=== PATIENT | female | born 1940 | race Caucasian/White ===

== ENCOUNTER → 2018-02-15 09:02 | Outpatient (CLI) | payer MEDICARE, OTHER, SELFPAY ==
[2018-02-15 10:55] LABS: Anion Gap 10 (5-15); BUN 23 mg/dL (7-18); BUN/Creat Ratio 17.3 RATIO (10-20); Chloride 111 mmol/L (98-107); Cholesterol 164 mg/dL (200); Creatinine, Serum 1.33 mg/dL (0.55-1.02); EST Glomerular Filtration Rate 41 mL/min (>60); Est Glom Filt Rate - Afr Amer 50 mL/min (>60); Glucose 123 mg/dL (74-106); High Density Lipoprotein 47 mg/dL; Potassium 4.3 mmol/L (3.5-5.1); Sodium Level 145 mmol/L (136-145); Triglycerides 226 mg/dL; Very Low Density Lipoprotein 45 mg/dL (5-40)
[2018-02-15 11:01] LABS: Hemoglobin A1c 6.3 % (4.2-6.3)
== END ==
PROVIDERS: Family Provider Family Medicine; PCP Family Medicine; Visit Provider Family Medicine
DX: I10 Essential (primary) hypertension (principal); R73.03 Prediabetes; E78.00 Pure hypercholesterolemia, unspecified
CPT/HCPCS: 36415; 80048; 80061; 83036

== ENCOUNTER → 2018-04-05 12:25 | Outpatient (CLI) | payer MEDICARE, OTHER, SELFPAY ==
[2018-04-05 13:51] LABS: Absolute Neutrophil Count 6.1 X10^3/uL (2.0-7.7); Basophil# 0.03 X10^3/uL; Basophil% 0.4 % (0-1); Eosinophil# 0.23 X10^3/uL; Eosinophils% 2.7 % (0-5); Hematocrit 38.6 % (37-47); Hemoglobin 12.3 g/dl (12.0-15.0); Mean Corp Hgb Conc 31.9 g/gl (32-36); Mean Corpuscular Hgb 30.1 pg (27.0-32.0); Mean Corpuscular Volume 94.6 fL (81-99); Mean Platelet Vol. 10.4 fl (6.2-12.0); Monocyte# 0.41 X10^3/uL; Monocyte% 4.8 % (0-10); Platelet Count 278 K/mm3 (150-450); RBC Distribution Width CV 13.4 % (11.6-14.6); Red Blood Count 4.08 M/mm3 (4.2-5.4); White Blood Count 8.5 K/mm3 (4.4-11.0)
[2018-04-05 13:52] LABS: POSITIVE COUNT NO; POSITIVE DIFFERENTIAL NO; POSITIVE MORPHOLOGY NO
[2018-04-05 14:17] LABS: ALB/GLOB Ratio 0.9 RATIO (0.9-2.4); AST(SGOT) 12 U/L (15-37); Alanine Aminotransfer ALT/SGPT 15 U/L (13-56); Albumin, Serum 3.6 g/dL (3.2-5.0); Alkaline Phosphatase 116 U/L (45-117); Anion Gap 9 (5-15); BUN 21 mg/dL (7-18); BUN/Creat Ratio 17.6 RATIO (10-20); Calcium,Total 9.9 mg/dL (8.5-10.1); Chloride 106 mmol/L (98-107); Creatinine, Serum 1.19 mg/dL (0.55-1.02); EST Glomerular Filtration Rate 47 mL/min (>60); Est Glom Filt Rate - Afr Amer 56 mL/min (>60); Glucose 87 mg/dL (74-106); Potassium 4.4 mmol/L (3.5-5.1); Protein, Total 7.6 g/dL (6.4-8.2); Sodium Level 143 mmol/L (136-145); Thyroid Stim Hormone (TSH) 2.24 uIU/mL (0.358-3.74)
[2018-04-06 08:32] LABS: Vitamin D,25 Hydroxy 21.6 ng/mL (29.95-100.01)
== END ==
PROVIDERS: Family Provider Family Medicine; PCP Family Medicine; Visit Provider Family Medicine
DX: I48.91 Unspecified atrial fibrillation (principal); R53.83 Other fatigue
CPT/HCPCS: 36415; 80053; 82306; 84443; 84484; 85025

== ENCOUNTER → 2018-08-18 09:21 | Outpatient (CLI) | payer MEDICARE, OTHER, SELFPAY ==
[2018-08-18 10:41] LABS: Anion Gap 9 (5-15); BUN 23 mg/dL (7-18); BUN/Creat Ratio 16.8 RATIO (10-20); Calcium,Total 9.8 mg/dL (8.5-10.1); Chloride 108 mmol/L (98-107); Cholesterol 171 mg/dL (200); Creatinine, Serum 1.37 mg/dL (0.55-1.02); EST Glomerular Filtration Rate 40 mL/min (>60); Est Glom Filt Rate - Afr Amer 48 mL/min (>60); Glucose 116 mg/dL (74-106); High Density Lipoprotein 46 mg/dL; Potassium 4.1 mmol/L (3.5-5.1); Sodium Level 143 mmol/L (136-145); Triglycerides 283 mg/dL; Very Low Density Lipoprotein 57 mg/dL (5-40)
[2018-08-18 10:57] LABS: Hemoglobin A1c 6.1 % (4.2-6.3)
== END ==
PROVIDERS: Family Provider Family Medicine; PCP Family Medicine; Referring Provider Family Medicine; Visit Provider Family Medicine
DX: N18.2 Chronic kidney disease, stage 2 (mild) (principal); R73.03 Prediabetes; E78.00 Pure hypercholesterolemia, unspecified
CPT/HCPCS: 36415; 80048; 80061; 83036

== ENCOUNTER → 2018-11-04 12:20 | Outpatient (CLI) | payer MEDICARE, OTHER, SELFPAY ==
[2018-07-13 14:27] VITALS: BMI 36.2
--- NOTE | 2018-11-04 12:28 | RAD_ITS ---
STUDY: X-RAY - BILATERAL HIPS WITH PELVIS REASON FOR EXAM: Female, 77 years old. Pain in the lower back radiating to the left hip down the left leg, right hip replacement TECHNIQUE: 2 views of the right hip, and 2 views of the left hip were obtained. AP pelvis. COMPARISON: None. FINDINGS: Pelvic ring is intact without evidence of fracture. Operative changes of the visualized lumbar spine noted. Sacroiliac joints and pubic symphysis are grossly unremarkable. Right Hip: Right hip replacement is in radiographic alignment. Left Hip: There are osteoarthritic changes of the left femoral head with marginal osteophyte formation. There is osteoarthritic spur formation of the left acetabular rim. There is severe articular joint space narrowing of the left hip. RAD/Hips B/L min 2 views w/ Pelvis IMPRESSION: 1. Radiographic alignment of right hip replacement. 2. Severe osteoarthrosis of the left hip Electronically Signed: Nilson Duarte MD at 18:48 EST , Service support ,
--- NOTE | 2018-11-04 12:28 | RAD_ITS ---
STUDY: X-RAY - LUMBAR SPINE REASON FOR EXAM: Female, 77 years old. No known recent injury. Pain in lower back radiating into left hip and down left leg. Patient states her back fusion was about 4 yrs ago. TECHNIQUE: 3 view(s) of the lumbar spine were obtained. COMPARISON: October 07, 2015 FINDINGS: Normal lumbar lordosis. There is posterior fusion with transpedicular screws at L3, L4 and L5. Again noted is the grade 1 anterolisthesis at L3/L4 and L4/L5, stable since prior examination There is multilevel endplate spondylosis of the lumbar vertebrae. There is multi-level degenerative disc disease with multi-level disc space narrowing. The soft tissue structures are unremarkable. RAD/Lumbar Spine 2 or 3 Views IMPRESSION: Stable examination. Degenerative changes of the spine. Electronically Signed: John Cano MD at 8:56 EST Tel , Service support ,
== END ==
PROVIDERS: Family Provider Family Medicine; PCP Family Medicine; Referring Provider Family Medicine; Visit Provider Family Medicine
DX: M16.12 Unilateral primary osteoarthritis, left hip (principal); Z96.643 Presence of artificial hip joint, bilateral; M54.5 Low back pain
CPT/HCPCS: 72100; 73521

== ENCOUNTER 2018-11-13 15:11 | Emergency (ER) | payer MEDICARE, OTHER, SELFPAY ==
[2018-11-13 15:12] VITALS: BP 169/100; PULSE 65; RESP 15; TEMP 36.6; O2SAT 96; BMI 33.6
--- NOTE | 2018-11-13 15:24 | RAD_ITS ---
STUDY: X-RAY - PELVIS REASON FOR EXAM: Female, 77 years old. Pain, no known injury TECHNIQUE: One view of the pelvis was obtained. COMPARISON: 11/04/2018 FINDINGS: Stable postsurgical changes of the right hip. No evidence of acute fracture or dislocation. Severe degenerative change of the left hip. Postsurgical changes of the lower lumbar spine with moderate degenerative change of the SI joints. No acute findings RAD/Pelvis 1 or 2 Views IMPRESSION: No acute findings Electronically Signed: Cordell Hunter DO at 16:13 EST Tel , Service support ,
--- NOTE | 2018-11-13 15:27 | ED.VISSUMM ---
- ER Visit Summary Date of Service: 11/13/18 Chief Complaint: Atraumatic right hip pain History of Present Illness: The patient is a 77 F status post hip replacement about [address] Beto Wright. Patient states the last 2 days she has had right hip pain primarily with movement or ambulation. She denies any fever or chills. No redness, warmth or swelling. She has had a hip replaced she really denies having any pain to this area. She does have intermittent left hip pain is having that evaluated later this week. She denies any type of falls or trauma. She denies any worsening right knee or ankle pain. Physical Examination: Well-appearing older female coming by her spouse. Vital signs are stable and afebrile. H EENT exam unremarkable. Neck nontender no lymphadenopathy. Lungs clear to auscultation bilaterally. Heart regular rhythm no murmur. Rate about 70. Abdomen soft and nontender. Normal bowel sounds no peritoneal signs. Back nontender. Both the upper extremities are nontender with normal range of motion. Equal symmetrical 5 out of 5 aircraft air conditioning mechanic strength. Both lower extremities she has normal range of motion of both hips, knees, ankles and feet. Calves are nontender. There is no edema. She has mild tenderness to the right lateral hip and right thigh but there is no redness, warmth or swelling. There are no signs of trauma. Again she has normal range of motion both lower extremities. Dorsi plantar flexion intact. Normal touch sensation in both feet. Normal DP pulse in the right. Back exam is nontender. Neurologically she is awake alert with no focal motor deficits. Test Results: Right hip and pelvis x-rays show no acute process. No fractures. Pelvis left hip shows degenerative joint disease but no fracture. The prosthesis on the right hip and femur x-rays all looks unremarkable. There is no periprosthetic fractures. It looks like it still in the bone normally. There does not appear to be any loosening. Emergency Department Course and Treatment: Patient was offered but deferred anything for pain at this time. I went over all x-rays with the patient and her . They are not going to follow-up with her physician Dr. Beto Wright. Treatment Plan: He will he has an appointment with her orthopedic office this week. He did request something stronger for pain states Tylenol is not working. She will be written for a prescription for Percocet No. 20 no refill. Disposition: Discharge Impression: Acute, atraumatic right hip pain of uncertain cause. Status post right hip prosthesis Left hip arthritis This note was generated with Jemstep dictation software. It may contain incorrect words, spelling, and punctuation that were not noted in review of the chart prior to signing ED Disposition - Plan for ED Patient: Disposition: Home or Assisted Living Chief Complaint: Lower Extremity Injury Prescriptions: Oxycodone HCl/Acetaminophen [Percocet 7.5-325 mg Tablet] 1 tab PO Q6H PRN PRN 7 Days #20 tab PRN Reason: Pain Referrals: Beto Wright DO [STAFF PHYSICIAN] - As soon as possible Additional Instructions: Ice to right hip. Tylenol for pain. Keep your scheduled appointment or try to get in sooner if she Dr. Wright.
--- NOTE | 2018-11-13 15:35 | RAD_ITS ---
STUDY: X-RAY - RIGHT FEMUR REASON FOR STUDY: Female, 77 years old. Pain. TECHNIQUE: 4 view(s) of the femur. COMPARISON: 11/04/2018. FINDINGS: There is no fracture or dislocation. The patient is status post right hip replacement. There is no prosthetic or periprosthetic fracture. No radiographic evidence of loosening. Joint spaces are well-maintained. Soft tissues and bony structures are unremarkable. RAD/Femur Min 2 Views IMPRESSION: Right hip replacement, otherwise negative x-ray examination of the femur. Electronically Signed: Mabel Dorado MD at 17:23 EST Tel , Service support ,
--- NOTE | 2018-11-13 16:01 | ED.DEP ---
ED Disposition - Plan for ED Patient: Disposition: Home or Assisted Living Chief Complaint: Lower Extremity Injury Prescriptions: Oxycodone HCl/Acetaminophen [Percocet 7.5-325 mg Tablet] 1 tab PO Q6H PRN PRN 7 Days #20 tab PRN Reason: Pain Referrals: Beto Wright DO [STAFF PHYSICIAN] - As soon as possible Additional Instructions: Ice to right hip. Tylenol for pain. Keep your scheduled appointment or try to get in sooner if she Dr. Wright.
[2018-11-13 16:29] VITALS: BP 138/74; PULSE 65; RESP 16; O2SAT 96
== END 2018-11-13 16:31 | disposition home or self-care (01) ==
PROVIDERS: Emergency Provider Emergency Medicine; Family Provider Family Medicine; PCP Family Medicine
DX: M25.551 Pain in right hip (principal); Z96.641 Presence of right artificial hip joint; M13.852 Other specified arthritis, left hip; I10 Essential (primary) hypertension; E78.00 Pure hypercholesterolemia, unspecified
CPT/HCPCS: 72170; 73552; 99282

== ENCOUNTER 2019-01-30 05:29 | Inpatient (IN) | payer MEDICARE, OTHER, SELFPAY ==
[2019-01-17 10:35] VITALS: BP 160/75; PULSE 69; RESP 18; TEMP 36.8; O2SAT 93; BMI 36.0
--- NOTE | 2019-01-17 10:40 | EKG12_ITS ---
Test Reason : Blood Pressure : / mmHG Vent. Rate : 063 BPM Atrial Rate : 063 BPM P-R Int : 150 ms QRS Dur : 084 ms QT Int : 394 ms P-R-T Axes : 047 073 027 degrees QTc Int : 403 ms Normal sinus rhythm Normal ECG Confirmed by ROSMERY WALL, DEEPTHI ([id number]), commissioning editor CELINE PEREZ ([id number]) on 01/19/2019 11:12:46 AM Referred By: Beto Wright Confirmed By:DEEPTHI BOTELLO MD
[2019-01-17 11:28] LABS: Absolute Lymphocyte Count 1.24 X10^3/ul (0.83-4.51); Absolute Neutrophil Count 7.7 X10^3/uL (2.0-7.7); Basophil# 0.06 X10^3/uL; Basophil% 0.6 % (0-1); Eosinophil# 0.33 X10^3/uL; Eosinophils% 3.3 % (0-5); Hematocrit 35.6 % (37-47); Hemoglobin 11.2 g/dl (12.0-15.0); Lymphocyte # 1.24 X10^3/ul (4.0); Lymphocyte % 12.5 % (19-41); Mean Corp Hgb Conc 31.5 g/gl (32-36); Mean Corpuscular Hgb 30.7 pg (27.0-32.0); Mean Corpuscular Volume 97.5 fL (81-99); Mean Platelet Vol. 10.3 fl (6.2-12.0); Monocyte# 0.56 X10^3/uL; Monocyte% 5.6 % (0-10); Neutrophil # 7.73 X10^3/uL (2.7-7.7); Neutrophil % 77.9 % (47-70); Platelet Count 293 K/mm3 (150-450); RBC Distribution Width CV 13.1 % (11.6-14.6); RBC Distribution Width SD 47.1 fl (35.1-43.9); Red Blood Count 3.65 M/mm3 (4.2-5.4); White Blood Count 9.9 K/mm3 (4.4-11.0)
[2019-01-17 11:30] LABS: Differential Indicated SCAN CRITERIA MET; POSITIVE COUNT NO; POSITIVE DIFFERENTIAL NO; POSITIVE MORPHOLOGY YES
[2019-01-17 12:08] LABS: Anion Gap 11 (5-15); BUN 20 mg/dL (7-18); BUN/Creat Ratio 16.4 RATIO (10-20); Calcium,Total 9.6 mg/dL (8.5-10.1); Chloride 109 mmol/L (98-107); Creatinine, Serum 1.22 mg/dL (0.55-1.02); EST Glomerular Filtration Rate 45 mL/min (>60); Est Glom Filt Rate - Afr Amer 55 mL/min (>60); Estimated Creatinine Clearance 29.57 ml/min; Glucose 134 mg/dL (74-106); Potassium 4.2 mmol/L (3.5-5.1); Sodium Level 146 mmol/L (136-145); Thyroid Stim Hormone (TSH) 2.48 uIU/mL (0.358-3.74)
[2019-01-30] VITALS (14 sets, daily range): BP systolic 97–179; BP diastolic 43–77; PULSE 66–76; RESP 16–18; TEMP 36.2–37.1; O2SAT 91–98; BMI 36.0; BMI 36.2
[2019-01-30] MEDS: oxyCODONE HCl Cr 10 MG Tablet PO (06:23)
[2019-01-30] MEDS: Acetaminophen 500 MG Tablet 1000 MG PO ×3 (06:23→20:29)
--- NOTE | 2019-01-30 07:15 | HIP_PTH ---
PATIENT: LIN MCQUEEN LOC: [facility]3 U#:[id number] AGE/SX: 78/F ROOM: MS307 RE01/30/[address]: Dr. Beto Wright DO : 1940 BED: 1 DIS: 02/01/2019 SPEC #: [id number] RECD: 01/30/19 09:41 STATUS: JAIRO REQ #: [id number] PETAR: 01/30/19 07:[address]: Beto Wright DEPT: SURGICAL PATHOLOGY RECD BY: Andrey Harris ENTERED: 01/30/19 13:03 SP TYPE: TOTAL HIP OTHR DR: Dr. Serge Marrero MD Tissues: Hip, NOS Procedures: Decalcification bone/plaque Surgery Specimen Level IV HEADER OPERATION: Total hip replacement PRE-OP DIAGNOSIS: Severe osteoarthritis TISSUE SUBMITTED: Bone and soft tissue MICROSCOPIC DIAGNOSIS Bone and soft tissue of left hip, total hip resection: Severe degenerative joint disease. Mild synovial hyperplasia. AM:yu 02/02/19 MICROSCOPIC DESCRIPTION Slides are reviewed. GROSS DESCRIPTION Received is one container designated bone and soft tissue, left femoral head. The specimen consists of a jones femoral head with portion of femoral neck. The femoral head measures 4 x 4.5 x 4.5 cm and the femoral neck measures up to 1.5 cm in length. The articular surface displays prominent osteophyte formation, eburnation and bone erosion. Also present in the specimen container are multiple irregular fragments of bone reamings and pink-yellow soft tissue measuring in aggregate 7 x 8 x 2.5 cm. Electrical Machine Builder sections are submitted in two cassettes as follows: 1 - soft tissue, 2 - bone after decalcification. / SJ:yu 01/30/19 TC:5 [facility]: [id number], [id number]
--- NOTE | 2019-01-30 07:23 | RAD_ITS ---
STUDY: X-RAY - LEFT HIP REASON FOR EXAM: Female, 78 years old. Status post left total hip replacement. TECHNIQUE: 2 views of the hip. COMPARISON: None. FINDINGS: The patient is status post left total hip replacement. There is good alignment. Postoperative soft tissue changes. Prior right total hip replacement. Normal visualized superior and inferior pubic rami and ischial tuberosities. RAD/Hip 1 view with Pelvis IMPRESSION: Status post left total hip replacement. There is good alignment. Postoperative soft tissue changes. Electronically Signed: Jhonny Andrade, at 10:14 EDT , Service support ,
[2019-01-30] MEDS: Cefazolin 2 GM in 0.9% Normal Saline 100 ML IV (07:26)
--- NOTE | 2019-01-30 08:42 | PCM.OPRPT ---
Report of Operation Date of Procedure: 01/30/19 Pre-Operative Diagnosis: OA left hip Post-Operative Diagnosis: same Surgery/Procedure Performed:: Left THR master carpenter: Viraj Davalos Type of Anesthesia:: Spinal Anesthesiologist: Sunny Quinones Description of Procedure: Primary Surgeon/Physician: Beto Wright master carpenter: Viraj Davalos PA-C master carpenter: Pre-Operative Diagnosis: OA left hip Post-Operative Diagnosis: same Surgery/Procedure Performed: Left THR Estimated Blood Loss: 100cc Specimen's Removed: bone Type of Anesthesia: spinal ASA Class: ASA3 Severe Disease Implants: [Lalito Trident tritanium cluster hole size 46 cup, MDM liner, Size 5 Accolade 2 132 degree stem with +3 neck langth ] Surgical Indications: Patient has severe end-stage osteoarthritic changes in the [left ] hip. They have failed conservative measures including activity modification, anti-inflammatories, use of assistive devices. This to the point where the pain affects their ability to enjoy life and complete activities of daily living without discomfort. Patient has elected to undergo the above procedure Procedure Description: The patient was greeted in the preoperative area the [left ] hip was marked with surgical marker preoperative antibiotics administered. The patient was then taken to or suite in stable condition. Preoperative tranexamic acid was also utilized. Once the patient was placed in the supine position on the operating room table and once adequate anesthesia was obtained they were then placed in the lateral decubitus position with the surgical hip facing the field. All bony prominences were well-padded. A commercial hip position was utilized. The appropriate extremity was then prepped and draped in usual sterile fashion. Ioban was placed on the skin. Surgical timeout was performed and surgery was commenced. A standard posterior approach to the hip was then performed. Incision was planned and carried out with a #10 blade scalpel. Dissection was then carried length of the incision to the IT band which was split proximally and distally. A Charnley retractor was then placed for soft tissue retraction exposing the piriformis. A standard posterior capsulotomy was performed. Severe eburnation of bone was noted and periarticular osteophytes were identified consistent with severe end-stage osteoarthritis. A femoral neck osteotomy guide was used to laly the proximal femur. A femoral osteotomy was then created approximately 1 fingerbreadth above the lesser trochanter. This was measured and placed on the back table. Once this was complete acetabular retractors were placed anteriorly and posteriorly. Labrum was then removed from the acetabulum exposing the entire cup of the acetabulum. Sequential reaming was then commenced and the acetabulum was medialized and sequentially widened in order to accommodate appropriate size cup. The acetabular cup was then impacted into position to the appropriate depth referencing approximately 30? anteversion and 45? of inclination. Excellent purchase was obtained. An appropriate size MDM liner was then placed. Attention was then turned to the femoral preparation. The hip was placed in the 90/90 position and a lateralizing box osteotome was utilized. Femoral starting awl was used followed by sequential broaching to the appropriate size. Excellent purchase was obtained with the stem no stem subsidence and excellent rotational stability was confirmed. A calcar reamer was then used in the trial head neck was placed on the broach. The hip was then located and taken through full range of motion flexion internal and external rotation as well as extension. Excellent stability was noted no impingement was identified of the components and leg lengths appear to be appropriate. The hip was at this point dislocated and the trial femoral components were removed. The final femoral stem was then implanted and impacted to the appropriate depth. Again excellent purchase was obtained no stem subsidence or rotational instability was noted. The hip was once again trialed and confirmation of leg length and stability was performed. Soft tissue tension also appeared to be appropriate. At this point the hip was redislocated and the trunnion was cleaned and dried meticulously in the appropriate size MDM femoral head was placed on the clean dry trunnion using a 12/14 Solorzano taper. The hip was once again relocated and again taken through full range of motion. I did inject a cocktail of postoperative pain medication in the deep and superficial tissues. Copious irrigation was performed. Anatomic closure of the piriformis tendon was performed through drill holes in the greater trochanter. A #1 Vicryl 0 Vicryl was utilized in subcutaneous tissue and surgical austin were placed in the skin. A well-padded nonadherent dressing was applied. Patient was taken to PACU in stable condition. No complications were identified. Will follow standard postop protocol for total hip arthroplasty. My machine operator assistant played a vital role in the procedure beginning with positioning, holding retraction of soft tissues, positioning the leg to optimize visualization during the procedure and assisting with wound closure.
--- NOTE | 2019-01-30 08:47 | OP.PCM_ITS ---
Report of Operation Date of Procedure: 01/30/19 Pre-Operative Diagnosis: OA left hip Post-Operative Diagnosis: same Surgery/Procedure Performed:: Left THR associate dean of students: Viraj Davalos Type of Anesthesia:: Spinal Anesthesiologist: Sunny Quinones Description of Procedure: Primary Surgeon/Physician: Beto Wright associate dean of students: Viraj Davalos PA-C associate dean of students: Pre-Operative Diagnosis: OA left hip Post-Operative Diagnosis: same Surgery/Procedure Performed: Left THR Estimated Blood Loss: 100cc Specimen's Removed: bone Type of Anesthesia: spinal ASA Class: ASA3 Severe Disease Implants: [Lalito Trident tritanium cluster hole size 46 cup, MDM liner, Size 5 Accolade 2 132 degree stem with +3 neck langth ] Surgical Indications: Patient has severe end-stage osteoarthritic changes in the [left ] hip. They have failed conservative measures including activity modification, anti-inflammatories, use of assistive devices. This to the point where the pain affects their ability to enjoy life and complete activities of daily living without discomfort. Patient has elected to undergo the above procedure Procedure Description: The patient was greeted in the preoperative area the [left ] hip was marked with surgical marker preoperative antibiotics administered. The patient was then taken to or suite in stable condition. Preoperative tranexamic acid was also utilized. Once the patient was placed in the supine position on the operating room table and once adequate anesthesia was obtained they were then placed in the lateral decubitus position with the surgical hip facing the field. All bony prominences were well-padded. A commercial hip position was utilized. The appropriate extremity was then prepped and draped in usual sterile fashion. Ioban was placed on the skin. Surgical timeout was performed and surgery was commenced. A standard posterior approach to the hip was then performed. Incision was planned and carried out with a #10 blade scalpel. Dissection was then carried length of the incision to the IT band which was split proximally and distally. A Charnley retractor was then placed for soft tissue retraction exposing the piriformis. A standard posterior capsulotomy was performed. Severe eburnation of bone was noted and periarticular osteophytes were identified consistent with severe end-stage osteoarthritis. A femoral neck osteotomy guide was used to laly the proximal femur. A femoral osteotomy was then created approximately 1 fingerbreadth above the lesser trochanter. This was measured and placed on the back table. Once this was complete acetabular retractors were placed anteriorly and posteriorly. Labrum was then removed from the acetabulum exposing the entire cup of the acetabulum. Sequential reaming was then commenced and the acetabulum was medialized and sequentially widened in order to accommodate appropriate size cup. The acetabular cup was then impacted into position to the appropriate depth referencing approximately 30? anteversion and 45? of inclination. Excellent purchase was obtained. An appropriate size MDM liner was then placed. Attention was then turned to the femoral preparation. The hip was placed in the 90/90 position and a lateralizing box osteotome was utilized. Femoral starting awl was used followed by sequential broaching to the appropriate size. Excellent purchase was obtained with the stem no stem subsidence and excellent rotational stability was confirmed. A calcar reamer was then used in the trial head neck was placed on the broach. The hip was then located and taken through full range of motion flexion internal and external rotation as well as extension. Excellent stability was noted no impingement was identified of the components and leg lengths appear to be appropriate. The hip was at this point dislocated and the trial femoral components were removed. The final femoral stem was then implanted and impacted to the appropriate depth. Again excellent purchase was obtained no stem subsidence or rotational instability was noted. The hip was once again trialed and confirmation of leg length and stability was performed. Soft tissue tension also appeared to be appropriate. At this point the hip was redislocated and the trunnion was cleaned and dried meticulously in the appropriate size MDM femoral head was placed on the clean dry trunnion using a 12/14 Solorzano taper. The hip was once again relocated and again taken through full range of motion. I did inject a cocktail of postoperative pain medication in the deep and superficial tissues. Copious irrigation was performed. Anatomic closure of the piriformis tendon was performed through drill holes in the greater trochanter. A #1 Vicryl 0 Vicryl was utilized in subcutaneous tissue and surgical austin were placed in the skin. A well-padded nonadherent dressing was applied. Patient was taken to PACU in stable condition. No complications were identified. Will follow standard postop protocol for total hip arthroplasty. My biology research assistant played a vital role in the procedure beginning with positioning, holding retraction of soft tissues, positioning the leg to optimize visualization during the procedure and assisting with wound closure.
[2019-01-30] MEDS: Ondansetron 4 MG/2 ML Vial IV ×2 (09:41→20:13)
[2019-01-30] MEDS: Lactated Ringers 1,000 ML 125 ML IV ×2 (10:00→18:23)
--- NOTE | 2019-01-30 11:51 | NURSING ---
pt requested to use restroom. This RN and GUIDE DOMESTIC TOUR assist pt to BSC. prior to transfer pt reported having feeling bilaterally and was able to move both legs. During transfer pt was unable to move legs and had to be lifted to BSC and back to bed. Educated pt on importance of waiting to get up again until she could fully control legs. Pt stated understanding. will continue to monitor.
[2019-01-30] MEDS: Ketorolac 15 MG/ML Vial IV ×2 (13:31→20:13)
[2019-01-30] MEDS: oxyCODONE 5 MG Tablet PO (14:55)
[2019-01-30] MEDS: Cefazolin 1 GM/50 ML BAG IV ×2 (14:56→23:33)
[2019-01-30] MEDS: proMETHazine 25 MG/ML Syringe 12.5 MG IM (14:56)
[2019-01-30 16:43] LABS: Anion Gap 4 (5-15); BUN 17 mg/dL (7-18); BUN/Creat Ratio 14.5 RATIO (10-20); Calcium,Total 9.1 mg/dL (8.5-10.1); Chloride 109 mmol/L (98-107); Creatinine, Serum 1.17 mg/dL (0.55-1.02); EST Glomerular Filtration Rate 47 mL/min (>60); Est Glom Filt Rate - Afr Amer 57 mL/min (>60); Estimated Creatinine Clearance 29.42 ml/min; Glucose 129 mg/dL (74-106); Potassium 3.9 mmol/L (3.5-5.1); Sodium Level 139 mmol/L (136-145)
[2019-01-30 16:46] LABS: Hemoglobin 10.2 g/dl (12.0-15.0); Mean Corp Hgb Conc 30.9 g/gl (32-36); Mean Corpuscular Hgb 31.4 pg (27.0-32.0); Mean Corpuscular Volume 101.5 fL (81-99); Mean Platelet Vol. 10.6 fl (6.2-12.0); Platelet Count 211 K/mm3 (150-450); RBC Distribution Width CV 12.8 % (11.6-14.6); RBC Distribution Width SD 46.3 fl (35.1-43.9); Red Blood Count 3.25 M/mm3 (4.2-5.4); White Blood Count 12.3 K/mm3 (4.4-11.0)
[2019-01-30 16:48] LABS: Scan Indicated on CBC? Y/N NO
[2019-01-30] MEDS: Gabapentin 100 MG Capsule PO (18:26)
[2019-01-30] MEDS: Senna/Docusate Sodium 1 Tablet 2 TABLET PO (20:29)
[2019-01-30] MEDS: Metoprolol Tartrate 50 MG Tablet PO (20:29)
[2019-01-30] MEDS: Aspirin 325 MG Tablet PO (20:30)
[2019-01-30] MEDS: Atorvastatin Calcium 10 MG Tablet PO (20:31)
[2019-01-31 02:45] VITALS: BP 123/66; PULSE 80; RESP 16; TEMP 37.1; O2SAT 92
[2019-01-31] MEDS: oxyCODONE 5 MG Tablet PO ×3 (02:55→20:33)
[2019-01-31 03:00] VITALS: PULSE 80
[2019-01-31] MEDS: 0.9% NaCl Peripheral Flush Adult/Peds IV ×2 (04:59→05:55)
[2019-01-31] MEDS: Levothyroxine 50 MCG Tablet PO (05:01)
[2019-01-31] MEDS: Acetaminophen 500 MG Tablet 1000 MG PO ×3 (05:01→21:00)
[2019-01-31] MEDS: Ketorolac 15 MG/ML Vial IV (05:55)
[2019-01-31 06:18] LABS: Hematocrit 31.4 % (37-47); Hemoglobin 9.7 g/dl (12.0-15.0); Mean Corp Hgb Conc 30.9 g/gl (32-36); Mean Corpuscular Hgb 31.2 pg (27.0-32.0); Mean Platelet Vol. 10.5 fl (6.2-12.0); Platelet Count 198 K/mm3 (150-450); RBC Distribution Width CV 12.9 % (11.6-14.6); RBC Distribution Width SD 45.3 fl (35.1-43.9); Red Blood Count 3.11 M/mm3 (4.2-5.4); White Blood Count 9.6 K/mm3 (4.4-11.0)
[2019-01-31 06:21] LABS: Scan Indicated on CBC? Y/N NO
[2019-01-31 06:24] LABS: Anion Gap 5 (5-15); BUN 15 mg/dL (7-18); BUN/Creat Ratio 12.7 RATIO (10-20); Calcium,Total 9.1 mg/dL (8.5-10.1); Chloride 107 mmol/L (98-107); Creatinine, Serum 1.18 mg/dL (0.55-1.02); EST Glomerular Filtration Rate 47 mL/min (>60); Est Glom Filt Rate - Afr Amer 57 mL/min (>60); Estimated Creatinine Clearance 29.17 ml/min; Glucose 126 mg/dL (74-106); Potassium 4.1 mmol/L (3.5-5.1); Sodium Level 140 mmol/L (136-145)
--- NOTE | 2019-01-31 07:44 | PN.ORTHO_ITS ---
Subjective: Patient sitting at bedside eating breakfast. Patient states pain is well managed. Patient would like to go to [facility] fourth floor rehab. Patient has no other complaints. Denies chest pain, shortness breath, calf pain, nausea vomiting. Objective: Dressings clean dry intact. Negative signs and symptoms of DVT. Vital signs labs within normal limits. Patient is afebrile. No respiratory distress, speaking in full sentences. - Physical Exam General: Alert, Oriented x3, Cooperative HEENT: PERRLA Oral: Moist Mucosa Neurological: Cranial nerves II-XII grossly intact Psych/Mental Status: Normal Affect, Alert and oriented to time, place, person, mood and affect Vital Signs Temp Pulse Resp BP Pulse Ox 98.7 F 80 16 123/66 H 92 01/31/19 02:45 01/31/19 03:00 01/31/19 02:45 01/31/19 02:45 01/31/19 02:45 Oxygen Delivery Method Room Air Weight: 89.35 kg Body Mass Index (BMI) 36.2 Intake and Output for Last 24 Hours 01/29/19 01/30/19 01/31/19 23:59 23:59 23:59 Intake Total 2030 1587 / 1587 Output Total 350 / 350 Balance 2030 1237 / 1237 Laboratory Tests Past 24 Hrs 01/30/19 01/30/19 01/31/19 16:10 16:10 05:45 WBC 12.3 H 9.6 RBC 3.25 L 3.11 L Hgb 10.2 L 9.7 L Hct 33.0 L 31.4 L MCV 101.5 H 101.0 H MCH 31.4 31.2 MCHC 30.9 L 30.9 L RDW 12.8 12.9 RDW Differential 46.3 H 45.3 H Plt Count 211 198 MPV 10.6 10.5 Sodium 139 Potassium 3.9 Chloride 109 H Carbon Dioxide 26.0 Anion Gap 4 L BUN 17 Creatinine 1.17 H Estim Creat Clear Calc 29.42 Est GFR (MDRD) Af Amer 57 L Est GFR (MDRD) Non-Af 47 L BUN/Creatinine Ratio 14.5 Glucose 129 H Calcium 9.1 01/31/19 05:45 WBC RBC Hgb Hct MCV MCH MCHC RDW RDW Differential Plt Count MPV Sodium 140 Potassium 4.1 Chloride 107 Carbon Dioxide 28.0 Anion Gap 5 BUN 15 Creatinine 1.18 H Estim Creat Clear Calc 29.17 Est GFR (MDRD) Af Amer 57 L Est GFR (MDRD) Non-Af 47 L BUN/Creatinine Ratio 12.7 Glucose 126 H Calcium 9.1 Medical Necessity - Tobacco Use Smoking Status: Never smoker Assessment/Plan All Active Problems (Last Reviewed 07/13/18 @ 14:30 by Kelsie Cui) Paroxysmal atrial fibrillation (Acute) Status post left total hip arthroplasty Plan 1. Continue all pain medications as prescribed 2. Begin physical therapy today, weight-bear as tolerated, with walker. 3. Aspirin 325 mg 1 p.o. every 12 hours times 30 days for postop DVT prophylaxis 4. Encourage incentive spirometry 5. Possible discharge to [facility] for for rehab tomorrow
--- NOTE | 2019-01-31 09:00 | CASEMGMT ---
Social Work Note CONCETTA reviewed notes. It appears pt would like to go to [facility] at discharge. CONCETTA placed a call to Danielle with [facility]. Danielle states she will for sure have a bed and maybe a bed tomorrow and will review referral and give this worker a call back. Plan: [facility] pending acceptance Joann Guillen MSW, MANAGER OF SALES
[2019-01-31 10:12] VITALS: BP 107/56; PULSE 87; RESP 18; TEMP 37.2; O2SAT 93
[2019-01-31] MEDS: Gabapentin 100 MG Capsule PO ×3 (10:14→17:03)
[2019-01-31 10:15] VITALS: PULSE 87
[2019-01-31] MEDS: Pantoprazole Sodium 40 MG Tablet PO (10:15)
[2019-01-31] MEDS: Metoprolol Tartrate 50 MG Tablet PO ×2 (10:15→21:00)
[2019-01-31] MEDS: Aspirin 325 MG Tablet PO ×2 (10:15→21:00)
[2019-01-31] MEDS: Losartan Potassium 100 MG Tablet PO (10:15)
[2019-01-31] MEDS: Senna/Docusate Sodium 1 Tablet 2 TABLET PO ×2 (10:15→21:00)
--- NOTE | 2019-01-31 10:40 | CASEMGMT ---
ÁLVARO ANDRADE Face to Face with patient for initial transition planning/care coordination assessment. ÁLVARO ANDRADE introduced self and role at [facility]. Patient lying in bed, alert and oriented. Patient willing to participate in assessment and is able to answer all questions appropriately. Care providers, pharmacy, and demographics verified. Patient wishes to discharge to the inpatient rehab unit. Patient states she has no further needs or concerns at this time. CONCETTA RalphBasilia Guillen updated regarding request for inpatient rehab. PCP: Serge Marrero Specialists: Frank laborer cook house [facility] Prescription Benefit: yes Living Will/HPOA: None LNOK: Living Arrangements: patient lives with in a bi-level home with 7 steps to get to main level of the house. Patient was independent at home. Transportation: DME/HHC: Patient has walker, cane, shower chair, raised toilet seat. Patient has been to [facility] in the past. Disposition Plan: Patient would like to discharge to inpatient rehab unit. Joann MEDINA, RN, CM
[2019-01-31] MEDS: Calcium Carb/Vitamin D 1 TABLET Tablet PO (11:28)
[2019-01-31] MEDS: Multivitamins,Therapeutic Tablet 1 TABLET PO (11:28)
[2019-01-31 13:32] VITALS: BP 116/90; PULSE 116; RESP 18; TEMP 36.8; O2SAT 98
--- NOTE | 2019-01-31 13:51 | CASEMGMT ---
Social Work Note SW spoke with Danielle in [facility] stating she is able to accept pt tomorrow. Pt updated. Plan: [facility] tomorrow Joann Guillen LOAN COLLECTOR, EXTERMINATOR TERMITE
[2019-01-31 21:00] VITALS: BP 113/81; PULSE 79; RESP 17; TEMP 37.1; O2SAT 94
[2019-01-31] MEDS: Atorvastatin Calcium 10 MG Tablet PO (21:00)
[2019-02-01] MEDS: oxyCODONE 5 MG Tablet PO ×2 (03:48→12:50)
[2019-02-01 03:52] VITALS: BP 127/52; PULSE 73; RESP 17; TEMP 36.8; O2SAT 95
[2019-02-01] MEDS: Levothyroxine 50 MCG Tablet PO (05:40)
[2019-02-01] MEDS: Acetaminophen 500 MG Tablet 1000 MG PO (05:40)
[2019-02-01 08:08] VITALS: BP 122/61; PULSE 82; RESP 16; TEMP 36.7; O2SAT 93
[2019-02-01] MEDS: Gabapentin 100 MG Capsule PO ×2 (08:10→11:00)
--- NOTE | 2019-02-01 09:50 | CASEMGMT ---
Addendum entered by Joann Guillen 02/01/19 11:53: Physician is discharging pt to [facility] today. Scripts provided to hospital secretary. Original Note: Social Work Note SW spoke with Danielle with [facility] stating she is able to accept pt today. Plan: [facility] today Joann Guillen COMPUTER ANIMATOR, MAT PUNCHER
[2019-02-01] MEDS: Aspirin 325 MG Tablet PO (10:49)
[2019-02-01 10:50] VITALS: PULSE 82
[2019-02-01] MEDS: Metoprolol Tartrate 50 MG Tablet PO (10:50)
[2019-02-01] MEDS: Losartan Potassium 100 MG Tablet PO (10:50)
[2019-02-01] MEDS: Senna/Docusate Sodium 1 Tablet 2 TABLET PO (10:50)
[2019-02-01] MEDS: Pantoprazole Sodium 40 MG Tablet PO (10:50)
[2019-02-01] MEDS: Calcium Carb/Vitamin D 1 TABLET Tablet PO (11:00)
[2019-02-01] MEDS: Multivitamins,Therapeutic Tablet 1 TABLET PO (11:00)
--- NOTE | 2019-02-01 11:19 | PCM.PN.ORT ---
Subjective: Patient was sitting up in bed sleeping. Patient was easy to awake. Patient has no complaints. Denies chest pain, shortness breath, calf pain, nausea vomiting. States she is ready for discharge to [facility] for for rehab Objective: Dressing is clean dry intact. Negative signs and symptoms of DVT. Vital signs labs within normal limits. Patient is afebrile neurovascular is otherwise intact. Patient has no respiratory distress, speaking full sentences. - Physical Exam General: Alert, Oriented x3, Cooperative HEENT: PERRLA Oral: Moist Mucosa Neurological: Cranial nerves II-XII grossly intact Psych/Mental Status: Normal Affect, Alert and oriented to time, place, person, mood and affect Vital Signs Temp Pulse Resp BP Pulse Ox 98.1 F 82 16 122/61 H 93 02/01/19 08:08 02/01/19 10:50 02/01/19 08:08 02/01/19 08:08 02/01/19 08:08 Oxygen Delivery Method Room Air Weight: 89.35 kg Body Mass Index (BMI) 36.2 Intake and Output for Last 24 Hours 01/30/19 01/31/19 02/01/19 23:59 23:59 23:59 Intake Total 2030 2337 / 2337 300 / 300 Output Total 670 / 670 350 / 350 Balance 2030 1667 / 1667 -50 / -50 Medical Necessity - Tobacco Use Smoking Status: Never smoker Assessment/Plan All Active Problems (Last Reviewed 07/13/18 @ 14:30 by Kelsie Cui) Paroxysmal atrial fibrillation (Acute) Status post left total hip arthroplasty Plan 1. Continue all pain medications as prescribed 2. Continue physical therapy at [facility] for for rehab. weight-bear as tolerated, with walker. 3. Aspirin 325 mg 1 p.o. every 12 hours times 30 days for postop DVT prophylaxis 4. Encourage incentive spirometry 5. Discharge to [facility] for for rehab today 6. Follow-up as scheduled at [facility], see pink sheet
--- NOTE | 2019-02-01 11:24 | PN.ORTHO_ITS ---
Subjective: Patient was sitting up in bed sleeping. Patient was easy to awake. Patient has no complaints. Denies chest pain, shortness breath, calf pain, nausea vomiting. States she is ready for discharge to [facility] for for rehab Objective: Dressing is clean dry intact. Negative signs and symptoms of DVT. Vital signs labs within normal limits. Patient is afebrile neurovascular is otherwise intact. Patient has no respiratory distress, speaking full sentences. - Physical Exam General: Alert, Oriented x3, Cooperative HEENT: PERRLA Oral: Moist Mucosa Neurological: Cranial nerves II-XII grossly intact Psych/Mental Status: Normal Affect, Alert and oriented to time, place, person, mood and affect Vital Signs Temp Pulse Resp BP Pulse Ox 98.1 F 82 16 122/61 H 93 02/01/19 08:08 02/01/19 10:50 02/01/19 08:08 02/01/19 08:08 02/01/19 08:08 Oxygen Delivery Method Room Air Weight: 89.35 kg Body Mass Index (BMI) 36.2 Intake and Output for Last 24 Hours 01/30/19 01/31/19 02/01/19 23:59 23:59 23:59 Intake Total 2030 2337 / 2337 300 / 300 Output Total 670 / 670 350 / 350 Balance 2030 1667 / 1667 -50 / -50 Medical Necessity - Tobacco Use Smoking Status: Never smoker Assessment/Plan All Active Problems (Last Reviewed 07/13/18 @ 14:30 by Kelsie Cui) Paroxysmal atrial fibrillation (Acute) Status post left total hip arthroplasty Plan 1. Continue all pain medications as prescribed 2. Continue physical therapy at [facility] for for rehab. weight-bear as tolerated, with walker. 3. Aspirin 325 mg 1 p.o. every 12 hours times 30 days for postop DVT prophylaxis 4. Encourage incentive spirometry 5. Discharge to [facility] for for rehab today 6. Follow-up as scheduled at [facility], see pink sheet
--- NOTE | 2019-02-01 11:30 | DCINST_ITS ---
Discharge Diet: No Restrictions Discharge Activity: May Not Drive, May Shower, Use Walker May shower in (days): 2 - only if incision is dry and without drainage. Do NOT soak/submerge in tub/pool/weber/stream/hot tub. May resume sexual activity in: No Restrictions Ice area for (Minutes): 20 - every hour while awake Weight Bearing Status: Weight bearing as tolerated Lifting Restrictions: 20 pounds Elevate: Operative Extremity Call your doctor if your incision/area has: Continuous Slow Oozing, Sudden Increased Bleeding, Increased Pain/ Swelling, Increased Redness, Foul Smelling Discharge Call your doctor if you observe: Fever of 101 or Higher, Inability to urinate, Inability to have a bowel movement, Shortness of breath, Fainting spells, Chest pain, Increased palpitations (irregular heartbeat), Calf discomfort, Uncontrolled pain Change Dressing in (Days):: 0 - Change daily and as needed. Remove Dressing in (days):: 7 Cleanse incision/area with: Soap & Water Allergies/Adverse Reactions: Allergies amlodipine Allergy (Verified 01/30/19 06:20) Unknown grepafloxacin [From Raxar] Allergy (Verified 01/30/19 06:20) Unknown pravastatin Allergy (Verified 01/30/19 06:20) Unknown ciprofloxacin [From Cipro] Adverse Reaction (Verified 01/30/19 06:20) Other INSOMNIA Medications to take at Discharge Levothyroxine [Synthroid] 50 mcg PO DAILY 09/21/13 Simvastatin [Zocor] 20 mg PO QHS 09/21/13 Multivitamin [Daily Multiple Vitamin] 1 ea PO DAILY 09/03/15 cetirizine 10 mg tablet 10 mg PO QDAY PRN tab 10/11/17 pantoprazole 40 mg tablet,delayed release 40 mg PO QDAY 10/13/17 cholecalciferol (vitamin D3) 4,000 unit tablet 4,000 unit PO DAILY 07/13/18 meloxicam 7.5 mg tablet 2 tab PO DAILY tab 07/13/18 Calcium Citrate/Vitamin D3 [Citracal + D Maximum Caplet] 400 mg PO DAILY 01/17/19 Gabapentin [Neurontin] 100 mg PO TID 01/17/19 Losartan Potassium [Cozaar] 100 mg PO DAILY 01/17/19 Metoprolol Tartrate [Lopressor (beta colette)] 50 mg PO BID 01/17/19 Acetaminophen [Tylenol] 1,000 mg PO Q8 #90 tab 02/01/19 Aspirin 325 mg PO BID #60 tab 02/01/19 Oxycodone [Oxyir] 5 - 10 mg PO Q6H PRN PRN 7 Days #60 tab 02/01/19 Senna/Docusate Sodium [Senokot-S] 2 tab PO BID #10 tab 02/01/19 The following prescriptions were given: Oxycodone [Oxyir] 5 - 10 mg PO Q6H PRN PRN 7 Days #60 tab PRN Reason: Mod-Severe Pain (-08/17) Acetaminophen [Tylenol] 1,000 mg PO Q8 #90 tab Aspirin 325 mg PO BID #60 tab Senna/Docusate Sodium [Senokot-S] 2 tab PO BID #10 tab Primary Care Physician: Serge Marrero MD [Primary Care Provider] - Test Results: Test results from this visit will be discussed in further detail at your follow- up appointment, if applicable. Please Follow Up With: Viraj Davalos PA-C When: see pink sheet
[2019-02-01 12:45] VITALS: BP 128/60; PULSE 83; RESP 16; TEMP 37; O2SAT 93
== END 2019-02-01 13:52 | DRG 470 ==
PROVIDERS: Admitting Provider Orthopaedic Surgery; Family Provider Family Medicine; PCP Family Medicine; Referring Provider Orthopaedic Surgery; Visit Provider Orthopaedic Surgery
PROC: 0SRB0JZ Replacement of Left Hip Joint with Synthetic Substitute, Open Approach (ICD-10-PCS; CPT 27130; principal; 2019-01-30 06:50)
DX: M16.12 Unilateral primary osteoarthritis, left hip (principal); I10 Essential (primary) hypertension; E78.00 Pure hypercholesterolemia, unspecified
CPT/HCPCS: 36415; 73501; 80048; 84443; 85025; 85027; 87081; 88305; 88311; 93005; 97110; 97162; 97166; 97530; 97535; C1776; J7120; A4216; J2405

== ENCOUNTER 2019-02-01 14:21 | Inpatient (IN) | payer MEDICARE, OTHER, SELFPAY ==
[2019-01-30 11:11] VITALS: BMI 36.2
[2019-02-01 14:50] VITALS: BP 121/92; PULSE 87; RESP 16; TEMP 36.7; O2SAT 94; BMI 36.6
--- NOTE | 2019-02-01 15:16 | PCM.PN.HOSP ---
Subjective: Follow up for medical mgmt Patient with a lot of pain in left hip while working with therapy. Denies any other complaints. Vitals/I&O's: Vital Signs Temp Pulse Resp BP Pulse Ox 36.7 C 87 16 121/92 H 94 02/01/19 14:50 02/01/19 14:50 02/01/19 14:50 02/01/19 14:50 02/01/19 14:50 Oxygen Delivery Method Room Air Weight: 90.9 kg Body Mass Index (BMI) 36.6 General: Alert, No apparent distress, - - uncomfortable working with therapy in bringing her left leg over the right side of the bed. Tearful. HEENT: Atraumatic, Normocephalic Neck: No Nodes, Thyroid Normal Size and Texture Lungs: Clear to auscultation, Normal air movement, No rhonchi, No wheeze Cardiovascular: Regular rate, Regular Rhythm, Normal S1, Normal S2, No murmurs Abdomen: Bowel Sounds Present, Soft, Non Tender, Non-Distended, No Hepato-splenomegaly Extremities: No edema, No Calf Tenderness Skin: No rashes, No breakdown Psych/Mental Status: Appropriate, Anxious Current Medications Acetaminophen (Tylenol) 1,000 mg PO Q8 [facility] Aspirin (Aspirin) 325 mg PO BID [facility] Calcium/Vitamin D (Os-Robert 500mg + D) 1 tablet PO DAILYCM [facility] Cholecalciferol (Vitamin D) 4,000 unit PO DAILY [facility] Gabapentin (Neurontin) 100 mg PO TID [facility] Levothyroxine Sodium (Synthroid) 50 mcg PO DAILY@0600 [facility] Loratadine (Claritin) 10 mg PO DAILY PRN PRN Reason: ALLERGIES Losartan Potassium (Cozaar) 100 mg PO DAILY [facility] Metoprolol Tartrate (Lopressor (Beta Mercy)) 50 mg PO BID [facility] Multivitamins (Multivitamin) 1 tablet PO DAILY@0800 [facility] Non-Formulary Medication (Simvastatin) 20 mg PO QHS [facility] Oxycodone HCl (Oxyir) 5 - 10 mg PO Q6H PRN PRN PRN Reason: MOD-SEVERE PAIN (4-10/10) Pantoprazole Sodium (Protonix) 40 mg PO DAILY [facility] Senna/Docusate Sodium (Senokot-S, Margie-Colace) 2 tablet PO BID [facility] Medical Necessity - Tobacco Use Smoking Status: Never smoker Assessment/Plan 1. Status post Left hip replacement: performed on 01/[address] Wright PT OT pain control with PRN oxycodone, scheduled acetaminophen and gabapentin. follow up with Dr. Perdue as outpt 2. HTN: stable continue Losartan 3. pAfib continue metoprolol no anticoagulation per cardiology since there has been no recurrence follow up with Dr. Marie as outpt (last saw in July was to follow up in 6 months) 4. DVT proph: ASA 325 BID Thank you for the consult. The hospitalist service with follow. Please call with acute issues. Code Visit Inpatient E&M: 12947 Subs Hosp L2
--- NOTE | 2019-02-01 15:24 | PN_ITS ---
Subjective: Follow up for medical mgmt Patient with a lot of pain in left hip while working with therapy. Denies any other complaints. Vitals/I&O's: Vital Signs Temp Pulse Resp BP Pulse Ox 36.7 C 87 16 121/92 H 94 02/01/19 14:50 02/01/19 14:50 02/01/19 14:50 02/01/19 14:50 02/01/19 14:50 Oxygen Delivery Method Room Air Weight: 90.9 kg Body Mass Index (BMI) 36.6 General: Alert, No apparent distress, - - uncomfortable working with therapy in bringing her left leg over the right side of the bed. Tearful. HEENT: Atraumatic, Normocephalic Neck: No Nodes, Thyroid Normal Size and Texture Lungs: Clear to auscultation, Normal air movement, No rhonchi, No wheeze Cardiovascular: Regular rate, Regular Rhythm, Normal S1, Normal S2, No murmurs Abdomen: Bowel Sounds Present, Soft, Non Tender, Non-Distended, No Hepato- splenomegaly Extremities: No edema, No Calf Tenderness Skin: No rashes, No breakdown Psych/Mental Status: Appropriate, Anxious Current Medications Acetaminophen (Tylenol) 1,000 mg PO Q8 [facility] Aspirin (Aspirin) 325 mg PO BID [facility] Calcium/Vitamin D (Os-Robert 500mg + D) 1 tablet PO DAILYCM [facility] Cholecalciferol (Vitamin D) 4,000 unit PO DAILY [facility] Gabapentin (Neurontin) 100 mg PO TID [facility] Levothyroxine Sodium (Synthroid) 50 mcg PO DAILY@0600 [facility] Loratadine (Claritin) 10 mg PO DAILY PRN PRN Reason: ALLERGIES Losartan Potassium (Cozaar) 100 mg PO DAILY [facility] Metoprolol Tartrate (Lopressor (Beta Mercy)) 50 mg PO BID [facility] Multivitamins (Multivitamin) 1 tablet PO DAILY@0800 [facility] Non-Formulary Medication (Simvastatin) 20 mg PO QHS [facility] Oxycodone HCl (Oxyir) 5 - 10 mg PO Q6H PRN PRN PRN Reason: MOD-SEVERE PAIN (4-10/10) Pantoprazole Sodium (Protonix) 40 mg PO DAILY [facility] Senna/Docusate Sodium (Senokot-S, Margie-Colace) 2 tablet PO BID [facility] Medical Necessity - Tobacco Use Smoking Status: Never smoker Assessment/Plan 1. Status post Left hip replacement: * performed on 01/[address] Wright * PT OT * pain control with PRN oxycodone, scheduled acetaminophen and gabapentin. * follow up with Dr. Perdue as outpt 2. HTN: * stable * continue Losartan 3. pAfib * continue metoprolol * no anticoagulation per cardiology since there has been no recurrence * follow up with Dr. Marie as outpt (last saw in July was to follow up in 6 months) 4. DVT proph: ASA 325 BID Thank you for the consult. The hospitalist service with follow. Please call with acute issues. Code Visit Inpatient E&M: 32623 Subs Hosp L2
[2019-02-01 16:44] VITALS: BMI 36.7
[2019-02-01] MEDS: oxyCODONE 5 MG Tablet PO ×2 (17:19→23:29)
[2019-02-01 18:49] VITALS: BP 117/52; PULSE 100; RESP 14; TEMP 36.8; O2SAT 100
[2019-02-01 19:30] VITALS: PULSE 75
[2019-02-01] MEDS: Acetaminophen 500 MG Tablet 1000 MG PO (21:04)
[2019-02-01 21:05] VITALS: BP 117/52; PULSE 75
[2019-02-01] MEDS: Gabapentin 100 MG Capsule PO (21:05)
[2019-02-01] MEDS: Senna/Docusate Sodium 1 Tablet 2 TABLET PO (21:05)
[2019-02-01] MEDS: Metoprolol Tartrate 50 MG Tablet PO (21:05)
[2019-02-01] MEDS: Aspirin 325 MG Tablet PO (21:06)
[2019-02-01] MEDS: Atorvastatin Calcium 10 MG Tablet PO (21:06)
[2019-02-01] MEDS: Magnesium Hydroxide 30 ML UDC PO (23:34)
[2019-02-02] VITALS (8 sets, daily range): BP systolic 108–136; BP diastolic 46–67; PULSE 73–78; RESP 16–20; TEMP 36.7–36.9; O2SAT 88–98
[2019-02-02] MEDS: oxyCODONE 5 MG Tablet PO ×3 (05:45→21:28)
[2019-02-02] MEDS: Gabapentin 100 MG Capsule PO ×3 (05:49→21:29)
[2019-02-02] MEDS: Acetaminophen 500 MG Tablet 1000 MG PO ×3 (05:49→21:29)
[2019-02-02] MEDS: Levothyroxine 50 MCG Tablet PO (05:49)
[2019-02-02 06:32] LABS: ALB/GLOB Ratio 0.6 RATIO (0.9-2.4); AST(SGOT) 16 U/L (15-37); Alanine Aminotransfer ALT/SGPT 10 U/L (13-56); Albumin, Serum 2.3 g/dL (3.2-5.0); Alkaline Phosphatase 113 U/L (45-117); Anion Gap 5 (5-15); BUN 20 mg/dL (7-18); BUN/Creat Ratio 16.1 RATIO (10-20); Calcium,Total 9.3 mg/dL (8.5-10.1); Chloride 106 mmol/L (98-107); Creatinine, Serum 1.24 mg/dL (0.55-1.02); EST Glomerular Filtration Rate 44 mL/min (>60); Est Glom Filt Rate - Afr Amer 54 mL/min (>60); Globulin 3.6 g/dL (2.2-4.2); Glucose 110 mg/dL (74-106); Potassium 4.1 mmol/L (3.5-5.1); Protein, Total 5.9 g/dL (6.4-8.2); Sodium Level 140 mmol/L (136-145)
[2019-02-02] MEDS: Losartan Potassium 100 MG Tablet PO (11:07)
[2019-02-02] MEDS: Aspirin 325 MG Tablet PO ×2 (11:07→21:29)
[2019-02-02] MEDS: Calcium Carb/Vitamin D 1 TABLET Tablet PO (11:07)
[2019-02-02] MEDS: Pantoprazole Sodium 40 MG Tablet PO (11:07)
[2019-02-02] MEDS: Multivitamins,Therapeutic Tablet 1 TABLET PO (11:07)
[2019-02-02] MEDS: Metoprolol Tartrate 50 MG Tablet PO ×2 (11:07→21:29)
[2019-02-02] MEDS: Senna/Docusate Sodium 1 Tablet 2 TABLET PO (11:07)
--- NOTE | 2019-02-02 15:18 | RAD_ITS ---
STUDY: X-RAY - LEFT HIP and pelvis REASON FOR EXAM: Female, 78 years old. Left hip pain, total hip replacement 3 days ago TECHNIQUE: 2 views of the hip. AP view of the pelvis COMPARISON: Previous study of 01/30/2019 FINDINGS: Status post total left hip replacement changes are seen with implants appearing in good position. There is minimal soft tissue gas at the surgical site consistent with history of recent surgery. Status post total right hip replacement changes are also noted with implants appearing in good position. The bony pelvis is intact with no evidence of fracture or lytic or blastic osseous process. There are posterior spinal fusion changes of the visualized lower lumbar spine. RAD/Hip Min 2 Views (Portable) IMPRESSION: Status post total hip replacements bilaterally with implants appearing in good position. There is no evidence of implant loosening or new associated fracture or dislocation. Posterior spinal fusion changes of the visualized lower lumbar spine. Electronically Signed: Feliciano Dorsey MD at 21:14 EDT , Service support ,
--- NOTE | 2019-02-02 15:22 | NURSING ---
Pt tearful on several occasions today during therapy d/t pain in L. hip and groin area. Pt states to this RN, I feel like something is wrong Per. Jewell Torres NP instructed this RN to call Dr. Wright's office. This RN spoke to Valentin Davalos he ordered xray of L. hip.
--- NOTE | 2019-02-02 15:25 | PCM.PROGNOTE ---
Subjective: Patient seen and examined. Resting comfortably in bed. She reports significant pain from the left hip to left knee area. She reports difficulty lifting her left leg and increased pain with any movement. Denies other associated complaints. - Physical Exam General: Alert, Oriented x3, Cooperative HEENT: Atraumatic, PERRLA, EOMI, Normocephalic Neck: Supple, No JVD, Negative Carotid Bruits Lungs: Clear to auscultation, Normal air movement Cardiovascular: Regular rate, Regular Rhythm, Normal S1, Normal S2, No murmurs Abdomen: Bowel Sounds Present, Soft, Non Tender, Non-Distended Extremities: No clubbing, No cyanosis, Edema - Left hip/thigh area Skin: No rashes, No breakdown, - - Left hip postop dressing clean dry and intact, mild surrounding erythema without drainage or evidence of cellulitis. Musculoskeletal: No Tenderness to Palpation of Joints or Extremities Neurological: Cranial nerves II-XII grossly intact, Neuro grossly intact Psych/Mental Status: Normal Affect, Appropriate Vital Signs Temp Pulse Resp BP Pulse Ox 98.1 F 75 16 108/52 L 98 02/02/19 10:00 02/02/19 11:07 02/02/19 10:00 02/02/19 11:07 02/02/19 10:00 Oxygen Flow Rate (L/min) 2 Oxygen Delivery Method Nasal Cannula Weight: 200 lb 6.403 oz Body Mass Index (BMI) 36.6 Intake and Output for Last 24 Hours 01/31/19 02/01/19 02/02/19 23:59 23:59 23:59 Intake Total 120 / 120 Output Total 300 / 300 Balance -180 / -180 Laboratory Tests Past 24 Hrs 02/02/19 05:50 Sodium 140 Potassium 4.1 Chloride 106 Carbon Dioxide 29.0 Anion Gap 5 BUN 20 H Creatinine 1.24 H Estim Creat Clear Calc 29.10 Est GFR (MDRD) Af Amer 54 L Est GFR (MDRD) Non-Af 44 L BUN/Creatinine Ratio 16.1 Glucose 110 H Calcium 9.3 Total Bilirubin 0.60 AST 16 ALT 10 L Alkaline Phosphatase 113 Total Protein 5.9 L Albumin 2.3 L Globulin 3.6 Albumin/Globulin Ratio 0.6 L Medical Necessity - Tobacco Use Smoking Status: Never smoker Assessment/Plan 1. Debility status post left hip replacement-patient underwent left total hip replacement 01/30/[address] Wright. PT/OT. PRN pain regimen. Ortho contacted regarding severity of pain. X-ray left hip ordered. Obtain doppler LLE as well given reported groin pain. 2. Paroxysmal atrial fibrillation-continue metoprolol. Not on anticoagulation given no recurrence of atrial fibrillation. 3. Hypertension-stable, continue home losartan, metoprolol regimen. 4. Hyperlipidemia-continue statin. 5. GERD-continue PPI. 6. Hypothyroidism-continue Synthroid regimen. DVT prophylaxis-aspirin twice daily per ortho. This patient was seen by ERIC Block under the supervision of Dr. Roberts.
--- NOTE | 2019-02-02 15:30 | VDLE_ITS ---
Reason For Study: pain Procedure LEFT Exam performed portable in patient room. GSV is normal. The exam was diagnostic. CFV is compressible, spontaneous, phasic, A preliminary report was called and/or faxed competent, and demonstrates normal to the PT's RN. augmentation. FV is compressible, spontaneous, phasic, competent and demonstrates normal augmentation. POP V is compressible, spontaneous, phasic, competent and demonstrates normal augmentation. T/P Trunk is compressible. PTV is compressible. LT PerV is compressible. Interpretation Summary There is no evidence of left lower extremity deep vein thrombosis. Left greater saphenous vein appears patent and compressible segmentally. Ordering Physician: ERIC Block Performed By: Abraham Laughlin RVT
--- NOTE | 2019-02-02 15:31 | PCM.HP.STD ---
Problem List (1) Paroxysmal atrial fibrillation Status: Chronic (2) Hyperlipidemia Status: Chronic (3) Atherosclerotic heart disease of [place] coronary artery without angina pectoris Status: Chronic Qualifiers: (4) Hypertension Status: Chronic Qualifiers: (5) Hyperlipidemia Status: Chronic Qualifiers: (6) Hypothyroidism Status: Chronic (7) Debility Status: Acute History of Present Illness Date of Admission: 02/01/19 Chief Complaint: Debility status post left total hip replacement for left hip osteoarthritis The patient is a 78 year old F with PMH HTN, HLD, paroxysmal atrial fibrillation not on any anticoagulation, hypothyroidism, history of lumbar stenosis status post surgery, GERD, admitted to [facility] with debility status post left total hip replacement on 01/30/[address] Wright, for greater than 3 hours therapy daily with the aim of returning back to her home at or near her prior level of functional independence. Per patient she lives in an independent house, has about 7 steps to get into the house, denies any history of frequent falls, does use cane/walker at baseline to ambulate. Dizziness focal motor weakness sensory loss visual disturbance or speech disturbances. Per hospitalist recommendation she is not on anticoagulation for paroxysmal atrial fibrillation per cardiology recommendation. Patient does complain of the left hip pain following therapy. [] Past Medical History Past Medical History (Chronic Problems): Chronic Problems (Last Updated 02/01/19 @ 15:18 by Marcus Rizzo DO) Paroxysmal atrial fibrillation (Chronic) Hyperlipidemia (Chronic) Atherosclerotic heart disease of [place] coronary artery without angina pectoris (Chronic) Paroxysmal atrial fibrillation (Chronic) Atherosclerotic cardiovascular disease (Chronic) Paroxysmal ventricular tachycardia (Chronic) Hypertension (Chronic) Hyperlipidemia (Chronic) Hypothyroidism (Chronic) Medical History: Medical History (Last Updated 02/01/19 @ 15:18 by Marcus Rizzo DO) Paroxysmal atrial fibrillation (Chronic) I48.0 Hyperlipidemia (Chronic) E78.5 Atherosclerotic heart disease of [place] coronary artery without angina pectoris (Chronic) I25.10 Paroxysmal ventricular tachycardia (Chronic) I47.2 Hypertension (Chronic) I10 Hyperlipidemia (Chronic) E78.5 Hypothyroidism (Chronic) E03.9 GERD (gastroesophageal reflux disease) K21.9 Arthritis M19.90 Esophageal stricture K22.2 Hiatal hernia K44.9 Hypothyroidism E03.9 NSTEMI (non-ST elevated myocardial infarction) 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 Renal insufficiency N28.9 Back pain (Inactive) M54.9 Back pain of lumbar region with sciatica (Inactive) M54.40 Allergies amlodipine Allergy (Verified 01/30/19 06:20) Unknown grepafloxacin [From Raxar] Allergy (Verified 01/30/19 06:20) Unknown pravastatin Allergy (Verified 01/30/19 06:20) Unknown ciprofloxacin [From Cipro] Adverse Reaction (Verified 01/30/19 06:20) Other INSOMNIA Home Medications: Ambulatory Orders Medication Instructions Recorded Levothyroxine [Synthroid] 50 mcg PO DAILY 09/21/13 Simvastatin [Zocor] 20 mg PO QHS 09/21/13 Multivitamin [Daily Multiple 1 ea PO DAILY 09/03/15 Vitamin] cetirizine 10 mg tablet 10 mg PO QDAY PRN tab 10/11/17 pantoprazole 40 mg tablet,delayed 40 mg PO QDAY 10/13/17 release cholecalciferol (vitamin D3) 4,000 4,000 unit PO DAILY 07/13/18 unit tablet meloxicam 7.5 mg tablet 2 tab PO DAILY tab 07/13/18 Calcium Citrate/Vitamin D3 400 mg PO DAILY 01/17/19 [Citracal + D Maximum Caplet] Gabapentin [Neurontin] 100 mg PO TID 01/17/19 Losartan Potassium [Cozaar] 100 mg PO DAILY 01/17/19 Metoprolol Tartrate [Lopressor 50 mg PO BID 01/17/19 (beta colette)] Acetaminophen [Tylenol] 1,000 mg PO Q8 02/01/19 Aspirin 325 mg PO BID 02/01/19 Oxycodone [Oxyir] 5 - 10 mg PO Q6H PRN PRN 7 Days 02/01/19 #60 tab Senna/Docusate Sodium [Senokot-S] 2 tablet PO BID 02/01/19 Surgical History: Surgical History (Last Reviewed 07/13/18 @ 14:30 by Kelise Cui) History of partial mastectomy of left breast Z90.12 History of tubal ligation Z98.51 History of vein stripping Z98.890 S/P dilatation of esophageal stricture Z98.890, Z87.19 Surgical History: mastectomy - Parital., - - Espophageal dilatation, Tubal ligation, Back surgery. 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 VTE Information - Inpt Only VTE Present on Admission: No VTE Mechan Device Prophylaxis: SCD's, Knee High PILAR Hose VTE Pharm Prophylaxis ordered?: Yes Patient Problems: Active and Suspected Problems (Last Updated 02/01/19 @ 15:18 by Marcus Rizzo DO) Debility (Acute) - Physical Exam General: Alert HEENT: Normocephalic Neck: Supple Lungs: Normal air movement Cardiovascular: Normal S1, Normal S2 Abdomen: Bowel Sounds Present Extremities: No cyanosis Neurological: Cranial nerves II-XII grossly intact, Deep Tendon Reflexes 2+/4 and Symmetrical, Neuro grossly intact, Motor Exam 5/5 strength throughout, Muscle tone normal, Sensory exam intact to light touch and pain, Coordination normal Psych/Mental Status: Normal Affect Vital Signs Temp Pulse Resp BP Pulse Ox 98.1 F 75 16 108/52 L 98 02/02/19 10:00 02/02/19 11:07 02/02/19 10:00 02/02/19 11:07 02/02/19 10:00 Oxygen Flow Rate (L/min) 2 Oxygen Delivery Method Nasal Cannula Weight: 90.9 kg Body Mass Index (BMI) 36.6 Intake and Output for Last 24 Hours 01/31/19 02/01/19 02/02/19 23:59 23:59 23:59 Intake Total 120 / 120 Output Total 300 / 300 Balance -180 / -180 Laboratory Tests Past 24 Hrs 02/02/19 05:50 Sodium 140 Potassium 4.1 Chloride 106 Carbon Dioxide 29.0 Anion Gap 5 BUN 20 H Creatinine 1.24 H Estim Creat Clear Calc 29.10 Est GFR (MDRD) Af Amer 54 L Est GFR (MDRD) Non-Af 44 L BUN/Creatinine Ratio 16.1 Glucose 110 H Calcium 9.3 Total Bilirubin 0.60 AST 16 ALT 10 L Alkaline Phosphatase 113 Total Protein 5.9 L Albumin 2.3 L Globulin 3.6 Albumin/Globulin Ratio 0.6 L Assessment/Plan All Active Problems (Last Updated 02/01/19 @ 15:18 by Marcus Rizzo, ) Debility (Acute) The patient is a 78 year old F with PMH HTN, HLD, paroxysmal atrial fibrillation not on any anticoagulation, hypothyroidism, history of lumbar stenosis status post surgery, GERD, admitted to [facility] with debility status post left total hip replacement on 01/30/[address] Wright, for greater than 3 hours therapy daily with the aim of returning back to her home at or near her prior level of functional independence. Per patient she lives in an independent house, has about 7 steps to get into the house, denies any history of frequent falls, does use cane/walker at baseline to ambulate. Dizziness focal motor weakness sensory loss visual disturbance or speech disturbances. Per hospitalist recommendation she is not on anticoagulation for paroxysmal atrial fibrillation per cardiology recommendation. Patient does complain of the left hip pain following therapy. Plan ?PT for gait stability ?OT for ADLs ?Bowel protocol ?Analgesics as needed ?Left total hip replacement?further management recommendations per orthopedics Dr. Patel, weightbearing as tolerated. ?HTN?on losartan and metoprolol ?HLD?on Lipitor ?Paroxysmal A. fib?on metoprolol, no anticoagulation needed per cardiology recommendation. Will defer further management decision making to cardiology and hospitalist team. ?H/O lumbar stenosis?on gabapentin ?Hypothyroidism on levothyroxine ?Fall precautions ?GI/DVT prophylaxis?on pantoprazole/aspirin 325 mg p.o. twice daily. SCDs and PILAR mcleode. Patient on aspirin 325 twice daily for DVT prophylaxis per orthopedics Dr. Wright recommendation. ?Hospitalist consult ?Further medical management per hospitalist recommendation ?Follow-up with PCP, orthopedics Dr. Wright, and cardiology on discharge. Code Visit Inpatient E&M: 28041 Init Hosp L3
--- NOTE | 2019-02-02 15:38 | HP.PCM_ITS ---
Problem List (1) Paroxysmal atrial fibrillation Status: Chronic (2) Hyperlipidemia Status: Chronic (3) Atherosclerotic heart disease of [place] coronary artery without angina pectoris Status: Chronic Qualifiers: (4) Hypertension Status: Chronic Qualifiers: (5) Hyperlipidemia Status: Chronic Qualifiers: (6) Hypothyroidism Status: Chronic (7) Debility Status: Acute History of Present Illness Date of Admission: 02/01/19 Chief Complaint: Debility status post left total hip replacement for left hip osteoarthritis The patient is a 78 year old F with PMH HTN, HLD, paroxysmal atrial fibrillation not on any anticoagulation, hypothyroidism, history of lumbar stenosis status post surgery, GERD, admitted to [facility] with debility status post left total hip replacement on 01/30/[address] Wright, for greater than 3 hours therapy daily with the aim of returning back to her home at or near her prior level of functional independence. Per patient she lives in an independent house, has about 7 steps to get into the house, denies any history of frequent falls, does use cane/walker at baseline to ambulate. Dizziness focal motor weakness sensory loss visual disturbance or speech disturbances. Per hospitalist recommendation she is not on anticoagulation for paroxysmal atrial fibrillation per cardiology recommendation. Patient does complain of the left hip pain following therapy. [] Past Medical History Past Medical History (Chronic Problems): Chronic Problems (Last Updated 02/01/19 @ 15:18 by Marcus Rizzo DO) Paroxysmal atrial fibrillation (Chronic) Hyperlipidemia (Chronic) Atherosclerotic heart disease of [place] coronary artery without angina pectoris (Chronic) Paroxysmal atrial fibrillation (Chronic) Atherosclerotic cardiovascular disease (Chronic) Paroxysmal ventricular tachycardia (Chronic) Hypertension (Chronic) Hyperlipidemia (Chronic) Hypothyroidism (Chronic) Medical History: Medical History (Last Updated 02/01/19 @ 15:18 by Marcus Rizzo DO) Paroxysmal atrial fibrillation (Chronic) I48.0 Hyperlipidemia (Chronic) E78.5 Atherosclerotic heart disease of [place] coronary artery without angina pectoris (Chronic) I25.10 Paroxysmal ventricular tachycardia (Chronic) I47.2 Hypertension (Chronic) I10 Hyperlipidemia (Chronic) E78.5 Hypothyroidism (Chronic) E03.9 GERD (gastroesophageal reflux disease) K21.9 Arthritis M19.90 Esophageal stricture K22.2 Hiatal hernia K44.9 Hypothyroidism E03.9 NSTEMI (non-ST elevated myocardial infarction) 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 Renal insufficiency N28.9 Back pain (Inactive) M54.9 Back pain of lumbar region with sciatica (Inactive) M54.40 Allergies amlodipine Allergy (Verified 01/30/19 06:20) Unknown grepafloxacin [From Raxar] Allergy (Verified 01/30/19 06:20) Unknown pravastatin Allergy (Verified 01/30/19 06:20) Unknown ciprofloxacin [From Cipro] Adverse Reaction (Verified 01/30/19 06:20) Other INSOMNIA Home Medications: Ambulatory Orders Medication Instructions Recorded Levothyroxine [Synthroid] 50 mcg PO DAILY 09/21/13 Simvastatin [Zocor] 20 mg PO QHS 09/21/13 Multivitamin [Daily Multiple 1 ea PO DAILY 09/03/15 Vitamin] cetirizine 10 mg tablet 10 mg PO QDAY PRN tab 10/11/17 pantoprazole 40 mg tablet,delayed 40 mg PO QDAY 10/13/17 release cholecalciferol (vitamin D3) 4,000 4,000 unit PO DAILY 07/13/18 unit tablet meloxicam 7.5 mg tablet 2 tab PO DAILY tab 07/13/18 Calcium Citrate/Vitamin D3 400 mg PO DAILY 01/17/19 [Citracal + D Maximum Caplet] Gabapentin [Neurontin] 100 mg PO TID 01/17/19 Losartan Potassium [Cozaar] 100 mg PO DAILY 01/17/19 Metoprolol Tartrate [Lopressor 50 mg PO BID 01/17/19 (beta colette)] Acetaminophen [Tylenol] 1,000 mg PO Q8 02/01/19 Aspirin 325 mg PO BID 02/01/19 Oxycodone [Oxyir] 5 - 10 mg PO Q6H PRN PRN 7 Days 02/01/19 #60 tab Senna/Docusate Sodium [Senokot-S] 2 tablet PO BID 02/01/19 Surgical History: Surgical History (Last Reviewed 07/13/18 @ 14:30 by Kelsie Cui) History of partial mastectomy of left breast Z90.12 History of tubal ligation Z98.51 History of vein stripping Z98.890 S/P dilatation of esophageal stricture Z98.890, Z87.19 Surgical History: mastectomy - Parital., - - Espophageal dilatation, Tubal ligation, Back surgery. 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 VTE Information - Inpt Only VTE Present on Admission: No VTE Mechan Device Prophylaxis: SCD's, Knee High PILAR Hose VTE Pharm Prophylaxis ordered?: Yes Patient Problems: Active and Suspected Problems (Last Updated 02/01/19 @ 15:18 by Marcus Rizzo DO) Debility (Acute) - Physical Exam General: Alert HEENT: Normocephalic Neck: Supple Lungs: Normal air movement Cardiovascular: Normal S1, Normal S2 Abdomen: Bowel Sounds Present Extremities: No cyanosis Neurological: Cranial nerves II-XII grossly intact, Deep Tendon Reflexes 2+/4 and Symmetrical, Neuro grossly intact, Motor Exam 5/5 strength throughout, Muscle tone normal, Sensory exam intact to light touch and pain, Coordination normal Psych/Mental Status: Normal Affect Vital Signs Temp Pulse Resp BP Pulse Ox 98.1 F 75 16 108/52 L 98 02/02/19 10:00 02/02/19 11:07 02/02/19 10:00 02/02/19 11:07 02/02/19 10:00 Oxygen Flow Rate (L/min) 2 Oxygen Delivery Method Nasal Cannula Weight: 90.9 kg Body Mass Index (BMI) 36.6 Intake and Output for Last 24 Hours 01/31/19 02/01/19 02/02/19 23:59 23:59 23:59 Intake Total 120 / 120 Output Total 300 / 300 Balance -180 / -180 Laboratory Tests Past 24 Hrs 02/02/19 05:50 Sodium 140 Potassium 4.1 Chloride 106 Carbon Dioxide 29.0 Anion Gap 5 BUN 20 H Creatinine 1.24 H Estim Creat Clear Calc 29.10 Est GFR (MDRD) Af Amer 54 L Est GFR (MDRD) Non-Af 44 L BUN/Creatinine Ratio 16.1 Glucose 110 H Calcium 9.3 Total Bilirubin 0.60 AST 16 ALT 10 L Alkaline Phosphatase 113 Total Protein 5.9 L Albumin 2.3 L Globulin 3.6 Albumin/Globulin Ratio 0.6 L Assessment/Plan All Active Problems (Last Updated 02/01/19 @ 15:18 by Marcus Rizzo, ) Debility (Acute) The patient is a 78 year old F with PMH HTN, HLD, paroxysmal atrial fibrillation not on any anticoagulation, hypothyroidism, history of lumbar stenosis status post surgery, GERD, admitted to [facility] with debility status post left total hip replacement on 01/30/[address] Wright, for greater than 3 hours therapy daily with the aim of returning back to her home at or near her prior level of functional independence. Per patient she lives in an independent house, has about 7 steps to get into the house, denies any history of frequent falls, does use cane/walker at baseline to ambulate. Dizziness focal motor weakness sensory loss visual disturbance or speech disturbances. Per hospitalist recommendation she is not on anticoagulation for paroxysmal atrial fibrillation per cardiology recommendation. Patient does complain of the left hip pain following therapy. Plan ?PT for gait stability ?OT for ADLs ?Bowel protocol ?Analgesics as needed ?Left total hip replacement?further management recommendations per orthopedics Dr. Patel, weightbearing as tolerated. ?HTN?on losartan and metoprolol ?HLD?on Lipitor ?Paroxysmal A. fib?on metoprolol, no anticoagulation needed per cardiology recommendation. Will defer further management decision making to cardiology and hospitalist team. ?H/O lumbar stenosis?on gabapentin ?Hypothyroidism on levothyroxine ?Fall precautions ?GI/DVT prophylaxis?on pantoprazole/aspirin 325 mg p.o. twice daily. SCDs and PILAR mcleode. Patient on aspirin 325 twice daily for DVT prophylaxis per orthopedics Dr. Wright recommendation. ?Hospitalist consult ?Further medical management per hospitalist recommendation ?Follow-up with PCP, orthopedics Dr. Wright, and cardiology on discharge. Code Visit Inpatient E&M: 13640 Init Hosp L3
--- NOTE | 2019-02-02 15:45 | PCM.RU.PYE ---
Admission Information Status Changes from Prescreening?: No changes Identified Actual Problem List:: Pain, ALteration in Cmfrt, Mobility Impaired, Self Care Deficit Potential Problem List:: DVT, Bleeding, Infection, UTI, Aspiration, Falls, Skin Integrity, Depression Risk of Complications DVT: LMWH, PILAR Hose, Sequential Compression Device Bleeding: Monitor Lab Values, Nursing to Teach Precautions for anti-coagulation therapy., Wound, if applicable, to be assessed every shift., Stroke patients assessed for lethargy or change in status. Infection: Clinical Staff to Monitor for S/S of infection:, S/S of infection include fever, redness, warmth, etc. Urinary Tract Infection: Monitor for frequency, burning, discomfort, or incontinence., Nursing will obtain urine sample for urinalysis and C&S when ordered. Aspiration: Clinical staff will monitor for coughing, drooling, congestion., Speech will evaluate swallowing and dsyphasia., Nursing will monitor patient swallowing during meals. Falls: Patient will be evaluated for Fall Precautions, Patient will be placed on Fall Precautions as indicated per protocol. Skin Breakdown: Nursing will assess skin daily using assessment tool., Nursing will place on Skin Breakdown Precautions as indicated. Pain: Clinical staff will assess patient's pain level per protocol., Medications will be given, if needed, and the pain level reassessed., Other methods: Massage, distraction, decrease stimulus, etc. used PRN. Plan of Care Patient requires physician specializing in physical medicine and rehab oversight to provide close medical supervision of rehab issues including: Pain Management, Sleep Problems, Bowel and Bladder, Medical and co-morbidity Management, DVT prophylaxis, Rehabilitation Leadership, Coordination of treatment team Patient needs Physical Therapy: For a minimum of 1 hour, At least 5 out of 7 days Patient needs Physical Therapy to improve:: Mobility, Mobility, Mobility, Strengthening, Transfers, Stretching, ROM, Endurance, Stairs, Gait, Balance Patient needs Occupational Therapy: For a minimum of 1 hour, At least 5 out of 7 days Patient needs Occupational Therapy to improve ADL's incl.: Eating, Grooming, Bathing, Dressing, Toileting, Toilet transfers, Community Reintegration, Higher functioning activities, Household tasks, Adaptive Equipment, Splinting, Other activities as determined Patient requires 24/7 Rehabilitation Nursing for: Pain Issues, Identifying and preventing risk factors, Monitoring and reporting current medical conditions, Assisting with ambulation, transfer, and all ADL's, Teaching patients about disease process and medications, Family teaching, Providing safe environment, Bowel and Bladder Issues, Skin integrity, Medication Management Patient needs Channel Marketing Specialist/ Case Management for: Discharge Planning, Arranging Home Equipment or Services, Family Interventions Patient needs Dietary and Nutrition Services for: Adequate Nutrition, Nutritional Supplements, Nutritional Education Goals Patient will remain: free from falls, or injury at time of discharge. Patient will perform bed mobility at: MOD I level of assist. Patient will complete transfers from bed to chair at: MOD I level of assist. Patient will ambulate: 100 feet, with MOD I assist, with LRD Patient will complete upper body dressing at: MOD I level of assist. Patient will complete lower body dressing at: MOD I level of assist. Patient will complete toileting at: MOD I level of assist. Patient will perform bathing at: MOD I level of assist. Patient will complete grooming at: MOD I level of assist. Patient will complete home management skills at: MOD I level of assist. Patient will achieve: 12 stairs, at MOD I assist Patient will have pain level of: of 3 or less Patient's skin will: remain intact, free from infection. Patient will receive: adequate nutrition. Discharge Planning Pt Prognosis for Sig. Practical Improv. w/in Reasonable Time: Good Estimated Length of stay (days): 16 Anticipated D/C Destination: Home with Outpt Therapy Was Preadmission Assessment Accurate?: Yes
--- NOTE | 2019-02-02 16:26 | CASEMGMT ---
Social Work Rehab Unit Reviewed and approve PHYSICIAN ALLERGIST IMMUNOLOGIST student Yodit King documentation: Rehab Unit Social work admission assessment dated 02.02.2019 at 1154. -TRIPP Johnson, ORE FIELDER
[2019-02-02] MEDS: Atorvastatin Calcium 10 MG Tablet PO (21:29)
[2019-02-03] MEDS: Acetaminophen 500 MG Tablet 1000 MG PO ×3 (05:20→20:39)
[2019-02-03] MEDS: Gabapentin 100 MG Capsule PO ×3 (05:20→20:42)
[2019-02-03] MEDS: Levothyroxine 50 MCG Tablet PO (05:20)
[2019-02-03] MEDS: oxyCODONE 5 MG Tablet PO ×3 (05:23→20:41)
[2019-02-03 06:30] VITALS: O2SAT 92
[2019-02-03 07:00] VITALS: BP 117/55; PULSE 67; RESP 18; TEMP 36.8; O2SAT 94
[2019-02-03] MEDS: Aspirin 325 MG Tablet PO ×2 (08:10→20:42)
[2019-02-03 08:11] VITALS: PULSE 67
[2019-02-03] MEDS: Metoprolol Tartrate 50 MG Tablet PO ×3 (08:11→20:42)
[2019-02-03] MEDS: Multivitamins,Therapeutic Tablet 1 TABLET PO (08:11)
[2019-02-03] MEDS: Losartan Potassium 100 MG Tablet PO (08:11)
[2019-02-03] MEDS: Pantoprazole Sodium 40 MG Tablet PO (08:11)
[2019-02-03] MEDS: Calcium Carb/Vitamin D 1 TABLET Tablet PO (08:11)
--- NOTE | 2019-02-03 13:20 | PN.NEURO_ITS ---
Patient Problems: Active and Suspected Problems (Last Updated 02/01/19 @ 15:18 by Marcus Rizzo DO) Debility (Acute) Subjective: No issues overnight. Care discussed with the nursing staff. - Physical Exam General: Alert HEENT: Normocephalic Neck: Supple Lungs: Normal air movement Cardiovascular: Normal S1, Normal S2 Abdomen: Bowel Sounds Present Extremities: No cyanosis Neurological: Cranial nerves II-XII grossly intact, Deep Tendon Reflexes 2+/4 and Symmetrical, Neuro grossly intact, Motor Exam 5/5 strength throughout, Muscle tone normal, Sensory exam intact to light touch and pain, Coordination normal Psych/Mental Status: Normal Affect Vital Signs Temp Pulse Resp BP Pulse Ox 98.3 F 67 18 117/55 L 94 02/03/19 07:00 02/03/19 08:11 02/03/19 07:00 02/03/19 07:00 02/03/19 07:00 Oxygen Flow Rate (L/min) 2 Oxygen Delivery Method Room Air Weight: 90.9 kg Body Mass Index (BMI) 36.6 Intake and Output for Last 24 Hours 02/01/19 02/02/19 02/03/19 23:59 23:59 23:59 Intake Total 120 / 120 360 / 360 Output Total 300 / 300 Balance -180 / -180 360 / 360 Medical Necessity - Tobacco Use Smoking Status: Never smoker Assessment/Plan All Active Problems (Last Updated 02/01/19 @ 15:18 by Marcus Rizzo DO) Debility (Acute) The patient is a 78 year old F with PMH HTN, HLD, paroxysmal atrial fibrillation not on any anticoagulation, hypothyroidism, history of lumbar stenosis status post surgery, GERD, admitted to [facility] with debility status post left total hip replacement on 01/30/[address] Wright, for greater than 3 hours therapy daily with the aim of returning back to her home at or near her prior level of functional independence. Per patient she lives in an independent house, has about 7 steps to get into the house, denies any history of frequent falls, does use cane/walker at baseline to ambulate. Dizziness focal motor weakness sensory loss visual disturbance or speech disturbances. Per hospitalist recommendation she is not on anticoagulation for paroxysmal atrial fibrillation per cardiology recommendation. Patient does complain of the left hip pain following therapy. Plan ?PT for gait stability ?OT for ADLs ?Bowel protocol ?Analgesics as needed ?Left total hip replacement?further management recommendations per orthopedics Dr. Patel, weightbearing as tolerated. Left lower extremity venous duplex and x-ray hip done following admission to the rehab as patient complained of left hip/groin pain. Venous Doppler reported to show no DVT and x-ray hip reported to be stable. ?HTN?on losartan and metoprolol ?HLD?on Lipitor ?Paroxysmal A. fib?on metoprolol, no anticoagulation needed per cardiology recommendation. Will defer further management decision making to cardiology and hospitalist team. ?H/O lumbar stenosis?on gabapentin ?Hypothyroidism on levothyroxine ?Fall precautions ?GI/DVT prophylaxis?on pantoprazole/aspirin 325 mg p.o. twice daily. SCDs and PILAR theodore. Patient on aspirin 325 twice daily for DVT prophylaxis per orthopedics Dr. Wright recommendation. ?Hospitalist consult ?Further medical management per hospitalist recommendation ?Follow-up with PCP, orthopedics Dr. Wright, and cardiology on discharge.
[2019-02-03 20:40] VITALS: BP 144/66; PULSE 92
[2019-02-03] MEDS: Atorvastatin Calcium 10 MG Tablet PO (20:41)
[2019-02-03 20:42] VITALS: BP 144/66; PULSE 89
[2019-02-03 20:47] VITALS: BP 144/66; PULSE 89; RESP 18; TEMP 36.8; O2SAT 95
[2019-02-04] MEDS: Levothyroxine 50 MCG Tablet PO (06:21)
[2019-02-04] MEDS: Acetaminophen 500 MG Tablet 1000 MG PO ×3 (06:21→20:37)
[2019-02-04] MEDS: Gabapentin 100 MG Capsule PO ×3 (06:22→20:38)
[2019-02-04] MEDS: oxyCODONE 5 MG Tablet PO (06:22)
[2019-02-04 07:20] LABS: Absolute Neutrophil Count 5.1 X10^3/uL (2.0-7.7); Basophil# 0.03 X10^3/uL; Basophil% 0.4 % (0-1); Eosinophil# 0.78 X10^3/uL; Eosinophils% 9.6 % (0-5); Hematocrit 28.1 % (37-47); Hemoglobin 8.9 g/dl (12.0-15.0); Lymphocyte % 18.4 % (19-41); Mean Corp Hgb Conc 31.7 g/gl (32-36); Mean Corpuscular Hgb 31.1 pg (27.0-32.0); Mean Corpuscular Volume 98.3 fL (81-99); Mean Platelet Vol. 9.8 fl (6.2-12.0); Monocyte# 0.74 X10^3/uL; Monocyte% 9.1 % (0-10); Neutrophil % 62.4 % (47-70); Platelet Count 294 K/mm3 (150-450); RBC Distribution Width CV 13.1 % (11.6-14.6); Red Blood Count 2.86 M/mm3 (4.2-5.4); White Blood Count 8.2 K/mm3 (4.4-11.0)
[2019-02-04 07:21] LABS: POSITIVE COUNT NO; POSITIVE DIFFERENTIAL NO; POSITIVE MORPHOLOGY NO
[2019-02-04] MEDS: Losartan Potassium 100 MG Tablet PO (08:13)
[2019-02-04] MEDS: Pantoprazole Sodium 40 MG Tablet PO (08:13)
[2019-02-04] MEDS: Aspirin 325 MG Tablet PO ×2 (08:13→20:39)
[2019-02-04] MEDS: Calcium Carb/Vitamin D 1 TABLET Tablet PO (08:13)
[2019-02-04 08:14] VITALS: BP 149/73; PULSE 73
[2019-02-04] MEDS: Metoprolol Tartrate 50 MG Tablet PO ×2 (08:14→20:38)
[2019-02-04] MEDS: Senna/Docusate Sodium 1 Tablet 2 TABLET PO (08:14)
[2019-02-04] MEDS: Multivitamins,Therapeutic Tablet 1 TABLET PO (08:14)
--- NOTE | 2019-02-04 08:22 | NURSING ---
Trena. with nightclub manager RN that 3 - 1000 lopressor was not given twice last night. It was charted that 3 -1000 dose was given by nightclub manager RN, Spoke to Conor from Pharm he stated he could not unchart the dose and to chart it as an unscheduled dose this AM. operations supervisor 2nd shift RN aware of this conversation with pharm.
[2019-02-04 09:21] VITALS: BP 149/73; PULSE 73; RESP 18; TEMP 36.8; O2SAT 96
[2019-02-04 17:27] VITALS: O2SAT 96
[2019-02-04 19:46] VITALS: BP 160/79; PULSE 88; RESP 18; TEMP 36.8; O2SAT 99
[2019-02-04 20:38] VITALS: BP 156/76; PULSE 84
[2019-02-04] MEDS: Atorvastatin Calcium 10 MG Tablet PO (20:38)
[2019-02-05] MEDS: oxyCODONE 5 MG Tablet PO ×2 (03:22→17:52)
[2019-02-05] MEDS: Gabapentin 100 MG Capsule PO ×3 (06:20→21:30)
[2019-02-05] MEDS: Acetaminophen 500 MG Tablet 1000 MG PO ×3 (06:20→21:30)
[2019-02-05] MEDS: Levothyroxine 50 MCG Tablet PO (06:20)
[2019-02-05 07:28] VITALS: BP 160/56; PULSE 84; RESP 17; TEMP 36.6; O2SAT 98
[2019-02-05 08:10] VITALS: PULSE 84
[2019-02-05] MEDS: Multivitamins,Therapeutic Tablet 1 TABLET PO (08:10)
[2019-02-05] MEDS: Losartan Potassium 100 MG Tablet PO (08:10)
[2019-02-05] MEDS: Aspirin 325 MG Tablet PO ×2 (08:10→21:29)
[2019-02-05] MEDS: Calcium Carb/Vitamin D 1 TABLET Tablet PO (08:10)
[2019-02-05] MEDS: Metoprolol Tartrate 50 MG Tablet PO ×2 (08:10→21:29)
[2019-02-05] MEDS: Pantoprazole Sodium 40 MG Tablet PO (08:11)
[2019-02-05 11:08] VITALS: BP 148/76; PULSE 74
[2019-02-05 19:24] VITALS: BP 150/83; PULSE 84; RESP 16; TEMP 36.6; O2SAT 98
[2019-02-05 21:29] VITALS: BP 142/80; PULSE 84
[2019-02-05] MEDS: Atorvastatin Calcium 10 MG Tablet PO (21:29)
[2019-02-05] MEDS: Senna/Docusate Sodium 1 Tablet 2 TABLET PO (21:30)
[2019-02-05 22:00] VITALS: PULSE 79; RESP 16
[2019-02-06] MEDS: oxyCODONE 5 MG Tablet PO ×3 (02:52→16:23)
[2019-02-06] MEDS: Levothyroxine 50 MCG Tablet PO (05:10)
[2019-02-06] MEDS: Gabapentin 100 MG Capsule PO ×3 (05:10→21:16)
[2019-02-06] MEDS: Acetaminophen 500 MG Tablet 1000 MG PO ×3 (05:10→21:15)
[2019-02-06 08:45] VITALS: BP 151/82; PULSE 82; RESP 16; TEMP 36.7; O2SAT 95
[2019-02-06 08:46] VITALS: PULSE 82
[2019-02-06] MEDS: Multivitamins,Therapeutic Tablet 1 TABLET PO (08:46)
[2019-02-06] MEDS: Pantoprazole Sodium 40 MG Tablet PO (08:46)
[2019-02-06] MEDS: Calcium Carb/Vitamin D 1 TABLET Tablet PO (08:46)
[2019-02-06] MEDS: Aspirin 325 MG Tablet PO ×2 (08:46→21:14)
[2019-02-06] MEDS: Metoprolol Tartrate 50 MG Tablet PO ×2 (08:46→21:14)
[2019-02-06] MEDS: Senna/Docusate Sodium 1 Tablet 2 TABLET PO ×2 (08:46→21:15)
[2019-02-06] MEDS: Losartan Potassium 100 MG Tablet PO (08:46)
[2019-02-06 10:57] VITALS: O2SAT 96
--- NOTE | 2019-02-06 13:00 | PN.NEURO_ITS ---
Patient Problems: Active and Suspected Problems (Last Updated 02/01/19 @ 15:18 by Marcus Rizzo DO) Debility (Acute) Subjective: No new complaints. Tolerating therapies. No GI or complaints. is present. Staffed in team meeting. Improvement physical therapy and occupational therapy standpoint. No issues from nursing standpoint. Planned discharge 02/15/18. Lives with her and will need to be able to negotiate 7 steps. is present for team meeting. - Physical Exam General: Alert, Oriented x3, Cooperative, No apparent distress HEENT: Atraumatic, PERRLA, EOMI Neurological: Cranial nerves II-XII grossly intact Psych/Mental Status: Normal Affect, Alert and oriented to time, place, person, mood and affect Vital Signs Temp Pulse Resp BP Pulse Ox 36.7 C 82 16 151/82 H 96 02/06/19 08:45 02/06/19 08:46 02/06/19 08:45 02/06/19 08:45 02/06/19 10:57 Oxygen Flow Rate (L/min) 2 Oxygen Delivery Method Room Air Weight: 90.9 kg Body Mass Index (BMI) 36.6 Intake and Output for Last 24 Hours 02/04/19 02/05/19 02/06/19 23:59 23:59 23:59 Intake Total 680 / 680 Output Total 150 / 150 Balance -150 / -150 680 / 680 Medical Necessity - Tobacco Use Smoking Status: Never smoker Assessment/Plan All Active Problems (Last Updated 02/01/19 @ 15:18 by Marcus Rizzo DO) Debility (Acute) The patient is a 78 year old F with PMH HTN, HLD, paroxysmal atrial fibrillation not on any anticoagulation, hypothyroidism, history of lumbar stenosis status post surgery, GERD, admitted to [facility] with debility status post left total hip replacement on 01/30/[address] Wright, for greater than 3 hours therapy daily with the aim of returning back to her home at or near her prior level of functional independence. Per patient she lives in an independent house, has about 7 steps to get into the house, denies any history of frequent falls, does use cane/walker at baseline to ambulate. Dizziness focal motor weakness sensory loss visual disturbance or speech disturbances. P er hospitalist recommendation she is not on anticoagulation for paroxysmal atrial fibrillation per cardiology recommendation. Patient does complain of the left hip pain following therapy. Plan Physical therapy for gait and balance Occupational Therapy for ADLs Bowel protocol PRN analgesics Left total hip replacement?further management recommendations per orthopedics Dr. Patel, weightbearing as tolerated. HTN?on losartan and metoprolol HLD?on Lipitor Paroxysmal A. fib?on metoprolol, no anticoagulation needed per cardiology recommendation. Will defer further management decision making to cardiology and hospitalist team. H/O lumbar stenosis?on gabapentin. Stable Hypothyroidism on levothyroxine. Stable/asymptomatic GI/DVT prophylaxis?on pantoprazole/aspirin 325 mg p.o. twice daily. SCDs and PILAR theodore. Patient on aspirin 325 twice daily for DVT prophylaxis per orthopedics Dr. Wright recommendation.
--- NOTE | 2019-02-06 14:14 | CASEMGMT ---
Team meeting held today with pt and present. Pt is receiving PT/OT and progressing with therapy. Pt has 14 days allowed with d/c date of 02/15/19. Pt and spouse made aware of this. Pt plans to return home with her spouse who is available to assist as needed. Pt does have 7 steps to enter home. Will continue with treatment plan at this time and reteam next week. KAYLA Kelly
--- NOTE | 2019-02-06 20:36 | NURSING ---
While toileting at this time, pt stated, Ill be getting a sleeping pill tonight, won't I? Pt had denied in team requesting to both nurses from previous hs for a sleep aid.
[2019-02-06 21:14] VITALS: BP 158/78; PULSE 84
[2019-02-06] MEDS: Atorvastatin Calcium 10 MG Tablet PO (21:14)
[2019-02-06] MEDS: LORazepam 0.5 MG Tablet PO (21:16)
[2019-02-06 22:00] VITALS: BP 158/78; PULSE 84; RESP 16; TEMP 36.8; O2SAT 97
[2019-02-07] MEDS: Acetaminophen 500 MG Tablet 1000 MG PO ×3 (05:22→20:57)
[2019-02-07] MEDS: Levothyroxine 50 MCG Tablet PO (05:22)
[2019-02-07] MEDS: Gabapentin 100 MG Capsule PO ×3 (05:22→20:58)
[2019-02-07] MEDS: Magnesium Hydroxide 30 ML UDC PO (05:28)
[2019-02-07 08:52] VITALS: BP 156/79; PULSE 79; RESP 18; TEMP 36.6; O2SAT 95
[2019-02-07 08:57] VITALS: PULSE 70
[2019-02-07] MEDS: Pantoprazole Sodium 40 MG Tablet PO (08:57)
[2019-02-07] MEDS: Calcium Carb/Vitamin D 1 TABLET Tablet PO (08:57)
[2019-02-07] MEDS: Multivitamins,Therapeutic Tablet 1 TABLET PO (08:57)
[2019-02-07] MEDS: Metoprolol Tartrate 50 MG Tablet PO ×2 (08:57→20:58)
[2019-02-07] MEDS: Aspirin 325 MG Tablet PO ×2 (08:57→20:57)
[2019-02-07] MEDS: Losartan Potassium 100 MG Tablet PO (08:57)
[2019-02-07] MEDS: oxyCODONE 5 MG Tablet PO ×2 (09:18→17:15)
--- NOTE | 2019-02-07 15:57 | PN_ITS ---
Patient Problems: Active and Suspected Problems (Last Updated 02/01/19 @ 15:18 by Marcus Rizzo DO) Debility (Acute) Subjective: Patient seen and examined. She had no complaints and felt well. Review of systems otherwise negative. Labs and vitals reviewed. Vitals/I&O's: Vital Signs Temp Pulse Resp BP Pulse Ox 97.8 F 70 18 156/79 H 95 02/07/19 08:52 02/07/19 08:57 02/07/19 08:52 02/07/19 08:52 02/07/19 08:52 Oxygen Flow Rate (L/min) 2 Oxygen Delivery Method Room Air Weight: 200 lb 6.403 oz Body Mass Index (BMI) 36.6 Intake and Output for Last 24 Hours 02/05/19 02/06/19 02/07/19 23:59 23:59 23:59 Intake Total 680 / 680 240 / 240 Balance 680 / 680 240 / 240 General: Alert, Oriented x3, Cooperative, No apparent distress HEENT: Atraumatic, PERRLA, EOMI, Normocephalic Oral: Moist Mucosa Neck: Supple, No JVD, Negative Carotid Bruits Lungs: Clear to auscultation, Normal air movement, No rhonchi, No wheeze, No rales Cardiovascular: Regular rate, Regular Rhythm, Normal S1, Normal S2, No murmurs Abdomen: Bowel Sounds Present, Soft, Non Tender, Non-Distended, No Hepato- splenomegaly Extremities: No clubbing, No cyanosis, No edema, Capillary Refill Less than 3 Seconds Skin: No rashes, No breakdown Musculoskeletal: No Tenderness to Palpation of Joints or Extremities Lymphatic: No Cervical, Supraclavicular, or Inguinal Adenopathy Neurological: Cranial nerves II-XII grossly intact, Neuro grossly intact, Motor Exam 5/5 strength throughout Psych/Mental Status: Normal Affect, Appropriate, Alert and oriented to time, place, person, mood and affect Current Medications Acetaminophen (Tylenol) 1,000 mg PO Q8 [facility] Last Admin: 02/07/19 14:14 Dose: 1,000 mg Aspirin (Aspirin) 325 mg PO BID [facility] Last Admin: 02/07/19 08:57 Dose: 325 mg Atorvastatin Calcium (Lipitor) 10 mg PO QHS [facility] Last Admin: 02/06/19 21:14 Dose: 10 mg Bisacodyl (Dulcolax) 10 mg RECTAL .PRN X 1 PRN PRN Reason: Constipation Calcium/Vitamin D (Os-Robert 500mg + D) [facility] Last Admin: 02/07/19 08:57 Dose: 1 tablet Cholecalciferol (Vitamin D) 4,000 unit PO DAILY [facility] Last Admin: 02/07/19 08:56 Dose: 4,000 unit Gabapentin (Neurontin) 100 mg PO TID [facility] Last Admin: 02/07/19 14:14 Dose: 100 mg Levothyroxine Sodium (Synthroid) 50 mcg PO DAILY@0600 [facility] Last Admin: 02/07/19 05:22 Dose: 50 mcg Loratadine (Claritin) 10 mg PO DAILY PRN PRN Reason: ALLERGIES Lorazepam (Ativan) 0.5 mg PO QHS PRN PRN PRN Reason: SLEEP Last Admin: 02/06/19 21:16 Dose: 0.5 mg Losartan Potassium (Cozaar) 100 mg PO DAILY [facility] Last Admin: 02/07/19 08:57 Dose: 100 mg Magnesium Hydroxide (Milk Of Magnesia) 30 ml PO .PRN X 1 PRN PRN Reason: Constipation Last Admin: 02/07/19 05:28 Dose: 30 ml Metoprolol Tartrate (Lopressor (Beta Mercy)) 50 mg PO BID [facility] Last Admin: 02/07/19 08:57 Dose: 50 mg Multivitamins (Multivitamin) 1 tablet PO DAILY@0800 [facility] Last Admin: 02/07/19 08:57 Dose: 1 tablet Oxycodone HCl (Oxyir) 5 - 10 mg PO Q6H PRN PRN PRN Reason: MOD-SEVERE PAIN (4-10/10) Last Admin: 02/07/19 09:18 Dose: 10 mg Pantoprazole Sodium (Protonix) 40 mg PO DAILY [facility] Last Admin: 02/07/19 08:57 Dose: 40 mg Senna/Docusate Sodium (Senokot-S, Margie-Colace) 2 tablet PO BID [facility] Last Admin: 02/07/19 09:02 Dose: Not Given Medical Necessity - Tobacco Use Smoking Status: Never smoker Assessment/Plan All Active Problems (Last Updated 02/01/19 @ 15:18 by Marcus Rizzo DO) Debility (Acute) 1. S/p right hip replacement * had surgery on 01/30/19 * tolerating PT well * on tylenol and oxycodone for pain * PT/OT on board * 2. Paroxysmal afib: on metoprolol. Not on oral anticoagulation; documentation is because she has not had recurrence of atrial fib. Follow-up with cardiology. 3. Hypertension: Controlled. On losartan and metoprolol. 4. Hyperlipidemia: On statin 5. GERD: PPI 6. Hypothyroidism: On Synthroid 7. DVT prophylaxis: On aspirin 81 mg twice daily as per orthopedics. Code Visit Inpatient E&M: 86512 Subs Hosp L2
[2019-02-07 20:58] VITALS: BP 157/90; PULSE 88
[2019-02-07] MEDS: Atorvastatin Calcium 10 MG Tablet PO (20:59)
[2019-02-07] MEDS: LORazepam 0.5 MG Tablet PO (21:05)
[2019-02-07 21:08] VITALS: BP 158/94; PULSE 84; RESP 18; TEMP 36.6; O2SAT 98
[2019-02-07 22:00] VITALS: PULSE 88
--- NOTE | 2019-02-07 23:16 | NURSING ---
Pt stated during this hs assessment that she did not feel that the Ativan helped her sleep much. This RN observed pt during that first Ativan admin and pt was resting with fewer toileting interruptions and restlessness. Will continue to monitor this hs with 2nd hs of Ativan and offer 2nd dose if pt awakens for toileting needs during scheduled dosing time.
[2019-02-08] MEDS: oxyCODONE 5 MG Tablet PO ×3 (04:28→20:44)
[2019-02-08] MEDS: Gabapentin 100 MG Capsule PO ×3 (06:15→21:48)
[2019-02-08] MEDS: Acetaminophen 500 MG Tablet 1000 MG PO ×3 (06:15→21:47)
[2019-02-08] MEDS: Levothyroxine 50 MCG Tablet PO (06:16)
[2019-02-08 07:05] VITALS: BP 161/85; PULSE 81; RESP 18; TEMP 36.6; O2SAT 95
[2019-02-08] MEDS: Multivitamins,Therapeutic Tablet 1 TABLET PO (07:34)
[2019-02-08 07:35] VITALS: PULSE 81
[2019-02-08] MEDS: Pantoprazole Sodium 40 MG Tablet PO (07:35)
[2019-02-08] MEDS: Aspirin 325 MG Tablet PO ×2 (07:35→21:48)
[2019-02-08] MEDS: Calcium Carb/Vitamin D 1 TABLET Tablet PO (07:35)
[2019-02-08] MEDS: Metoprolol Tartrate 50 MG Tablet PO ×2 (07:35→21:48)
[2019-02-08] MEDS: Losartan Potassium 100 MG Tablet PO (07:35)
[2019-02-08 10:27] VITALS: BP 129/59; PULSE 69
--- NOTE | 2019-02-08 13:12 | PN.NEURO_ITS ---
Patient Problems: Active and Suspected Problems (Last Updated 02/01/19 @ 15:18 by Marcus Rizzo DO) Debility (Acute) Subjective: Continues to experience mild hip pain but no other complaints, tolerating therapies, sleeping well. Her pain is now worse. She did have some constipation but this is now resolved as of yesterday. No other complaints. - Physical Exam General: Alert, Oriented x3, Cooperative, No apparent distress Neurological: Cranial nerves II-XII grossly intact Psych/Mental Status: Normal Affect, Alert and oriented to time, place, person, mood and affect Vital Signs Temp Pulse Resp BP Pulse Ox 36.6 C 69 18 129/59 H 95 02/08/19 07:05 02/08/19 10:27 02/08/19 07:05 02/08/19 10:27 02/08/19 07:05 Oxygen Flow Rate (L/min) 2 Oxygen Delivery Method Room Air Weight: 97.8 kg Body Mass Index (BMI) 36.6 Intake and Output for Last 24 Hours 02/06/19 02/07/19 02/08/19 23:59 23:59 23:59 Intake Total 680 / 680 Balance 680 / 680 Current Medications Generic Name Dose Route Start Last Admin Trade Name Freq PRN Reason Stop Dose Admin Acetaminophen 1,000 mg 02/01/19 22:00 02/08/19 13:07 Tylenol PO 1,000 mg Q8 TANMAY Administration Aspirin 325 mg 02/01/19 22:00 02/08/19 07:35 Aspirin PO 325 mg BID TANMAY Administration Atorvastatin Calcium 10 mg 02/01/19 22:00 02/07/19 20:59 Lipitor PO 10 mg QHS [facility]ANMA[facility] Administration Bisacodyl 10 mg 02/01/19 15:10 Dulcolax RECTAL .PRN X 1 PRN Constipation Calcium/Vitamin D 1 tablet 02/02/19 08:00 02/08/19 07:35 Os-Robert 500mg + D PO 1 tablet DAILYCM [facility]ANMA[facility] Administration Cholecalciferol 4,000 unit 02/02/19 10:00 02/08/19 07:35 Vitamin D PO 4,000 unit DAILY [facility]AN[facility] Administration Gabapentin 100 mg 02/01/19 22:00 02/08/19 13:07 Neurontin PO 100 mg TID TANMA[facility] Administration Levothyroxine Sodium 50 mcg 02/02/19 06:00 02/08/19 06:16 Synthroid PO 50 mcg DAILY@0600 [facility] Administration Loratadine 10 mg 02/02/19 10:00 Claritin PO DAILY PRN ALLERGIES Lorazepam 0.5 mg 02/06/19 09:29 02/07/19 21:05 Ativan PO 0.5 mg QHS PRN PRN Administration SLEEP Losartan Potassium 100 mg 02/02/19 10:00 02/08/19 07:35 Cozaar PO 100 mg DAILY [facility] Administration Magnesium Hydroxide 30 ml 02/01/19 15:10 02/07/19 05:28 Milk Of Magnesia PO 30 ml .PRN X 1 PRN Administration Constipation Metoprolol Tartrate 50 mg 02/01/19 22:00 02/08/19 07:35 Lopressor (Beta Mercy) PO 50 mg BID [facility] Administration Multivitamins 1 tablet 02/02/19 08:00 02/08/19 07:34 Multivitamin PO 1 tablet DAILY@0800 [facility] Administration Oxycodone HCl 5 - 10 mg 02/01/19 14:58 02/08/19 11:58 Oxyir PO 10 mg Q6H PRN PRN Administration MOD-SEVERE PAIN (4-10/10) Pantoprazole Sodium 40 mg 02/02/19 10:00 02/08/19 07:35 Protonix PO 40 mg DAILY [facility] Administration Senna/Docusate Sodium 2 tablet 02/01/19 22:00 02/08/19 07:35 Senokot-S, Margie-Colace PO Not Given BID [facility] Medical Necessity - Tobacco Use Smoking Status: Never smoker Assessment/Plan All Active Problems (Last Updated 02/01/19 @ 15:18 by Marcus Rizzo DO) Debility (Acute) The patient is a 78 year old F with PMH HTN, HLD, paroxysmal atrial fibrillation not on any anticoagulation, hypothyroidism, history of lumbar stenosis status post surgery, GERD, admitted to [facility] with debility status post left total hip replacement on 01/30/[address] Wright, for greater than 3 hours therapy daily with the aim of returning back to her home at or near her prior level of functional independence. Per patient she lives in an independent house, has about 7 steps to get into the house, denies any history of frequent falls, does use cane/walker at baseline to ambulate. Dizziness focal motor weakness sensory loss visual disturbance or speech disturbances. Per hospitalist recommendation she is not on anticoagulation for paroxysmal atrial fibrillation per cardiology recommendation. Patient does complain of the left hip pain following therapy. Plan Physical therapy for gait and balance Occupational Therapy for ADLs Bowel protocol PRN analgesics: 02/08, pain controlled Left total hip replacement?further management recommendations per orthopedics Dr. Patel, weightbearing as tolerated. HTN?on losartan and metoprolol. 02/08: Controlled HLD?on Lipitor Paroxysmal A. fib?on metoprolol, no anticoagulation needed per cardiology recommendation. Will defer further management decision making to cardiology and hospitalist team. H/O lumbar stenosis?on gabapentin. Stable Hypothyroidism on levothyroxine. Stable/asymptomatic GI/DVT prophylaxis?on pantoprazole/aspirin 325 mg p.o. twice daily. SCDs and PILAR theodore. Patient on aspirin 325 twice daily for DVT prophylaxis per orthopedics Dr. Wright recommendation.
[2019-02-08 20:35] VITALS: BP 166/73; PULSE 82; RESP 16; TEMP 36.8; O2SAT 96
[2019-02-08] MEDS: LORazepam 0.5 MG Tablet PO (21:47)
[2019-02-08 21:48] VITALS: BP 166/73; PULSE 82
[2019-02-08] MEDS: Atorvastatin Calcium 10 MG Tablet PO (21:48)
[2019-02-09] MEDS: Acetaminophen 500 MG Tablet 1000 MG PO ×3 (05:56→20:22)
[2019-02-09] MEDS: oxyCODONE 5 MG Tablet PO ×2 (05:56→16:28)
[2019-02-09] MEDS: Gabapentin 100 MG Capsule PO ×3 (05:57→20:23)
[2019-02-09] MEDS: Levothyroxine 50 MCG Tablet PO (05:57)
[2019-02-09 08:09] VITALS: PULSE 80
[2019-02-09] MEDS: Multivitamins,Therapeutic Tablet 1 TABLET PO (08:09)
[2019-02-09] MEDS: Pantoprazole Sodium 40 MG Tablet PO (08:09)
[2019-02-09] MEDS: Aspirin 325 MG Tablet PO ×2 (08:09→20:24)
[2019-02-09] MEDS: Metoprolol Tartrate 50 MG Tablet PO ×2 (08:09→20:23)
[2019-02-09] MEDS: Losartan Potassium 100 MG Tablet PO (08:09)
[2019-02-09] MEDS: Calcium Carb/Vitamin D 1 TABLET Tablet PO (08:11)
[2019-02-09 08:37] VITALS: BP 162/74; PULSE 87; RESP 18; TEMP 36.6; O2SAT 94
--- NOTE | 2019-02-09 14:09 | PCM.RU.DC ---
Rehab Discharge Summary DATE OF ADMISSION: 02/01/19 DATE OF DISCHARGE: 02/10/19 - Rehab Diagnosis debility s/p left total hip replacement Patient Problems: Active and Suspected Problems (Last Updated 02/01/19 @ 15:18 by Marcus Rizzo DO) Debility (Acute) - Physical Exam General: Alert, Oriented x3, Cooperative HEENT: PERRLA, EOMI Neurological: Cranial nerves II-XII grossly intact Psych/Mental Status: Alert and oriented to time, place, person, mood and affect Vital Signs Temp Pulse Resp BP Pulse Ox 36.6 C 87 18 162/74 H 94 02/09/19 08:37 02/09/19 08:37 02/09/19 08:37 02/09/19 08:37 02/09/19 08:37 Oxygen Flow Rate (L/min) 2 Oxygen Delivery Method Room Air Weight: 97.8 kg Body Mass Index (BMI) 36.6 Intake and Output for Last 24 Hours 02/07/19 02/08/19 02/09/19 23:59 23:59 23:59 Intake Total 680 / 680 240 / 240 Balance 680 / 680 240 / 240 Discharge Diet: No Restrictions Discharge Activity: Return to Normal Activity, May Not Drive Weight Bearing Status: Weight bearing as tolerated Lifting Restrict to (lbs):: 10 Home Medications: Medications to take at Discharge RX: Levothyroxine [Synthroid] 50 mcg PO DAILY 09/21/13 RX: Simvastatin [Zocor] 20 mg PO QHS 09/21/13 RX: Multivitamin [Daily Multiple Vitamin] 1 ea PO DAILY 09/03/15 cetirizine 10 mg tablet 10 mg PO QDAY PRN tab 10/11/17 pantoprazole 40 mg tablet,delayed release 40 mg PO QDAY 10/13/17 cholecalciferol (vitamin D3) 4,000 unit tablet 4,000 unit PO DAILY 07/13/18 meloxicam 7.5 mg tablet 2 tab PO DAILY tab 07/13/18 RX: Calcium Citrate/Vitamin D3 [Citracal + D Maximum Caplet] 400 mg PO DAILY 01/17/19 RX: Gabapentin [Neurontin] 100 mg PO TID 01/17/19 RX: Losartan Potassium [Cozaar] 100 mg PO DAILY 01/17/19 RX: Metoprolol Tartrate [Lopressor (beta colette)] 50 mg PO BID 01/17/19 RX: Acetaminophen [Tylenol] 1,000 mg PO Q8 02/01/19 RX: Aspirin 325 mg PO BID 02/01/19 RX: Senna/Docusate Sodium [Senokot-S] 2 tablet PO BID 02/01/19 Primary Care Physician: Serge Marrero MD [Primary Care Provider] - Disposition: Home Minutes spent on discharge:: 40 Patient Condition:: Good Rehab Course The patient is a 78 year old F with PMH HTN, HLD, paroxysmal atrial fibrillation not on any anticoagulation, hypothyroidism, history of lumbar stenosis status post surgery, GERD, admitted to [facility] with debility status post left total hip replacement on 01/30/[address] Wright, for greater than 3 hours therapy daily with the aim of returning back to her home at or near her prior level of functional independence. Per patient she lives in an independent house, has about 7 steps to get into the house, denies any history of frequent falls, does use cane/walker at baseline to ambulate. Dizziness focal motor weakness sensory loss visual disturbance or speech disturbances. Per hospitalist recommendation she is not on anticoagulation for paroxysmal atrial fibrillation per cardiology recommendation. Patient does complain of the left hip pain following therapy. her rehab course was uneventful. functional status improved and she was discharged home with followup instructions. Meaningful Use Info Meaningful Use Diagnoses (Choose all that apply): None applicable
--- NOTE | 2019-02-09 14:14 | DCINST_ITS ---
- Discharge Diagnoses Current Active Problems: Current Active and Chronic Problems (Last Updated 02/01/19 @ 15:18 by Marcus Rizzo DO) Debility (Acute) Reason(s) for Visit for Discharge Instructions: debility due to left THR You will use the following diet at home:: No restrictions Your food should be the consistency of: Regular Your liquids should be the consistency of: Regular/Thin Discharge Activity: Return to Normal Activity, May Not Drive Weight Bearing Status: Weight bearing as tolerated Lifting Restrictions: 10 pounds Allergies/Adverse Reactions: Allergies amlodipine Allergy (Verified 01/30/19 06:20) Unknown grepafloxacin [From Raxar] Allergy (Verified 01/30/19 06:20) Unknown pravastatin Allergy (Verified 01/30/19 06:20) Unknown ciprofloxacin [From Cipro] Adverse Reaction (Verified 01/30/19 06:20) Other INSOMNIA Medications to take at Discharge Levothyroxine [Synthroid] 50 mcg PO DAILY 09/21/13 Simvastatin [Zocor] 20 mg PO QHS 09/21/13 Multivitamin [Daily Multiple Vitamin] 1 ea PO DAILY 09/03/15 cetirizine 10 mg tablet 10 mg PO QDAY PRN tab 10/11/17 pantoprazole 40 mg tablet,delayed release 40 mg PO QDAY 10/13/17 cholecalciferol (vitamin D3) 4,000 unit tablet 4,000 unit PO DAILY 07/13/18 meloxicam 7.5 mg tablet 2 tab PO DAILY tab 07/13/18 Calcium Citrate/Vitamin D3 [Citracal + D Maximum Caplet] 400 mg PO DAILY 01/17/19 Gabapentin [Neurontin] 100 mg PO TID 01/17/19 Losartan Potassium [Cozaar] 100 mg PO DAILY 01/17/19 Metoprolol Tartrate [Lopressor (beta colette)] 50 mg PO BID 01/17/19 Acetaminophen [Tylenol] 1,000 mg PO Q8 02/01/19 Aspirin 325 mg PO BID 02/01/19 Senna/Docusate Sodium [Senokot-S] 2 tablet PO BID 02/01/19 Primary Care Physician: Serge Marrero MD [Primary Care Provider] - Test Results: Test results from this visit will be discussed in further detail at your follow- up appointment, if applicable.
[2019-02-09 19:27] VITALS: BP 162/71; PULSE 79; RESP 16; TEMP 36.8; O2SAT 95
[2019-02-09 20:23] VITALS: BP 165/71; PULSE 79
[2019-02-09] MEDS: Atorvastatin Calcium 10 MG Tablet PO (20:24)
[2019-02-10] MEDS: Acetaminophen 500 MG Tablet 1000 MG PO (04:57)
[2019-02-10] MEDS: Levothyroxine 50 MCG Tablet PO (04:58)
[2019-02-10] MEDS: Gabapentin 100 MG Capsule PO (04:58)
[2019-02-10 07:00] VITALS: BP 166/77; PULSE 76; RESP 16; TEMP 36.8; O2SAT 96
[2019-02-10 08:04] VITALS: BP 166/77; PULSE 76
[2019-02-10] MEDS: Pantoprazole Sodium 40 MG Tablet PO (08:04)
[2019-02-10] MEDS: Metoprolol Tartrate 50 MG Tablet PO (08:04)
[2019-02-10] MEDS: Aspirin 325 MG Tablet PO (08:05)
[2019-02-10] MEDS: Multivitamins,Therapeutic Tablet 1 TABLET PO (08:05)
[2019-02-10] MEDS: Calcium Carb/Vitamin D 1 TABLET Tablet PO (08:05)
[2019-02-10] MEDS: Losartan Potassium 100 MG Tablet PO (08:05)
[2019-02-10] MEDS: oxyCODONE 5 MG Tablet PO (08:10)
--- NOTE | 2019-02-10 10:02 | CASEMGMT ---
Social Work Pt requesting to return home today. Pt lives with her who is able to assist as needed and provide transportation. Therapy is recommending outpt PT and pt would like to receive this at [facility]. Pt has wheeled walker, shower chair, hand held shower and grab bars in shower. No other DME needed at this time. Phone call to [facility] and appt set for 02/13 at 1:30. Pt made aware and agreeable. No further SW needs. Plan: Home with spouse and outpt PT 02/10/19 KAYLA Kelly
--- NOTE | 2019-02-10 10:30 | NURSING ---
This RN went over discharge instructions, appts. and medications. Pt verbalized understanding this RN answered all questions. Pt discharged home with all personal belongings, pt. in stable condition.
[2019-02-10 10:40] VITALS: BP 166/77; PULSE 76; RESP 16; TEMP 36.8; O2SAT 96
== END 2019-02-10 10:42 | disposition home or self-care (01) | DRG 561 ==
PROVIDERS: Physician Assistant; Admitting Provider Psychiatry & Neurology Neurology; Family Provider Family Medicine; PCP Family Medicine; Visit Provider Student in an Organized Health Care Education/Training Program
DX: Z47.1 Aftercare following joint replacement surgery (principal); Z96.642 Presence of left artificial hip joint; I10 Essential (primary) hypertension; I48.0 Paroxysmal atrial fibrillation; E78.5 Hyperlipidemia, unspecified; K21.9 Gastro-esophageal reflux disease without esophagitis; E03.9 Hypothyroidism, unspecified; I25.10 Atherosclerotic heart disease of native coronary artery without angina pectoris; M19.90 Unspecified osteoarthritis, unspecified site; I25.2 Old myocardial infarction
CPT/HCPCS: 36415; 73502; 80053; 85025; 93971; 97110; 97116; 97162; 97166; 97530; 97535; A4216

== ENCOUNTER → 2019-05-19 10:33 | Outpatient (CLI) | payer MEDICARE, OTHER, SELFPAY ==
--- NOTE | 2019-05-19 10:37 | CDU_ITS ---
Reason For Study: Facial Parathesia Rt. Velocities/BP Lt. Velocities/BP Prox CCA 87/16 cm/sec. Prox CCA 118/29 cm/sec. Mid CCA 89/21 cm/sec. Mid CCA 76/22 cm/sec. Dist CCA 54/18 cm/sec. Dist CCA 82/27 cm/sec. Prox ICA 67/20 cm/sec. Prox ICA 73/24 cm/sec. Mid ICA 93/32 cm/sec. Mid ICA 72/26 cm/sec. Dist ICA 116/40 cm/sec. Dist ICA 111/33 cm/sec. Rt. ICA/CCA = 1.3. Lt. ICA/CCA = 1.5. Prox ECA 87/14 cm/sec. Prox ECA 108/12 cm/sec. Rt. Vert. 64/19 cm/sec. Lt. Vert. 65/21 cm/sec. Right Extracranial There is intimal thickening but no significant atherosclerotic plaque noted in the right common carotid artery. There is heterogeneous, irregular atherosclerotic plaque noted in the right internal carotid artery. There is heterogeneous, smooth atherosclerotic plaque noted in the right external carotid artery. Antegrade flow is noted in the right vertebral artery. Left Extracranial There is intimal thickening but no significant atherosclerotic plaque noted in the left common carotid artery. There is intimal thickening but no significant atherosclerotic plaque noted in the left internal carotid artery. There is intimal thickening but no significant atherosclerotic plaque noted in the left external carotid artery. Antegrade flow is noted in the left vertebral artery. Procedure Carotid Duplex 39930. Exam performed in department. Interpretation Summary Mild (<50%) stenosis right extracranial internal carotid. No significant atherosclerotic plaque or stenosis noted in the left internal carotid artery. Flow within the vertebral arteries is antegrade bilaterally. Ordering Physician: Serge Marrero Referring Physician: Serge Marrero Performed By: Valentina Nuñez, DEAN, RVT
== END ==
PROVIDERS: Family Provider Family Medicine; PCP Family Medicine; Referring Provider Family Medicine; Visit Provider Family Medicine
DX: R20.2 Paresthesia of skin (principal)
CPT/HCPCS: 93880

== ENCOUNTER → 2019-05-29 09:11 | Outpatient (CLI) | payer MEDICARE, OTHER, SELFPAY ==
[2019-05-29 13:08] LABS: Anion Gap 10 (5-15); BUN 37 mg/dL (7-18); BUN/Creat Ratio 26.4 RATIO (10-20); Chloride 105 mmol/L (98-107); Cholesterol 201 mg/dL (200); EST Glomerular Filtration Rate 39 mL/min (>60); Est Glom Filt Rate - Afr Amer 47 mL/min (>60); Glucose 89 mg/dL (74-106); High Density Lipoprotein 66 mg/dL; Sodium Level 143 mmol/L (136-145); Triglycerides 276 mg/dL; Very Low Density Lipoprotein 55 mg/dL (5-40)
[2019-05-29 13:17] LABS: Hemoglobin A1c 6.4 % (4.2-6.3)
== END ==
PROVIDERS: Family Provider Family Medicine; PCP Family Medicine; Referring Provider Family Medicine; Visit Provider Family Medicine
DX: E78.00 Pure hypercholesterolemia, unspecified (principal); I10 Essential (primary) hypertension; R73.03 Prediabetes
CPT/HCPCS: 36415; 80048; 80061; 83036

== ENCOUNTER → 2019-07-24 11:22 | Outpatient (CLI) | payer MEDICARE, OTHER, SELFPAY ==
--- NOTE | 2019-07-24 11:26 | RAD_ITS ---
STUDY: X-RAY - LUMBAR SPINE REASON FOR EXAM: Female, 78 years old. Pain TECHNIQUE: 5 view(s) of the lumbar spine were obtained. COMPARISON: November 04, 2018 lumbar spine x-ray FINDINGS: There is an exaggerated physiologic lordosis at the level of L2 on L3. Distal to that there is a spinal fusion from L3 through L5 with visualized disc space narrowing and endplate sclerosis spondylosis unchanged since prior study. There is a persistent widened appearance of the L2-L3 level with narrowing of the posterior disc space. There is retrolisthesis at the level of L1-L2 with disc space narrowing endplate sclerosis vacuum phenomenon and narrowing of the neural foramen. This is stable since prior study. There is been a laminectomy L3 L4 L5. There are bilateral hip arthroplasties. There is multilevel endplate spondylosis of the lumbar vertebrae. There is atherosclerotic disease of the aorta. RAD/L/S Spine Min 4 Views IMPRESSION: Stable Status post spinal fusion L3-L5. 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 Could consider follow-up routine MRI when clinically appropriate on a routine basis. Electronically Signed: Stacie Ortiz MD at 14:27 EDT Tel , Service support ,
== END ==
PROVIDERS: Family Provider Family Medicine; PCP Family Medicine; Referring Provider Family Medicine; Visit Provider Family Medicine
DX: S39.012A Strain of muscle, fascia and tendon of lower back, initial encounter (principal)
CPT/HCPCS: 72110

== ENCOUNTER → 2019-09-05 10:58 | Outpatient (CLI) | payer MEDICARE, OTHER, SELFPAY ==
[2019-09-05 12:13] LABS: Absolute Lymphocyte Count 1.88 X10^3/uL (0.83-4.51); Absolute Neutrophil Count 6.3 X10^3/uL (2.0-7.7); Basophil# 0.05 X10^3/uL; Basophil% 0.6 % (0-1); Eosinophil# 0.19 X10^3/uL; Eosinophils% 2.1 % (0-5); Hemoglobin 11.9 g/dL (12.0-15.0); Lymphocyte # 1.88 X10^3/ul (4.0); Lymphocyte % 20.9 % (19-41); Mean Corp Hgb Conc 31.3 g/dL (32-36); Mean Corpuscular Hgb 30.3 pg (27.0-32.0); Mean Corpuscular Volume 96.7 fL (81-99); Mean Platelet Vol. 10.4 fl (6.2-12.0); Monocyte# 0.57 X10^3/uL; Monocyte% 6.3 % (0-10); NRBC Flagged by Analyzer 0 % (0-5); Neutrophil # 6.26 X10^3/uL (2.7-7.7); Neutrophil % 69.8 % (47-70); Platelet Count 296 K/mm3 (150-450); RBC Distribution Width CV 11.9 % (11.6-14.6); RBC Distribution Width SD 42.1 fl (35.1-43.9); Red Blood Count 3.93 M/mm3 (4.2-5.4)
[2019-09-05 12:29] LABS: ALB/GLOB Ratio 0.9 RATIO (0.9-2.4); AST(SGOT) 11 U/L (15-37); Alanine Aminotransfer ALT/SGPT 14 U/L (13-56); Albumin, Serum 3.5 g/dL (3.2-5.0); Alkaline Phosphatase 106 U/L (45-117); Anion Gap 5 (5-15); BUN 23 mg/dL (7-18); BUN/Creat Ratio 16.8 RATIO (10-20); Calcium,Total 9.9 mg/dL (8.5-10.1); Chloride 107 mmol/L (98-107); Cholesterol 169 mg/dL (200); Creatinine, Serum 1.37 mg/dL (0.55-1.02); EST Glomerular Filtration Rate 40 mL/min (>60); Est Glom Filt Rate - Afr Amer 48 mL/min (>60); Globulin 3.9 g/dL (2.2-4.2); Glucose 123 mg/dL (74-106); Hemoglobin A1c 6.1 % (4.2-6.3); High Density Lipoprotein 42 mg/dL; Magnesium 2.3 mg/dL (1.6-2.6); Potassium 4.2 mmol/L (3.5-5.1); Protein, Total 7.4 g/dL (6.4-8.2); Sodium Level 141 mmol/L (136-145); T4 Free Direct 1.07 ng/dL (0.76-1.46); Thyroid Stim Hormone (TSH) 3.27 uIU/mL (0.358-3.74); Triglycerides 341 mg/dL; Very Low Density Lipoprotein 68 mg/dL (5-40)
[2019-09-05 12:36] LABS: Vitamin D,25 Hydroxy 46.5 ng/mL (29.95-100.01)
== END ==
PROVIDERS: Family Provider Family Medicine; PCP Family Medicine; Visit Provider Family Medicine
DX: E55.9 Vitamin D deficiency, unspecified (principal); E03.9 Hypothyroidism, unspecified; I10 Essential (primary) hypertension; E78.00 Pure hypercholesterolemia, unspecified; I48.91 Unspecified atrial fibrillation; R73.02 Impaired glucose tolerance (oral)
CPT/HCPCS: 36415; 80053; 80061; 82306; 83036; 83735; 84439; 84443; 85025

== ENCOUNTER → 2019-09-08 13:58 | Outpatient (CLI) | payer MEDICARE, OTHER, SELFPAY ==
--- NOTE | 2019-09-08 14:24 | VDLE_ITS ---
Reason For Study: PAIN RIGHT LEFT GSV is normal. CFV is compressible, spontaneous, phasic, CFV is compressible, spontaneous, phasic, competent, and demonstrates normal competent and demonstrates normal augmentation. augmentation. FV is compressible, spontaneous, phasic, competent and demonstrates normal augmentation. POP V is compressible, spontaneous, phasic, competent and demonstrates normal augmentation. T/P Trunk is compressible. PTV is compressible. RT PerV is compressible. Procedure Exam performed in department. A preliminary report was called and/or faxed to DR WRIGHT. Interpretation Summary Deep veins of the right lower extremity are patent and compressible segmentally. There is no evidence of right lower extremity deep vein thrombosis. Valvular competence appears intact within the proximal deep venous system on the right . The right great saphenous vein appears patent and compressible segmentally. Ordering Physician: Beto Wright Referring Physician: NENA SAMPSON Performed By: Alda Perez, DEAN, RVT
--- NOTE | 2019-09-08 14:31 | US_ITS ---
STUDY: THYROID ULTRASOUND REASON FOR EXAM: Female, 78 years old. Nodule felt on exam. TECHNIQUE: Ultrasound evaluation of the thyroid was performed with real-time and static hui-scale imaging. COMPARISON: None. FINDINGS: RIGHT LOBE: The right lobe of the thyroid gland measures 3.3 x 1.5 x 1.2 cm. There is a heterogeneous echotexture. There are no demonstrated solid, cystic or complex lesions. LEFT LOBE: The left lobe of the thyroid gland measures 3.7 x 1.4 x 1.1 cm. There is a heterogeneous echotexture. There are no demonstrated solid, cystic or complex lesions. ISTHMUS: The isthmus measures 0.4 centimeter. US/Thyroid IMPRESSION: Normal size thyroid. Mildly heterogeneous. Negative for a discrete nodule. Electronically Signed: Sarai Onofre MD at 15:48 EDT , Service support ,
[2019-09-08 14:54] LABS: Erythrocyte Sedimentation Rate 22 mm/hr (0-30)
[2019-09-08 15:11] LABS: CRP < 2.90 mg/L (0.0-3.0)
== END ==
PROVIDERS: Family Provider Family Medicine; PCP Family Medicine; Referring Provider Orthopaedic Surgery; Visit Provider Orthopaedic Surgery
DX: E04.1 Nontoxic single thyroid nodule (principal); M79.604 Pain in right leg; M16.11 Unilateral primary osteoarthritis, right hip
CPT/HCPCS: 36415; 76536; 85652; 86140; 93971

== ENCOUNTER → 2019-10-02 11:57 | Outpatient (CLI) | payer MEDICARE, OTHER, SELFPAY ==
--- NOTE | 2019-10-02 11:59 | CT_ITS ---
STUDY: CT LUMBAR SPINE WITHOUT CONTRAST REASON FOR EXAM: Female, 78 years old. RADIATION DOSAGE (If Supplied By Facility): CTDIvol = ( 28.47 ) mGy, DLP = ( 877.20 ) mGycm TECHNIQUE: The patient was scanned in a multi detector CT scanner. High resolution transaxial imaging was performed after intrathecal injection of 12cc of ISOVUE 200. Multiple images were obtained from T9 down to S2. Sagittal and coronal images were reconstructed. Individualized dose optimization techniques were used for this CT. COMPARISON: None FINDINGS: There is evidence of hardware fixing the lumbosacral spine with bone grafting from the level of the L3 down to L5 with resection of the posterior elements. THERE IS NARROWING OF THE INTERVERTEBRAL DISC SPACE BETWEEN T12-L1 WITH VACUUM PHENOMENON. AT THE LEVEL OF L1-2 THERE IS A NARROWING OF THE INTERVERTEBRAL DISC WITH VACUUM PHENOMENON AND SCLEROSIS OF THE ENDPLATES. THERE IS RETROLISTHESIS OF L1 ON L2 THAT IS CAUSING SPINAL STENOSIS AND IMPRESSION ON THE DURAL SAC. AT THE LEVEL OF L2-3 THE DISC IS SLIGHTLY NARROWED WITH VACUUM PHENOMENON. AT THE LEVEL OF L3 THERE IS INTERPEDICULAR SCREWS SO IS THE CASE AT L4 AND L5 WITH NARROWING AT L3-4 . THERE IS GRADE 2 SPONDYLOLISTHESIS OF L4 ON L5. AT THE LEVEL OF L5-S1 THE DISC IS NARROWED. CT/Spine Lumbar without Contrast IMPRESSION: EVIDENCE OF HARDWARE AND FIXATION OF THE SPINE FROM L3 DOWN TO L5 WITH BONE GRAFTING. DEGENERATIVE DISC WITH VACUUM PHENOMENON AT THE LEVELS DESCRIBED ABOVE WITH EVIDENCE OF SPINAL STENOSIS AND THE POSTERIOR IMPRESSION ON THE DURAL SAC AT L1-L2. Spondylolisthesis of L4 on L5 of grade 2. Hypertrophic changes involving the apophyseal joints noted. The study is available for review at your convenience. Electronically Signed: Alexandra Chowdhury, at 11:21 EST Tel , Service support ,
[2019-10-02 12:24] VITALS: BP 177/73; PULSE 70; RESP 18; TEMP 36.6; O2SAT 95; BMI 33.6
--- NOTE | 2019-10-02 12:30 | RAD_ITS ---
Age-related changes with previous hardware fixation of the spine from the level of L3 down to L5 with resection of the posterior elements of the spine noted of the spine from the level of L3 down through L5 with bone grafting on the side of the spine. 22-gauge spinal needle was used and introduced to the subarachnoid space at the level L3-4. 15ml of Isovue 200 was injected and the patient was transferred to CT scan that was done about 45 to 60 minutes after the injection. Electronically Signed: Alexandra Chowdhury, at 16:41 EST Tel , Service support , RAD/Lumbar Myelogram
[2019-10-02 13:55] VITALS: BP 187/73; PULSE 74; RESP 16; O2SAT 97
[2019-10-02 14:35] VITALS: BP 208/82; PULSE 60; RESP 16; O2SAT 97
--- NOTE | 2019-10-02 14:47 | NURSING ---
Pt reports that b/p is always high in medical settings. Pt states she has another b/p medication to take yet today. PramodRN asked if she'd like to be evaluated in ED for high blood pressure, pt denied. Pt's b/p has been elevated throughout entire stay in Radiology. Pt coungseled to call 911 immediately for blurred vision, throbbing/rushing sound in her ears, numbness or tingling, headache. Pt agreed she would come to ED if she had any of those symptoms.
== END ==
PROVIDERS: Family Provider Family Medicine; PCP Family Medicine; Referring Provider Orthopaedic Surgery; Visit Provider Orthopaedic Surgery
DX: M51.36 Other intervertebral disc degeneration, lumbar region (principal)
CPT/HCPCS: 62284; 72131; 72265; Q9965

== ENCOUNTER → 2019-11-03 11:29 | Outpatient (CLI) | payer MEDICARE, OTHER, SELFPAY ==
[2019-10-02 12:24] VITALS: BMI 33.6
[2019-11-03 14:27] LABS: Anion Gap 5 (5-15); BUN 29 mg/dL (7-18); BUN/Creat Ratio 20.7 RATIO (10-20); Calcium,Total 10.3 mg/dL (8.5-10.1); Chloride 110 mmol/L (98-107); EST Glomerular Filtration Rate 39 mL/min (>60); Est Glom Filt Rate - Afr Amer 47 mL/min (>60); Glucose 85 mg/dL (74-106); Potassium 4.8 mmol/L (3.5-5.1); Sodium Level 143 mmol/L (136-145)
== END ==
PROVIDERS: Family Provider Family Medicine; PCP Family Medicine; Visit Provider Family Medicine
DX: N18.3 Chronic kidney disease, stage 3 (moderate) (principal)
CPT/HCPCS: 36415; 80048

== ENCOUNTER → 2020-03-29 09:44 | Outpatient (CLI) | payer MEDICARE, OTHER, SELFPAY ==
[2020-01-01 11:26] VITALS: BMI 33.8
[2020-03-29 09:49] LABS: Bacteria 0 SEEN /hpf (None Seen); Mucous, Urine 0 SEEN /hpf (<or=2+); Red Blood Cells-Urine 0 SEEN /hpf (0-5); Squamous Epithelial Cells - UA 0 SEEN /hpf (5-10); White Blood Cells 0 SEEN /hpf (0-5)
[2020-03-29 12:22] LABS: Absolute Lymphocyte Count 1.73 X10^3/uL (0.83-4.51); Absolute Neutrophil Count 6.7 X10^3/uL (2.0-7.7); Basophil# 0.08 X10^3/uL; Basophil% 0.8 % (0-1); Eosinophil# 0.38 X10^3/uL; Hematocrit 35.8 % (37-47); Hemoglobin 11.3 g/dL (12.0-15.0); Lymphocyte # 1.73 X10^3/ul (4.0); Lymphocyte % 18.3 % (19-41); Mean Corp Hgb Conc 31.6 g/dL (32-36); Mean Corpuscular Hgb 31.1 pg (27.0-32.0); Mean Corpuscular Volume 98.6 fL (81-99); Mean Platelet Vol. 10.3 fl (6.2-12.0); Monocyte# 0.52 X10^3/uL; Monocyte% 5.5 % (0-10); NRBC Flagged by Analyzer 0 % (0-5); Neutrophil # 6.69 X10^3/uL (2.7-7.7); Neutrophil % 71.1 % (47-70); Platelet Count 314 K/mm3 (150-450); RBC Distribution Width CV 13.2 % (11.6-14.6); RBC Distribution Width SD 47.8 fl (35.1-43.9); Red Blood Count 3.63 M/mm3 (4.2-5.4); White Blood Count 9.4 K/mm3 (4.4-11.0)
[2020-03-29 12:37] LABS: Color, Urine Yellow (Yellow); Glucose, Dipstick Normal (Normal); Ketone-Dipstick Negative (Negative); Leukocyte Esterase-Dipstick 25 /ul (Negative); Nitrite-Dipstick Negative (Negative); Occult Blood-Urine 10 /ul (Negative); Protein-Dipstick 100 mg/dl (Negative); Specific Gravity, Urine 1.025 (1.002-1.030); Urine Bilirubin Dipstick Negative (Negative); Urine Clarity Clear (Clear); Urine Urobilinogen Normal (Normal)
[2020-03-29 12:53] LABS: PTHIN 139.6 pg/mL (18.4-80.1); Vitamin D,25 Hydroxy 49.9 ng/mL
[2020-03-29 12:58] LABS: ALB/GLOB Ratio 0.9 RATIO (0.9-2.4); AST(SGOT) 11 U/L (15-37); Alanine Aminotransfer ALT/SGPT 17 U/L (13-56); Albumin, Serum 3.5 g/dL (3.2-5.0); Alkaline Phosphatase 116 U/L (45-117); Anion Gap 8 (5-15); BUN 19 mg/dL (7-18); Calcium,Total 9.9 mg/dL (8.5-10.1); Chloride 107 mmol/L (98-107); Cholesterol 177 mg/dL (200); Creatinine, Serum 1.36 mg/dL (0.55-1.02); EST Glomerular Filtration Rate 40 mL/min (>60); Est Glom Filt Rate - Afr Amer 48 mL/min (>60); Globulin 4.1 g/dL (2.2-4.2); Glucose 128 mg/dL (74-106); High Density Lipoprotein 46 mg/dL; Phosphorus 2.8 mg/dL (2.5-4.9); Protein, Total 7.6 g/dL (6.4-8.2); Sodium Level 141 mmol/L (136-145); T4 Free Direct 0.99 ng/dL (0.76-1.46); Triglycerides 316 mg/dL; Very Low Density Lipoprotein 63 mg/dL (5-40)
[2020-03-29 13:06] LABS: Hemoglobin A1c 5.9 % (3.8-5.6)
[2020-03-29 13:17] LABS: Protein, Urine (Random) 72.5 mg/dL (<11.9); Protein:Creat Ratio 242 mg/g CRE (0-200)
== END ==
PROVIDERS: PCP Family Medicine; Referring Provider Family Medicine; Visit Provider Family Medicine
DX: E78.00 Pure hypercholesterolemia, unspecified (principal); R73.02 Impaired glucose tolerance (oral); I48.91 Unspecified atrial fibrillation; N18.3 Chronic kidney disease, stage 3 (moderate); E03.9 Hypothyroidism, unspecified; I12.9 Hypertensive chronic kidney disease with stage 1 through stage 4 chronic kidney disease, or unspecified chronic kidney disease; E55.9 Vitamin D deficiency, unspecified
CPT/HCPCS: 36415; 80053; 80061; 81001; 82306; 82570; 83036; 83735; 83970; 84100; 84156; 84439; 84443; 85025

== ENCOUNTER → 2020-08-27 10:06 | Outpatient (CLI) | payer MEDICARE, OTHER, SELFPAY ==
[2020-07-01 10:24] VITALS: BMI 35.4
[2020-08-27 12:00] LABS: Absolute Lymphocyte Count 1.82 X10^3/uL (0.83-4.51); Absolute Neutrophil Count 5.3 X10^3/uL (2.0-7.7); Basophil# 0.07 X10^3/uL; Basophil% 0.9 % (0-1); Eosinophil# 0.34 X10^3/uL; Eosinophils% 4.1 % (0-5); Hematocrit 37.9 % (37-47); Hemoglobin 11.6 g/dL (12.0-15.0); Lymphocyte # 1.82 X10^3/ul (4.0); Lymphocyte % 22.2 % (19-41); Mean Corp Hgb Conc 30.6 g/dL (32-36); Mean Corpuscular Hgb 29.7 pg (27.0-32.0); Mean Corpuscular Volume 97.2 fL (81-99); Mean Platelet Vol. 10.7 fl (6.2-12.0); Monocyte# 0.65 X10^3/uL; Monocyte% 7.9 % (0-10); NRBC Flagged by Analyzer 0 % (0-5); Neutrophil # 5.31 X10^3/uL (2.7-7.7); Neutrophil % 64.7 % (47-70); Platelet Count 299 K/mm3 (150-450); RBC Distribution Width CV 12.5 % (11.6-14.6); RBC Distribution Width SD 44.3 fl (35.1-43.9); White Blood Count 8.2 K/mm3 (4.4-11.0)
[2020-08-27 12:17] LABS: Hemoglobin A1c 5.9 % (3.8-5.6); Vitamin D,25 Hydroxy 50.3 ng/mL
[2020-08-27 12:29] LABS: ALB/GLOB Ratio 0.9 RATIO (0.9-2.4); AST(SGOT) 13 U/L (15-37); Alanine Aminotransfer ALT/SGPT 14 U/L (13-56); Albumin, Serum 3.6 g/dL (3.2-5.0); Alkaline Phosphatase 130 U/L (45-117); Anion Gap 7 (5-15); BUN 18 mg/dL (7-18); BUN/Creat Ratio 13.6 RATIO (10-20); Calcium,Total 10.2 mg/dL (8.5-10.1); Chloride 108 mmol/L (98-107); Cholesterol 160 mg/dL (200); Creatinine, Serum 1.32 mg/dL (0.55-1.02); EST Glomerular Filtration Rate 41 mL/min (>60); Est Glom Filt Rate - Afr Amer 50 mL/min (>60); Globulin 4.1 g/dL (2.2-4.2); Glucose 111 mg/dL (74-106); High Density Lipoprotein 50 mg/dL; Magnesium 2.3 mg/dL (1.6-2.6); Potassium 4.3 mmol/L (3.5-5.1); Protein, Total 7.7 g/dL (6.4-8.2); Sodium Level 140 mmol/L (136-145); Triglycerides 282 mg/dL; Very Low Density Lipoprotein 56 mg/dL (5-40)
== END ==
PROVIDERS: PCP Family Medicine; Referring Provider Family Medicine; Visit Provider Family Medicine
DX: N18.30 Chronic kidney disease, stage 3 unspecified (principal); I48.91 Unspecified atrial fibrillation; E55.9 Vitamin D deficiency, unspecified; E78.00 Pure hypercholesterolemia, unspecified; R73.02 Impaired glucose tolerance (oral)
CPT/HCPCS: 36415; 80053; 80061; 82306; 83036; 83735; 85025

== ENCOUNTER → 2020-09-25 14:14 | Outpatient (CLI) | payer MEDICARE, OTHER, SELFPAY ==
[2020-07-01 10:24] VITALS: BMI 35.4
== END ==
PROVIDERS: PCP Family Medicine; Visit Provider Family Medicine
DX: B34.9 Viral infection, unspecified (principal)
CPT/HCPCS: 87635; U0003

== ENCOUNTER → 2020-10-11 12:26 | Outpatient (CLI) | payer MEDICARE, OTHER, SELFPAY ==
[2020-07-01 10:24] VITALS: BMI 35.4
[2020-10-11 15:20] LABS: Erythrocyte Sedimentation Rate 39 mm/hr (0-30)
[2020-10-11 15:38] LABS: ALB/GLOB Ratio 1.1 RATIO (0.9-2.4); AST(SGOT) 10 U/L (15-37); Alanine Aminotransfer ALT/SGPT 16 U/L (13-56); Alkaline Phosphatase 114 U/L (45-117); Anion Gap 8 (5-15); BUN 19 mg/dL (7-18); BUN/Creat Ratio 13.6 RATIO (10-20); Chloride 107 mmol/L (98-107); EST Glomerular Filtration Rate 38 mL/min (>60); Est Glom Filt Rate - Afr Amer 46 mL/min (>60); Globulin 3.5 g/dL (2.2-4.2); Glucose 98 mg/dL (74-106); Potassium 4.6 mmol/L (3.5-5.1); Protein, Total 7.5 g/dL (6.4-8.2); Sodium Level 144 mmol/L (136-145)
== END ==
PROVIDERS: PCP Family Medicine; Referring Provider Family Medicine; Visit Provider Family Medicine
DX: M62.81 Muscle weakness (generalized) (principal)
CPT/HCPCS: 36415; 80053; 85652

== ENCOUNTER → 2020-10-15 11:23 | Outpatient (CLI) | payer MEDICARE, OTHER, SELFPAY ==
[2020-07-01 10:24] VITALS: BMI 35.4
[2020-10-16 08:22] LABS: PTHIN 102.7 pg/mL (18.4-80.1)
== END ==
PROVIDERS: PCP Family Medicine; Visit Provider Family Medicine
DX: E83.52 Hypercalcemia (principal)
CPT/HCPCS: 36415; 83970

== ENCOUNTER → 2020-10-21 08:37 | Outpatient (CLI) | payer MEDICARE, OTHER, SELFPAY ==
[2020-07-01 10:24] VITALS: BMI 35.4
--- NOTE | 2020-10-21 08:41 | NM_ITS ---
CLINICAL: 79-year-old female with apparent history of clinical hyperparathyroidism. 99m Tc SESTAMIBI DUAL PHASE PARATHYROID SCINTIGRAPHY COMPARISON: Thyroid ultrasound report 09/08/2019 FINDINGS: Following the intravenous administration of approximately 25.0 mCi of 99m Tc sestamibi, image acquisitions of the anterior neck at presumably 15 minutes and 2-3 hours post radiopharmaceutical provision reveal: 1. Immediate static blood pool acquisitions demonstrate uniform distribution of the radiopharmaceutical in the right-left thyroid colloid of a U-shaped thyroid gland. 2. Delayed images depict incomplete and symmetric washout of the radiopharmaceutical from the previously defined bilateral thyroid parenchyma. There is no evidence of focal increased radiopharmaceutical concentration readily identified. NM/Parathyroid Scan IMPRESSION: 1. NEGATIVE 99m Tc SESTAMIBI PARATHYROID IMAGING DUAL PHASE EXAMINATION. 2. There is no definitive scintigraphic evidence of parathyroid adenoma on the current evaluation. Electronically Signed: Juan Salgado DO at 22:51 EST Tel , Service support ,
== END ==
PROVIDERS: PCP Family Medicine; Referring Provider Family Medicine; Visit Provider Family Medicine
DX: E21.3 Hyperparathyroidism, unspecified (principal)
CPT/HCPCS: 78070; A9500

== ENCOUNTER → 2020-12-26 11:29 | Outpatient (CLI) | payer MEDICARE, OTHER, SELFPAY ==
[2020-07-01 10:24] VITALS: BMI 35.4
[2020-12-26 15:12] LABS: Absolute Lymphocyte Count 1.41 X10^3/uL (0.83-4.51); Absolute Neutrophil Count 17.8 X10^3/uL (2.0-7.7); Basophil# 0.07 X10^3/uL; Basophil% 0.3 % (0-1); Eosinophil# 0.21 X10^3/uL; Hematocrit 38.5 % (37-47); Hemoglobin 12.1 g/dL (12.0-15.0); Lymphocyte # 1.41 X10^3/ul (4.0); Lymphocyte % 6.9 % (19-41); Mean Corp Hgb Conc 31.4 g/dL (32-36); Mean Corpuscular Hgb 30.9 pg (27.0-32.0); Mean Corpuscular Volume 98.5 fL (81-99); Mean Platelet Vol. 10.5 fl (6.2-12.0); Monocyte# 0.83 X10^3/uL; NRBC Flagged by Analyzer 0 % (0-5); Neutrophil # 17.82 X10^3/uL (2.7-7.7); Platelet Count 327 K/mm3 (150-450); RBC Distribution Width CV 14.3 % (11.6-14.6); RBC Distribution Width SD 51.4 fl (35.1-43.9); Red Blood Count 3.91 M/mm3 (4.2-5.4); White Blood Count 20.5 K/mm3 (4.4-11.0)
[2020-12-26 15:23] LABS: Erythrocyte Sedimentation Rate 27 mm/hr (0-30)
[2020-12-26 15:27] LABS: Vitamin D,25 Hydroxy 41.1 ng/mL
[2020-12-26 15:29] LABS: Hemoglobin A1c 6.7 % (3.8-5.6)
[2020-12-26 15:41] LABS: ALB/GLOB Ratio 0.9 RATIO (0.9-2.4); AST(SGOT) 12 U/L (15-37); Alanine Aminotransfer ALT/SGPT 23 U/L (13-56); Albumin, Serum 3.4 g/dL (3.2-5.0); Alkaline Phosphatase 96 U/L (45-117); Anion Gap 7 (5-15); BUN 35 mg/dL (7-18); Calcium,Total 10.4 mg/dL (8.5-10.1); Chloride 107 mmol/L (98-107); Cholesterol 202 mg/dL (200); EST Glomerular Filtration Rate 38 mL/min (>60); Est Glom Filt Rate - Afr Amer 46 mL/min (>60); Globulin 3.8 g/dL (2.2-4.2); Glucose 105 mg/dL (74-106); High Density Lipoprotein 61 mg/dL; Magnesium 2.2 mg/dL (1.6-2.6); Potassium 4.2 mmol/L (3.5-5.1); Protein, Total 7.2 g/dL (6.4-8.2); Sodium Level 140 mmol/L (136-145); T4 Free Direct 1.12 ng/dL (0.76-1.46); Triglycerides 373 mg/dL; Very Low Density Lipoprotein 75 mg/dL (5-40)
[2020-12-26 15:51] LABS: Protein, Urine (Random) 26.1 mg/dL (<11.9); Protein:Creat Ratio 165 mg/g CRE (0-200)
[2020-12-27 10:51] LABS: PTHIN 112.2 pg/mL (18.4-80.1)
== END ==
PROVIDERS: PCP Family Medicine; Referring Provider Family Medicine; Visit Provider Family Medicine
DX: I12.9 Hypertensive chronic kidney disease with stage 1 through stage 4 chronic kidney disease, or unspecified chronic kidney disease (principal); N18.30 Chronic kidney disease, stage 3 unspecified; M62.81 Muscle weakness (generalized); E03.9 Hypothyroidism, unspecified; E55.9 Vitamin D deficiency, unspecified; R73.02 Impaired glucose tolerance (oral)
CPT/HCPCS: 36415; 80053; 80061; 82306; 82570; 83036; 83735; 83970; 84100; 84156; 84439; 84443; 85025; 85652

== ENCOUNTER → 2021-01-27 14:12 | Outpatient (CLI) | payer MEDICARE, OTHER, SELFPAY ==
[2021-01-17 14:20] VITALS: BMI 35.4
--- NOTE | 2021-01-27 14:21 | RAD_ITS ---
INDICATION: inflammatory polyarthropathy EXAMINATION/TECHNIQUE: X-RAY - XR Pelvis 1 or 2 Views COMPARISON: 02/02/2019. FINDINGS: Status post total bilateral total hip arthroplasties with implants appearing in good position. The bony pelvis is intact with no evidence of fracture or lytic or blastic osseous process. There are posterior spinal fusion changes of the visualized lower lumbar spine. RAD/Pelvis 1 or 2 Views IMPRESSION: Status post total bilateral total hip arthroplasties with implants appearing in good position. No evidence of hardware failure or loosening. Posterior spinal fusion changes of the visualized lower lumbar spine. Electronically Signed: Vinny Maradiaga MD at 20:49 EDT Tel , Service support ,
[2021-01-27 17:34] LABS: Absolute Lymphocyte Count 1.89 X10^3/uL (0.83-4.51); Absolute Neutrophil Count 6.9 X10^3/uL (2.0-7.7); Basophil# 0.06 X10^3/uL; Basophil% 0.6 % (0-1); Eosinophil# 0.23 X10^3/uL; Eosinophils% 2.3 % (0-5); Hematocrit 37.9 % (37-47); Hemoglobin 11.9 g/dL (12.0-15.0); Lymphocyte # 1.89 X10^3/ul (4.0); Lymphocyte % 19.2 % (19-41); Mean Corp Hgb Conc 31.4 g/dL (32-36); Mean Corpuscular Hgb 31.2 pg (27.0-32.0); Mean Corpuscular Volume 99.2 fL (81-99); Mean Platelet Vol. 10.7 fl (6.2-12.0); Monocyte# 0.72 X10^3/uL; Monocyte% 7.3 % (0-10); NRBC Flagged by Analyzer 0 % (0-5); Neutrophil # 6.89 X10^3/uL (2.7-7.7); Neutrophil % 70.2 % (47-70); Platelet Count 372 K/mm3 (150-450); RBC Distribution Width CV 13.3 % (11.6-14.6); RBC Distribution Width SD 48.5 fl (35.1-43.9); Red Blood Count 3.82 M/mm3 (4.2-5.4); White Blood Count 9.8 K/mm3 (4.4-11.0)
[2021-01-27 17:44] LABS: Erythrocyte Sedimentation Rate 45 mm/hr (0-30)
[2021-01-27 17:52] LABS: ALB/GLOB Ratio 0.9 RATIO (0.9-2.4); AST(SGOT) 11 U/L (15-37); Alanine Aminotransfer ALT/SGPT 17 U/L (13-56); Albumin, Serum 3.6 g/dL (3.2-5.0); Alkaline Phosphatase 110 U/L (45-117); Anion Gap 7 (5-15); BUN 24 mg/dL (7-18); BUN/Creat Ratio 17.1 RATIO (10-20); CRP 6.94 mg/L (0.0-3.0); Calcium,Total 10.3 mg/dL (8.5-10.1); Chloride 108 mmol/L (98-107); EST Glomerular Filtration Rate 38 mL/min (>60); Est Glom Filt Rate - Afr Amer 46 mL/min (>60); Globulin 3.8 g/dL (2.2-4.2); Glucose 133 mg/dL (74-106); Potassium 4.3 mmol/L (3.5-5.1); Protein, Total 7.4 g/dL (6.4-8.2); Rheumatoid Factor < 10.0 IU/mL (<15); Sodium Level 142 mmol/L (136-145)
[2021-01-28 09:40] LABS: Hepatitis B Surface Antibody Non-Reactive; Hepatitis B Surface Antigen Non-Reactive (Nonreactive); Hepatitis C Antibody Non-Reactive (Nonreactive)
[2021-01-29 16:49] LABS: ANTINUCLEAR ANTIBODIES DIRECT Negative (Negative)
[2021-02-03 20:57] LABS: CCP IgG Antibodies 5 units (0-19); HLA B27 Negative (.)
== END ==
PROVIDERS: PCP Family Medicine; Referring Provider Internal Medicine Rheumatology; Visit Provider Internal Medicine Rheumatology
DX: M06.4 Inflammatory polyarthropathy (principal); M79.7 Fibromyalgia; M96.1 Postlaminectomy syndrome, not elsewhere classified; M47.897 Other spondylosis, lumbosacral region; M51.36 Other intervertebral disc degeneration, lumbar region; I10 Essential (primary) hypertension; Z86.79 Personal history of other diseases of the circulatory system
CPT/HCPCS: 36415; 72170; 80053; 81374; 85025; 85652; 86038; 86140; 86200; 86431; 86706; 86803; 87340

== ENCOUNTER → 2021-03-25 10:45 | Outpatient (CLI) | payer MEDICARE, OTHER, SELFPAY ==
[2021-01-17 14:20] VITALS: BMI 35.4
[2021-03-25 10:50] LABS: Mucous, Urine 0 SEEN /hpf (<or=2+); Red Blood Cells-Urine 0 SEEN /hpf (0-5)
[2021-03-25 12:29] LABS: Absolute Lymphocyte Count 1.82 X10^3/uL (0.83-4.51); Basophil# 0.05 X10^3/uL; Basophil% 0.5 % (0-1); Eosinophil# 0.22 X10^3/uL; Eosinophils% 2.2 % (0-5); Hematocrit 40.1 % (37-47); Hemoglobin 12.7 g/dL (12.0-15.0); Lymphocyte # 1.82 X10^3/ul (0.83-4.51); Lymphocyte % 18.6 % (19-41); Mean Corp Hgb Conc 31.7 g/dL (32-36); Mean Corpuscular Volume 97.8 fL (81-99); Mean Platelet Vol. 10.3 fl (6.2-12.0); Monocyte# 0.66 X10^3/uL; Monocyte% 6.7 % (0-10); NRBC Flagged by Analyzer 0 % (0-5); Neutrophil # 7.02 X10^3/uL (2.7-7.7); Neutrophil % 71.7 % (47-70); Platelet Count 334 K/mm3 (150-450); RBC Distribution Width CV 12.4 % (11.6-14.6); RBC Distribution Width SD 44.2 fl (35.1-43.9); White Blood Count 9.8 K/mm3 (4.4-11.0)
[2021-03-25 12:53] LABS: Color, Urine Yellow (Yellow); Glucose, Dipstick Normal (Normal); Ketone-Dipstick Negative (Negative); Leukocyte Esterase-Dipstick 25 /ul (Negative); Nitrite-Dipstick Negative (Negative); Occult Blood-Urine 10 /ul (Negative); Protein-Dipstick 30 mg/dl (Negative); Urine Bilirubin Dipstick Negative (Negative); Urine Clarity Clear (Clear); Urine Urobilinogen Normal (Normal)
[2021-03-25 13:03] LABS: Bacteria 1+ /hpf (None Seen); Calcium Oxalate Crystals Ur 1+ /hpf (<or=2+); Hyaline Cast 0-5 SEEN /lpf (0-5); Squamous Epithelial Cells - UA 0-5 SEEN /hpf (5-10); White Blood Cells 0-5 SEEN /hpf (0-5)
[2021-03-25 13:07] LABS: PTHIN 94.4 pg/mL (18.4-80.1)
[2021-03-25 13:12] LABS: Vitamin D,25 Hydroxy 56.3 ng/mL
[2021-03-25 13:14] LABS: Hemoglobin A1c 6.1 % (3.8-5.6)
[2021-03-25 13:37] LABS: ALB/GLOB Ratio 0.9 RATIO (0.9-2.4); AST(SGOT) 9 U/L (15-37); Alanine Aminotransfer ALT/SGPT 18 U/L (13-56); Albumin, Serum 3.6 g/dL (3.2-5.0); Alkaline Phosphatase 102 U/L (45-117); Anion Gap 6 (5-15); BUN 21 mg/dL (7-18); BUN/Creat Ratio 17.8 RATIO (10-20); Calcium,Total 10.2 mg/dL (8.5-10.1); Chloride 106 mmol/L (98-107); Cholesterol 178 mg/dL (200); Creatinine, Serum 1.18 mg/dL (0.55-1.02); EST Glomerular Filtration Rate 47 mL/min (>60); Est Glom Filt Rate - Afr Amer 57 mL/min (>60); Globulin 3.9 g/dL (2.2-4.2); Glucose 103 mg/dL (74-106); High Density Lipoprotein 51 mg/dL; Magnesium 2.2 mg/dL (1.6-2.6); Phosphorus 2.8 mg/dL (2.5-4.9); Potassium 4.3 mmol/L (3.5-5.1); Protein, Total 7.5 g/dL (6.4-8.2); Sodium Level 138 mmol/L (136-145); T4 Free Direct 0.99 ng/dL (0.76-1.46); Thyroid Stim Hormone (TSH) 3.35 uIU/mL (0.358-3.74); Triglycerides 266 mg/dL; Very Low Density Lipoprotein 53 mg/dL (5-40)
== END ==
PROVIDERS: PCP Family Medicine; Referring Provider Family Medicine; Visit Provider Family Medicine
DX: E55.9 Vitamin D deficiency, unspecified (principal); I12.9 Hypertensive chronic kidney disease with stage 1 through stage 4 chronic kidney disease, or unspecified chronic kidney disease; R73.02 Impaired glucose tolerance (oral); E78.00 Pure hypercholesterolemia, unspecified; I48.91 Unspecified atrial fibrillation; E03.9 Hypothyroidism, unspecified
CPT/HCPCS: 36415; 80053; 80061; 81001; 82306; 83036; 83735; 83970; 84100; 84439; 84443; 85025

== ENCOUNTER → 2021-04-09 10:29 | Outpatient (CLI) | payer MEDICARE, OTHER, SELFPAY ==
[2021-01-17 14:20] VITALS: BMI 35.4
[2021-04-09 12:03] LABS: Absolute Lymphocyte Count 1.87 X10^3/uL (0.83-4.51); Absolute Neutrophil Count 6.3 X10^3/uL (2.0-7.7); Basophil# 0.06 X10^3/uL; Basophil% 0.7 % (0-1); Eosinophil# 0.23 X10^3/uL; Eosinophils% 2.5 % (0-5); Hematocrit 38.4 % (37-47); Hemoglobin 12.2 g/dL (12.0-15.0); Lymphocyte # 1.87 X10^3/ul (0.83-4.51); Lymphocyte % 20.4 % (19-41); Mean Corp Hgb Conc 31.8 g/dL (32-36); Mean Corpuscular Volume 97.7 fL (81-99); Mean Platelet Vol. 10.1 fl (6.2-12.0); Monocyte# 0.65 X10^3/uL; Monocyte% 7.1 % (0-10); NRBC Flagged by Analyzer 0 % (0-5); Neutrophil # 6.31 X10^3/uL (2.7-7.7); Neutrophil % 68.9 % (47-70); Platelet Count 333 K/mm3 (150-450); RBC Distribution Width CV 12.5 % (11.6-14.6); RBC Distribution Width SD 45.1 fl (35.1-43.9); Red Blood Count 3.93 M/mm3 (4.2-5.4); White Blood Count 9.2 K/mm3 (4.4-11.0)
[2021-04-09 12:36] LABS: AST(SGOT) 11 U/L (15-37); Alanine Aminotransfer ALT/SGPT 15 U/L (13-56); Albumin, Serum 3.6 g/dL (3.2-5.0); Alkaline Phosphatase 103 U/L (45-117); Anion Gap 5 (5-15); BUN 21 mg/dL (7-18); BUN/Creat Ratio 17.1 RATIO (10-20); Calcium,Total 10.3 mg/dL (8.5-10.1); Chloride 108 mmol/L (98-107); Creatinine, Serum 1.23 mg/dL (0.55-1.02); EST Glomerular Filtration Rate 45 mL/min (>60); Est Glom Filt Rate - Afr Amer 54 mL/min (>60); Globulin 3.7 g/dL (2.2-4.2); Glucose 128 mg/dL (74-106); Potassium 4.4 mmol/L (3.5-5.1); Protein, Total 7.3 g/dL (6.4-8.2); Sodium Level 141 mmol/L (136-145)
== END ==
PROVIDERS: PCP Family Medicine; Referring Provider Internal Medicine Rheumatology; Visit Provider Internal Medicine Rheumatology
DX: M06.4 Inflammatory polyarthropathy (principal); M79.7 Fibromyalgia; M96.1 Postlaminectomy syndrome, not elsewhere classified; M47.897 Other spondylosis, lumbosacral region; M51.36 Other intervertebral disc degeneration, lumbar region; N18.9 Chronic kidney disease, unspecified; I12.9 Hypertensive chronic kidney disease with stage 1 through stage 4 chronic kidney disease, or unspecified chronic kidney disease; I48.0 Paroxysmal atrial fibrillation; E03.9 Hypothyroidism, unspecified; E21.3 Hyperparathyroidism, unspecified; E78.5 Hyperlipidemia, unspecified; K21.9 Gastro-esophageal reflux disease without esophagitis; J30.9 Allergic rhinitis, unspecified; F41.9 Anxiety disorder, unspecified
CPT/HCPCS: 36415; 80053; 85025

== ENCOUNTER → 2021-05-02 16:15 | Outpatient (CLI) | payer MEDICARE, OTHER, SELFPAY ==
[2021-01-17 14:20] VITALS: BMI 35.4
--- NOTE | 2021-05-02 16:19 | RAD_ITS ---
HISTORY: PAIN EXAMINATION/TECHNIQUE: XR Abdomen W/ Decub and/or Erect Views: 4 image upright and supine abdominal radiograph COMPARISON: Pelvic radiograph January 27, 2021 FINDINGS: LINES AND TUBES: None. BOWEL GAS PATTERN: Moderate colonic stool. Non-obstructive. No bowel or stomach distention. FREE AIR: None visualized. ORGANOMEGALY: Not seen. CALCIFICATIONS: Pelvic phleboliths. LOWER CHEST: Small left costophrenic angle effusion. Diffuse mild peribronchial thickening. BONES AND SOFT TISSUES: Bilateral hip arthroplasty. Lumbar laminectomy with posterior trans-pedicle fixation and fusion. No acute finding. RAD/Abd Inc Decub and/or Erect IMPRESSION: Moderate colonic stool as can be seen with constipation. No evidence of bowel obstruction. at 0127 Reported and signed by: Torsten Greco MD Electronically Signed: Torsten Greco MD at 1:25 EDT Tel , Service support ,
== END ==
PROVIDERS: PCP Family Medicine; Referring Provider Family Medicine; Visit Provider Family Medicine
DX: R10.9 Unspecified abdominal pain (principal)
CPT/HCPCS: 74019

== ENCOUNTER → 2021-06-16 11:00 | Outpatient (CLI) | payer MEDICARE, OTHER, SELFPAY ==
[2021-01-17 14:20] VITALS: BMI 35.4
[2021-06-16 12:10] LABS: Absolute Lymphocyte Count 1.56 X10^3/uL (0.83-4.51); Absolute Neutrophil Count 6.8 X10^3/uL (2.0-7.7); Basophil# 0.05 X10^3/uL; Basophil% 0.5 % (0-1); Eosinophil# 0.24 X10^3/uL; Eosinophils% 2.5 % (0-5); Hematocrit 36.7 % (37-47); Hemoglobin 11.5 g/dL (12.0-15.0); Lymphocyte # 1.56 X10^3/ul (0.83-4.51); Lymphocyte % 16.6 % (19-41); Mean Corp Hgb Conc 31.3 g/dL (32-36); Mean Corpuscular Hgb 30.7 pg (27.0-32.0); Mean Corpuscular Volume 98.1 fL (81-99); Mean Platelet Vol. 10.5 fl (6.2-12.0); Monocyte# 0.69 X10^3/uL; Monocyte% 7.3 % (0-10); NRBC Flagged by Analyzer 0 % (0-5); Neutrophil # 6.84 X10^3/uL (2.7-7.7); Neutrophil % 72.7 % (47-70); Platelet Count 327 K/mm3 (150-450); RBC Distribution Width CV 12.4 % (11.6-14.6); RBC Distribution Width SD 44.8 fl (35.1-43.9); Red Blood Count 3.74 M/mm3 (4.2-5.4); White Blood Count 9.4 K/mm3 (4.4-11.0)
[2021-06-16 12:40] LABS: ALB/GLOB Ratio 0.9 RATIO (0.9-2.4); AST(SGOT) 12 U/L (15-37); Alanine Aminotransfer ALT/SGPT 23 U/L (13-56); Albumin, Serum 3.5 g/dL (3.2-5.0); Alkaline Phosphatase 138 U/L (45-117); Anion Gap 3 (5-15); BUN 20 mg/dL (7-18); BUN/Creat Ratio 17.4 RATIO (10-20); Calcium,Total 10.2 mg/dL (8.5-10.1); Chloride 105 mmol/L (98-107); Creatinine, Serum 1.15 mg/dL (0.55-1.02); EST Glomerular Filtration Rate 48 mL/min (>60); Est Glom Filt Rate - Afr Amer 58 mL/min (>60); Globulin 3.9 g/dL (2.2-4.2); Glucose 125 mg/dL (74-106); Potassium 4.3 mmol/L (3.5-5.1); Protein, Total 7.4 g/dL (6.4-8.2); Sodium Level 140 mmol/L (136-145)
[2021-06-16 14:55] LABS: RET-HE 34.4 pg (30-35); Reticulocyte Count 2.22 % (0.5-1.5)
== END ==
PROVIDERS: PCP Family Medicine; Referring Provider Internal Medicine Rheumatology; Visit Provider Internal Medicine Rheumatology
DX: M06.4 Inflammatory polyarthropathy (principal); M79.7 Fibromyalgia; M96.1 Postlaminectomy syndrome, not elsewhere classified; M47.897 Other spondylosis, lumbosacral region; M51.36 Other intervertebral disc degeneration, lumbar region; N18.9 Chronic kidney disease, unspecified; I48.0 Paroxysmal atrial fibrillation; E03.9 Hypothyroidism, unspecified; I10 Essential (primary) hypertension; E21.3 Hyperparathyroidism, unspecified; E78.5 Hyperlipidemia, unspecified; K21.9 Gastro-esophageal reflux disease without esophagitis; J30.9 Allergic rhinitis, unspecified; F41.9 Anxiety disorder, unspecified
CPT/HCPCS: 36415; 80053; 85025; 85045

== ENCOUNTER → 2021-07-30 10:47 | Outpatient (CLI) | payer MEDICARE, OTHER, SELFPAY ==
[2021-07-30 10:54] LABS: Bacteria 0 SEEN /hpf (None Seen); Mucous, Urine 0 SEEN /hpf (<or=2+); Red Blood Cells-Urine 0 SEEN /hpf (0-5)
[2021-07-30 12:12] LABS: Color, Urine Yellow (Yellow); Glucose, Dipstick Normal (Normal); Ketone-Dipstick 5 mg/dl (Negative); Leukocyte Esterase-Dipstick 25 /ul (Negative); Nitrite-Dipstick Negative (Negative); Occult Blood-Urine Negative /ul (Negative); Protein-Dipstick 30 mg/dl (Negative); Specific Gravity, Urine 1.025 (1.002-1.030); Urine Bilirubin Dipstick Negative (Negative); Urine Clarity Sl. Cloudy (Clear); Urine Urobilinogen Normal (Normal)
[2021-07-30 12:14] LABS: Absolute Lymphocyte Count 1.16 X10^3/uL (0.83-4.51); Absolute Neutrophil Count 5.8 X10^3/uL (2.0-7.7); Basophil% 1.2 % (0-1); Eosinophil# 0.32 X10^3/uL; Hematocrit 36.2 % (37-47); Hemoglobin 11.4 g/dL (12.0-15.0); Lymphocyte # 1.16 X10^3/ul (0.83-4.51); Lymphocyte % 14.5 % (19-41); Mean Corp Hgb Conc 31.5 g/dL (32-36); Mean Corpuscular Hgb 30.8 pg (27.0-32.0); Mean Corpuscular Volume 97.8 fL (81-99); Mean Platelet Vol. 10.8 fl (6.2-12.0); Monocyte# 0.66 X10^3/uL; Monocyte% 8.2 % (0-10); NRBC Flagged by Analyzer 0 % (0-5); Neutrophil # 5.75 X10^3/uL (2.7-7.7); Neutrophil % 71.9 % (47-70); Platelet Count 312 K/mm3 (150-450); RBC Distribution Width CV 12.1 % (11.6-14.6); RBC Distribution Width SD 43.8 fl (35.1-43.9)
[2021-07-30 12:21] LABS: Calcium Oxalate Crystals Ur 2+ /hpf (<or=2+); Squamous Epithelial Cells - UA 0-5 SEEN /hpf (5-10); White Blood Cells 0-5 SEEN /hpf (0-5)
[2021-07-30 12:35] LABS: ALB/GLOB Ratio 0.8 RATIO (0.9-2.4); AST(SGOT) 15 U/L (15-37); Alanine Aminotransfer ALT/SGPT 20 U/L (13-56); Albumin, Serum 3.2 g/dL (3.2-5.0); Alkaline Phosphatase 143 U/L (45-117); Anion Gap 4 (5-15); BUN 24 mg/dL (7-18); BUN/Creat Ratio 17.1 RATIO (10-20); Calcium,Total 9.7 mg/dL (8.5-10.1); Chloride 106 mmol/L (98-107); Cholesterol 130 mg/dL (200); EST Glomerular Filtration Rate 38 mL/min (>60); Est Glom Filt Rate - Afr Amer 46 mL/min (>60); Glucose 130 mg/dL (74-106); High Density Lipoprotein 44 mg/dL; Magnesium 2.3 mg/dL (1.6-2.6); Phosphorus 3.2 mg/dL (2.5-4.9); Potassium 4.1 mmol/L (3.5-5.1); Protein, Total 7.2 g/dL (6.4-8.2); Sodium Level 138 mmol/L (136-145); T4 Free Direct 0.98 ng/dL (0.76-1.46); Thyroid Stim Hormone (TSH) 4.24 uIU/mL (0.358-3.74); Triglycerides 170 mg/dL; Very Low Density Lipoprotein 34 mg/dL (5-40)
[2021-07-30 12:39] LABS: Vitamin D,25 Hydroxy 76.1 ng/mL
[2021-07-30 12:42] LABS: Microalbumin,Random Urine 59.1 mg/L (NO RANGE EST.); Microalbumin:Creatinine Ratio 25.4 mg/g CRE (<30 mg/g CRE); Protein, Urine (Random) 72.2 mg/dL (<11.9); Protein:Creat Ratio 310 mg/g CRE (0-200)
[2021-07-30 13:34] LABS: Hemoglobin A1c 6.2 % (3.8-5.6)
== END ==
PROVIDERS: PCP Family Medicine; Referring Provider Family Medicine; Visit Provider Family Medicine
DX: E11.59 Type 2 diabetes mellitus with other circulatory complications (principal); E21.3 Hyperparathyroidism, unspecified; E03.9 Hypothyroidism, unspecified; E11.69 Type 2 diabetes mellitus with other specified complication; N18.30 Chronic kidney disease, stage 3 unspecified
CPT/HCPCS: 36415; 80053; 80061; 81001; 82043; 82306; 82570; 83036; 83735; 83970; 84100; 84156; 84439; 84443; 85025

== ENCOUNTER → 2021-09-08 13:58 | Outpatient (CLI) | payer MEDICARE, OTHER, SELFPAY ==
[2021-09-08 15:18] LABS: Absolute Lymphocyte Count 1.88 X10^3/uL (0.83-4.51); Absolute Neutrophil Count 5.3 X10^3/uL (2.0-7.7); Basophil# 0.07 X10^3/uL; Basophil% 0.8 % (0-1); Eosinophil# 0.23 X10^3/uL; Eosinophils% 2.8 % (0-5); Hemoglobin 11.5 g/dL (12.0-15.0); Lymphocyte # 1.88 X10^3/ul (0.83-4.51); Lymphocyte % 22.8 % (19-41); Mean Corp Hgb Conc 31.9 g/dL (32-36); Mean Corpuscular Hgb 30.7 pg (27.0-32.0); Mean Platelet Vol. 10.9 fl (6.2-12.0); Monocyte# 0.74 X10^3/uL; NRBC Flagged by Analyzer 0 % (0-5); Neutrophil % 64.4 % (47-70); Platelet Count 320 K/mm3 (150-450); RBC Distribution Width CV 12.6 % (11.6-14.6); RBC Distribution Width SD 44.2 fl (35.1-43.9); Red Blood Count 3.75 M/mm3 (4.2-5.4); White Blood Count 8.2 K/mm3 (4.4-11.0)
[2021-09-08 16:12] LABS: ALB/GLOB Ratio 0.9 RATIO (0.9-2.4); AST(SGOT) 12 U/L (15-37); Alanine Aminotransfer ALT/SGPT 18 U/L (13-56); Albumin, Serum 3.5 g/dL (3.2-5.0); Alkaline Phosphatase 132 U/L (45-117); Anion Gap 6 (5-15); BUN 20 mg/dL (7-18); BUN/Creat Ratio 11.8 RATIO (10-20); Calcium,Total 10.3 mg/dL (8.5-10.1); Chloride 106 mmol/L (98-107); EST Glomerular Filtration Rate 31 mL/min (>60); Est Glom Filt Rate - Afr Amer 37 mL/min (>60); Glucose 110 mg/dL (74-106); Potassium 4.8 mmol/L (3.5-5.1); Protein, Total 7.5 g/dL (6.4-8.2); Sodium Level 139 mmol/L (136-145)
== END ==
PROVIDERS: PCP Family Medicine; Referring Provider Internal Medicine Rheumatology; Visit Provider Internal Medicine Rheumatology
DX: M06.4 Inflammatory polyarthropathy (principal); M79.7 Fibromyalgia; M96.1 Postlaminectomy syndrome, not elsewhere classified; M47.897 Other spondylosis, lumbosacral region; M51.36 Other intervertebral disc degeneration, lumbar region; N18.9 Chronic kidney disease, unspecified; I48.0 Paroxysmal atrial fibrillation; E03.9 Hypothyroidism, unspecified; I10 Essential (primary) hypertension; E21.3 Hyperparathyroidism, unspecified; E78.5 Hyperlipidemia, unspecified; K21.9 Gastro-esophageal reflux disease without esophagitis; J30.9 Allergic rhinitis, unspecified; F41.9 Anxiety disorder, unspecified
CPT/HCPCS: 36415; 80053; 85025

== ENCOUNTER → 2021-09-15 14:45 | Outpatient (CLI) | payer MEDICARE, OTHER, SELFPAY ==
[2021-09-15 18:04] LABS: PTHIN 174.7 pg/mL (18.4-80.1)
== END ==
PROVIDERS: PCP Family Medicine; Referring Provider Internal Medicine Rheumatology; Visit Provider Internal Medicine Rheumatology
DX: M06.4 Inflammatory polyarthropathy (principal); Z79.899 Other long term (current) drug therapy; M79.7 Fibromyalgia; M96.1 Postlaminectomy syndrome, not elsewhere classified; M47.897 Other spondylosis, lumbosacral region; M51.36 Other intervertebral disc degeneration, lumbar region; N18.9 Chronic kidney disease, unspecified; I48.0 Paroxysmal atrial fibrillation; E03.9 Hypothyroidism, unspecified; I10 Essential (primary) hypertension; E21.3 Hyperparathyroidism, unspecified; E78.5 Hyperlipidemia, unspecified; K21.9 Gastro-esophageal reflux disease without esophagitis; J30.9 Allergic rhinitis, unspecified; F41.9 Anxiety disorder, unspecified
CPT/HCPCS: 36415; 83970

== ENCOUNTER → 2021-10-23 10:10 | Outpatient (CLI) | payer MEDICARE, OTHER, SELFPAY ==
[2021-10-23 12:20] LABS: Absolute Lymphocyte Count 1.46 X10^3/uL (0.83-4.51); Absolute Neutrophil Count 6.1 X10^3/uL (2.0-7.7); Basophil# 0.07 X10^3/uL; Basophil% 0.8 % (0-1); Eosinophil# 0.31 X10^3/uL; Eosinophils% 3.6 % (0-5); Hematocrit 36.7 % (37-47); Hemoglobin 11.9 g/dL (12.0-15.0); Lymphocyte # 1.46 X10^3/ul (0.83-4.51); Lymphocyte % 17.2 % (19-41); Mean Corp Hgb Conc 32.4 g/dL (32-36); Mean Corpuscular Hgb 30.7 pg (27.0-32.0); Mean Corpuscular Volume 94.8 fL (81-99); Mean Platelet Vol. 10.7 fl (6.2-12.0); Monocyte# 0.57 X10^3/uL; Monocyte% 6.7 % (0-10); NRBC Flagged by Analyzer 0 % (0-5); Neutrophil # 6.07 X10^3/uL (2.7-7.7); Neutrophil % 71.5 % (47-70); Platelet Count 324 K/mm3 (150-450); RBC Distribution Width CV 12.9 % (11.6-14.6); RBC Distribution Width SD 44.8 fl (35.1-43.9); Red Blood Count 3.87 M/mm3 (4.2-5.4); White Blood Count 8.5 K/mm3 (4.4-11.0)
[2021-10-23 12:43] LABS: ALB/GLOB Ratio 0.9 RATIO (0.9-2.4); AST(SGOT) 12 U/L (15-37); Alanine Aminotransfer ALT/SGPT 19 U/L (13-56); Albumin, Serum 3.5 g/dL (3.2-5.0); Alkaline Phosphatase 146 U/L (45-117); Anion Gap 6 (5-15); BUN 21 mg/dL (7-18); BUN/Creat Ratio 15.7 RATIO (10-20); Calcium,Total 10.4 mg/dL (8.5-10.1); Chloride 108 mmol/L (98-107); Creatinine, Serum 1.34 mg/dL (0.55-1.02); EST Glomerular Filtration Rate 40 mL/min (>60); Est Glom Filt Rate - Afr Amer 49 mL/min (>60); Glucose 162 mg/dL (74-106); Potassium 4.2 mmol/L (3.5-5.1); Protein, Total 7.5 g/dL (6.4-8.2); Sodium Level 140 mmol/L (136-145)
== END ==
PROVIDERS: PCP Family Medicine; Referring Provider Internal Medicine Rheumatology; Visit Provider Internal Medicine Rheumatology
DX: M06.4 Inflammatory polyarthropathy (principal); Z79.899 Other long term (current) drug therapy; M79.7 Fibromyalgia; M96.1 Postlaminectomy syndrome, not elsewhere classified; M47.897 Other spondylosis, lumbosacral region; M51.36 Other intervertebral disc degeneration, lumbar region; N18.9 Chronic kidney disease, unspecified; I48.0 Paroxysmal atrial fibrillation; E03.9 Hypothyroidism, unspecified; I10 Essential (primary) hypertension; E21.3 Hyperparathyroidism, unspecified; E78.5 Hyperlipidemia, unspecified; K21.9 Gastro-esophageal reflux disease without esophagitis; J30.9 Allergic rhinitis, unspecified; F41.9 Anxiety disorder, unspecified
CPT/HCPCS: 36415; 80053; 85025

== ENCOUNTER 2021-12-10 14:36 | Outpatient (CLI) | payer MEDICARE, OTHER, SELFPAY ==
[2021-12-10 14:49] LABS: Bacteria 0 SEEN /hpf (None Seen); Mucous, Urine 0 SEEN /hpf (<or=2+); Red Blood Cells-Urine 0 SEEN /hpf (0-5); White Blood Cells 0 SEEN /hpf (0-5)
[2021-12-10 18:03] LABS: Absolute Lymphocyte Count 1.82 X10^3/uL (0.83-4.51); Absolute Neutrophil Count 5.7 X10^3/uL (2.0-7.7); Basophil# 0.07 X10^3/uL; Basophil% 0.8 % (0-1); Eosinophil# 0.25 X10^3/uL; Eosinophils% 2.9 % (0-5); Hematocrit 35.5 % (37-47); Hemoglobin 11.4 g/dL (12.0-15.0); Lymphocyte # 1.82 X10^3/ul (0.83-4.51); Mean Corp Hgb Conc 32.1 g/dL (32-36); Mean Corpuscular Hgb 31.1 pg (27.0-32.0); Mean Corpuscular Volume 96.7 fL (81-99); Mean Platelet Vol. 10.7 fl (6.2-12.0); Monocyte# 0.76 X10^3/uL; Monocyte% 8.8 % (0-10); NRBC Flagged by Analyzer 0 % (0-5); Neutrophil # 5.74 X10^3/uL (2.7-7.7); Neutrophil % 66.3 % (47-70); Platelet Count 335 K/mm3 (150-450); RBC Distribution Width CV 12.6 % (11.6-14.6); RBC Distribution Width SD 45.1 fl (35.1-43.9); Red Blood Count 3.67 M/mm3 (4.2-5.4); White Blood Count 8.7 K/mm3 (4.4-11.0)
[2021-12-10 18:15] LABS: Color, Urine Yellow (Yellow); Glucose, Dipstick Normal (Normal); Ketone-Dipstick 5 mg/dl (Negative); Leukocyte Esterase-Dipstick 25 /ul (Negative); Nitrite-Dipstick Negative (Negative); Occult Blood-Urine 10 /ul (Negative); Protein-Dipstick 15 mg/dl (Negative); Specific Gravity, Urine 1.015 (1.002-1.030); Urine Bilirubin Dipstick Negative (Negative); Urine Clarity Clear (Clear); Urine Urobilinogen Normal (Normal)
[2021-12-10 18:26] LABS: Calcium Oxalate Crystals Ur RARE /hpf (<or=2+); Squamous Epithelial Cells - UA 0-5 SEEN /hpf (5-10)
[2021-12-10 18:30] LABS: Protein, Urine (Random) 23.8 mg/dL (<11.9); Protein:Creat Ratio 113 mg/g CRE (0-200); Vitamin B12 449 pg/mL (211-911); Vitamin D,25 Hydroxy 46.4 ng/mL
[2021-12-10 18:31] LABS: Hemoglobin A1c 6.2 % (3.8-5.6)
[2021-12-10 18:42] LABS: ALB/GLOB Ratio 0.8 RATIO (0.9-2.4); AST(SGOT) 12 U/L (15-37); Alanine Aminotransfer ALT/SGPT 19 U/L (13-56); Albumin, Serum 3.4 g/dL (3.2-5.0); Alkaline Phosphatase 148 U/L (45-117); Anion Gap 6 (5-15); BUN 26 mg/dL (7-18); BUN/Creat Ratio 21.5 RATIO (10-20); Calcium,Total 9.8 mg/dL (8.5-10.1); Chloride 105 mmol/L (98-107); Cholesterol 155 mg/dL (200); Creatinine, Serum 1.21 mg/dL (0.55-1.02); EST Glomerular Filtration Rate 45 mL/min (>60); Est Glom Filt Rate - Afr Amer 55 mL/min (>60); Globulin 4.1 g/dL (2.2-4.2); Glucose 109 mg/dL (74-106); High Density Lipoprotein 43 mg/dL; Magnesium 2.6 mg/dL (1.6-2.6); Phosphorus 3.1 mg/dL (2.5-4.9); Potassium 4.3 mmol/L (3.5-5.1); Protein, Total 7.5 g/dL (6.4-8.2); Sodium Level 138 mmol/L (136-145); Thyroid Stim Hormone (TSH) 2.86 uIU/mL (0.358-3.74); Triglycerides 308 mg/dL; Very Low Density Lipoprotein 62 mg/dL (5-40)
[2021-12-11 07:30] LABS: PTHIN 121.8 pg/mL (18.4-80.1)
== END 2021-12-10 23:59 | disposition short-term general hospital (02) ==
LOC: MFPLAB 14:38
PROVIDERS: PCP Family Medicine; Referring Provider Family Medicine; Visit Provider Family Medicine
DX: N18.30 Chronic kidney disease, stage 3 unspecified (principal); E11.69 Type 2 diabetes mellitus with other specified complication; I48.91 Unspecified atrial fibrillation; R41.3 Other amnesia
CPT/HCPCS: 36415; 80053; 80061; 81001; 82306; 82570; 82607; 83036; 83735; 83970; 84100; 84156; 84443; 85025

== ENCOUNTER 2021-12-16 10:45 | Outpatient (CLI) | payer MEDICARE, OTHER, SELFPAY ==
--- NOTE | 2021-12-16 11:03 | BD_ITS ---
STUDY: DUAL ENERGY X-RAY ABSORPTIOMETRY / DXA REASON FOR EXAM: Female, 81 years old. [id number]. The patient is postmenopausal. TECHNIQUE: Bone Mineral Density (BMD) measurements of both forearms were obtained. COMPARISON: Comparison is made with prior study dated 02/02/2017. FINDINGS: Right Forearm: g/cm2 (0.535) / T-score (-0.8) / Z-score (2.4) Left Forearm: g/cm2 (0.494) / T-score (-1.6) / Z-score (1.7) BD/Dexa Bone Density/Append Skel IMPRESSION: The patient is considered osteopenic as outlined below according to World Terry Organization (WHO) criteria with a moderate fracture risk. Reference Information: The T-score is the number of standard deviations above or below the standard which is normal for young adults at their peak bone mineral density. The World Health Organization (WHO) interprets the T-scores as follows: Above -1 Normal bone density Between -1 and -2.5 Osteopenia Equal to / or below -2.5 Osteoporosis As a practical clinical guideline, osteopenia may be graded as follows: Mild -1 through -1.5 Moderate -1.6 through -2.0 Severe -2.1 through -2.4 The Z-score is the number of standard deviations above or below age-matched controls. A Z-score of less than -1.5 would be considered abnormal. References: 1. NIH Osteoporosis and Related Bone Diseases www osteo.org 2. International Society for Clinical Densitometry www iscd.org 3. National Osteoporosis Foundation www nof.org Electronically Signed: Jhonny Andrade MD at 11:30 EST ,
== END 2021-12-16 23:59 | disposition home or self-care (01) ==
LOC: OPBD 10:46
PROVIDERS: PCP Family Medicine; Referring Provider Family Medicine; Visit Provider Family Medicine
DX: Z78.0 Asymptomatic menopausal state (principal)
CPT/HCPCS: 77080; 77081

== ENCOUNTER → 2022-04-16 | Outpatient (CLI) | payer MEDICARE, OTHER, SELFPAY ==
[2022-04-16 10:21] LABS: Absolute Lymphocyte Count 2.12 X10^3/uL (0.83-4.51); Absolute Neutrophil Count 6.3 X10^3/uL (2.0-7.7); Basophil# 0.05 X10^3/uL; Basophil% 0.5 % (0-1); Eosinophils% 4.2 % (0-5); Hematocrit 37.1 % (37-47); Hemoglobin 11.5 g/dL (12.0-15.0); Lymphocyte # 2.12 X10^3/ul (0.83-4.51); Lymphocyte % 22.1 % (19-41); Mean Corpuscular Hgb 30.2 pg (27.0-32.0); Mean Corpuscular Volume 97.4 fL (81-99); Mean Platelet Vol. 10.4 fl (6.2-12.0); Monocyte# 0.67 X10^3/uL; NRBC Flagged by Analyzer 0 % (0-5); Neutrophil % 65.7 % (47-70); Platelet Count 329 K/mm3 (150-450); RBC Distribution Width CV 12.7 % (11.6-14.6); Red Blood Count 3.81 M/mm3 (4.2-5.4); White Blood Count 9.6 K/mm3 (4.4-11.0)
[2022-04-16 10:43] LABS: Hemoglobin A1c 6.2 % (3.8-5.6)
[2022-04-16 11:00] LABS: PTHIN 143.8 pg/mL (18.4-80.1)
[2022-04-16 11:02] LABS: Vitamin D,25 Hydroxy 46.3 ng/mL
[2022-04-16 11:09] LABS: ALB/GLOB Ratio 0.9 RATIO (0.9-2.4); AST(SGOT) 11 U/L (15-37); Alanine Aminotransfer ALT/SGPT 16 U/L (13-56); Albumin, Serum 3.6 g/dL (3.2-5.0); Alkaline Phosphatase 130 U/L (45-117); Anion Gap 5 (5-15); BUN 20 mg/dL (7-18); BUN/Creat Ratio 16.7 RATIO (10-20); Calcium,Total 9.7 mg/dL (8.5-10.1); Chloride 107 mmol/L (98-107); Cholesterol 170 mg/dL (200); EST Glomerular Filtration Rate 46 mL/min (>60); Est Glom Filt Rate - Afr Amer 55 mL/min (>60); Globulin 3.9 g/dL (2.2-4.2); Glucose 138 mg/dL (74-106); High Density Lipoprotein 46 mg/dL; Magnesium 2.2 mg/dL (1.6-2.6); Protein, Total 7.5 g/dL (6.4-8.2); Sodium Level 140 mmol/L (136-145); T4 Free Direct 0.94 ng/dL (0.76-1.46); Thyroid Stim Hormone (TSH) 3.87 uIU/mL (0.358-3.74); Triglycerides 329 mg/dL; Very Low Density Lipoprotein 66 mg/dL (5-40)
[2022-04-16 12:42] LABS: Protein:Creat Ratio 111 mg/g CRE (0-200)
== END | disposition home or self-care (01) ==
LOC: MTLAB 09:25
PROVIDERS: PCP Family Medicine; Referring Provider Family Medicine; Visit Provider Family Medicine
DX: E55.9 Vitamin D deficiency, unspecified (principal); E11.69 Type 2 diabetes mellitus with other specified complication; I48.91 Unspecified atrial fibrillation; E03.9 Hypothyroidism, unspecified
CPT/HCPCS: 36415; 80053; 80061; 82306; 82570; 83036; 83735; 83970; 84156; 84439; 84443; 85025

== ENCOUNTER → 2022-04-23 | Outpatient (CLI) | payer MEDICARE, OTHER, SELFPAY ==
[2022-04-23 12:18] LABS: Erythrocyte Sedimentation Rate 37 mm/hr (0-30)
== END | disposition home or self-care (01) ==
LOC: MFPLAB 11:03
PROVIDERS: PCP Family Medicine; Referring Provider Family Medicine; Visit Provider Family Medicine
DX: M62.89 Other specified disorders of muscle (principal)
CPT/HCPCS: 36415; 85652

== ENCOUNTER → 2022-08-19 | Outpatient (CLI) | payer MEDICARE, OTHER, SELFPAY ==
[2022-08-19 11:17] LABS: Mucous, Urine 0 SEEN /hpf (<or=2+)
[2022-08-19 12:13] LABS: Color, Urine Amber (Yellow); Glucose, Dipstick Normal (Normal); Ketone-Dipstick 5 mg/dl (Negative); Leukocyte Esterase-Dipstick 25 /ul (Negative); Nitrite-Dipstick Negative (Negative); Occult Blood-Urine 10 /ul (Negative); Protein-Dipstick 30 mg/dl (Negative); Urine Bilirubin Dipstick Negative (Negative); Urine Clarity Sl. Cloudy (Clear); Urine Urobilinogen Normal (Normal)
[2022-08-19 12:25] LABS: Absolute Lymphocyte Count 1.87 X10^3/uL (0.83-4.51); Absolute Neutrophil Count 7.3 X10^3/uL (2.0-7.7); Basophil# 0.07 X10^3/uL; Basophil% 0.7 % (0-1); Eosinophils% 3.9 % (0-5); Hematocrit 37.5 % (37-47); Hemoglobin 11.8 g/dL (12.0-15.0); Lymphocyte # 1.87 X10^3/ul (0.83-4.51); Lymphocyte % 18.1 % (19-41); Mean Corp Hgb Conc 31.5 g/dL (32-36); Mean Corpuscular Hgb 30.6 pg (27.0-32.0); Mean Corpuscular Volume 97.2 fL (81-99); Mean Platelet Vol. 10.6 fl (6.2-12.0); Monocyte# 0.68 X10^3/uL; Monocyte% 6.6 % (0-10); NRBC Flagged by Analyzer 0 % (0-5); Neutrophil # 7.32 X10^3/uL (2.7-7.7); Neutrophil % 70.5 % (47-70); Platelet Count 348 K/mm3 (150-450); RBC Distribution Width CV 13.1 % (11.6-14.6); RBC Distribution Width SD 46.4 fl (35.1-43.9); Red Blood Count 3.86 M/mm3 (4.2-5.4); White Blood Count 10.4 K/mm3 (4.4-11.0)
[2022-08-19 12:31] LABS: Bacteria 1+ /hpf (None Seen); Red Blood Cells-Urine 0-5 SEEN /hpf (0-5); Squamous Epithelial Cells - UA 0-5 SEEN /hpf (5-10); White Blood Cells 0-5 SEEN /hpf (0-5)
[2022-08-19 12:35] LABS: Microalbumin,Random Urine 91.7 mg/L (NO RANGE EST.); Microalbumin:Creatinine Ratio 32.3 mg/g CRE (<30 mg/g CRE); Protein, Urine (Random) 31.9 mg/dL (<11.9); Protein:Creat Ratio 112 mg/g CRE (0-200)
[2022-08-19 13:07] LABS: ALB/GLOB Ratio 0.9 RATIO (0.9-2.4); AST(SGOT) 12 U/L (15-37); Alanine Aminotransfer ALT/SGPT 16 U/L (13-56); Albumin, Serum 3.6 g/dL (3.2-5.0); Alkaline Phosphatase 118 U/L (45-117); Anion Gap 6 (5-15); BUN 24 mg/dL (7-18); BUN/Creat Ratio 18.8 RATIO (10-20); Calcium,Total 10.5 mg/dL (8.5-10.1); Chloride 109 mmol/L (98-107); Creatinine, Serum 1.28 mg/dL (0.55-1.02); EST Glomerular Filtration Rate 42 mL/min (>60); Est Glom Filt Rate - Afr Amer 51 mL/min (>60); Globulin 4.1 g/dL (2.2-4.2); Glucose 132 mg/dL (74-106); Magnesium 2.2 mg/dL (1.6-2.6); Phosphorus 3.1 mg/dL (2.5-4.9); Potassium 4.5 mmol/L (3.5-5.1); Protein, Total 7.7 g/dL (6.4-8.2); Sodium Level 141 mmol/L (136-145); T4 Free Direct 0.99 ng/dL (0.76-1.46); Thyroid Stim Hormone (TSH) 3.34 uIU/mL (0.358-3.74)
[2022-08-19 13:08] LABS: Hemoglobin A1c 6.2 % (3.8-5.6)
[2022-08-19 13:16] LABS: PTHIN 111.2 pg/mL (18.4-80.1)
[2022-08-19 13:21] LABS: Vitamin B12 411 pg/mL (211-911); Vitamin D,25 Hydroxy 55.3 ng/mL
== END | disposition home or self-care (01) ==
LOC: MFPLAB 10:48
PROVIDERS: PCP Family Medicine; Referring Provider Family Medicine; Visit Provider Family Medicine
DX: R53.83 Other fatigue (principal); E11.9 Type 2 diabetes mellitus without complications; N18.30 Chronic kidney disease, stage 3 unspecified; E55.9 Vitamin D deficiency, unspecified
CPT/HCPCS: 36415; 80053; 81001; 82043; 82306; 82570; 82607; 83036; 83735; 83970; 84100; 84156; 84439; 84443; 85025

== ENCOUNTER → 2022-09-21 | Outpatient (CLI) | payer MEDICARE, OTHER, SELFPAY ==
--- NOTE | 2022-09-21 09:57 | NM_ITS ---
CLINICAL: 81-year-old female with history of clinical hyperparathyroidism. 99m Tc SESTAMIBI DUAL PHASE PARATHYROID SCINTIGRAPHY COMPARISON: Parathyroid scintigraphy study report dated 10/21/2020 FINDINGS: Following the intravenous administration of 25.1 mCi of 99m Tc sestamibi, image acquisitions of the anterior neck at 15 minutes and 3 hours post radiopharmaceutical provision reveal: 1. Immediate static blood pool acquisitions demonstrate relatively homogeneous distribution of the radiopharmaceutical in both lobes of a U-shaped thyroid gland. 2. Delayed images depict relatively symmetric incomplete washout of the radiotracer from the persistently defined thyroid colloid. No focal retention of radiopharmaceutical is identified. NM/Parathyroid Scan IMPRESSION: 1. NEGATIVE 99m Tc SESTAMIBI PARATHYROID IMAGING DUAL PHASE EXAMINATION. 2. Incomplete-delayed washout of the radiopharmaceutical from the entire functioning thyroid colloid may be secondary to multinodular goiter, chronic lymphocytic thyroiditis. (Li, Radiographics 19: 601, 1999). Electronically Signed: Juan Salgado, at 20:52 EST ,
== END | disposition home or self-care (01) ==
PROVIDERS: PCP Family Medicine; Referring Provider Family Medicine; Visit Provider Family Medicine
DX: E21.3 Hyperparathyroidism, unspecified (principal)
CPT/HCPCS: 78070; A9500

== ENCOUNTER → 2022-10-15 | Outpatient (CLI) | payer MEDICARE, OTHER, SELFPAY ==
[2022-10-15 15:32] LABS: Anion Gap 8 (5-15); BUN 19 mg/dL (7-18); BUN/Creat Ratio 15.7 RATIO (10-20); Calcium,Total 10.7 mg/dL (8.5-10.1); Chloride 108 mmol/L (98-107); Creatinine, Serum 1.21 mg/dL (0.55-1.02); EST Glomerular Filtration Rate 45 mL/min (>60); Est Glom Filt Rate - Afr Amer 55 mL/min (>60); Glucose 106 mg/dL (74-106); Potassium 4.4 mmol/L (3.5-5.1); Sodium Level 142 mmol/L (136-145)
[2022-10-15 16:07] LABS: Erythrocyte Sedimentation Rate 32 mm/hr (0-30)
[2022-10-16 08:06] LABS: PTHIN 65.2 pg/mL (18.4-80.1)
== END | disposition home or self-care (01) ==
LOC: MFPLAB 11:57
PROVIDERS: PCP Family Medicine; Referring Provider Family Medicine; Visit Provider Family Medicine
DX: E21.3 Hyperparathyroidism, unspecified (principal); M62.89 Other specified disorders of muscle
CPT/HCPCS: 36415; 80048; 83970; 85652

== ENCOUNTER → 2022-12-15 | Outpatient (CLI) | payer MEDICARE, OTHER, SELFPAY ==
[2022-12-15 11:03] LABS: Mucous, Urine 0 SEEN /hpf (<or=2+); Red Blood Cells-Urine 0 SEEN /hpf (0-5); Squamous Epithelial Cells - UA 0 SEEN /hpf (5-10)
[2022-12-15 12:20] LABS: Color, Urine Yellow (Yellow); Glucose, Dipstick Normal (Normal); Ketone-Dipstick 5 mg/dl (Negative); Leukocyte Esterase-Dipstick 25 /ul (Negative); Nitrite-Dipstick Negative (Negative); Occult Blood-Urine 10 /ul (Negative); Protein-Dipstick 30 mg/dl (Negative); Specific Gravity, Urine 1.025 (1.002-1.030); Urine Clarity Clear (Clear); Urine Urobilinogen 1 mg/dl (Normal)
[2022-12-15 12:27] LABS: Absolute Lymphocyte Count 2.06 X10^3/uL (0.83-4.51); Absolute Neutrophil Count 6.1 X10^3/uL (2.0-7.7); Basophil# 0.08 X10^3/uL; Basophil% 0.9 % (0-1); Eosinophil# 0.31 X10^3/uL; Eosinophils% 3.3 % (0-5); Hematocrit 37.1 % (37-47); Hemoglobin 11.6 g/dL (12.0-15.0); Lymphocyte # 2.06 X10^3/ul (0.83-4.51); Lymphocyte % 22.1 % (19-41); Mean Corp Hgb Conc 31.3 g/dL (32-36); Mean Corpuscular Hgb 30.9 pg (27.0-32.0); Mean Corpuscular Volume 98.7 fL (81-99); Mean Platelet Vol. 10.6 fl (6.2-12.0); Monocyte# 0.74 X10^3/uL; Monocyte% 7.9 % (0-10); NRBC Flagged by Analyzer 0 % (0-5); Neutrophil # 6.09 X10^3/uL (2.7-7.7); Neutrophil % 65.5 % (47-70); Platelet Count 333 K/mm3 (150-450); RBC Distribution Width CV 12.7 % (11.6-14.6); RBC Distribution Width SD 45.8 fl (35.1-43.9); Red Blood Count 3.76 M/mm3 (4.2-5.4); White Blood Count 9.3 K/mm3 (4.4-11.0)
[2022-12-15 12:54] LABS: Vitamin D,25 Hydroxy 63.6 ng/mL
[2022-12-15 12:56] LABS: Urine Bilirubin Dipstick 1 mg/dL (Negative)
[2022-12-15 12:59] LABS: Bacteria 1+ /hpf (None Seen); Hyaline Cast 0-5 SEEN /lpf (0-5); White Blood Cells 0-5 SEEN /hpf (0-5)
[2022-12-15 13:32] LABS: Microalbumin:Creatinine Ratio 63.3 mg/g CRE (<30 mg/g CRE); Protein:Creat Ratio 144 mg/g CRE (0-200)
[2022-12-15 13:42] LABS: AST(SGOT) 12 U/L (15-37); Alanine Aminotransfer ALT/SGPT 14 U/L (13-56); Albumin, Serum 3.7 g/dL (3.2-5.0); Alkaline Phosphatase 109 U/L (45-117); Anion Gap 8 (5-15); BUN 25 mg/dL (7-18); BUN/Creat Ratio 17.4 RATIO (10-20); Calcium,Total 10.6 mg/dL (8.5-10.1); Chloride 109 mmol/L (98-107); Cholesterol 168 mg/dL (200); Creatinine, Serum 1.44 mg/dL (0.55-1.02); EST Glomerular Filtration Rate 37 mL/min (>60); Est Glom Filt Rate - Afr Amer 45 mL/min (>60); Globulin 3.8 g/dL (2.2-4.2); Glucose 129 mg/dL (74-106); High Density Lipoprotein 49 mg/dL; Magnesium 2.3 mg/dL (1.6-2.6); Phosphorus 3.1 mg/dL (2.5-4.9); Potassium 4.4 mmol/L (3.5-5.1); Protein, Total 7.5 g/dL (6.4-8.2); Sodium Level 142 mmol/L (136-145); T4 Free Direct 1.13 ng/dL (0.76-1.46); Thyroid Stim Hormone (TSH) 2.78 uIU/mL (0.358-3.74); Triglycerides 248 mg/dL; Very Low Density Lipoprotein 50 mg/dL (5-40)
[2022-12-15 14:04] LABS: Hemoglobin A1c 6.1 % (3.8-5.6)
== END | disposition home or self-care (01) ==
LOC: MFPLAB 10:59
PROVIDERS: PCP Family Medicine; Referring Provider Family Medicine; Visit Provider Family Medicine
DX: E11.69 Type 2 diabetes mellitus with other specified complication (principal); I48.91 Unspecified atrial fibrillation; N18.30 Chronic kidney disease, stage 3 unspecified; E55.9 Vitamin D deficiency, unspecified; E03.9 Hypothyroidism, unspecified
CPT/HCPCS: 36415; 80053; 80061; 81001; 82043; 82306; 82570; 83036; 83735; 83970; 84100; 84156; 84439; 84443; 85025

== ENCOUNTER → 2023-04-14 | Outpatient (CLI) | payer MEDICARE, OTHER, SELFPAY ==
--- NOTE | 2023-04-14 10:53 | RAD_ITS ---
INDICATION: pain EXAMINATION/TECHNIQUE: X-RAY - RIGHT XR Shoulder Min 2 Views 4 VIEWS COMPARISON: Contralateral left shoulder x-rays. FINDINGS: SOFT TISSUES: Large intra-articular calcification, 1.6 cm. No radiopaque foreign body. BONES/JOINTS: High riding humeral head suggesting chronic rotator cuff tear. Moderate AC joint arthropathy. Slightly a spherical humeral head is suspected to be degenerative in etiology given the significant subchondral sclerosis and bony proliferative changes. Less likely chronic subchondral collapse could have a similar appearance. Degenerative changes cervicothoracic spine included in fjnct-of-aerl. Visualized lungs are clear. Moderate intimal calcifications aortic arch. RAD/Shoulder min 2 Views IMPRESSION: Degenerative changes, clavicular and glenohumeral joints with intra-articular loose body and evidence of chronic rotator cuff tear. Slightly a spherical humeral head likely degenerative in etiology versus less likely chronic subchondral collapse. Electronically Signed: Beto Fung DO at 20:36 EDT ,
--- NOTE | 2023-04-14 10:55 | RAD_ITS ---
INDICATION: pain EXAMINATION/TECHNIQUE: X-RAY - LEFT XR Shoulder Min 2 Views 4 VIEWS COMPARISON: Contralateral right shoulder x-rays. FINDINGS: SOFT TISSUES: No abnormal soft tissue calcifications. No radiopaque foreign body. BONES/JOINTS: High riding humeral head as can be seen with chronic rotator cuff tear. Advanced degenerative changes glenohumeral joint with subchondral sclerosis and bony proliferative changes. No fracture or focal osseous lesion. Visualized left chest is clear. Aortic arch intimal calcifications. RAD/Shoulder min 2 Views IMPRESSION: Advanced degenerative changes glenohumeral joint and findings suggesting chronic rotator cuff tear. Electronically Signed: Beto Fung DO at 21:11 EDT ,
[2023-04-14 10:56] LABS: Mucous, Urine 0 SEEN /hpf (<or=2+); Red Blood Cells-Urine 0 SEEN /hpf (0-5)
[2023-04-14 12:57] LABS: Absolute Lymphocyte Count 1.88 X10^3/uL (0.83-4.51); Absolute Neutrophil Count 6.8 X10^3/uL (2.0-7.7); Eosinophils% 3.1 % (0-5); Hemoglobin 11.9 g/dL (12.0-15.0); Lymphocyte # 1.88 X10^3/ul (0.83-4.51); Lymphocyte % 19.3 % (19-41); Mean Corp Hgb Conc 31.3 g/dL (32-36); Mean Corpuscular Hgb 30.4 pg (27.0-32.0); Mean Corpuscular Volume 96.9 fL (81-99); Mean Platelet Vol. 10.7 fl (6.2-12.0); Monocyte# 0.62 X10^3/uL; Monocyte% 6.4 % (0-10); NRBC Flagged by Analyzer 0 % (0-5); Neutrophil % 69.9 % (47-70); Platelet Count 352 K/mm3 (150-450); RBC Distribution Width SD 46.1 fl (35.1-43.9); Red Blood Count 3.92 M/mm3 (4.2-5.4); White Blood Count 9.7 K/mm3 (4.4-11.0)
[2023-04-14 13:11] LABS: Color, Urine Yellow (Yellow); Glucose, Dipstick Normal (Normal); Ketone-Dipstick 5 mg/dl (Negative); Leukocyte Esterase-Dipstick 100 /ul (Negative); Nitrite-Dipstick Negative (Negative); Occult Blood-Urine 10 /ul (Negative); Protein-Dipstick 30 mg/dl (Negative); Urine Bilirubin Dipstick Negative (Negative); Urine Clarity Clear (Clear); Urine Urobilinogen Normal (Normal)
[2023-04-14 13:19] LABS: Microalbumin,Random Urine 77.8 mg/L (NO RANGE EST.); Microalbumin:Creatinine Ratio 29.5 mg/g CRE (<30 mg/g CRE); Protein, Urine (Random) 48.1 mg/dL (<11.9); Protein:Creat Ratio 182 mg/g CRE (0-200)
[2023-04-14 13:26] LABS: Hemoglobin A1c 6.2 % (3.8-5.6)
[2023-04-14 14:16] LABS: Bacteria 1+ /hpf (None Seen); Squamous Epithelial Cells - UA 0-5 SEEN /hpf (5-10); White Blood Cells 0-5 SEEN /hpf (0-5)
[2023-04-14 14:19] LABS: PTHIN 110.7 pg/mL (18.4-80.1)
[2023-04-14 14:25] LABS: Vitamin D,25 Hydroxy 79.3 ng/mL
[2023-04-14 14:48] LABS: ALB/GLOB Ratio 0.8 RATIO (0.9-2.4); AST(SGOT) 9 U/L (15-37); Alanine Aminotransfer ALT/SGPT 13 U/L (13-56); Albumin, Serum 3.6 g/dL (3.2-5.0); Alkaline Phosphatase 131 U/L (45-117); Anion Gap 7 (5-15); BUN 27 mg/dL (7-18); BUN/Creat Ratio 19.3 RATIO (10-20); Calcium,Total 10.7 mg/dL (8.5-10.1); Chloride 109 mmol/L (98-107); Cholesterol 144 mg/dL (200); EST Glomerular Filtration Rate 38 mL/min (>60); Est Glom Filt Rate - Afr Amer 46 mL/min (>60); Globulin 4.3 g/dL (2.2-4.2); Glucose 121 mg/dL (74-106); High Density Lipoprotein 49 mg/dL; Magnesium 2.1 mg/dL (1.6-2.6); Phosphorus 3.2 mg/dL (2.5-4.9); Potassium 4.2 mmol/L (3.5-5.1); Protein, Total 7.9 g/dL (6.4-8.2); Sodium Level 141 mmol/L (136-145); T4 Free Direct 0.97 ng/dL (0.76-1.46); Thyroid Stim Hormone (TSH) 4.13 uIU/mL (0.358-3.74); Triglycerides 224 mg/dL; Very Low Density Lipoprotein 45 mg/dL (5-40)
== END | disposition home or self-care (01) ==
LOC: MTLAB 10:51
PROVIDERS: PCP Family Medicine; Referring Provider Family Medicine; Visit Provider Family Medicine
DX: M75.40 Impingement syndrome of unspecified shoulder (principal); I48.91 Unspecified atrial fibrillation; E11.9 Type 2 diabetes mellitus without complications; E83.52 Hypercalcemia; E03.9 Hypothyroidism, unspecified
CPT/HCPCS: 36415; 73030; 80053; 80061; 81001; 82043; 82306; 82570; 83036; 83735; 83970; 84100; 84156; 84439; 84443; 85025

== ENCOUNTER → 2023-07-14 | Outpatient (CLI) | payer MEDICARE, OTHER, SELFPAY ==
[2023-07-14 11:36] LABS: Bacteria 0 SEEN /hpf (None Seen); Mucous, Urine 0 SEEN /hpf (<or=2+); Red Blood Cells-Urine 0 SEEN /hpf (0-5); White Blood Cells 0 SEEN /hpf (0-5)
[2023-07-14 15:19] LABS: Absolute Lymphocyte Count 1.83 X10^3/uL (0.83-4.51); Absolute Neutrophil Count 7.7 X10^3/uL (2.0-7.7); Basophil# 0.07 X10^3/uL; Basophil% 0.7 % (0-1); Eosinophil# 0.33 X10^3/uL; Eosinophils% 3.1 % (0-5); Hematocrit 38.4 % (37-47); Hemoglobin 11.7 g/dL (12.0-15.0); Lymphocyte # 1.83 X10^3/ul (0.83-4.51); Lymphocyte % 17.1 % (19-41); Mean Corp Hgb Conc 30.5 g/dL (32-36); Mean Corpuscular Hgb 30.1 pg (27.0-32.0); Mean Corpuscular Volume 98.7 fL (81-99); Mean Platelet Vol. 10.6 fl (6.2-12.0); Monocyte# 0.75 X10^3/uL; NRBC Flagged by Analyzer 0 % (0-5); Neutrophil # 7.65 X10^3/uL (2.7-7.7); Neutrophil % 71.6 % (47-70); Platelet Count 322 K/mm3 (150-450); RBC Distribution Width CV 13.2 % (11.6-14.6); RBC Distribution Width SD 47.7 fl (35.1-43.9); Red Blood Count 3.89 M/mm3 (4.2-5.4); White Blood Count 10.7 K/mm3 (4.4-11.0)
[2023-07-14 15:36] LABS: Color, Urine Yellow (Yellow); Glucose, Dipstick Normal (Normal); Ketone-Dipstick Negative (Negative); Leukocyte Esterase-Dipstick 25 /ul (Negative); Nitrite-Dipstick Negative (Negative); Occult Blood-Urine 10 /ul (Negative); Protein-Dipstick 30 mg/dl (Negative); Specific Gravity, Urine 1.015 (1.002-1.030); Urine Bilirubin Dipstick Negative (Negative); Urine Clarity Clear (Clear); Urine Urobilinogen Normal (Normal)
[2023-07-14 15:39] LABS: PTHIN 98.6 pg/mL (18.4-80.1)
[2023-07-14 15:43] LABS: Squamous Epithelial Cells - UA 0-5 SEEN /hpf (5-10)
[2023-07-14 15:45] LABS: Calcium Oxalate Crystals Ur RARE /hpf (<or=2+); Hyaline Cast 10-25 SEEN /lpf (0-5)
[2023-07-14 16:29] LABS: Microalbumin,Random Urine 63.7 mg/L (NO RANGE EST.); Microalbumin:Creatinine Ratio 30.6 mg/g CRE (<30 mg/g CRE); Protein, Urine (Random) 29.3 mg/dL (<11.9); Protein:Creat Ratio 141 mg/g CRE (0-200); Vitamin D,25 Hydroxy 61.4 ng/mL
[2023-07-14 16:33] LABS: ALB/GLOB Ratio 0.9 RATIO (0.9-2.4); AST(SGOT) 12 U/L (15-37); Alanine Aminotransfer ALT/SGPT 16 U/L (13-56); Albumin, Serum 3.6 g/dL (3.2-5.0); Alkaline Phosphatase 119 U/L (45-117); Anion Gap 8 (5-15); BUN 28 mg/dL (7-18); BUN/Creat Ratio 20.3 RATIO (10-20); Calcium,Total 10.2 mg/dL (8.5-10.1); Chloride 108 mmol/L (98-107); Cholesterol 160 mg/dL (200); Creatinine, Serum 1.38 mg/dL (0.55-1.02); EST Glomerular Filtration Rate 39 mL/min (>60); Est Glom Filt Rate - Afr Amer 47 mL/min (>60); Globulin 3.8 g/dL (2.2-4.2); Glucose 113 mg/dL (74-106); High Density Lipoprotein 46 mg/dL; Magnesium 2.3 mg/dL (1.6-2.6); Potassium 4.5 mmol/L (3.5-5.1); Protein, Total 7.4 g/dL (6.4-8.2); Sodium Level 139 mmol/L (136-145); Triglycerides 351 mg/dL; Very Low Density Lipoprotein 70 mg/dL (5-40)
== END | disposition home or self-care (01) ==
LOC: MFPLAB 11:32
PROVIDERS: PCP Family Medicine; Visit Provider Family Medicine
DX: I48.91 Unspecified atrial fibrillation (principal); E11.69 Type 2 diabetes mellitus with other specified complication; E55.9 Vitamin D deficiency, unspecified; E03.9 Hypothyroidism, unspecified
CPT/HCPCS: 80053; 80061; 81001; 82043; 82306; 82570; 83036; 83735; 83970; 84100; 84156; 84439; 84443; 85025

== ENCOUNTER → 2024-03-09 | Outpatient (CLI) | payer MEDICARE, OTHER, SELFPAY ==
[2024-03-09 12:25] LABS: Absolute Lymphocyte Count 1.61 X10^3/uL (0.83-4.51); Absolute Neutrophil Count 8.7 X10^3/uL (2.0-7.7); Basophil# 0.08 X10^3/uL; Basophil% 0.7 % (0-1); Eosinophil# 0.23 X10^3/uL; Hematocrit 37.3 % (37-47); Hemoglobin 11.9 g/dL (12.0-15.0); Lymphocyte # 1.61 X10^3/ul (0.83-4.51); Lymphocyte % 14.3 % (19-41); Mean Corp Hgb Conc 31.9 g/dL (32-36); Mean Corpuscular Hgb 29.9 pg (27.0-32.0); Mean Corpuscular Volume 93.7 fL (81-99); Mean Platelet Vol. 10.5 fl (6.2-12.0); Monocyte# 0.61 X10^3/uL; Monocyte% 5.4 % (0-10); NRBC Flagged by Analyzer 0 % (0-5); Neutrophil # 8.67 X10^3/uL (2.7-7.7); Platelet Count 346 K/mm3 (150-450); RBC Distribution Width CV 13.1 % (11.6-14.6); RBC Distribution Width SD 44.8 fl (35.1-43.9); Red Blood Count 3.98 M/mm3 (4.2-5.4); White Blood Count 11.3 K/mm3 (4.4-11.0)
[2024-03-09 12:40] LABS: Color, Urine Yellow (Yellow); Glucose, Dipstick Normal (Normal); Ketone-Dipstick 5 mg/dl (Negative); Leukocyte Esterase-Dipstick 25 /ul (Negative); Nitrite-Dipstick Negative (Negative); Occult Blood-Urine 10 /ul (Negative); Protein-Dipstick 100 mg/dl (Negative); Specific Gravity, Urine 1.025 (1.002-1.030); Urine Clarity Clear (Clear); Urine Urobilinogen 1 mg/dl (Normal)
[2024-03-09 12:43] LABS: Hemoglobin A1c 6.2 % (3.8-5.6); Urine Bilirubin Dipstick 1 mg/dL (Negative)
[2024-03-09 12:59] LABS: Bacteria 1+ /hpf (None Seen); Microalbumin:Creatinine Ratio 59.7 mg/g CRE (<30 mg/g CRE); Mucous, Urine 2+ /hpf (<or=2+); Protein, Urine (Random) 49.2 mg/dL (<11.9); Protein:Creat Ratio 161 mg/g CRE (0-200); Red Blood Cells-Urine 0-5 SEEN /hpf (0-5); Squamous Epithelial Cells - UA 0-5 SEEN /hpf (5-10); White Blood Cells 0-5 SEEN /hpf (0-5)
[2024-03-09 13:00] LABS: ALB/GLOB Ratio 0.9 RATIO (0.9-2.4); AST(SGOT) 11 U/L (15-37); Alanine Aminotransfer ALT/SGPT 16 U/L (13-56); Albumin, Serum 3.5 g/dL (3.2-5.0); Alkaline Phosphatase 139 U/L (45-117); Anion Gap 6 (5-15); BUN 21 mg/dL (7-18); BUN/Creat Ratio 16.9 RATIO (10-20); Calcium,Total 10.5 mg/dL (8.5-10.1); Chloride 106 mmol/L (98-107); Cholesterol 155 mg/dL (200); Creatinine, Serum 1.24 mg/dL (0.55-1.02); EST Glomerular Filtration Rate 44 mL/min (>60); Est Glom Filt Rate - Afr Amer 53 mL/min (>60); Globulin 3.8 g/dL (2.2-4.2); Glucose 149 mg/dL (74-106); High Density Lipoprotein 48 mg/dL; Magnesium 2.1 mg/dL (1.6-2.6); Potassium 4.3 mmol/L (3.5-5.1); Protein, Total 7.3 g/dL (6.4-8.2); Sodium Level 137 mmol/L (136-145); Thyroid Stim Hormone (TSH) 0.73 uIU/mL (0.358-3.74); Triglycerides 268 mg/dL; Very Low Density Lipoprotein 54 mg/dL (5-40)
== END | disposition home or self-care (01) ==
LOC: MFPLAB 10:54
PROVIDERS: PCP Family Medicine; Visit Provider Family Medicine
DX: E11.59 Type 2 diabetes mellitus with other circulatory complications (principal); I48.91 Unspecified atrial fibrillation; E11.22 Type 2 diabetes mellitus with diabetic chronic kidney disease; N18.30 Chronic kidney disease, stage 3 unspecified; E55.9 Vitamin D deficiency, unspecified; E21.3 Hyperparathyroidism, unspecified
CPT/HCPCS: 36415; 80053; 80061; 81001; 82043; 82306; 82570; 83036; 83735; 83970; 84156; 84443; 85025

== ENCOUNTER → 2024-06-05 | Outpatient (CLI) | payer MEDICARE, OTHER, SELFPAY ==
--- NOTE | 2024-06-05 15:28 | RAD_ITS ---
STUDY: X-RAY - CERVICAL SPINE REASON FOR EXAM: Female, 83 years old. CERVALGIA TECHNIQUE: 5 view(s) of the cervical spine were obtained. COMPARISON: None FINDINGS: Normal anterior atlantoaxial articulation. Normal odontoid process. Normal cervical lordosis. 2 mm of anterolisthesis of C3 on C4 and C4 on C5. 2 mm retrolisthesis of C5 on C6. There is multi-level endplate spondylosis. There is multi-level degenerative disc disease with multilevel disc space narrowing. There is multi-level osseous foraminal stenosis. The soft tissue structures are unremarkable. RAD/Cerv Spine 4 or 5 Views IMPRESSION: Moderate degenerative disc disease with subluxation at multiple levels. MRI may be useful. Electronically Signed: Juan Glover MD at 9:19 EDT ,
== END | disposition home or self-care (01) ==
PROVIDERS: PCP Family Medicine; Referring Provider Clinical Nurse Specialist Adult Health; Visit Provider Clinical Nurse Specialist Adult Health
DX: M54.2 Cervicalgia (principal)
CPT/HCPCS: 72050

== ENCOUNTER → 2024-07-12 | Outpatient (CLI) | payer MEDICARE, OTHER, SELFPAY ==
[2024-07-12 11:20] LABS: Mucous, Urine 0 SEEN /hpf (<or=2+)
[2024-07-12 15:31] LABS: Color, Urine Yellow (Yellow); Glucose, Dipstick Normal (Normal); Ketone-Dipstick 5 mg/dl (Negative); Leukocyte Esterase-Dipstick 100 /ul (Negative); Nitrite-Dipstick Negative (Negative); Occult Blood-Urine 10 /ul (Negative); Protein-Dipstick 30 mg/dl (Negative); Urine Clarity Sl. Cloudy (Clear); Urine Urobilinogen Normal (Normal)
[2024-07-12 15:32] LABS: Urine Bilirubin Dipstick 1 mg/dL (Negative)
[2024-07-12 15:42] LABS: Vitamin D,25 Hydroxy 57.8 ng/mL
[2024-07-12 15:43] LABS: PTHIN 121.4 pg/mL (18.4-80.1)
[2024-07-12 15:46] LABS: Protein, Urine (Random) 47.2 mg/dL (<11.9); Protein:Creat Ratio 173 mg/g CRE (0-200)
[2024-07-12 15:47] LABS: Absolute Lymphocyte Count 1.06 X10^3/uL (0.83-4.51); Absolute Neutrophil Count 4.5 X10^3/uL (2.0-7.7); Basophil# 0.06 X10^3/uL; Basophil% 0.9 % (0-1); Eosinophil# 0.18 X10^3/uL; Eosinophils% 2.8 % (0-5); Hematocrit 38.8 % (37-47); Hemoglobin 12.2 g/dL (12.0-15.0); Lymphocyte # 1.06 X10^3/ul (0.83-4.51); Lymphocyte % 16.4 % (19-41); Mean Corp Hgb Conc 31.4 g/dL (32-36); Mean Corpuscular Volume 95.3 fL (81-99); Mean Platelet Vol. 10.5 fl (6.2-12.0); Monocyte# 0.66 X10^3/uL; Monocyte% 10.2 % (0-10); NRBC Flagged by Analyzer 0 % (0-5); Neutrophil # 4.47 X10^3/uL (2.7-7.7); Neutrophil % 69.2 % (47-70); Platelet Count 265 K/mm3 (150-450); RBC Distribution Width CV 13.2 % (11.6-14.6); RBC Distribution Width SD 46.4 fl (35.1-43.9); Red Blood Count 4.07 M/mm3 (4.2-5.4); White Blood Count 6.5 K/mm3 (4.4-11.0)
[2024-07-12 15:48] LABS: Bacteria RARE /hpf (None Seen); Red Blood Cells-Urine 0-5 SEEN /hpf (0-5); Squamous Epithelial Cells - UA 0-5 SEEN /hpf (5-10); White Blood Cells 5-10 SEEN /hpf (0-5)
[2024-07-12 15:49] LABS: Calcium Oxalate Crystals Ur 1+ /hpf (<or=2+)
[2024-07-12 15:54] LABS: Erythrocyte Sedimentation Rate 29 mm/hr (0-30)
[2024-07-12 16:39] LABS: ALB/GLOB Ratio 0.9 RATIO (0.9-2.4); AST(SGOT) 16 U/L (15-37); Alanine Aminotransfer ALT/SGPT 15 U/L (13-56); Albumin, Serum 3.4 g/dL (3.2-5.0); Alkaline Phosphatase 125 U/L (45-117); Anion Gap 7 (5-15); BUN 20 mg/dL (7-18); BUN/Creat Ratio 14.9 RATIO (10-20); Calcium,Total 10.8 mg/dL (8.5-10.1); Chloride 106 mmol/L (98-107); Cholesterol 158 mg/dL (200); Creatinine, Serum 1.34 mg/dL (0.55-1.02); EST Glomerular Filtration Rate 40 mL/min (>60); Est Glom Filt Rate - Afr Amer 48 mL/min (>60); Globulin 3.8 g/dL (2.2-4.2); Glucose 159 mg/dL (74-106); High Density Lipoprotein 43 mg/dL; Magnesium 2.1 mg/dL (1.6-2.6); Potassium 4.3 mmol/L (3.5-5.1); Protein, Total 7.2 g/dL (6.4-8.2); Sodium Level 139 mmol/L (136-145); T4 Free Direct 1.07 ng/dL (0.76-1.46); Triglycerides 299 mg/dL; Very Low Density Lipoprotein 60 mg/dL (5-40)
== END | disposition home or self-care (01) ==
LOC: MFPLAB 11:14
PROVIDERS: PCP Family Medicine; Visit Provider Family Medicine
DX: E11.59 Type 2 diabetes mellitus with other circulatory complications (principal); I48.91 Unspecified atrial fibrillation; E11.22 Type 2 diabetes mellitus with diabetic chronic kidney disease; N18.30 Chronic kidney disease, stage 3 unspecified; E21.3 Hyperparathyroidism, unspecified; E03.9 Hypothyroidism, unspecified; E55.9 Vitamin D deficiency, unspecified; M35.3 Polymyalgia rheumatica
CPT/HCPCS: 36415; 80053; 80061; 81001; 82306; 82570; 83735; 83970; 84156; 84439; 84443; 85025; 85652

== ENCOUNTER 2024-10-29 21:06 | Emergency (ER) | payer MEDICARE, OTHER, SELFPAY ==
[2024-10-29 21:08] VITALS: BP 157/70; PULSE 77; RESP 16; TEMP 36.7; O2SAT 95; BMI 34.2
--- NOTE | 2024-10-29 21:26 | RAD_ITS ---
INDICATION: knee pain EXAMINATION/TECHNIQUE: X-RAY - LEFT XR Knee Complete 4 Views or More 4 VIEWS COMPARISON: No relevant prior comparison study available FINDINGS: SOFT TISSUES: No soft tissue swelling or gas. No radiopaque foreign body. BONES/JOINTS: No acute fracture or subluxation.. There is normal alignment with the exception of minimal lateral subluxation of the patella. Joint space is maintained however small joint effusion is noted.. No sclerotic or destructive changes observed. RAD/Knee 4 or More Views IMPRESSION: 1. No evidence fracture, malalignment or focal bony abnormality. There is mild lateral subluxation of the patella. 2. No dislocation however there is a small joint effusion. Electronically Signed: Juan Tran MD at 23:07 EST ,
--- NOTE | 2024-10-29 22:13 | EDS_ITS ---
HPI History of Present Illness Chief Complaint: Lower Extremity Injury Informant: patient and spouse/S.O. Narrative Narrative: Brought in by EMS from home left knee pain started 2 days ago. Started when she got up and turned her knee felt it gave out. No falls. Progressive pain over last 2 days worse today unable to ambulate. She does see pain management for her generalized arthritis pains she is on oxycodone and duloxetine. No previous surgeries to the knee. Previous hip replacements by Dr. Wright. No fever chills or sweats. Reviewing her medication she is on Plaquenil and hydrochloric when. She is follows rheumatology. She cannot confirm being treatment for rheumatoid arthritis however states has generalized arthritis pains. No issues with the knee in the past. Prior similar symptoms: No PFSH PFSH Medical History Fibromyalgia Essential hypertension Paget's disease Hypothyroidism GERD (gastroesophageal reflux disease) Paroxysmal atrial fibrillation Atherosclerotic heart disease of [place] coronary artery without angina pectoris NSTEMI (non-ST elevated myocardial infarction) Paroxysmal ventricular tachycardia Arthritis Esophageal stricture Renal insufficiency Hiatal hernia Back pain of lumbar region with sciatica Back pain Hypothyroidism Home Medications ?Medication ?Instructions ?Recorded ?Last Taken ?Type simvastatin 20 mg tablet 20 mg PO QHS cholesterol 09/21/13 01/29/19 History 20 MG multivitamin 1 ea PO DAILY supplement 09/03/15 01/25/19 History 1 EA cetirizine 10 mg tablet (Zyrtec) 10 mg PO QDAY PRN Allergies 10/11/17 01/25/19 History 10 MG cholecalciferol (vitamin D3) 100 4,000 unit PO DAILY supplement 07/13/18 01/29/19 History mcg (4,000 unit) tablet 4000 UNIT aspirin 81 mg chewable tablet 81 mg PO DAILY@0800 10/02/19 10/02/19 History acetaminophen 500 mg tablet 1,000 mg PO Q8 PRN pain 12/03/21 Unknown History duloxetine 60 mg capsule,delayed 60 mg PO QDAY 01/20/24 Unknown History release levothyroxine 75 mcg tablet 75 mcg PO QDAY 01/20/24 Unknown History metoprolol tartrate 50 mg tablet 50 mg PO BID for blood pressure 04/14/24 Unknown Rx #180 TABLETS amlodipine 5 mg tablet 5 mg PO DAILY #90 tabs 05/24/24 Unknown Rx hydroxychloroquine 200 mg tablet 200 mg PO BID 10/29/24 Unknown History (Plaquenil) losartan 100 mg tablet (Cozaar) 100 mg PO DAILY 10/29/24 Unknown History Allergy/AdvReac Type Severity Reaction Status Date / Time grepafloxacin (From Raxar) Allergy Unknown Verified 10/29/24 21:07 pravastatin Allergy Unknown Verified 10/29/24 21:07 amlodipine AdvReac Intermediate Swelling Verified 10/29/24 21:07 ciprofloxacin (From Cipro) AdvReac Other Verified 10/29/24 21:07 Family History Father CAD (coronary artery disease) Lung cancer Surgical History History of back surgery History of right hip replacement History of left hip replacement History of partial mastectomy of left breast History of vein stripping History of tubal ligation S/P dilatation of esophageal stricture Social History Smoking Status: Never smoker alcohol intake: never substance use type: does not use caffeine: Yes ROS ROS ED Constitutional Constitutional ED: Denies chills, fever(s) or sweats ENT ENT ED: Denies sore throat Cardiovascular Cardiovascular: Denies chest pain, leg edema, palpitations or racing heartbeat Respiratory/Chest Respiratory/Chest: Denies cough, dyspnea or dyspnea on exertion Gastrointestinal Gastrointestinal: Denies abdominal pain, diarrhea, nausea or vomiting Genitourinary Genitourinary ED: Denies dysuria, hematuria or urinary frequency Musculoskeletal Musculoskeletal: Reports extremity pain; Denies back pain or neck pain Integumentary Denies rash or wounds Neurologic Neurologic: Denies headache(s), paresthesias or weakness EXAM Physical Exam Const Vital Signs: 10/29/24 21:08 10/29/24 23:00 10/30/24 00:34 Temperature 98.1 F 98.7 F Temperature Source Oral Pulse Rate 77 80 80 Respiratory Rate 16 18 18 Blood Pressure 157/70 H 155/87 H 150/66 H Blood Pressure Mean 99 109 94 Pulse Ox 95 95 94 Oxygen Delivery Method Room Air Room Air Positive well nourished and well developed Constitutional Narrative: Nontoxic, uncomfortable with left knee movement. General Appearance ED: well developed HEENT Reports moist mucous membranes normocephalic and atraumatic Eyes General Eye ED: Yes normal appearance of both eyes Neck full ROM Chest Wall Chest: Negative for tenderness Resp normal respiratory effort and normal air movement Effort and Inspection: symmetric chest movement; Negative for respiratory distress Cardio regular rate, regular rhythm and no murmurs Peripheral Pulses: pulses 2+ throughout GI normal to inspection, nondistended, normoactive bowel sounds and non-tender Palpation: Negative for guarding or rebound tenderness present Extremity Extremity Narrative: Left lower extremity: Knee extensor intact there is suprapatellar and infrapatellar medial aspect swelling. Pain with movement of the knee. There is no erythema. Pulses intact distally. General Extremety ED: Yes tenderness; Negative for edema General Extremity: Negative for edema Neuro oriented x3 and no sensory deficits noted Sensorium / Orientation: awake and alert Skin no rashes or lesions noted and no wounds MDM MDM MDM Narrative Medical decision making narrative: Interventions / MDM: Differential diagnosis: Left knee swelling, immunocompromised patient, rheumatological disorder, septic knee Diagnosis considered but do not suspect: N/A My EKG interpretation: N/A Imaging independently reviewed and interpreted by myself: Left knee x-ray 4 views: Mild joint effusion, no fracture. Also read by radiology. External documents reviewed: N/A Test considered but not ordered:N/A ED course: Patient reporting trauma with twisting prior to pain. It progressed where she is not walking today. No fevers or chills. However she is on immunosuppressants with her arthritis medications. She has pain with movement of the knee. There appears clinically to have effusion to the knee. X-rays were done through her arrival from nursing protocol. No concerns for effusion of the knee. Ordered for lab work morphine for pain control. 2259: Patient with elevated white count elevated ESR and CRP. Written consent obtained for left knee arthrocentesis for further evaluation. Timeout performed. Sterile conditions performed. Knee was placed slight flexion position with blankets, lateral approach after Betadine prep of the knee. 18- gauge needle 1.5 inch used, a total of 16 cc bloody thick fluid was obtained. Needle removed, no active bleeding, bandage was placed. Patient tolerated the procedure well. 2310: Fluid analysis sent for crystals, cell count and culture. 0005: Knee aspiration cell count 42,300. Discussed with labs negative for crystals. Gram stain cultures pending. 0010: I discussed with on-call orthopedist Dr. Perdue discussed her immunocompromise state and her aspiration findings. Not quite higher than 50,000 this time. However does recommend admission for observation to hospitalist and he will see in the morning. Will keep her NPO. 0015: I spoke with hospitalist Dr. Madrid for admission to the medical floor. After admission performed and discussion with patient and spouse. Patient told the nurse she did not want to be admitted as [place] is 2 days away. They are initially concerned they would not be seen tomorrow, I discussed with them that the plan is for orthopedics Dr. Perdue was to see her in the morning evaluate her and potentially go to surgery as request was to make her n.p.o. I discussed with her immunocompromise state there is high risk of infection in this knee that can lead to deterioration of this knee. Spouse was in understanding however patient still requested to be discharged. She is alert and oriented x 4 capable of making decisions. Prior to having her sign out against medical vice, we did ambulate the patient she had instability with a walker however still decided to leave AGAINST MEDICAL ADVICE. She was given orthopedic information to follow-up with along with her PCP. Re-evaluation: stable Disposition discussed with patient/family/significant other: Patient and significant other Case discussed with consulting clinician: orthopedics, hospitalist This note was generated with [employer] dictation software. It may contain incorrect words, spelling, and punctuation that were not noted in checking the note before signing. Lab Data Attestation: I reviewed the patient's lab results. Labs: Laboratory Results - last 24 hr 10/29/24 10/29/24 22:20 23:02 WBC 15.8 H RBC 4.15 L Hgb 12.4 Hct 39.2 MCV 94.5 MCH 29.9 MCHC 31.6 L RDW Std Deviation 45.2 H RDW Coeff of Jody 13.0 Plt Count 295 MPV 10.5 Immature Gran % (Auto) 0.300 Neut % (Auto) 81.1 H Lymph % (Auto) 8.3 L [place] % (Auto) 9.1 Eos % (Auto) 0.9 Baso % (Auto) 0.3 Absolute Neuts (auto) 12.8 H Absolute Lymphs (auto) 1.31 Nucleated RBC % 0 ESR 56 H Sodium 136 Potassium 4.2 Chloride 103 Carbon Dioxide 28.0 Anion Gap 5 BUN 19 H Creatinine 1.20 H Estim Creat Clear Calc 36.64 Est GFR (MDRD) Af Amer 55 L Est GFR (MDRD) Non-Af 45 L BUN/Creatinine Ratio 15.8 Glucose 173 H Calcium 10.5 H C-React Prot Ext Range 76.30 H Fluid Crystals NO CRYSTALS SEEN Fluid Crystal Source SYNOVIAL Synovial Source LEFT KNEE Synovial Color Red Synovial Appearance Cloudy Synovial WBC 42.3200 H Synovial RBC 0.[address]ovial Tot Cell Ct 42.3500 H Synov Polynuclear WBCs 44.886 Synov Mononuclear WBCs 2.213 Synovial Neutrophils 97 H Synovial Monocytes 3 Synovial Polynuclear % 95.3 Synovial Mononuclear % 4.[address] Comment May follow Radiography Diagnostic Testing: Clinical Impression(s) from Imaging Studies Knee X-Ray 10/29/24 21:26 IMPRESSION: 1. No evidence fracture, malalignment or focal bony abnormality. There is mild lateral subluxation of the patella. 2. No dislocation however there is a small joint effusion. Electronically Signed: Juan Tran MD at 23:07 EST , Discharge Plan Triage Chief Complaint: Lower Extremity Injury ED Provider: William Mathews Dx/Rx/DC Orders Clinical Impression: Pain and swelling of left knee, Hx of immunocompromised state Prescriptions: No Action cetirizine [Zyrtec] 10 mg tablet 10 mg PO QDAY PRN (Reason: Allergies) cholecalciferol (vitamin D3) 4,000 unit tablet 4,000 unit PO DAILY duloxetine 60 mg capsule,delayed release(DR/EC) 60 mg PO QDAY levothyroxine 75 mcg tablet 75 mcg PO QDAY simvastatin 20 MG tablet 20 mg PO QHS Patient Comments: High Cholesterol multivitamin 1 EACH tablet 1 ea PO DAILY Patient Comments: supplement acetaminophen 500 mg tablet 1,000 mg PO Q8 PRN (Reason: pain) aspirin 81 MG tablet,chewable 81 mg PO DAILY@0800 losartan [Cozaar] 100 mg tablet 100 mg PO DAILY hydroxychloroquine [Plaquenil] 200 mg tablet 200 mg PO BID metoprolol tartrate 50 mg tablet 50 mg PO BID Qty: 180 3RF amlodipine 5 mg tablet 5 mg PO DAILY Qty: 90 3RF Primary Care Provider: Serge Chicas Referrals: Serge Chicas MD [Primary Care Provider] - 1 Day Bobby Perdue MD [Med Staff - Active Staff] - 3-5 Days Activity Restrictions/Additional Instructions: There is concerns for infection of your knee. This was discussed with you multiple times. I spoke with orthopedic service also who agrees that you should be admitted. You understand your risk for leaving with potential infection. Follow-up with your doctors. Print Language: Macedonian Disposition Disposition: Against Medical Advice Discharge Date/Time: 10/30/24 00:54
[2024-10-29] MEDS: Morphine 4 MG/ML Syringe IV (22:25)
[2024-10-29 22:32] LABS: Absolute Lymphocyte Count 1.31 X10^3/uL (0.83-4.51); Absolute Neutrophil Count 12.8 X10^3/uL (2.0-7.7); Basophil# 0.05 X10^3/uL; Basophil% 0.3 % (0-1); Eosinophil# 0.14 X10^3/uL; Eosinophils% 0.9 % (0-5); Hematocrit 39.2 % (37-47); Hemoglobin 12.4 g/dL (12.0-15.0); Lymphocyte # 1.31 X10^3/ul (0.83-4.51); Lymphocyte % 8.3 % (19-41); Mean Corp Hgb Conc 31.6 g/dL (32-36); Mean Corpuscular Hgb 29.9 pg (27.0-32.0); Mean Corpuscular Volume 94.5 fL (81-99); Mean Platelet Vol. 10.5 fl (6.2-12.0); Monocyte# 1.44 X10^3/uL; Monocyte% 9.1 % (0-10); NRBC Flagged by Analyzer 0 % (0-5); Neutrophil # 12.79 X10^3/uL (2.7-7.7); Neutrophil % 81.1 % (47-70); Platelet Count 295 K/mm3 (150-450); RBC Distribution Width SD 45.2 fl (35.1-43.9); Red Blood Count 4.15 M/mm3 (4.2-5.4); White Blood Count 15.8 K/mm3 (4.4-11.0)
[2024-10-29 22:36] LABS: Erythrocyte Sedimentation Rate 56 mm/hr (0-30)
[2024-10-29 22:43] LABS: Anion Gap 5 (5-15); BUN 19 mg/dL (7-18); BUN/Creat Ratio 15.8 RATIO (10-20); Calcium,Total 10.5 mg/dL (8.5-10.1); Chloride 103 mmol/L (98-107); EST Glomerular Filtration Rate 45 mL/min (>60); Est Glom Filt Rate - Afr Amer 55 mL/min (>60); Estimated Creatinine Clearance 36.64 ml/min; Glucose 173 mg/dL (74-106); Potassium 4.2 mmol/L (3.5-5.1); Sodium Level 136 mmol/L (136-145)
[2024-10-29 23:00] VITALS: BP 155/87; PULSE 80; RESP 18; O2SAT 95
[2024-10-29 23:14] LABS: Pathologist Comment May follow
[2024-10-29 23:28] LABS: RBC /Synovial Fluid 0.244 10^6/uL (0); Synovial Fld Mononuclear WBC # 2.213 10^3/ul; Synovial Fld Mononuclear WBC % 4.7 %; Synovial Fld Polynuclear WBC # 44.886 10^3/uL; Synovial Fld Polynuclear WBC % 95.3 %
[2024-10-29 23:48] LABS: AUTO B FLUID DILUENT BKGD CT WBC <0.1 RBC <0.01 (W<.1,R<.01); Appearance /Synovial Fluid Cloudy (CLEAR); CRYSTALS, BODY FLUID NO CRYSTALS SEEN; Color / Synovial Fluid Red (Pale Yellow); Source / Synovial Fluid LEFT KNEE; Source- Body Fluid SYNOVIAL
[2024-10-29 23:52] LABS: Body Fluid QC Type(s) BF1Q,BF2Q
[2024-10-30 00:33] LABS: Monocyte /Synovial Fluid 3 %; Neutrophil 97 % (0-25)
[2024-10-30 00:34] VITALS: BP 150/66; PULSE 80; RESP 18; TEMP 37.1; O2SAT 94
[2024-10-31 10:50] LABS: Pathologist Review Reviewed
== END 2024-10-30 00:54 | disposition left against medical advice (07) ==
PROVIDERS: Emergency Provider Emergency Medicine; PCP Family Medicine; Visit Provider Emergency Medicine
DX: M25.562 Pain in left knee (principal); I25.10 Atherosclerotic heart disease of native coronary artery without angina pectoris; M79.7 Fibromyalgia; I10 Essential (primary) hypertension; I25.2 Old myocardial infarction; E03.9 Hypothyroidism, unspecified; Z98.51 Tubal ligation status; M25.462 Effusion, left knee
CPT/HCPCS: 96374; 99285; 73564; 80048; 85025; 85652; 86140; 87070; 87075; 87205; 89050; 89051; 89060; A4216

== ENCOUNTER 2024-10-30 08:30 | Inpatient (IN) | payer MEDICARE, OTHER, SELFPAY ==
[2024-10-30] VITALS (24 sets, daily range): BP systolic 93–149; BP diastolic 59–121; PULSE 71–99; RESP 16–20; TEMP 36.4–37.2; O2SAT 94–99; BMI 30.2; BMI 31.1
--- NOTE | 2024-10-30 08:52 | ED.VIS.LOWEX ---
HPI History of Present Illness HPI Narrative: 83-year-old female history of atraumatic left knee pain for at least 3 days. Denies any fall injury or trauma. No fever or chills. Was actually seen this morning in the emergency department. Had an arthrocentesis done of her left knee. It strongly believe that she has a left knee infection. A septic joint. She signed out AGAINST MEDICAL ADVICE. We contacted the family her brought her back in. The overnight physician had already spoken to the orthopedic on-call and the plan at that time was take her to the operating room. I will speak to the orthopedic surgeon on-call now. Chief Complaint: Lower Extremity Injury Occured/Mechanism Mechanism/Context: No injury and No blunt trauma Onset/Context/Timing Onset: Days Context: Gradual Onset Timing: Continuous Quality of Pain: Sharp Current Severity: Moderate Maximum Severity: Moderate Narrative Narrative: 83-year-old female atraumatic left knee pain. Suspected an septic joint. Seen last night left AMA and now returned. History of A-fib only on aspirin. No other anticoagulation. Denies any antibiotic allergies. Prior similar symptoms: No Recent Illness/Hospitalization: No PFSH PFSH Medical History Fibromyalgia Essential hypertension Paget's disease Hypothyroidism GERD (gastroesophageal reflux disease) Paroxysmal atrial fibrillation Atherosclerotic heart disease of [place] coronary artery without angina pectoris NSTEMI (non-ST elevated myocardial infarction) Paroxysmal ventricular tachycardia Arthritis Esophageal stricture Renal insufficiency Hiatal hernia Back pain of lumbar region with sciatica Back pain Hypothyroidism Home Medications ?Medication ?Instructions ?Recorded ?Last Taken ?Type simvastatin 20 mg tablet 20 mg PO QHS cholesterol 09/21/13 10/29/24 History multivitamin 1 ea PO DAILY supplement 09/03/15 10/29/24 History cetirizine 10 mg tablet (Zyrtec) 10 mg PO QDAY PRN Allergies 10/11/17 10/29/24 History cholecalciferol (vitamin D3) 100 4,000 unit PO DAILY supplement 07/13/18 10/29/24 History mcg (4,000 unit) tablet aspirin 81 mg chewable tablet 81 mg PO DAILY@0800 10/02/19 10/29/24 History acetaminophen 500 mg tablet 1,000 mg PO Q8 PRN pain 12/03/21 10/29/24 History duloxetine 60 mg capsule,delayed 60 mg PO QDAY 01/20/24 10/29/24 History release levothyroxine 75 mcg tablet 75 mcg PO QDAY 01/20/24 10/29/24 History metoprolol tartrate 50 mg tablet 50 mg PO BID for blood pressure 04/14/24 10/29/24 Rx #180 TABLETS amlodipine 5 mg tablet 5 mg PO DAILY #90 tabs 05/24/24 10/29/24 Rx hydroxychloroquine 200 mg tablet 200 mg PO BID 10/29/24 10/29/24 History (Plaquenil) losartan 100 mg tablet (Cozaar) 100 mg PO DAILY 10/29/24 10/29/24 History oxycodone-acetaminophen 5 mg-325 0.5 tab PO TID PRN PRN pain 10/30/24 10/29/24 History mg tablet Allergy/AdvReac Type Severity Reaction Status Date / Time grepafloxacin (From Raxar) Allergy Unknown Verified 10/30/24 08:31 pravastatin Allergy Unknown Verified 10/30/24 08:31 amlodipine AdvReac Intermediate Swelling Verified 10/30/24 08:31 ciprofloxacin (From Cipro) AdvReac Other Verified 10/30/24 08:31 Family History Father CAD (coronary artery disease) Lung cancer Surgical History History of back surgery History of right hip replacement History of left hip replacement History of partial mastectomy of left breast History of vein stripping History of tubal ligation S/P dilatation of esophageal stricture Social History Smoking Status: Never smoker alcohol intake: never substance use type: does not use caffeine: Yes ROS ROS ED ROS Narrative Denies recent illness. Atraumatic knee pain. Constitutional Constitutional ED: Denies chills or fever(s) Eyes Eyes: Denies blurry vision ENT ENT ED: Denies ear pain Cardiovascular Cardiovascular: Denies chest pain Respiratory/Chest Respiratory/Chest: Denies cough or dyspnea Gastrointestinal Gastrointestinal: Denies abdominal pain Genitourinary Genitourinary ED: Denies dysuria or hematuria Musculoskeletal Musculoskeletal: Denies arthralgias or back pain Integumentary Denies abscess or Abrasions Neurologic Neurologic: Denies headache(s) Psychiatric Psychiatric: Denies anxiety Endocrine Endocrinology: Denies polydipsia or polyphagia Hematologic/Lymphatic Hematologic/Lymphatic: Denies easy bleeding or easy bruising Allergic/Immunologic Allergic/Immunologic ED: Denies mouth swelling, tongue swelling or urticaria EXAM Physical Exam Narrative Exam Narrative: 83-year-old female sitting upright in bed. Vital signs are stable afebrile. H EENT exam unremarkable. Neck nontender. Lungs are clear. Heart rate about 95. No appreciable murmur. Chest wall ribs nontender. Abdomen soft nontender. Moving all 4 extremities. Left knee is warm to the touch. Swollen and red consistent with a septic joint. She has significant pain with attempting to flex the knee. Left hip and ankle are nontender normal dorsi and plantarflexion of the left foot. Right lower extremity unremarkable. Patient is awake and alert. Answering questions and following commands. Const Vital Signs: 10/30/24 08:30 Temperature 99 F Temperature Source Temporal Pulse Rate 99 Respiratory Rate 16 Blood Pressure 148/79 H Blood Pressure Mean 102 Pulse Ox 95 Oxygen Delivery Method Room Air Positive well nourished and well developed; Negative for cachectic, contractures or unkempt General Appearance ED: well developed and NAD; Negative for unkempt, cachectic or contractures Nutritional Appearance: Negative for cachectic HEENT Reports moist mucous membranes normocephalic and atraumatic; Negative for trauma or tenderness Eyes PERRL Neck full ROM and supple Chest Wall inspection of chest normal and palpation of chest normal Resp normal respiratory effort, no retractions and clear to auscultation bilaterally Cardio regular rate, S1 normal heart sound, S2 normal heart sound and no murmurs; Negative for regular rhythm GI non-tender, non-distended and no masses Palpation: soft; Negative for tender, guarding or rebound tenderness present Back/Spine no CVA tenderness General Back: Negative for CVA tenderness Thoracic Spine / Upper Back: Negative for thoracic spinal tenderness Lumbar Spine / Lower Back: Negative for lumbar spinal tenderness Extremity Negative for normal to inspection or full ROM Extremity Narrative: Left knee swollen, red and tender. Decreased range of motion. Consistent with septic joint. General Extremety ED: Yes weight-bearing difficulty; Negative for cyanosis or edema General Extremity: weight-bearing difficulty; Negative for cyanosis or edema Neuro oriented x3, CN's II-XII intact bilaterally, moves all extremities and no sensory deficits noted Sensorium / Orientation: alert, oriented to person, oriented to place and oriented to time Motor Exam: strength 5/5 throughout Psych mental status grossly normal Appearance: Negative for unkempt Skin no wounds Lesions: no lesions Rashes: no rashes MDM MDM MDM Narrative Medical decision making narrative: 83-year-old female septic left knee joint. Orthopedics on page for admission and washout of the joint. She will be started on IV antibiotics. I spoke to Dr. Alex Marrero of [place] [facility] on-call at 9:40 AM. He is aware of the patient. Patient will be admitted to the hospitalist. I have already started on IV Unasyn. And he plans on doing surgery on her today. History & Record Review Discussion w/independent historian: Patient Additional record(s) reviewed:: Prior inpatient record, Prior outpatient record, Prior ED visit and Prior labs Discharge Plan Triage Chief Complaint: Lower Extremity Injury ED Provider: Peter Pryor Dx/Rx/DC Orders Clinical Impression: Septic arthritis of knee, left Prescriptions: No Action cetirizine [Zyrtec] 10 mg tablet 10 mg PO QDAY PRN (Reason: Allergies) cholecalciferol (vitamin D3) 4,000 unit tablet 4,000 unit PO DAILY duloxetine 60 mg capsule,delayed release(DR/EC) 60 mg PO QDAY levothyroxine 75 mcg tablet 75 mcg PO QDAY simvastatin 20 MG tablet 20 mg PO QHS Patient Comments: High Cholesterol multivitamin 1 EACH tablet 1 ea PO DAILY Patient Comments: supplement acetaminophen 500 mg tablet 1,000 mg PO Q8 PRN (Reason: pain) aspirin 81 MG tablet,chewable 81 mg PO DAILY@0800 losartan [Cozaar] 100 mg tablet 100 mg PO DAILY hydroxychloroquine [Plaquenil] 200 mg tablet 200 mg PO BID oxycodone-acetaminophen 5-325 mg tablet 0.5 tab PO TID PRN PRN (Reason: pain) metoprolol tartrate 50 mg tablet 50 mg PO BID Qty: 180 3RF amlodipine 5 mg tablet 5 mg PO DAILY Qty: 90 3RF Primary Care Provider: Serge Chicas Referrals: Serge Chicas MD [Primary Care Provider] - Print Language: Slovenian Disposition Disposition: Acute Care [facility]
[2024-10-30] MEDS: Ampicillin/Sulbactam 3 GM in 0.9% Normal Saline (100mL MB+) 100 ML IV ×3 (09:16→23:55)
--- NOTE | 2024-10-30 10:22 | PCM.HP.STD ---
HPI - General General Date of Admission: 10/30/24 Date of Service: 10/30/24 Chief Complaint: Left knee pain for 4 to 5 days. HPI Narrative LIN MCQUEEN, is a 83 F came to ED for left knee pain that is started 3 to 4 days ago, got worse for last 2 days. She believes she might have twisted it on walking but denies any fall injury or trauma. Complain of severe pain all around left knee and mild swelling. She denies any previous open or arthroscopic knee surgery. She had bilateral hip replacement. Denies fever or chills. She had a left knee x-ray which shows mild joint effusion no fracture. Arthrocentesis was done. Later patient signed AMA because of the [place]. Later on patient was called back she came to ED in the morning today and currently is being taken to ED for arthroscopic knee washout. Patient was seen and examined in preop room in OR. [facility] Medical History Fibromyalgia Essential hypertension Paget's disease Hypothyroidism GERD (gastroesophageal reflux disease) Paroxysmal atrial fibrillation Atherosclerotic heart disease of [place] coronary artery without angina pectoris NSTEMI (non-ST elevated myocardial infarction) Paroxysmal ventricular tachycardia Arthritis Esophageal stricture Renal insufficiency Hiatal hernia Back pain of lumbar region with sciatica Back pain Hypothyroidism Home Medications ?Medication ?Instructions ?Recorded ?Last Taken ?Type simvastatin 20 mg tablet 20 mg PO QHS cholesterol 09/21/13 10/29/24 History multivitamin 1 ea PO DAILY supplement 09/03/15 10/29/24 History cetirizine 10 mg tablet (Zyrtec) 10 mg PO QDAY PRN Allergies 10/11/17 10/29/24 History cholecalciferol (vitamin D3) 100 4,000 unit PO DAILY supplement 07/13/18 10/29/24 History mcg (4,000 unit) tablet aspirin 81 mg chewable tablet 81 mg PO DAILY@0800 10/02/19 10/29/24 History acetaminophen 500 mg tablet 1,000 mg PO Q8 PRN pain 12/03/21 10/29/24 History duloxetine 60 mg capsule,delayed 60 mg PO QDAY 01/20/24 10/29/24 History release levothyroxine 75 mcg tablet 75 mcg PO QDAY 01/20/24 10/29/24 History metoprolol tartrate 50 mg tablet 50 mg PO BID for blood pressure 04/14/24 10/29/24 Rx #180 TABLETS amlodipine 5 mg tablet 5 mg PO DAILY #90 tabs 05/24/24 10/29/24 Rx hydroxychloroquine 200 mg tablet 200 mg PO BID 10/29/24 10/29/24 History (Plaquenil) losartan 100 mg tablet (Cozaar) 100 mg PO DAILY 10/29/24 10/29/24 History oxycodone-acetaminophen 5 mg-325 0.5 tab PO TID PRN PRN pain 10/30/24 10/29/24 History mg tablet Allergy/AdvReac Type Severity Reaction Status Date / Time grepafloxacin (From Raxar) Allergy Unknown Verified 10/30/24 08:31 pravastatin Allergy Unknown Verified 10/30/24 08:31 amlodipine AdvReac Intermediate Swelling Verified 10/30/24 08:31 ciprofloxacin (From Cipro) AdvReac Other Verified 10/30/24 08:31 Family History Father CAD (coronary artery disease) Lung cancer Surgical History History of back surgery History of right hip replacement History of left hip replacement History of partial mastectomy of left breast History of vein stripping History of tubal ligation S/P dilatation of esophageal stricture Social History Smoking Status: Never smoker alcohol intake: never substance use type: does not use caffeine: Yes ROS ROS Narrative Constitutional: Reports fatigue and weakness. No fever. HEENT: Reports systems reviewed and no addt'l complaints, except as documented Respiratory/Chest: No acute shortness of breath or respiratory distress or wheezing. CVS: No chest pain pressure or tightness. No anginal-like pain Gastrointestinal: Denies coffee ground emesis, hematemesis or vomiting Genitourinary: Denies burning urination or new urinary tract symptoms Musculoskeletal: As described in HPI Neurologic: Denies seizure-like symptoms. skin: No ulcer. No rash Endocrinology: Reports systems reviewed and no addt'l complaints, except as documented Hematologic/Lymphatic: Reports systems reviewed and no addt'l complaints, except as documented Rest 14 ROS are negative except as mentioned in HPI Vital Signs Vital Signs Vital Signs: 10/30/24 08:30 10/30/24 10:12 Temperature 99 F 97.8 F Temperature Source Temporal Temporal Pulse Rate 99 86 Respiratory Rate 16 20 H Blood Pressure 148/79 H 149/121 H Blood Pressure Mean 102 130 Pulse Ox 95 95 Oxygen Delivery Method Room Air Room Air Weight Weight: 186 lb 15.232 oz Body Mass Index (BMI) 30.2 Physical Exam Narrative Seen and examined. General: Alert, Oriented x3, Cooperative HEENT: Atraumatic, PERRLA, EOMI, Normocephalic Oral: No Gingival or Mucosal Lesions/ Ulcerations Neck: Supple, No JVD, Negative Carotid Bruits Chest wall/Lungs: Air entry diminished in bilateral lung bases. No crepitation/rhonchi Cardiovascular: Regular rate, Regular Rhythm, Normal S1, Normal S2, No M/G/R Abdomen: Bowel Sounds Present, Soft, Non Tender, Non-Distended : No dysuria. No renal angle tenderness. No suprapubic tenderness. Extremities: No edema, Capillary Refill Less than 3 Seconds Skin: No rashes, No breakdown Musculoskeletal: Left knee is tender and swollen. No obvious redness or ulcer or open wound. ROM over left knee not attempted Neurological: Cranial nerves II-XII grossly intact, DTR 2+/4. No acute focal neurological deficit. Psych/Mental Status: Flat affect Assessment & Plan Assessment/Plan (1) Septic arthritis of knee, left: QUALIFIERS: Septic arthritis organism: due to unspecified organism Qualified Code(s): M00.9 - Pyogenic arthritis, unspecified PLAN: Plan This 83-year-old female admitted with severe left knee pain and swelling with suspicion of septic arthritis 1. Suspected left knee pyogenic/septic arthritis: Patient is going to OR and after that if she is hemodynamically stable will be admitted in MedSurg floor. Synovial fluid analysis shows WBC 42.3K, 97% neutrophil, monocyte 3%., Cloudy. No crystals seen. Prelim Gram stain shows gram-positive cocci. Patient is started on IV vancomycin and Unasyn. Pain control and muscle relaxant. Further management as per orthopedic surgeon Dr. Perdue who is consulted. ID consult requested discussed with Dr. Nolan. 2. Paroxysmal A-fib: Twelve-lead EKG was done. Individually reviewed and shows normal sinus rhythm, 83 bpm, QTc 432 ms. QRS normal. Nonspecific ST-T changes. Patient follows Dr. Estrada. She is felt high risk for oral anticoagulation therefore only on baby aspirin. 3. 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 4. Hypertension and dyslipidemia: Blood pressure is controlled. Monitor BP and adjust antihypertensive medication accordingly. 5. GERD: On PPI. 6. Hypothyroidism: On Synthroid. DVT prophylaxis: Going for surgery but plan for anticoagulant depending on the risk of bleeding. Once hemostasis is controlled, patient can be on Eliquis 2.5 mg twice daily Living will/advanced directive/end of life care: Patient does not have living will or advanced directive. She has POA as her . Her is at the bedside. After discussion of benefits/risks procedures involved with full code, DNR CC arrest and DNR CC, the patient opted for full code. Patient does want artificial life support including intubation, tube feed, ventilator and/chest compression, central venous catheter, vasopressor and DC shock if needed Total time spent in [id number] encounter in discussion of advanced directive 17 minutes. Charges/Coding Visit Charges Inpatient E&M: 20415 Init Hosp L3 Procedures Hospitalists Procedures: 98411 Advncd Care Plan 30 Min
[2024-10-30 10:50] LABS: Magnesium 2.3 mg/dL (1.6-2.6)
--- NOTE | 2024-10-30 11:04 | CASEMGMT ---
Care Management Face to Face with patient for initial transition planning/care coordination assessment in the ED. This commercial lines underwriter introduced self and role at [facility]. Patient lying in bed, alert and oriented. Patient willing to participate in assessment and is able to answer all questions appropriately. Care providers, pharmacy, and demographics verified. Admitting Diagnosis: septic left knee Other diagnosis history: hip surgeries, paroxysmal atrial fibrillation, atherosclerotic cardiovascular disease PCP: Serge Chicas Specialists: Dr. Mejía, pain management. [facility]. Patient reports having seen Dr. Wright and still going for follow up at [facility]. Preferred Pharmacy: [facility] on [facility]. Insurance: Medicare A + B (primary). 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 Prescription Benefit: yes Living Will/HPOA: none and does not want information. Patient stated she already received the information and does not desire to fill this out while admitted. LNOK: , Viraj. 4 children, 3 of which live locally and patient reports they visit patient and patient's every Wednesday with their families. Living Arrangements: 2 story home. 7 steps to enter from the back; this entrance is to the main living floor with everything needed (kitchen, bathroom, bedroom). Patient states there is a lower level that patient?s completes laundry in. Patient states she goes to the lower level, but only if needed. Patient stated being independent with all ADLs at home prior to this. Transportation: patient?s drives. DME: handrails, grab bars, walker, 2 straight canes, shower chair, raised toilet seat, blood pressure cuff HHC: none SNF/Rehab: stayed at [facility] for about 2 weeks after one of patient?s hip surgeries. Patient reports previously working at [facility] for 10 years and patient stated [facility] is a ?very nice facility.? Community Resources: none; denied needing Direction Home referral for further supports in the home. Denied wanting to look further into [facility] for day programs to help patient get out of the house more. Patient stated feeling as if patient cannot leave the home as often as patient would like. Behavioral Health History: none. Patient did report struggling some currently due to it [place] so [place] to [place] and having a sister who just over a year ago, in September 2023. Patient reported her [id number] about 2 weeks after patient?s sister. Patient denied needing counseling resources due to having a ?supportive family.? Patient goals: Patient wishes to discharge home and denies need for SNF or HHC at this time. Patient states she has no further needs or concerns. Disposition Plan: admission to acute; RN CM/SW to follow for discharge planning needs that may arise. Shelly Young, CREDIT ANALYSIS MANAGER, REGULATORY AFFAIRS DIRECTOR
--- NOTE | 2024-10-30 12:26 | PRE.ANES_ITS ---
ASA Classification* ASA Classification ASA Classification: 3 Assessment & Plan Anesthesia* Anesthesia Assessment Anesthesia Assessment: Discussed sedation and/or anesthesia options, risks, benefits, and alternatives with patient/parents/legal guardian/POA. Questions invited. The patient/parents/legal guardian/POA seems to understand and agrees to proceed with anesthesia plan. Reviewed the physical assessment, medical history, allergy history and patient home medications list prior to surgery/procedure/anesthetic and documented any changes. Performed airway and anesthesia risk assessments. Anesthesia Type Anesthesia Type: General History Source History Obtained from:: Patient and Chart Anesthesia Focused Assessment* Temperature: 98.5 F Pulse Rate: 84 Blood Pressure: 139/61 Respiratory Rate: 16 Pulse Ox: 94 Oxygen Delivery Method: Room Air Airway Assessment Mouth opens: >3 cm Mallampati Score: II Teeth Condition: Caps/Crowns (Patient has several crowns. They are all tight.) Neck Range of motion (ROM): Limited ROM (Somewhat decreased extension.) Focused Labs Anesthesia Preop lab: CBC WBC 15.8 K/mm3 (4.4-11.0) H 10/29/24 22:20 RBC 4.15 M/mm3 (4.2-5.4) L 10/29/24 22:20 Hgb 12.4 g/dL (12.0-15.0) 10/29/24 22:20 Hct 39.2 % (37-47) 10/29/24 22:20 Plt Count 295 K/mm3 (150-450) 10/29/24 22:20 CHEMISTRY Potassium 4.2 mmol/L (3.5-5.1) 10/29/24 22:20 Sodium 136 mmol/L (136-145) 10/29/24 22:20 Magnesium 2.3 mg/dL (1.6-2.6) 10/30/24 09:07 Phosphorus 3.0 mg/dL (2.5-4.9) 07/14/23 11:32 BUN 19 mg/dL (7-18) H 10/29/24 22:20 Creatinine 1.20 mg/dL (0.55-1.02) H 10/29/24 22:20 Glucose 173 mg/dL (74-106) H 10/29/24 22:20 TSH 2.220 uIU/mL (0.358-3.740) 07/12/24 11:15 COAG Pre-Assessment Diagnosis/Proposed Procedure Planned Operative Procedure(s): Left knee arthroscopic debridement and synovectomy Anesthesia History Anesthesia History - 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 When Was Last Pacemaker Check QUESTION #4 FULL TEXT: You/Your Family Experience fever (hyperthermia) with Anesthesia Last Oral Intake Last Oral intake: Last Oral Intake NPO since 02:00 10/30/24 11:10 Meds taken in AM with sips of Yes 10/30/24 11:10 water? Meds patient instructed to tylenol 0200 10/30/24 11:10 take am of surgery PONV PONV - [employer]ile [employer]m consultant: PONV - oracle agile plm consultant Female HX of Motion Sickness HX of N/V After Surgery Non-Smoker Duration of Surgery greater than 60 minutes Number of Risk Factors PONV Score Height & Weight Height & Weight: Anesthesia: Height & Weight Height 5 ft 5 in 10/30/24 11:10 Weight: 84.8 kg 10/30/24 11:10 Body Mass Index (BMI) 31.1 10/30/24 11:10 Respiratory Assessment Respiratory Assessment - oracle agile plm consultant: Respiratory Tract Infection Hx - oracle agile plm consultant Hx Respiratory Tract Infection No 07/26/24 11:56 STOP Sleep Apnea STOP Sleep Apnea - oracle agile plm consultant: STOP Sleep Apnea - oracle agile plm consultant Hx Hypertension Yes 07/26/24 11:56 Hx Sleep Apnea No 07/26/24 11:56 CPAP No 07/26/24 11:56 BIPAP No 07/26/24 11:56 Do you snore loudly (louder than talking or can be heard Do you often feel tired/ fatigued/ sleepy during daytime? Has anyone observed you stop breathing during sleep? STOP Results QUESTION #5 FULL TEXT : Do you snore loudly (louder than talking or can be heard through closed doors)? Tobacco Use History Tobacco Use History - oracle agile plm consultant: Tobacco Use History - oracle agile plm consultant Tobacco Use Smoking Status Never smoker 10/30/24 09:09 Hx Tobacco Use No 07/26/24 11:56 Years Smoking Packs Smoked per Day Smoking Cessation Date was within the last 15 years Hx Smoking Cessation Date Hx Smoking Cessation Counseling Hematologic Medial History Hematologic Hx - oracle agile plm consultant: Hematologic Medical Hx - grant manager Hx of Blood Transfusion Hx of Transfusion in last 3 Months Date of Last Transfusion (if within last 3 months) Ever experience any problems with transfusion(s)? Specify any problems Hx of Preganancy in last 3 Months Nurse Filling Out Transfusion & Questions: Date: Time: Patient unable to answer at this time (ie. confused, unrespo /Reproduction History /Reproductive History - oracle agile plm consultant: /Reproductive Hx- oracle agile plm consultant Hx Now Gestational Age (in weeks): EDC: Hx Hx Para Hx Section SAB Active Medications Active Medications: Current Medications Generic Name Dose Route Start Last Admin Trade Name Freq PRN Reason Stop Dose Admin Acetaminophen 1,000 mg 10/30/24 14:00 Acetaminophen 500 Mg Tablet PO Q8 [facility] Aspirin 81 mg 10/31/24 08:00 Aspirin 81 Mg Tab.Chew PO DAILY@0800 [facility] Duloxetine HCl 60 mg 10/30/24 12:12 Duloxetine Hcl 60 Mg Capsule PO QDAY TANMAY Hydroxychloroquine Sulfate 200 mg 10/30/24 22:00 Hydroxychloroquine 200 Mg Tablet PO BID [facility] Sodium Chloride 1,000 mls @ 75 mls/hr 10/30/24 12:12 IV 10/31/24 01:31 .[id number] [facility] Protocol Ampicillin Sodium/Sulbactam 112 mls @ 150 mls/hr 10/30/24 12:12 Sodium 3 gm/ Sodium Chloride IV Q6 [facility] Vancomycin IV-PHARMACY TO DOSE 500 mls @ 250 mls/hr 10/30/24 12:12 1 each/ Sodium Chloride IV DAILY [facility] Protocol Levothyroxine Sodium 75 mcg 10/30/24 12:12 Levothyroxine 75 Mcg Tablet PO QDAY TANMAY Loratadine 10 mg 10/30/24 12:12 Loratadine 10 Mg Tablet PO QDAY PRN Allergies Losartan Potassium 100 mg 10/31/24 10:00 Losartan Potassium 100 Mg Tablet PO DAILY [facility] Protocol Metoprolol Tartrate 50 mg 10/30/24 22:00 Metoprolol Tartrate 50 Mg Tablet PO BID [facility] Protocol Multivitamins tablet 10/31/24 10:00 Multivitamins,Therapeutic Tablet PO DAILY [facility] Non-Formulary Medication 20 mg 10/30/24 22:00 Simvastatin PO QHS TANMAY Non-Formulary Medication 4,000 unit 10/31/24 10:00 Cholecalciferol (Vitamin D3) PO DAILY [facility] Oxycodone HCl 2.5 - 5 mg 10/30/24 12:12 Oxycodone 5 Mg Tablet PO Q4H PRN PRN Pain Score 4-10 Senna/Docusate Sodium 2 tablet 10/30/24 22:00 Senna/Docusate Sodium 1 Tablet PO BID [facility] Tizanidine HCl 2 mg 10/30/24 12:12 Tizanidine Hcl 2 Mg Tablet PO Q8H PRN PRN Muscle Spasms/Musculoskeletal Pain PFSH Medical History Fibromyalgia Essential hypertension Paget's disease Hypothyroidism GERD (gastroesophageal reflux disease) Paroxysmal atrial fibrillation Atherosclerotic heart disease of [place] coronary artery without angina pectoris NSTEMI (non-ST elevated myocardial infarction) Paroxysmal ventricular tachycardia Arthritis Esophageal stricture Renal insufficiency Hiatal hernia Back pain of lumbar region with sciatica Back pain Hypothyroidism Home Medications ?Medication ?Instructions ?Recorded ?Last Taken ?Type simvastatin 20 mg tablet 20 mg PO QHS cholesterol 09/21/13 10/29/24 History multivitamin 1 ea PO DAILY supplement 09/03/15 10/29/24 History cetirizine 10 mg tablet (Zyrtec) 10 mg PO QDAY PRN Allergies 10/11/17 10/29/24 History cholecalciferol (vitamin D3) 100 4,000 unit PO DAILY supplement 07/13/18 10/29/24 History mcg (4,000 unit) tablet aspirin 81 mg chewable tablet 81 mg PO DAILY@0800 10/02/19 10/29/24 History acetaminophen 500 mg tablet 1,000 mg PO Q8 PRN pain 12/03/21 10/29/24 History duloxetine 60 mg capsule,delayed 60 mg PO QDAY 01/20/24 10/29/24 History release levothyroxine 75 mcg tablet 75 mcg PO QDAY 01/20/24 10/29/24 History metoprolol tartrate 50 mg tablet 50 mg PO BID for blood pressure 04/14/24 10/29/24 Rx #180 TABLETS amlodipine 5 mg tablet 5 mg PO DAILY #90 tabs 05/24/24 10/29/24 Rx hydroxychloroquine 200 mg tablet 200 mg PO BID 10/29/24 10/29/24 History (Plaquenil) losartan 100 mg tablet (Cozaar) 100 mg PO DAILY 10/29/24 10/29/24 History oxycodone-acetaminophen 5 mg-325 0.5 tab PO TID PRN PRN pain 10/30/24 10/29/24 History mg tablet Allergy/AdvReac Type Severity Reaction Status Date / Time grepafloxacin (From Raxar) Allergy Unknown Verified 10/30/24 08:31 pravastatin Allergy Unknown Verified 10/30/24 08:31 amlodipine AdvReac Intermediate Swelling Verified 10/30/24 08:31 ciprofloxacin (From Cipro) AdvReac Other Verified 10/30/24 08:31 Family History Father CAD (coronary artery disease) Lung cancer Surgical History History of back surgery History of right hip replacement History of left hip replacement History of partial mastectomy of left breast History of vein stripping History of tubal ligation S/P dilatation of esophageal stricture Social History Smoking Status: Never smoker alcohol intake: never substance use type: does not use caffeine: Yes Review of Systems (Anesthesia) ROS Narrative System reviewed and no additional complaints, except as documented.
--- NOTE | 2024-10-30 12:41 | EKG12_ITS ---
Test Reason : preop Blood Pressure : */* mmHG Vent. Rate : 83 BPM Atrial Rate : 83 BPM P-R Int : 156 ms QRS Dur : 82 ms QT Int : 368 ms P-R-T Axes : 58 68 36 degrees QTcB Int : 432 ms Normal sinus rhythm Nonspecific ST and T wave abnormality Abnormal ECG No previous ECGs available Confirmed by ROSMERY WALL, DEEPTHI ([id number]), book or script editor ANA OCHOA ([id number]) on 11/03/2024 6:14:45 AM Referred By: Confirmed By: DEEPTHI BOTELLO MD
--- NOTE | 2024-10-30 12:41 | CONS.ORTHO ---
HPI Consult Data Date of Consult: 10/30/24 HPI Narrative Reason for Consultation: Left knee pain HPI Narrative: LIN MCQUEEN, is a 83 F who presents today with left knee pain. Patient was seen in the emergency department last evening and elected to leave AGAINST MEDICAL ADVICE. Patient reports she had a twisting injury 3 days ago in the left knee. There was initially reported that she was on Plaquenil for suppression however, patient has not seen patient care technician in quite some time and has discontinued her supplements. She does not have any recent sources of infection that she reports today. She is a history of hypertension hyperlipidemia hypothyroidism. However, over the last 72 hours she is seen a significant increase in her pain. She is unable to move her knee. She has a hard effusion. She is unable to bear weight. She reports about 10 pain slightly better with medications. She denies any Fever chills or night sweats at home. She was evaluated emergency department last evening aspiration was performed. ESR and CRP are significant elevated as well as patient's white blood cell count. Patient did leave AGAINST MEDICAL ADVICE last evening. Upon review of the aspiration this morning she was found to have positive Gram stain and white cell count of 42,000 with 97% neutrophils. Patient was contacted by the emergency department and instructed to return. She returns today and has been NPO. She will be admitted to medicine. [facility] Medical History Fibromyalgia Essential hypertension Paget's disease Hypothyroidism GERD (gastroesophageal reflux disease) Paroxysmal atrial fibrillation Atherosclerotic heart disease of [place] coronary artery without angina pectoris NSTEMI (non-ST elevated myocardial infarction) Paroxysmal ventricular tachycardia Arthritis Esophageal stricture Renal insufficiency Hiatal hernia Back pain of lumbar region with sciatica Back pain Hypothyroidism Home Medications ?Medication ?Instructions ?Recorded ?Last Taken ?Type simvastatin 20 mg tablet 20 mg PO QHS cholesterol 09/21/13 10/29/24 History multivitamin 1 ea PO DAILY supplement 09/03/15 10/29/24 History cetirizine 10 mg tablet (Zyrtec) 10 mg PO QDAY PRN Allergies 10/11/17 10/29/24 History cholecalciferol (vitamin D3) 100 4,000 unit PO DAILY supplement 07/13/18 10/29/24 History mcg (4,000 unit) tablet aspirin 81 mg chewable tablet 81 mg PO DAILY@0800 10/02/19 10/29/24 History acetaminophen 500 mg tablet 1,000 mg PO Q8 PRN pain 12/03/21 10/29/24 History duloxetine 60 mg capsule,delayed 60 mg PO QDAY 01/20/24 10/29/24 History release levothyroxine 75 mcg tablet 75 mcg PO QDAY 01/20/24 10/29/24 History metoprolol tartrate 50 mg tablet 50 mg PO BID for blood pressure 04/14/24 10/29/24 Rx #180 TABLETS amlodipine 5 mg tablet 5 mg PO DAILY #90 tabs 05/24/24 10/29/24 Rx hydroxychloroquine 200 mg tablet 200 mg PO BID 10/29/24 10/29/24 History (Plaquenil) losartan 100 mg tablet (Cozaar) 100 mg PO DAILY 10/29/24 10/29/24 History oxycodone-acetaminophen 5 mg-325 0.5 tab PO TID PRN PRN pain 10/30/24 10/29/24 History mg tablet Allergy/AdvReac Type Severity Reaction Status Date / Time grepafloxacin (From Raxar) Allergy Unknown Verified 10/30/24 08:31 pravastatin Allergy Unknown Verified 10/30/24 08:31 amlodipine AdvReac Intermediate Swelling Verified 10/30/24 08:31 ciprofloxacin (From Cipro) AdvReac Other Verified 10/30/24 08:31 Family History Father CAD (coronary artery disease) Lung cancer Surgical History History of back surgery History of right hip replacement History of left hip replacement History of partial mastectomy of left breast History of vein stripping History of tubal ligation S/P dilatation of esophageal stricture Social History Smoking Status: Never smoker alcohol intake: never substance use type: does not use caffeine: Yes Homelessness:: Sheltered ROS ROS Narrative Outside of what is mentioned in HPI 14 point review of systems is negative Vital Signs Vital Signs Vital Signs: 10/30/24 08:30 10/30/24 10:12 10/30/24 10:34 Temperature 99 F 97.8 F Temperature Source Temporal Temporal Pulse Rate 99 86 Respiratory Rate 16 20 H 16 Respiratory Pattern Blood Pressure 148/79 H 149/121 H 93/74 Blood Pressure Mean 102 130 80 Blood Pressure Source Blood Pressure Position Blood Pressure Location Pulse Ox 95 95 94 Oxygen Delivery Method Room Air Room Air Room Air 10/30/24 10:48 10/30/24 11:10 10/30/24 11:10 Temperature 97.6 F L 98.5 F Temperature Source Temporal Pulse Rate 90 84 Respiratory Rate 20 H 16 Respiratory Pattern Normal Blood Pressure 93/74 139/61 H Blood Pressure Mean 80 87 Blood Pressure Source Monitor Blood Pressure Position Semi-Fowlers Blood Pressure Location Right Arm Pulse Ox 94 94 Oxygen Delivery Method Room Air 10/30/24 12:31 Temperature 98.5 F Temperature Source Pulse Rate 84 Respiratory Rate 16 Respiratory Pattern Blood Pressure 139/61 H Blood Pressure Mean Blood Pressure Source Blood Pressure Position Blood Pressure Location Pulse Ox 94 Oxygen Delivery Method Weight Weight: 186 lb 15.232 oz Body Mass Index (BMI) 31.1 Physical Exam Const alert and oriented x3 General Appearance: cooperative HEENT normocephalic Eyes PERRL Neck no JVD Resp normal respiratory effort Cardio Cardio Narrative: Regular pulse rate GI non-tender and non-distended Extremity Extremity Narrative: Left lower extremity: Patient has large effusion in the left knee. Patient has pain with passive range of motion. Remainder of knee exam is limited secondary to patient's significant pain. Positive DP pulses. Pause dorsiflexion HL plantarflexion on motor exam. Positive sensation to light touch saphenous, sural, sufficient peroneal, deep peroneal and tibial nerve distributions. Skin no rashes or lesions noted Neuro CN's II-XII intact bilaterally Psych affect normal Medical Records Data Attestation: I reviewed the patient's medical records Lab / Micro Data Attestation: I reviewed the patient's lab results. Labs: Laboratory Results - last 24 hr 10/30/24 09:07: Magnesium 2.3 Imaging X-rays were reviewed showing no gross abnormalities. Assessment & Plan Assessment/Plan (1) Septic arthritis of knee, left: PLAN: Natural history of the disease process was discussed with patient and her who is at bedside. Treatment options were discussed as well. At this time I did discuss the patient that continued infection of her knee could lead to significant long-term effects. We discussed surgical intervention including arthroscopic surgery to debride the joint and irrigated out with an aggressive synovectomy. Risks and benefits of the procedure were discussed with patient including but not limited to blood loss, DVTs, PEs, neurovascular risk infection, the risk of anesthesia including loss life. We also discussed residual knee pain in relation to instruction and aftereffects of the infection. In addition we discussed postoperative management which include infection disease management of antibiotics. Patient has been demonstrated understanding wish to proceed at this time. Specifically we discussed the risk of anesthesia which does include loss of life. At this time the patient is n.p.o. Once we obtain clearance we will proceed with emergent/urgent arthroscopic debridement. Plan is to proceed with surgery today. Antibiotics will be initiated preoperatively. Patient be admitted to medicine service after surgery. Patient denies history of blood clots, DVTs or PEs
[2024-10-30] MEDS: Metoprolol Tartrate 50 MG Tablet PO ×2 (13:07→21:32)
--- NOTE | 2024-10-30 13:08 | CON.PCM.ID_ITS ---
Assessment & Plan Assessment/Plan (1) Septic arthritis of knee, left: QUALIFIERS: Septic arthritis organism: due to unspecified organism Qualified Code(s): M00.9 - Pyogenic arthritis, unspecified PLAN: Aspiration with GPC on gram stain. OR today. On empiric vanc/unasyn. Will follow, thank you, d/w Dr. Hanson HPI Consult Data Date of Consult: 10/30/24 HPI Narrative Reason for Consultation: septic arthritis HPI Narrative: LIN MCQUEEN, is a 83 F who presented to ED 10/29 with 2 days L knee pain. Walker knee give out. No recent infections or abx. Had pain and swelling, no fever or chills. Came to ED, aspiration done, left AMA. Called back due to (+) fluid studies. OR planned for today. Knee pain is stable. Full ROS performed and neg except as noted above. [facility] Medical History Fibromyalgia Essential hypertension Paget's disease Hypothyroidism GERD (gastroesophageal reflux disease) Paroxysmal atrial fibrillation Atherosclerotic heart disease of [place] coronary artery without angina pectoris NSTEMI (non-ST elevated myocardial infarction) Paroxysmal ventricular tachycardia Arthritis Esophageal stricture Renal insufficiency Hiatal hernia Back pain of lumbar region with sciatica Back pain Hypothyroidism Home Medications ?Medication ?Instructions ?Recorded ?Last Taken ?Type simvastatin 20 mg tablet 20 mg PO QHS cholesterol 09/21/13 10/29/24 History multivitamin 1 ea PO DAILY supplement 09/03/15 10/29/24 History cetirizine 10 mg tablet (Zyrtec) 10 mg PO QDAY PRN Allergies 10/11/17 10/29/24 History cholecalciferol (vitamin D3) 100 4,000 unit PO DAILY supplement 07/13/18 10/29/24 History mcg (4,000 unit) tablet aspirin 81 mg chewable tablet 81 mg PO DAILY@0800 10/02/19 10/29/24 History acetaminophen 500 mg tablet 1,000 mg PO Q8 PRN pain 12/03/21 10/29/24 History duloxetine 60 mg capsule,delayed 60 mg PO QDAY 01/20/24 10/29/24 History release levothyroxine 75 mcg tablet 75 mcg PO QDAY 01/20/24 10/29/24 History metoprolol tartrate 50 mg tablet 50 mg PO BID for blood pressure 04/14/24 10/29/24 Rx #180 TABLETS amlodipine 5 mg tablet 5 mg PO DAILY #90 tabs 05/24/24 10/29/24 Rx hydroxychloroquine 200 mg tablet 200 mg PO BID 10/29/24 10/29/24 History (Plaquenil) losartan 100 mg tablet (Cozaar) 100 mg PO DAILY 10/29/24 10/29/24 History oxycodone-acetaminophen 5 mg-325 0.5 tab PO TID PRN PRN pain 10/30/24 10/29/24 History mg tablet Allergy/AdvReac Type Severity Reaction Status Date / Time grepafloxacin (From Raxar) Allergy Unknown Verified 10/30/24 08:31 pravastatin Allergy Unknown Verified 10/30/24 08:31 amlodipine AdvReac Intermediate Swelling Verified 10/30/24 08:31 ciprofloxacin (From Cipro) AdvReac Other Verified 10/30/24 08:31 Family History Father CAD (coronary artery disease) Lung cancer Surgical History History of back surgery History of right hip replacement History of left hip replacement History of partial mastectomy of left breast History of vein stripping History of tubal ligation S/P dilatation of esophageal stricture Social History Smoking Status: Never smoker alcohol intake: never substance use type: does not use caffeine: Yes Homelessness:: Sheltered Physical Exam Const alert, oriented x3 and no apparent distress General Appearance: cooperative HEENT normocephalic and head/scalp atraumatic Eyes PERRL and EOMs intact bilaterally Neck supple and No nodes Resp normal air movement and clear to auscultation bilaterally Cardio regular rate and regular rhythm GI soft to palpation, non-tender and non-distended Extremity General Extremity: edema Skin Skin Narrative: Mild L knee swelling, soreness, warmth Neuro CN's II-XII intact bilaterally Lab / Micro Data Attestation: I reviewed the patient's lab results. Labs: Laboratory Results - last 24 hr 10/30/24 09:07: Magnesium 2.3
--- NOTE | 2024-10-30 14:09 | PCM.OPRPT ---
Operative Report (Standard) Operative Information Date of Procedure: 10/30/24 Pre-Operative Diagnosis: Left knee septic arthritis, acute Post-Operative Diagnosis: Left knee septic arthritis, acute Left knee posterior horn medial meniscus tear Surgery/Procedure Performed: Left knee aspiration Left knee arthroscopic irrigation debridement of synovectomy. Left knee arthroscopic partial medial vasectomy mortgage professional: No Type of Anesthesia: General RN Documented Start/Stop Times: Operation Date: 10/30/24 12:00 Case Time Into Pre-Op 10/30/24 11:09 Out of Pre-Op 10/30/24 13:04 Anesthesia Start 10/30/24 13:14 Into Room 10/30/24 13:14 Procedure Start 10/30/24 13:35 Procedure Start Time: 13:35 Procedure Stop Time: 14:06 Select all DRAINS/GRAFTS/IMPLANTS that apply: None Special Medications: Floor antibiotics Estimated Blood Loss: 15 mL Fluids Replaced: 300 mL crystalloid Specimen collected: Yes Description of specimen(s) removed: Left knee aspiration fluid Description of surgery: On the date of the procedure, the patient's L lower extremity was marked in the preoperative area. Patient was brought back to the operating room where they were transferred to the bed. Anesthesia assumed control of the C-spine airway and administered anesthetic. All bony prominences were identified and well-padded and the L leg was placed in the arthroscopic leg peters. The contralateral leg was then draped over the bed and well-padded. There was padding underneath both sciatic nerves. The foot of the bed was then dropped and the L leg was prepped in a sterile fashion. The surgeon then scrubbed. Upon reentering the room, the operative leg was draped in a standard orthopedic fashion. A timeout was called, everyone agreed upon the side, the site, the procedure to be performed, patient's identity and antibiotics given. Incisions were marked out for the medial and lateral infrapatellar portals. The tourniquet was placed at 250 mmHg. At this time we directed our attention to the lateral suprapatellar portal 18-gauge needle was used to aspirate the knee obtaining 20 cc of cloudy straw-colored fluid. We then directed our attention to the arthroscopic procedure at this time, the lateral portal incision was made in a vertical fashion. The trocar was placed into the joint. The camera was then placed and the patellofemoral joint was visualized. Upon entering the joint the fluid was cloudy and there was significant florid synovitis. The patella did appear to have grade 3 chondral changes. The trochlea appeared to have grade 2 chondral changes. We then directed our attention to the medial gutter where there was no foreign body. Then directed our attention to the medial joint compartment. There were grade 2 chondral changes on the medial distal femur, grade 2 chondral changes on the medial tibial plateau. The medial meniscus had posterior root tear. The medial portal was then placed under direct visualization using a spinal needle an 11 blade scalpel. At this time the shaver was placed into the joint. We then used the shaver to debride some of the forward synovitis and obtain appropriate visualization. We did debride the posterior medial meniscus tear as noted during our exploratory portion of the procedure. We then carefully debrided the medial compartment as well as the medial gutter using the shaver. We then directed our attention to the notch where the synovium over the ACL and PCL were debrided. We then carefully directed our attention to the lateral compartment with synovium was debrided. Lateral compartment showed stable structures. ACL was intact. Attention was then directed back to the patellofemoral joint. The remainder of the synovium in the suprapatellar pouch and retropatellar area were carefully debrided. We then switched portals so we can debride the lateral gutter with visualization from the camera and the medial portal. Once was completed we switched back to the medial portal and placed the shaver in the suprapatellar pouch and carefully irrigated out the wound with a total of 6 L of normal saline. Also used 6 L of normal saline at debrided the synovium and carefully visualize the joint. We had a complete synovectomy and debrided the posterior medial meniscus adequately to stable structures. Cam was then removed from the wound. The wound was closed with 4-0 nylon. Xeroform was placed over the incision. Sterile dressing was placed. Compressive dressing was placed. Tourniquet was let down. For that there was then placed up. Patient was awakened by anesthesia patient was transferred to the PACU for recovery in stable condition. Postoperative plan: Patient will be made weight-bear as tolerated. Return to activities as tolerated. He will come to the office in 2 weeks for postoperative wound check and suture removal. infectious diseases on consultation. Antibiotics per infectious disease. Due to the infectious nature patient may need repeat debridements. Will follow clinical exam. Surgical Findings: Cloudy purulent looking fluid Complications Complications: No Admit VTE Documentation VTE Present on Admission: No VTE Mechan Device Prophylaxis: SCD's and Thigh High PILAR Hose VTE Pharm Prophylaxis ordered?: Yes
--- NOTE | 2024-10-30 14:17 | PCM.POST.ANE ---
Anesthesia: Postop Eval I Current Vital Signs Temperature: 97.8 F Pulse Rate: 81 Blood Pressure: 133/59 Respiratory Rate: 18 Pulse Ox: 94 Oxygen Delivery Method: Nasal Cannula Oxygen Flow Rate (L/min): 2 Assessment Airway patent: Yes Spontaneous unlabored respirations: Yes Mental status: Awake and Calm nausea: No Vomiting: No Anesthesia Complication: No Fluid Hydration Crystalloid volume administer (ml): 800 Total IV fluid infused: 800 Progress Note Anesthesia document: Postop Eval 1 completed: Yes
--- NOTE | 2024-10-30 15:08 | POSTOPAN2_ITS ---
Anesthesia Postop Eval I Sum Postop Eval Completion status Anesthesia document: Postop Eval 1 completed: Yes Anesthesia Postop Eval I Summary Anesthesia Postop Eval I Summary: Anesthesia Postop Eval I: Assessment Summary Airway patent Yes 10/30/24 14:18 SUPERVISOR SLASHING DEPARTMENT.[email or web address] Spontaneous unlabored Yes 10/30/24 14:18 SUPERVISOR SLASHING DEPARTMENT.[email or web address] respirations Mental status Awake,Calm 10/30/24 14:18 SUPERVISOR SLASHING DEPARTMENT.[email or web address] nausea No 10/30/24 14:18 SUPERVISOR SLASHING DEPARTMENT.[email or web address] Vomiting No 10/30/24 14:18 SUPERVISOR SLASHING DEPARTMENT.[email or web address] Anesthesia Postop Eval I: Fluid Summary Crystalloid volume administer 800 10/30/24 14:18 SUPERVISOR SLASHING DEPARTMENT.[email or web address] (ml) Colloids volume administered ( ml) Blood Product volume administered (ml) Total IV fluid infused 800 10/30/24 14:18 SUPERVISOR SLASHING DEPARTMENT.[email or web address] Anesthesia Postop Eval I: Summary Notes Anesthesia Complication No 10/30/24 14:18 SUPERVISOR SLASHING DEPARTMENT.[email or web address] Anesthesia Complication Comment: Post-operative progress note Anesthesia: Postop Eval II Evaluation Mental status: Awake and Calm Pain Level: 1 nausea: No Vomiting: No Complications Anesthesia Complication: No
--- NOTE | 2024-10-30 15:08 | PCM.POSTANE2 ---
Anesthesia Postop Eval I Sum Postop Eval Completion status Anesthesia document: Postop Eval 1 completed: Yes Anesthesia Postop Eval I Summary Anesthesia Postop Eval I Summary: Anesthesia Postop Eval I: Assessment Summary Airway patent Yes 10/30/24 14:18 SWITCHBOARD AND CONTROL ROOM OPERATOR.[email or web address] Spontaneous unlabored Yes 10/30/24 14:18 SWITCHBOARD AND CONTROL ROOM OPERATOR.[email or web address] respirations Mental status Awake,Calm 10/30/24 14:18 SWITCHBOARD AND CONTROL ROOM OPERATOR.[email or web address] nausea No 10/30/24 14:18 SWITCHBOARD AND CONTROL ROOM OPERATOR.[email or web address] Vomiting No 10/30/24 14:18 SWITCHBOARD AND CONTROL ROOM OPERATOR.[email or web address] Anesthesia Postop Eval I: Fluid Summary Crystalloid volume administer 800 10/30/24 14:18 SWITCHBOARD AND CONTROL ROOM OPERATOR.[email or web address] (ml) Colloids volume administered ( ml) Blood Product volume administered (ml) Total IV fluid infused 800 10/30/24 14:18 SWITCHBOARD AND CONTROL ROOM OPERATOR.[email or web address] Anesthesia Postop Eval I: Summary Notes Anesthesia Complication No 10/30/24 14:18 SWITCHBOARD AND CONTROL ROOM OPERATOR.[email or web address] Anesthesia Complication Comment: Post-operative progress note Anesthesia: Postop Eval II Evaluation Mental status: Awake and Calm Pain Level: 1 nausea: No Vomiting: No Complications Anesthesia Complication: No
[2024-10-30] MEDS: 0.9% Normal Saline (1000mL) 1,000 ML 75 ML IV (17:05)
[2024-10-30] MEDS: Vancomycin HCl 1,250 MG in 0.9% Normal Saline (250mL Bag) 250 ML 167 MG IV (18:43)
--- NOTE | 2024-10-30 19:12 | PCM.RX.CS ---
Consult Antibiotic Management Pharmacy has been consulted to manage selected antibiotic: Vancomycin Type of Intervention Type of Consult: New start Suspected Infection Suspected Infection: Other (Septic joint) Microbiology Microbiology: Microbiology 10/30/24 13:46 Wound - Knee Gram Stain - Final Estimated Creatinine Clearance Estimated Creatinine Clearance: 37.5 Goal Trough Goal Trough: 15-20 mcg/mL Pharmacy Plan for Drug Dosing Pharmacy Plan for Drug Dosing: NEW START IV VANCOMYCIN Consulting Physician: Dr. Hanson Indication: Septic joint Goal Trough: 15-20 SrCr: 1.20 (10/29/24) CrCl: 37.5 ml/min Vancomycin Dose: 1250mg Q24H Pending Level: Vancomycin trough @ 1800 11/02/24 (prior to 4th dose) Pharmacy Service will continue to monitor and adjust dosing as required. Follow-Up Labs Follow-Up Labs: Trough: Vancomycin (11/02/24 @ 18:00)
[2024-10-30] MEDS: Atorvastatin Calcium 10 MG Tablet PO (21:28)
[2024-10-30] MEDS: Senna/Docusate Sodium 1 Tablet 2 TABLET PO (21:28)
[2024-10-30] MEDS: Aspirin 81 MG TAB.CHEW PO (21:28)
[2024-10-30] MEDS: Hydroxychloroquine 200 MG Tablet PO (21:28)
[2024-10-30] MEDS: Acetaminophen 500 MG Tablet 1000 MG PO (21:28)
[2024-10-31] VITALS (10 sets, daily range): BP systolic 118–150; BP diastolic 55–82; PULSE 73–82; RESP 16–18; TEMP 36.4–36.7; O2SAT 94–96; BMI 30.9
[2024-10-31] MEDS: Acetaminophen 500 MG Tablet 1000 MG PO ×3 (05:03→21:03)
[2024-10-31] MEDS: Levothyroxine 75 MCG Tablet PO (05:04)
[2024-10-31] MEDS: Ampicillin/Sulbactam 3 GM in 0.9% Normal Saline (100mL MB+) 100 ML IV ×4 (05:05→23:46)
[2024-10-31 06:02] LABS: Absolute Lymphocyte Count 0.94 X10^3/uL (0.83-4.51); Absolute Neutrophil Count 13.3 X10^3/uL (2.0-7.7); Basophil# 0.04 X10^3/uL; Basophil% 0.3 % (0-1); Hematocrit 32.8 % (37-47); Hemoglobin 10.5 g/dL (12.0-15.0); Lymphocyte # 0.94 X10^3/ul (0.83-4.51); Mean Corpuscular Hgb 31.2 pg (27.0-32.0); Mean Corpuscular Volume 97.3 fL (81-99); Mean Platelet Vol. 11.1 fl (6.2-12.0); Monocyte# 1.34 X10^3/uL; Monocyte% 8.5 % (0-10); NRBC Flagged by Analyzer 0 % (0-5); Neutrophil % 84.7 % (47-70); Platelet Count 288 K/mm3 (150-450); RBC Distribution Width CV 13.1 % (11.6-14.6); RBC Distribution Width SD 46.8 fl (35.1-43.9); Red Blood Count 3.37 M/mm3 (4.2-5.4); White Blood Count 15.7 K/mm3 (4.4-11.0)
[2024-10-31 06:20] LABS: Anion Gap 4 (5-15); BUN 19 mg/dL (7-18); BUN/Creat Ratio 17.6 RATIO (10-20); Calcium,Total 9.9 mg/dL (8.5-10.1); Chloride 108 mmol/L (98-107); Creatinine, Serum 1.08 mg/dL (0.55-1.02); EST Glomerular Filtration Rate 51 mL/min (>60); Est Glom Filt Rate - Afr Amer 62 mL/min (>60); Estimated Creatinine Clearance 41.53 ml/min; Glucose 165 mg/dL (74-106); Potassium 3.7 mmol/L (3.5-5.1); Sodium Level 138 mmol/L (136-145)
--- NOTE | 2024-10-31 10:06 | PCM.PN.ID ---
Physical Exam Narrative Knee less sore, no fever, no n/v/d. Const alert and no apparent distress General Appearance: cooperative Resp normal air movement and clear to auscultation bilaterally Cardio regular rate and regular rhythm GI soft to palpation, non-tender and non-distended Skin Skin Narrative: LLE wrapped ID ID: Route of nutrition/ use of supplements: [] Nutritional Intake: [] IV Site: [] Somers Catheter: [] Assessment & Plan Assessment/Plan (1) Septic arthritis of knee, left: QUALIFIERS: Septic arthritis organism: due to unspecified organism Qualified Code(s): M00.9 - Pyogenic arthritis, unspecified PLAN: Aspiration with purulence seen. OR 10/30/[address] Perdue. Surg cx pending. On empiric vanc/unasyn. Will follow
[2024-10-31] MEDS: Losartan Potassium 100 MG Tablet PO (11:23)
[2024-10-31] MEDS: Metoprolol Tartrate 50 MG Tablet PO ×2 (11:23→21:02)
[2024-10-31] MEDS: Cholecalciferol (VIT D3) 25 MCG TABLET (1,000 UNITS) 100 MCG PO (11:24)
[2024-10-31] MEDS: Aspirin 81 MG TAB.CHEW PO ×2 (11:24→21:03)
[2024-10-31] MEDS: DULoxetine Hcl 60 MG Capsule PO (11:24)
[2024-10-31] MEDS: Hydroxychloroquine 200 MG Tablet PO ×2 (11:24→21:04)
[2024-10-31] MEDS: Multivitamins,Therapeutic Tablet 1 TABLET PO (11:24)
[2024-10-31] MEDS: Senna/Docusate Sodium 1 Tablet 2 TABLET PO (11:26)
[2024-10-31] MEDS: Polyethylene Glycol 3350 17 GM PACKET PO (11:28)
--- NOTE | 2024-10-31 13:05 | PN.ORTHO_ITS ---
Subjective Subjective Patient sitting in the room with her validation intern in the room with her. Patient reports her knee is feeling much better. Patient denies any chest pain shortness of breath calf pain nausea vomiting. No other complaints at this time. Objective Data Objective Data Vital Signs: Vital Signs Temp Pulse Resp BP Pulse Ox O2 Del Method O2 Flow Rate 97.6 F L 79 18 136/66 H 95 Room Air 2 10/31/24 09:30 10/31/24 11:23 10/31/24 09:30 10/31/24 11:23 10/31/24 09:30 10/31/24 09:30 10/31/24 08:26 Oxygen Flow Rate (L/min) 2 Oxygen Delivery Method Room Air Weight: 84.1 kg Body Mass Index (BMI) 30.9 Intake & Output: Intake and Output for Last 24 Hours 10/29/24 10/30/24 10/31/24 23:59 23:59 23:59 Intake Total 499 / 499 1224 / 1224 Balance 499 / 499 1224 / 1224 Lab / Micro Data 10/31/24 05:19 10/31/24 05:19 Labs: Laboratory Results - last 24 hr 10/31/24 05:19: WBC 15.7 H, RBC 3.37 L, Hgb 10.5 L, Hct 32.8 L, MCV 97.3, MCH 31.2, MCHC 32.0, RDW Std Deviation 46.8 H, RDW Coeff of Jody 13.1, Plt Count 288, MPV 11.1, Immature Gran % (Auto) 0.500, Neut % (Auto) 84.7 H, Lymph % (Auto) 6.0 L, [place] % (Auto) 8.5, Eos % (Auto) 0.0, Baso % (Auto) 0.3, Absolute Neuts (auto) 13.3 H, Absolute Lymphs (auto) 0.94, Nucleated RBC % 0, Sodium 138, Potassium 3.7, Chloride 108 H, Carbon Dioxide 26.0, Anion Gap 4 L, BUN 19 H, Creatinine 1.08 H, Estim Creat Clear Calc 41.53, Est GFR (MDRD) Af Amer 62, Est GFR (MDRD) Non-Af 51 L, BUN/Creatinine Ratio 17.6, Glucose 165 H, Calcium 9.9 Micro: Microbiology 10/30/24 13:46 Wound - Knee Gram Stain - Final 10/30/24 13:46 Wound - Knee Wound Culture - Preliminary No growth-Final to follow Social Homelessness:: Sheltered Physical Exam Narrative Patient sitting comfortably at bedside. Patient is in no respiratory distress. Speaking in full sentences. Full range of motion the upper extremities without limitations. I examined the left knee Naren wrap is intact. The wounds tender to palpation. No active drainage or bleeding. The calf is nontender no atrophic skin changes varicosities or edema. Const alert and oriented x3 General Appearance: cooperative HEENT normocephalic Eyes PERRL Resp normal respiratory effort Effort and Inspection: able to speak in complete sentences Extremity normal capillary refill Skin no rashes or lesions noted Neuro CN's II-XII intact bilaterally Motor Exam: strength 5/5 throughout Assessment & Plan Assessment/Plan (1) Septic arthritis of knee, left: QUALIFIERS: Septic arthritis organism: due to unspecified organism Qualified Code(s): M00.9 - Pyogenic arthritis, unspecified PLAN: Continue all pain medications as prescribed. Continue anticoagulation as directed by medicine Continue antibiotic treatments as directed by ID Weightbearing ambulation as tolerated with walker Ice to left knee
--- NOTE | 2024-10-31 15:08 | CASEMGMT ---
RN CM noted pt plans to return home. RN CM to follow therapy as pt was groggy this date. ID c/s, follow for recommendations. DC Plan: LINDEN.
--- NOTE | 2024-10-31 16:11 | CHAPLAIN ---
Type of Pastoral Visit _x__ Initial Visit ___ Follow-up Visit ___ On-call Visit ___ General Patient Visit ___ Spiritual Assessment ___ Family Conference ___ Bereavement ___ Rapid Response ___ Code Blue ___ Other (describe below) Pastoral Care Referral From _x__ Patient ___ Family ___ Nurse ___ Physician ___ Board Hammer Operator ___ Software Packaging Engineer ___ Other (describe below) Sacrament/Intervention _x__ Active listening ___ Anointing ___ Judaism ___ Bereavement ___ Communion ___ Opal exploration ___ ___ Life review _x__ Prayer ___ Reconciliation ___ Sacrament of Sick ___ Supportive presence ___ Wedding ___ Other (describe below) Pastoral Comments patient appears to be weary and states that she is tired and ready to nap; shorter visit to check on her emotional status and coping; pt welcomed prayer for support
[2024-10-31] MEDS: Vancomycin HCl 1,250 MG in 0.9% Normal Saline (250mL Bag) 250 ML 167 MG IV (18:49)
[2024-10-31] MEDS: Atorvastatin Calcium 10 MG Tablet PO (21:03)
[2024-11-01] VITALS (7 sets, daily range): BP systolic 111–136; BP diastolic 54–63; PULSE 68–84; RESP 14–18; TEMP 36.3–36.7; O2SAT 94–95; BMI 33.0
[2024-11-01] MEDS: Acetaminophen 500 MG Tablet 1000 MG PO ×3 (05:09→20:12)
[2024-11-01] MEDS: Levothyroxine 75 MCG Tablet PO (05:09)
[2024-11-01] MEDS: Ampicillin/Sulbactam 3 GM in 0.9% Normal Saline (100mL MB+) 100 ML IV ×4 (05:09→23:48)
[2024-11-01 05:35] LABS: Absolute Lymphocyte Count 2.16 X10^3/uL (0.83-4.51); Absolute Neutrophil Count 8.1 X10^3/uL (2.0-7.7); Basophil# 0.05 X10^3/uL; Basophil% 0.4 % (0-1); Eosinophils% 3.4 % (0-5); Hematocrit 30.4 % (37-47); Hemoglobin 9.5 g/dL (12.0-15.0); Lymphocyte # 2.16 X10^3/ul (0.83-4.51); Lymphocyte % 18.4 % (19-41); Mean Corp Hgb Conc 31.3 g/dL (32-36); Mean Corpuscular Hgb 30.4 pg (27.0-32.0); Mean Corpuscular Volume 97.1 fL (81-99); Monocyte# 1.03 X10^3/uL; Monocyte% 8.8 % (0-10); NRBC Flagged by Analyzer 0 % (0-5); Neutrophil # 8.11 X10^3/uL (2.7-7.7); Neutrophil % 68.8 % (47-70); Platelet Count 274 K/mm3 (150-450); RBC Distribution Width CV 13.2 % (11.6-14.6); RBC Distribution Width SD 47.4 fl (35.1-43.9); Red Blood Count 3.13 M/mm3 (4.2-5.4); White Blood Count 11.8 K/mm3 (4.4-11.0)
[2024-11-01 06:10] LABS: Anion Gap 3 (5-15); BUN 21 mg/dL (7-18); Calcium,Total 9.5 mg/dL (8.5-10.1); Chloride 112 mmol/L (98-107); Creatinine, Serum 1.05 mg/dL (0.55-1.02); EST Glomerular Filtration Rate 53 mL/min (>60); Est Glom Filt Rate - Afr Amer 64 mL/min (>60); Estimated Creatinine Clearance 44.23 ml/min; Glucose 126 mg/dL (74-106); Potassium 3.7 mmol/L (3.5-5.1); Sodium Level 140 mmol/L (136-145)
--- NOTE | 2024-11-01 08:25 | PN.HOSP_ITS ---
Reason for Visit Reason for Visit: Diagnoses Pyogenic arthritis, unspecified (10/30/24) Objective Data Objective Data Vital Signs: Vital Signs Temp Pulse Resp BP Pulse Ox O2 Del Method O2 Flow Rate 98.1 F 68 16 111/54 L 95 Room Air 2 11/01/24 02:06 11/01/24 02:06 11/01/24 02:06 11/01/24 02:06 11/01/24 02:06 11/01/24 02:06 10/31/24 20:01 Oxygen Flow Rate (L/min) 2 Oxygen Delivery Method Room Air Weight: 198 lb 10.184 oz Body Mass Index (BMI) 33.0 Intake & Output: Intake and Output for Last 24 Hours 10/30/24 10/31/24 11/01/24 23:59 23:59 23:59 Intake Total 499 / 499 1723 / 1723 224 / 224 Balance 499 / 499 1723 / 1723 224 / 224 Lab / Micro Data 11/01/24 05:00 11/01/24 05:00 Labs: Laboratory Results - last 24 hr 11/01/24 05:00: WBC 11.8 H, RBC 3.13 L, Hgb 9.5 L, Hct 30.4 L, MCV 97.1, MCH 30.4, MCHC 31.3 L, RDW Std Deviation 47.4 H, RDW Coeff of Jody 13.2, Plt Count 274, MPV 11.0, Immature Gran % (Auto) 0.200, Neut % (Auto) 68.8, Lymph % (Auto) 18.4 L, [place] % (Auto) 8.8, Eos % (Auto) 3.4, Baso % (Auto) 0.4, Absolute Neuts (auto) 8.1 H, Absolute Lymphs (auto) 2.16, Nucleated RBC % 0, Sodium 140, Potassium 3.7, Chloride 112 H, Carbon Dioxide 25.0, Anion Gap 3 L, BUN 21 H, C reatinine 1.05 H, Estim Creat Clear Calc 44.23, Est GFR (MDRD) Af Amer 64, Est GFR (MDRD) Non-Af 53 L, BUN/Creatinine Ratio 20.0, Glucose 126 H, Calcium 9.5 Micro: Microbiology 10/30/24 13:46 Wound - Knee Gram Stain - Final 10/30/24 13:46 Wound - Knee Wound Culture - Preliminary No growth-Final to follow Social Homelessness:: Sheltered Physical Exam Narrative Seen and examined today. Patient working good with the physical therapy. Sitting in the chair. Patient also having bowel movement. Seen and examined. General: Alert, Oriented x3, Cooperative HEENT: Atraumatic, PERRLA, EOMI, Normocephalic Oral: No Gingival or Mucosal Lesions/ Ulcerations Neck: Supple, No JVD, Negative Carotid Bruits Chest wall/Lungs: Air entry diminished in bilateral lung bases. No crepitation/rhonchi Cardiovascular: Regular rate, Regular Rhythm, Normal S1, Normal S2, No M/G/R Abdomen: Bowel Sounds Present, Soft, Non Tender, Non-Distended : No dysuria. No renal angle tenderness. No suprapubic tenderness. Extremities: No edema, Capillary Refill Less than 3 Seconds Skin: No rashes, No breakdown Musculoskeletal: Left knee is wrapped on Naren wrap bandage. Status post arthroscopic surgery. Neurological: Cranial nerves II-XII grossly intact, DTR 2+/4. No acute focal neurological deficit. Psych/Mental Status: Flat affect Assessment & Plan Assessment/Plan (1) Septic arthritis of knee, left: QUALIFIERS: Septic arthritis organism: due to unspecified organism Qualified Code(s): M00.9 - Pyogenic arthritis, unspecified PLAN: Plan This 83-year-old female admitted with severe left knee pain and swelling with suspicion of septic arthritis 1. Suspected left knee pyogenic/septic arthritis: Patient is going to OR and after that if she is hemodynamically stable will be admitted in MedSurg floor. Synovial fluid analysis shows WBC 42.3K, 97% neutrophil, monocyte 3%., Cloudy. No crystals seen. Prelim Gram stain shows gram-positive cocci. Patient is started on IV vancomycin and Unasyn. Pain control and muscle relaxant. Further management as per orthopedic surgeon Dr. Perdue who is consulted. ID consult requested discussed with Dr. Nolan. 11/01: Even though H&P was done by me but patient did not show on my list yesterday because the patient has attending name Dr. Perdue. Already called and added the patient on my list. Possible central registration put admitting attending name as Dr. Perdue No acute events yesterday and today. Patient is progressing well. Vitals in normal range. Leukocytosis improving. First arthrocentesis Gram stain also negative. Operative tissue culture, Gram stain shows 2+ RBC and WBC but no organism. Patient had final result pending. Left knee aspiration, arthroscopic irrigation and debridement of synovectomy and arthroscopic partial medial meniscectomy continue empiric Vanco and Unasyn. 2. Paroxysmal A-fib: Twelve-lead EKG was done. Individually reviewed and shows normal sinus rhythm, 83 bpm, QTc 432 ms. QRS normal. Nonspecific ST-T changes. Patient follows Dr. Estrada. She is felt high risk for oral anticoagulation therefore only on baby aspirin. Heart rate is controlled. 3. 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 4. Hypertension and dyslipidemia: Blood pressure is controlled. Monitor BP and adjust antihypertensive medication accordingly. 5. GERD: On PPI. 6. Hypothyroidism: On Synthroid. DVT prophylaxis: Going for surgery but plan for anticoagulant depending on the risk of bleeding. Once hemostasis is controlled, patient can be on Eliquis 2.5 mg twice daily Living will/advanced directive/end of life care: Patient does not have living will or advanced directive. She has POA as her . Her is at the bedside. After discussion of benefits/risks procedures involved with full code, DNR CC arrest and DNR CC, the patient opted for full code. Patient does want artificial life support including intubation, tube feed, ventilator and/chest compression, central venous catheter, vasopressor and DC shock if needed Charges/Coding Visit Charges Inpatient E&M: 22394 Subs Hosp L2
[2024-11-01] MEDS: Losartan Potassium 100 MG Tablet PO (09:48)
[2024-11-01] MEDS: DULoxetine Hcl 60 MG Capsule PO (09:48)
[2024-11-01] MEDS: Aspirin 81 MG TAB.CHEW PO ×2 (09:48→20:12)
[2024-11-01] MEDS: Metoprolol Tartrate 50 MG Tablet PO ×2 (09:48→20:12)
[2024-11-01] MEDS: Multivitamins,Therapeutic Tablet 1 TABLET PO (09:50)
[2024-11-01] MEDS: Hydroxychloroquine 200 MG Tablet PO ×2 (09:50→20:12)
[2024-11-01] MEDS: Cholecalciferol (VIT D3) 25 MCG TABLET (1,000 UNITS) 100 MCG PO (09:50)
--- NOTE | 2024-11-01 11:01 | PCM.PN.ORT ---
Subjective Subjective Patient is doing well. Sitting at bedside in chair. Comfortable. Remains on vancomycin and Unasyn. Much more comfortable today than on presentation to the emergency department. Objective Data Objective Data Vital Signs: Vital Signs Temp Pulse Resp BP Pulse Ox O2 Del Method O2 Flow Rate 97.3 F L 81 14 136/62 H 95 Room Air 2 11/01/24 09:54 11/01/24 09:54 11/01/24 09:54 11/01/24 09:54 11/01/24 09:54 11/01/24 09:54 11/01/24 08:00 Oxygen Flow Rate (L/min) 2 Oxygen Delivery Method Room Air Weight: 198 lb 10.184 oz Body Mass Index (BMI) 33.0 Intake & Output: Intake and Output for Last 24 Hours 10/30/24 10/31/24 11/01/24 23:59 23:59 23:59 Intake Total 499 / 499 1723 / 1723 224 / 224 Balance 499 / 499 1723 / 1723 224 / 224 Lab / Micro Data Attestation: I reviewed the patient's lab results. 11/01/24 05:00 11/01/24 05:00 Labs: Laboratory Results - last 24 hr 11/01/24 05:00: WBC 11.8 H, RBC 3.13 L, Hgb 9.5 L, Hct 30.4 L, MCV 97.1, MCH 30.4, MCHC 31.3 L, RDW Std Deviation 47.4 H, RDW Coeff of Jody 13.2, Plt Count 274, MPV 11.0, Immature Gran % (Auto) 0.200, Neut % (Auto) 68.8, Lymph % (Auto) 18.4 L, [place] % (Auto) 8.8, Eos % (Auto) 3.4, Baso % (Auto) 0.4, Absolute Neuts (auto) 8.1 H, Absolute Lymphs (auto) 2.16, Nucleated RBC % 0, Sodium 140, Potassium 3.7, Chloride 112 H, Carbon Dioxide 25.0, Anion Gap 3 L, BUN 21 H, Creatinine 1.05 H, Estim Creat Clear Calc 44.23, Est GFR (MDRD) Af Amer 64, Est GFR (MDRD) Non-Af 53 L, BUN/Creatinine Ratio 20.0, Glucose 126 H, Calcium 9.5 Micro: Microbiology 10/30/24 13:46 Wound - Knee Gram Stain - Final 10/30/24 13:46 Wound - Knee Wound Culture - Final No growth aerobically. Social Homelessness:: Sheltered Physical Exam Const alert, oriented x3 and no apparent distress Extremity Extremity Narrative: Left lower extremity: Dressing is clean dry and intact. Patient tolerates active range of motion of the knee. Flexion to 90 degrees. Neurovascular intact distally. Assessment & Plan Assessment/Plan (1) Septic arthritis of knee, left: QUALIFIERS: Septic arthritis organism: due to unspecified organism Qualified Code(s): M00.9 - Pyogenic arthritis, unspecified PLAN: Continue all pain medications as prescribed. Patient tolerating well Primarily treated with Tylenol Continue anticoagulation, recommend aspirin 81 mg p.o. twice daily for at least 2 weeks Continue antibiotic treatments as directed by ID. Vancomycin and Unasyn. Discharge antibiotics per infectious disease service Weightbearing ambulation as tolerated. Okay to wean from cane or walker as stable from therapy directives. No range of motion limitations Ice to left knee Okay to discontinue dressing on postoperative dressing on postop day 5 leave open to air at that time Disposition: Patient plans to be discharged to home. Once appropriate antibiotic regimen is solidified and patient is appropriate from therapy she should be able to go, patient is orthopedically stable at this time. Recommend aspirin 81 mg p.o. twice daily for 2 weeks. Recommend follow-up in the office in 2 weeks for suture removal and wound check
[2024-11-01 19:00] LABS: Vancomycin, Trough Level 13.2 ug/mL (5.0-15.0)
--- NOTE | 2024-11-01 19:49 | PCM.RX.CS ---
Consult Antibiotic Management Pharmacy has been consulted to manage selected antibiotic: Vancomycin Type of Intervention Type of Consult: Follow-up Labs Labs: Sodium 140 mmol/L (136-145) 11/01/24 05:00 Potassium 3.7 mmol/L (3.5-5.1) 11/01/24 05:00 Chloride 112 mmol/L (98-107) H 11/01/24 05:00 Carbon Dioxide 25.0 mmol/L (21.0-32.0) 11/01/24 05:00 Anion Gap 3 (5-15) L 11/01/24 05:00 BUN 21 mg/dL (7-18) H 11/01/24 05:00 Creatinine 1.05 mg/dL (0.55-1.02) H 11/01/24 05:00 Est GFR (MDRD) Af Amer 64 mL/min (>60) 11/01/24 05:00 Est GFR (MDRD) Non-Af 53 mL/min (>60) L 11/01/24 05:00 BUN/Creatinine Ratio 20.0 RATIO (10-20) 11/01/24 05:00 Glucose 126 mg/dL (74-106) H 11/01/24 05:00 Vancomycin Trough 13.2 ug/mL (5.0-15.0) 11/01/24 17:54 Microbiology Microbiology: Microbiology 10/30/24 13:46 Wound - Knee Gram Stain - Final 10/30/24 13:46 Wound - Knee Wound Culture - Final No growth aerobically. 10/30/24 13:46 Wound - Knee Anaerobic Culture - Preliminary No growth in 48 hours. Dosing Weight Weight used for dosin.1 kg Estimated Creatinine Clearance Estimated Creatinine Clearance: 44 Goal Trough Goal Trough: 15-20 mcg/mL Pharmacy Plan for Drug Dosing Pharmacy Plan for Drug Dosing: Vancomycin trough level of 13.2, drawn 23hrs post-dose, was below the target range of 15-20. Will increase to 1500mg q24h, and will draw another trough prior to third dose of the new regimen. Pharmacy Service will continue to monitor and adjust dosing as required. Follow-Up Labs Follow-Up Labs: Trough: Vancomycin Date/Time Labs Ordered Labs to be done on [date and time ordered]: 11/03/24 @1900
[2024-11-01] MEDS: 0.9% Saline Lock 10 ML Syringe IV (20:09)
[2024-11-01] MEDS: Vancomycin HCl 1,500 MG in 0.9% Normal Saline (500mL Bag) 500 ML 250 MG IV (20:10)
[2024-11-01] MEDS: Atorvastatin Calcium 10 MG Tablet PO (20:11)
[2024-11-01] MEDS: oxyCODONE 5 MG Tablet PO (20:14)
[2024-11-01] MEDS: HYDROcodone Bitartrate/Apap 5/325 Tablet PO (23:47)
[2024-11-02] VITALS (7 sets, daily range): BP systolic 140–160; BP diastolic 64–72; PULSE 76–82; RESP 16–18; TEMP 36.6–36.7; O2SAT 93–98; BMI 33.1
[2024-11-02] MEDS: Acetaminophen 500 MG Tablet 1000 MG PO ×3 (05:05→20:46)
[2024-11-02] MEDS: Ampicillin/Sulbactam 3 GM in 0.9% Normal Saline (100mL MB+) 100 ML IV (05:05)
[2024-11-02] MEDS: Levothyroxine 75 MCG Tablet PO (05:05)
[2024-11-02 05:09] LABS: Absolute Lymphocyte Count 2.24 X10^3/uL (0.83-4.51); Absolute Neutrophil Count 6.8 X10^3/uL (2.0-7.7); Basophil# 0.08 X10^3/uL; Basophil% 0.7 % (0-1); Eosinophil# 0.69 X10^3/uL; Eosinophils% 6.3 % (0-5); Hematocrit 29.5 % (37-47); Hemoglobin 9.1 g/dL (12.0-15.0); Lymphocyte # 2.24 X10^3/ul (0.83-4.51); Lymphocyte % 20.5 % (19-41); Mean Corp Hgb Conc 30.8 g/dL (32-36); Mean Corpuscular Hgb 29.9 pg (27.0-32.0); Mean Platelet Vol. 10.9 fl (6.2-12.0); Monocyte# 1.03 X10^3/uL; Monocyte% 9.4 % (0-10); NRBC Flagged by Analyzer 0 % (0-5); Neutrophil # 6.84 X10^3/uL (2.7-7.7); Neutrophil % 62.6 % (47-70); Platelet Count 285 K/mm3 (150-450); RBC Distribution Width CV 13.2 % (11.6-14.6); RBC Distribution Width SD 47.2 fl (35.1-43.9); Red Blood Count 3.04 M/mm3 (4.2-5.4); White Blood Count 10.9 K/mm3 (4.4-11.0)
[2024-11-02 05:22] LABS: Anion Gap 3 (5-15); BUN 22 mg/dL (7-18); BUN/Creat Ratio 19.6 RATIO (10-20); Calcium,Total 9.5 mg/dL (8.5-10.1); Chloride 113 mmol/L (98-107); Creatinine, Serum 1.12 mg/dL (0.55-1.02); EST Glomerular Filtration Rate 49 mL/min (>60); Est Glom Filt Rate - Afr Amer 60 mL/min (>60); Estimated Creatinine Clearance 41.46 ml/min; Glucose 141 mg/dL (74-106); Potassium 3.7 mmol/L (3.5-5.1); Sodium Level 141 mmol/L (136-145)
[2024-11-02] MEDS: Losartan Potassium 100 MG Tablet PO (07:52)
[2024-11-02] MEDS: Aspirin 81 MG TAB.CHEW PO ×2 (07:52→20:44)
[2024-11-02] MEDS: Metoprolol Tartrate 50 MG Tablet PO ×2 (07:52→20:44)
[2024-11-02] MEDS: Hydroxychloroquine 200 MG Tablet PO ×2 (07:52→20:46)
[2024-11-02] MEDS: DULoxetine Hcl 60 MG Capsule PO (07:52)
[2024-11-02] MEDS: Cholecalciferol (VIT D3) 25 MCG TABLET (1,000 UNITS) 100 MCG PO (07:53)
[2024-11-02] MEDS: Multivitamins,Therapeutic Tablet 1 TABLET PO (07:53)
--- NOTE | 2024-11-02 10:03 | PCM.PN.ID ---
Physical Exam Narrative Feeling better, no fever, no n/v. Knee less sore. Const alert and no apparent distress General Appearance: cooperative Resp normal air movement and clear to auscultation bilaterally Cardio regular rate and regular rhythm GI soft to palpation, non-tender and non-distended Skin no rashes or lesions noted ID ID: Route of nutrition/ use of supplements: [] Nutritional Intake: [] IV Site: [] Somers Catheter: [] Assessment & Plan Assessment/Plan (1) Septic arthritis of knee, left: QUALIFIERS: Septic arthritis organism: due to unspecified organism Qualified Code(s): M00.9 - Pyogenic arthritis, unspecified PLAN: Aspiration with purulence seen. OR 10/30/[address] Perdue. Surg cx ngtd. On empiric vanc/unasyn. Will change to vanc/ceftriaxone, order picc and 3 weeks total iv abx, stop date 11/20/24 with weekly labs. Will follow, d/w correctional case records supervisor
[2024-11-02] MEDS: Ceftriaxone 2 GM in 0.9% Normal Saline (50mL MB+) 50 ML IV (10:51)
[2024-11-02] MEDS: 0.9% Saline Lock 10 ML Syringe IV ×2 (10:52→19:03)
--- NOTE | 2024-11-02 10:54 | CASEMGMT ---
ÁLVARO ANDRADE into pt room, Pt sitting up in chair in no distress. RN LUPE discussed IV antibiotics, Pt is unsure about SNF vs HHC. Pt would like to discuss with when he comes in before deciding. ÁLVARO ANDRADE to follow up.
--- NOTE | 2024-11-02 13:59 | PCM.PN.HOSP ---
Reason for Visit Reason for Visit: Diagnoses Pyogenic arthritis, unspecified (10/30/24) Objective Data Objective Data Vital Signs: Vital Signs Temp Pulse Resp BP Pulse Ox O2 Del Method O2 Flow Rate 98.0 F 77 18 143/67 H 93 Room Air 2 11/02/24 07:47 11/02/24 07:52 11/02/24 07:47 11/02/24 07:47 11/02/24 07:47 11/02/24 07:47 11/01/24 08:00 Oxygen Flow Rate (L/min) 2 Oxygen Delivery Method Room Air Weight: 198 lb 13.711 oz Body Mass Index (BMI) 33.1 Intake & Output: Intake and Output for Last 24 Hours 10/31/24 11/01/24 11/02/24 23:59 23:59 23:59 Intake Total 1723 / 1723 978 / 978 274 / 274 Balance 1723 / 1723 978 / 978 274 / 274 Lab / Micro Data 11/02/24 04:24 11/02/24 04:24 Labs: Laboratory Results - last 24 hr 11/01/24 17:54: Vancomycin Trough 13.2 11/02/24 04:24: WBC 10.9, RBC 3.04 L, Hgb 9.1 L, Hct 29.5 L, MCV 97.0, MCH 29.9, MCHC 30.8 L, RDW Std Deviation 47.2 H, RDW Coeff of Jody 13.2, Plt Count 285, MPV 10.9, Immature Gran % (Auto) 0.500, Neut % (Auto) 62.6, Lymph % (Auto) 20.5, [place] % (Auto) 9.4, Eos % (Auto) 6.3 H, Baso % (Auto) 0.7, Absolute Neuts (auto) 6.8, Absolute Lymphs (auto) 2.24, Nucleated RBC % 0, Sodium 141, Potassium 3.7, Chloride 113 H, Carbon Dioxide 25.0, Anion Gap 3 L, BUN 22 H, Creatinine 1.12 H, Estim Creat Clear Calc 41.46, Est GFR (MDRD) Af Amer 60, Est GFR (MDRD) Non-Af 49 L, BUN/Creatinine Ratio 19.6, Glucose 141 H, Calcium 9.5 Micro: Microbiology 10/30/24 13:46 Wound - Knee Gram Stain - Final 10/30/24 13:46 Wound - Knee Wound Culture - Final No growth aerobically. 10/30/24 13:46 Wound - Knee Anaerobic Culture - Preliminary No growth in 48 hours. Social Homelessness:: Sheltered Physical Exam Narrative Seen and examined today. Patient working good with the physical therapy. Sitting in the chair. Patient also having bowel movement. No acute issues other than left knee soreness and stiffness. Seen and examined. General: Alert, Oriented x3, Cooperative HEENT: Atraumatic, PERRLA, EOMI, Normocephalic Oral: No Gingival or Mucosal Lesions/ Ulcerations Neck: Supple, No JVD, Negative Carotid Bruits Chest wall/Lungs: Air entry diminished in bilateral lung bases. No crepitation/rhonchi Cardiovascular: Regular rate, Regular Rhythm, Normal S1, Normal S2, No M/G/R Abdomen: Bowel Sounds Present, Soft, Non Tender, Non-Distended : No dysuria. No renal angle tenderness. No suprapubic tenderness. Extremities: No edema, Capillary Refill Less than 3 Seconds Skin: No rashes, No breakdown Musculoskeletal: Left knee is wrapped on Naren wrap bandage. Status post arthroscopic surgery. Neurological: Cranial nerves II-XII grossly intact, DTR 2+/4. No acute focal neurological deficit. Psych/Mental Status: Flat affect Assessment & Plan Assessment/Plan (1) Septic arthritis of knee, left: QUALIFIERS: Septic arthritis organism: due to unspecified organism Qualified Code(s): M00.9 - Pyogenic arthritis, unspecified PLAN: Plan This 83-year-old female admitted with severe left knee pain and swelling with suspicion of septic arthritis 1. Suspected left knee pyogenic/septic arthritis: Patient is going to OR and after that if she is hemodynamically stable will be admitted in MedSurg floor. Synovial fluid analysis shows WBC 42.3K, 97% neutrophil, monocyte 3%., Cloudy. No crystals seen. Prelim Gram stain shows gram-positive cocci. Patient is started on IV vancomycin and Unasyn. Pain control and muscle relaxant. Further management as per orthopedic surgeon Dr. Perdue who is consulted. ID consult requested discussed with Dr. Nolan. 11/01: Even though H&P was done by me but patient did not show on my list yesterday because the patient has attending name Dr. Perdue. Already called and added the patient on my list. Possible central registration put admitting attending name as Dr. Perdue No acute events yesterday and today. Patient is progressing well. Vitals in normal range. Leukocytosis improving. First arthrocentesis Gram stain also negative. Aspiration with purulence in the operative note. Operative tissue culture, Gram stain shows 2+ RBC and WBC but no organism. Patient had final result pending. Left knee aspiration, arthroscopic irrigation and debridement of synovectomy and arthroscopic partial medial meniscectomy continue empiric Vanco and Unasyn. 11/02: Discussed with the ID. PICC line ordered. 3 weeks of total IV antibiotic, vancomycin and ceftriaxone, stop date 11/20/2024 with weekly labs. 2. Paroxysmal A-fib: Twelve-lead EKG was done. Individually reviewed and shows normal sinus rhythm, 83 bpm, QTc 432 ms. QRS normal. Nonspecific ST-T changes. Patient follows Dr. Estrada. She is felt high risk for oral anticoagulation therefore only on baby aspirin. Heart rate is controlled. 11/02: Hemodynamically stable. In sinus rhythm. 3. 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 4. Hypertension and dyslipidemia: Blood pressure is controlled. Monitor BP and adjust antihypertensive medication accordingly. 5. GERD: On PPI. 6. Hypothyroidism: On Synthroid. DVT prophylaxis: Going for surgery but plan for anticoagulant depending on the risk of bleeding. Once hemostasis is controlled, patient can be on Eliquis 2.5 mg twice daily Living will/advanced directive/end of life care: Patient does not have living will or advanced directive. She has POA as her . Her is at the bedside. After discussion of benefits/risks procedures involved with full code, DNR CC arrest and DNR CC, the patient opted for full code. Patient does want artificial life support including intubation, tube feed, ventilator and/chest compression, central venous catheter, vasopressor and DC shock if needed Charges/Coding Visit Charges Inpatient E&M: 93279 Subs Hosp L2
--- NOTE | 2024-11-02 15:13 | OP.PCM_ITS ---
Problems Associated Problem List Diagnoses (1) Septic arthritis of knee, left: Procedures Radiology Radiology Access Procedures: PICC Operative Report (Standard) Operative Information Date of Procedure: 11/02/24 Pre-Operative Diagnosis: SEPTIC KNEE, LT Post-Operative Diagnosis: SPETIC KNEE, LT Surgery/Procedure Performed: PICC INSERTION outside installation machinist: No Type of Anesthesia: Local RN Documented Start/Stop Times: Operation Date: 10/30/24 12:00 Case Time Into Pre-Op 10/30/24 11:09 Out of Pre-Op 10/30/24 13:04 Anesthesia Start 10/30/24 13:14 Into Room 10/30/24 13:14 Procedure Start 10/30/24 13:35 Procedure End 10/30/24 14:06 Anesthesia End 10/30/24 14:13 Out of Room 10/30/24 14:13 Into Recovery 10/30/24 14:16 Out of Recovery 10/30/24 15:44 Into Phase II Recovery 10/30/24 15:46 Out of Phase II 10/30/24 16:21 Procedure Start Time: 13:55 Procedure Stop Time: 14:55 Select all DRAINS/GRAFTS/IMPLANTS that apply: None Estimated Blood Loss: 10 ML Specimen collected: No Description of surgery: Patient identity was verified with two patient identifiers. Informed consent was obtained and time-out was completed. Hands were sanitized. The patient was positioned supine with right arm at 90 degrees. The patient's upper arm vasculature was assessed using ultrasound. Patency of the right cephalic vein was confirmed and the vein was externally marked. An external measurement was obtained of 40 cm. External leads were applied to the patient's right upper chest and laterally and inferior of the umbilicus on the mid axillary line. Cap, mask, and prep gloves were donned. The underdrape was placed under the patient's arm. The site was prepped with chlorhexidine, and tourniquet was loosely applied. Prep gloves were discarded, and hands were sanitized. The sterile kit was opened with additional supplies dropped in. Sterile gown and gloves were donned, and the patient was draped. The sterile kit was assembled with needle, introducer, needless connector, and catheter lumen flushed with sterile normal saline. The marked site of insertion was anesthetized with 1% lidocaine from the kit. Patient tolerated well. The right cephalic vein was then accessed using ultrasound guidance and guidewire was inserted to safety laly. The tourniquet was released. The access needle was removed while securing the guidewire in place. The site was again anesthetized with 1% lidocaine, prior to insertion of introducer sheath and dilator. Patient tolerated the insertion well. The catheter was trimmed to a length of 40 cm. Using 3Cg guidance, the catheter was then inserted through the introducer sheath, slowly. There was resistance on insertion around the level of the shoulder joint, despite attempts to reposition the arm and flush, the catheter would not follow the expected course. The catheter was withdrawn and pressure was held to the site. Using a second introducer kit, the brachial vein was assessed and determined to be patent. Using the micro introducer kit the above steps were again followed to access the brachial vein. The catheter was introduced and followed the expected course of the vessel using 3CG tracking. Maximal p-wave, without deflection, confirming placement in the cavoatrial junction, was obtained at an insertion length of 40 cm, leaving 0 cm external. The introducer sheath was retracted and peeled away, incrementally, while keeping the catheter secured. The stylet was removed. A flushed needleless connector was attached to the lumen. Aspiration of the lumen was performed to remove any air and confirm blood return. Blood return was verified and the lumen was flushed with 10 ml of sterile normal saline in a pulsatile fashion. The catheter was clamped with the last pulsed flush. Total number of sterile flushes used for the insertion was (6) 10 ml syringes, (1) from the kit. Finally, the insertion site was cleaned with chlorhexidine, and the catheter was secured using a StatLock. The site was covered with a Tegaderm CHG Dressing and a disinfecting cap was applied. Baseline arm circumference was obtained at the insertion site and measured 38 cm. The patient was provided with a patient education handout on PICC line care of infection prevention, heavy lifting restriction, maintaining mobility, and watching for any signs of infection. The patient and charge nurse are aware that the PICC line is ready for use. Surgical Findings: SUCCESSFUL PICC PLACEMENT Complications Complications: No
--- NOTE | 2024-11-02 15:46 | CASEMGMT ---
Discharge Planning A list of?SNF providers including quality and resource use data and consistent with the patient's preferred geographic region, medical needs, and insurance network was created in [employer] Guide.? This list was provided to the SW. Marilyn Gill Discharge Planning Asst.
--- NOTE | 2024-11-02 16:22 | CASEMGMT ---
ÁLVARO ANDRADE into patient room to discuss DC plan. Pt in room sitting at bedside. just had PICC line put in. upset he did not know she was having a PICC line put in and had questions about the PICC line. RN LUPE answered questions and discussed SNF, HHC or OP infusion for IV antibiotics. Provided list of SNF to patient. Pt preference is TCU for first choice. SW Notified. Pt unsure what second choice will be at this time. Will follow up if TCU unable to accept.
--- NOTE | 2024-11-02 16:30 | CASEMGMT ---
Social Work Collaboration with RN LUPE Mcfarland who reports after conversations with patient and today, the patient had decided would like to look at [facility]. Provided Alissa with SNF list including patient's geographical region, insurance network, and Medicare quality and star data to give to patient and . Alissa to provide to patient. Referral to Mojgan in admissions at [facility]. Updated Alissa that referral made and anticipate decision on ability to accept by 11.03.24. Plan: Anticipate SNF level fo care, referral pending [facility]. -ANGELI Johnson
--- NOTE | 2024-11-02 16:35 | CASEMGMT ---
SW notified RN CM, TCU will let SW know tomorrow if able to accept. RN CM into patient room and informed family awaiting acceptance. Denies further questions or concerns at this time.
[2024-11-02] MEDS: Vancomycin HCl 1,500 MG in 0.9% Normal Saline (500mL Bag) 500 ML 250 MG IV (19:03)
[2024-11-02] MEDS: Zolpidem Tartrate 5 MG Tablet PO (20:43)
[2024-11-02] MEDS: Atorvastatin Calcium 10 MG Tablet PO (20:46)
[2024-11-03] MEDS: Levothyroxine 75 MCG Tablet PO (05:26)
[2024-11-03] MEDS: Acetaminophen 500 MG Tablet 1000 MG PO ×2 (05:26→13:58)
[2024-11-03 05:30] VITALS: BP 159/76; PULSE 79; RESP 18; TEMP 36.6; O2SAT 94
[2024-11-03 05:47] VITALS: BMI 33.1
[2024-11-03 08:18] VITALS: BP 157/70; PULSE 81; RESP 16; TEMP 36.7; O2SAT 97
[2024-11-03] MEDS: Senna/Docusate Sodium 1 Tablet 2 TABLET PO (08:23)
[2024-11-03 08:24] VITALS: PULSE 81
[2024-11-03] MEDS: Cholecalciferol (VIT D3) 25 MCG TABLET (1,000 UNITS) 100 MCG PO (08:24)
[2024-11-03] MEDS: Hydroxychloroquine 200 MG Tablet PO (08:24)
[2024-11-03] MEDS: Losartan Potassium 100 MG Tablet PO (08:24)
[2024-11-03] MEDS: Aspirin 81 MG TAB.CHEW PO (08:24)
[2024-11-03] MEDS: Metoprolol Tartrate 50 MG Tablet PO (08:24)
[2024-11-03] MEDS: Multivitamins,Therapeutic Tablet 1 TABLET PO (08:25)
[2024-11-03] MEDS: DULoxetine Hcl 60 MG Capsule PO (08:25)
--- NOTE | 2024-11-03 09:40 | TREXTCAR_ITS ---
Diet Diet Order/Speech Therapy: 10/30/24 12:12 Diet: Regular - General Food consistency:: Regular Liquid Consistency:: Regular/Thin Routine Orders/Code Status Suppository Type: Dulcolax 10mg Suppository Frequency: Daily PRN DC O2, CPAP, BIPAP needs Home O2 Discharge instructions: No Wound(s) LEFT KNEE: Wound Type: Surgical Incision Therapies Extremity Affected:: Bilateral Lower Physical Therapy: Eval and Treat Occupational Therapy: Eval and Treat Speech Therapy: Eval and Treat Problem/Diagnosis (1) Septic arthritis of knee, left: Status: Acute Code(s): M00.9 - Pyogenic arthritis, unspecified Plan This 83-year-old female admitted with severe left knee pain and swelling with suspicion of septic arthritis 1. Suspected left knee pyogenic/septic arthritis: Patient is going to OR and after that if she is hemodynamically stable will be admitted in MedSurg floor. Synovial fluid analysis shows WBC 42.3K, 97% neutrophil, monocyte 3%., Cloudy. No crystals seen. Prelim Gram stain shows gram-positive cocci. Patient is started on IV vancomycin and Unasyn. Pain control and muscle relaxant. Further management as per orthopedic surgeon Dr. Perdue who is consulted. ID consult requested discussed with Dr. Nolan. 11/01: Even though H&P was done by me but patient did not show on my list yesterday because the patient has attending name Dr. Perdue. Already called and added the patient on my list. Possible central registration put admitting attending name as Dr. Perdue No acute events yesterday and today. Patient is progressing well. Vitals in normal range. Leukocytosis improving. First arthrocentesis Gram stain also ne gative. Aspiration with purulence in the operative note. Operative tissue culture, Gram stain shows 2+ RBC and WBC but no organism. Patient had final result pending. Left knee aspiration, arthroscopic irrigation and debridement of synovectomy and arthroscopic partial medial meniscectomy continue empiric Vanco and Unasyn. 11/02: Discussed with the ID. PICC line ordered. 3 weeks of total IV an tibiotic, vancomycin and ceftriaxone, stop date 11/20/2024 with weekly labs. 2. Paroxysmal A-fib: Twelve-lead EKG was done. Individually reviewed and shows normal sinus rhythm, 83 bpm, QTc 432 ms. QRS normal. Nonspecific ST-T changes. Patient follows Dr. Estrada. She is felt high risk for oral anticoagulation therefore only on baby aspirin. Heart rate is controlled. 11/02: Hemodynamically stable. In sinus rhythm. 3. 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 4. Hypertension and dyslipidemia: Blood pressure is controlled. Monitor BP and adjust antihypertensive medication accordingly. 5. GERD: On PPI. 6. Hypothyroidism: On Synthroid. DVT prophylaxis: Going for surgery but plan for anticoagulant depending on the risk of bleeding. Once hemostasis is controlled, patient can be on Eliquis 2.5 mg twice daily Living will/advanced directive/end of life care: Patient does not have living will or advanced directive. She has POA as her . Her is at the bedside. After discussion of benefits/risks procedures involved with full code, DNR CC arrest and DNR CC, the patient opted for full code. Patient does want artificial life support including intubation, tube feed, ventilator and/chest compression, central venous catheter, vasopressor and DC shock if needed Allergies/Procedures Done in Hospital Allergies grepafloxacin (From Raxar) Allergy (Verified 10/30/24 08:31) Unknown pravastatin Allergy (Verified 10/30/24 08:31) Unknown amlodipine Adverse Reaction (Intermediate, Verified 10/30/24 08:31) Swelling at high doses ciprofloxacin (From Cipro) Adverse Reaction (Verified 10/30/24 08:31) Other INSOMNIA Type of Care/Length of Stay Estimated LOS: Convalescent Care Less Than 30 days Type of Care Needed: Skilled Rehab Potential: Good Prognosis: Good Additional Orders/Day of Discharge Day of Discharge: 11/03/24 Dietary and Speech Recommendations Dietitian Recommendations/Changes: Continue Regular diet to optimize oral intakes. Discharge Plan Admission Admit Date/Time: 10/30/24 10:13 Primary Reason for Your Visit: Left knee septic arthritis Attending Provider: Bobby Perdue Primary Care Provider: Serge Chicas Consulting Providers: Cristhian Nolan; Alex Marrero Discharge Orders/Prescriptions Prescriptions: New ceftriaxone 2 gram recon soln 2 g IV Q24H 18 Days Rx Instructions: stop date 11/20/24. Dx: septic arthritis. Weekly bmp, cbc, vanc trough, and esr. Fax to [phone]. Routine picc care per protocol. vancomycin 1.5 gram recon soln 1.5 g IV Q24H 18 Days Rx Instructions: stop date 11/20/24. Dx: septic arthritis. Weekly bmp, cbc, vanc trough, and esr. Fax to [phone]. Routine picc care per protocol. sennosides-docusate sodium [Stimulant Laxative Plus] 8.6-50 mg Tablet 2 tab PO BID Qty: 0 0RF acetaminophen 500 mg Tablet 1,000 mg PO Q8 Qty: 0 0RF Rx Instructions: Tylenol 1 g every 8 hours for 5 more days and then as needed oxycodone 5 mg Tablet 2.5 - 5 mg PO Q4H PRN PRN (Reason: Pain Score 4-10) Qty: 0 0RF Continued cetirizine [Zyrtec] 10 mg tablet 10 mg PO QDAY PRN (Reason: Allergies) cholecalciferol (vitamin D3) 4,000 unit tablet 4,000 unit PO DAILY duloxetine 60 mg capsule,delayed release(DR/EC) 60 mg PO QDAY levothyroxine 75 mcg tablet 75 mcg PO QDAY simvastatin 20 MG tablet 20 mg PO QHS Patient Comments: High Cholesterol multivitamin 1 EACH tablet 1 ea PO DAILY Patient Comments: supplement aspirin 81 MG tablet,chewable 81 mg PO DAILY@0800 losartan [Cozaar] 100 mg tablet 100 mg PO DAILY hydroxychloroquine [Plaquenil] 200 mg tablet 200 mg PO BID metoprolol tartrate 50 mg tablet 50 mg PO BID Qty: 180 3RF amlodipine 5 mg tablet 5 mg PO DAILY Qty: 90 3RF Held oxycodone-acetaminophen 5-325 mg tablet 0.5 tab PO TID PRN PRN (Reason: pain) Hold Instructions: Hold while patient is taking oxycodone. Discontinued acetaminophen 500 mg tablet 1,000 mg PO Q8 PRN (Reason: pain) Referrals / Follow Up: Serge Chicas MD [Primary Care Provider] - Bobby Perdue MD [Med Staff - Active Staff] - 11/13/24 9:00 am Disposition Disposition (needs filled in before D/C Order can be placed): Assisted Facility (1) Septic arthritis of knee, left Qualifiers: Septic arthritis organism: due to unspecified organism Qualified Code(s): M00.9 - Pyogenic arthritis, unspecified
[2024-11-03] MEDS: Ceftriaxone 2 GM in 0.9% Normal Saline (50mL MB+) 50 ML IV (09:43)
[2024-11-03] MEDS: 0.9% Saline Lock 10 ML Syringe IV (09:44)
--- NOTE | 2024-11-03 11:05 | CASEMGMT ---
Social Work- SW updated pt of acceptance to TCU. SW called R[facility] De to update on acceptance and verify discharge readiness; staff will check with physician and let SW know. SW remains available to follow. Plan: TCU; when medically ready [facility] [place]
[2024-11-03 11:22] VITALS: O2SAT 93
[2024-11-03 13:54] VITALS: BP 148/74; PULSE 72; RESP 16; TEMP 36.9; O2SAT 95
--- NOTE | 2024-11-03 13:59 | PCM.DC.SUM ---
Providers Date of Admission: 10/30/24 Date of Discharge: 11/03/24 Primary Care Physician: Dr. Serge Chicas MD Consultations 10/30/24 12:12 Consult: Infectious Disease Routine Consulting Provider: Cristhian Nolan Reason for Consult: left knee septic joint EMERGENT Consult: No Notified: Yes Date Notified: 10/30/24 Time Notified: 10:23 Method of Notification: Text Consult: Orthopedics Routine Consulting Provider: Alex Marrero Reason for Consult: left knee septic arthritis EMERGENT Consult: No Notified: Yes Date Notified: 10/30/24 Time Notified: 10:22 Method of Notification: ED Physician Initiated Reason For Visit: SEPTIC LEFT KNEE Diagnosis Discharge Diagnosis (1) Septic arthritis of knee, left: Status: Acute Code(s): M00.9 - Pyogenic arthritis, unspecified Qualifiers: Septic arthritis organism: due to unspecified organism Qualified Code(s): M00.9 - Pyogenic arthritis, unspecified Plan This 83-year-old female admitted with severe left knee pain and swelling with suspicion of septic arthritis 1. Suspected left knee pyogenic/septic arthritis: Patient is going to OR and after that if she is hemodynamically stable will be admitted in MedSurg floor. Synovial fluid analysis shows WBC 42.3K, 97% neutrophil, monocyte 3%., Cloudy. No crystals seen. Prelim Gram stain shows gram-positive cocci. Patient is started on IV vancomycin and Unasyn. Pain control and muscle relaxant. Further management as per orthopedic surgeon Dr. Perdue who is consulted. ID consult requested discussed with Dr. Nolan. 11/01: Even though H&P was done by me but patient did not show on my list yesterday because the patient has attending name Dr. Perdue. Already called and added the patient on my list. Possible central registration put admitting attending name as Dr. Perdue No acute events yesterday and today. Patient is progressing well. Vitals in normal range. Leukocytosis improving. First arthrocentesis Gram stain also negative. Aspiration with purulence in the operative note. Operative tissue culture, Gram stain shows 2+ RBC and WBC but no organism. Patient had final result pending. Left knee aspiration, arthroscopic irrigation and debridement of synovectomy and arthroscopic partial medial meniscectomy continue empiric Vanco and Unasyn. 11/02: Discussed with the ID. PICC line ordered. 3 weeks of total IV antibiotic, vancomycin and ceftriaxone, stop date 11/20/2024 with weekly labs. 11/03: Patient is being discharged to TCU on above antibiotic regimen prescriptions given by ID. 2. Paroxysmal A-fib: Twelve-lead EKG was done. Individually reviewed and shows normal sinus rhythm, 83 bpm, QTc 432 ms. QRS normal. Nonspecific ST-T changes. Patient follows Dr. Estrada. She is felt high risk for oral anticoagulation therefore only on baby aspirin. Heart rate is controlled. 11/02: Hemodynamically stable. In sinus rhythm. 11/03 blood pressure is controlled. 3. 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 4. Hypertension and dyslipidemia: Blood pressure is controlled. Monitor BP and adjust antihypertensive medication accordingly. 5. GERD: On PPI. 6. Hypothyroidism: On Synthroid. DVT prophylaxis: Going for surgery but plan for anticoagulant depending on the risk of bleeding. Once hemostasis is controlled, patient can be on Eliquis 2.5 mg twice daily Discharge medication reconciliation done. Discharge follow-up instructions completed. Discharge process discussed with the patient and all questions were answered to patient's satisfaction. Follow with PCP in 1 to 2 weeks Total time spent, exact 35 minutes on discharge meds reconciliation, examination, coordination of care with nurses and ancillary staff, review of imaging and blood test and discussion with the patient on follow-up instructions. Living will/advanced directive/end of life care: Patient does not have living will or advanced directive. She has POA as her . Her is at the bedside. After discussion of benefits/risks procedures involved with full code, DNR CC arrest and DNR CC, the patient opted for full code. Patient does want artificial life support including intubation, tube feed, ventilator and/chest compression, central venous catheter, vasopressor and DC shock if needed Medications at Discharge Home Medications simvastatin 20 mg tablet 20 mg PO QHS cholesterol 09/21/13 multivitamin 1 ea PO DAILY supplement 09/03/15 cetirizine 10 mg tablet (Zyrtec) 10 mg PO QDAY PRN Allergies 10/11/17 cholecalciferol (vitamin D3) 100 mcg (4,000 unit) tablet 4,000 unit PO DAILY supplement 07/13/18 aspirin 81 mg chewable tablet 81 mg PO DAILY@0800 10/02/19 duloxetine 60 mg capsule,delayed release 60 mg PO QDAY 01/20/24 levothyroxine 75 mcg tablet 75 mcg PO QDAY 01/20/24 metoprolol tartrate 50 mg tablet 50 mg PO BID for blood pressure #180 TABLETS 04/14/24 amlodipine 5 mg tablet 5 mg PO DAILY #90 tabs 05/24/24 hydroxychloroquine 200 mg tablet (Plaquenil) 200 mg PO BID 10/29/24 losartan 100 mg tablet (Cozaar) 100 mg PO DAILY 10/29/24 oxycodone-acetaminophen 5 mg-325 mg tablet 0.5 tab PO TID PRN PRN pain 10/30/24 ceftriaxone 2 gram intravenous solution 2 g IV Q24H 18 days 11/02/24 vancomycin 1.5 gram intravenous solution 1.5 g IV Q24H 18 days 11/02/24 acetaminophen 500 mg tablet 1,000 mg (2 x 500 mg) PO Q8 #0 tabs 11/03/24 oxycodone 5 mg tablet 2.5 - 5 mg (0.5 - 1 x 5 mg) PO Q4H PRN PRN Pain Score 4-10 #0 tabs 11/03/24 sennosides 8.6 mg-docusate sodium 50 mg tablet (Stimulant Laxative Plus) 2 tab PO BID #0 tabs 11/03/24 Physical Exam Narrative Seen and examined today. Patient had requested Ambien yesterday as she could not sleep last 3 days. Ambien was given and patient slept well. Patient working good with the physical therapy. Sitting in the chair. Patient also having bowel movement. No acute issues other than left knee soreness and stiffness. Seen and examined. General: Alert, Oriented x3, Cooperative HEENT: Atraumatic, PERRLA, EOMI, Normocephalic Oral: No Gingival or Mucosal Lesions/ Ulcerations Neck: Supple, No JVD, Negative Carotid Bruits Chest wall/Lungs: Air entry diminished in bilateral lung bases. No crepitation/rhonchi Cardiovascular: Regular rate, Regular Rhythm, Normal S1, Normal S2, No M/G/R Abdomen: Bowel Sounds Present, Soft, Non Tender, Non-Distended : No dysuria. No renal angle tenderness. No suprapubic tenderness. Extremities: No edema, Capillary Refill Less than 3 Seconds Skin: No rashes, No breakdown Musculoskeletal: Left knee is wrapped on Naren wrap bandage. Status post arthroscopic surgery. Neurological: Cranial nerves II-XII grossly intact, DTR 2+/4. No acute focal neurological deficit. Psych/Mental Status: Flat affect Medical Records Data Homelessness:: Sheltered Weight / BMI Weight Weight: 199 lb 1 oz Body Mass Index (BMI) 33.1 ABG / Lab / Microbiology Data 11/02/24 04:24 11/02/24 04:24 Microbiology: Microbiology 10/30/24 13:46 Wound - Knee Gram Stain - Final 10/30/24 13:46 Wound - Knee Wound Culture - Final No growth aerobically. 10/30/24 13:46 Wound - Knee Anaerobic Culture - Preliminary No growth in 48 hours. D/C Instructions DC O2, CPAP, BIPAP Needs Home O2 Discharge instructions: No Meaningful Use Info Meaningful Use Meaningful Use Diagnoses (Choose all that apply): None applicable Ischemic Stroke Statin Dosing Therapy Reference: STATIN DOSE THERAPY REFERENCE: * Patients > 75 years receive moderate or high dose statin therapy. * Patients 75 years or YOUNGER should receive HIGH intensity statin dose unless contraindicated. You will be required to document reason for non-treatment if statin daily dose does not meet guidelines. HIGH DOSE STATIN THERAPY DAILY Atorvastatin > than or = to 40 mg Rosuvastatin > than or = to 20 mg Amlodipine + Atorvastatin > than or = to 2.5/40 mg Ezetimibe + Simvastatin 10/80 mg Simvastatin 80mg Discharge Plan Admission Admit Date/Time: 10/30/24 10:13 Primary Reason for Your Visit: Left knee septic arthritis Attending Provider: Bobby Perdue Primary Care Provider: Serge Chicas Consulting Providers: Cristhian Nolan; Alex Marrero Discharge Orders/Prescriptions Prescriptions: New ceftriaxone 2 gram recon soln 2 g IV Q24H 18 Days Rx Instructions: stop date 11/20/24. Dx: septic arthritis. Weekly bmp, cbc, vanc trough, and esr. Fax to [phone]. Routine picc care per protocol. vancomycin 1.5 gram recon soln 1.5 g IV Q24H 18 Days Rx Instructions: stop date 11/20/24. Dx: septic arthritis. Weekly bmp, cbc, vanc trough, and esr. Fax to [phone]. Routine picc care per protocol. sennosides-docusate sodium [Stimulant Laxative Plus] 8.6-50 mg Tablet 2 tab PO BID Qty: 0 0RF acetaminophen 500 mg Tablet 1,000 mg PO Q8 Qty: 0 0RF Rx Instructions: Tylenol 1 g every 8 hours for 5 more days and then as needed oxycodone 5 mg Tablet 2.5 - 5 mg PO Q4H PRN PRN (Reason: Pain Score 4-10) Qty: 0 0RF Continued cetirizine [Zyrtec] 10 mg tablet 10 mg PO QDAY PRN (Reason: Allergies) cholecalciferol (vitamin D3) 4,000 unit tablet 4,000 unit PO DAILY duloxetine 60 mg capsule,delayed release(DR/EC) 60 mg PO QDAY levothyroxine 75 mcg tablet 75 mcg PO QDAY simvastatin 20 MG tablet 20 mg PO QHS Patient Comments: High Cholesterol multivitamin 1 EACH tablet 1 ea PO DAILY Patient Comments: supplement aspirin 81 MG tablet,chewable 81 mg PO DAILY@0800 losartan [Cozaar] 100 mg tablet 100 mg PO DAILY hydroxychloroquine [Plaquenil] 200 mg tablet 200 mg PO BID metoprolol tartrate 50 mg tablet 50 mg PO BID Qty: 180 3RF amlodipine 5 mg tablet 5 mg PO DAILY Qty: 90 3RF Held oxycodone-acetaminophen 5-325 mg tablet 0.5 tab PO TID PRN PRN (Reason: pain) Hold Instructions: Hold while patient is taking oxycodone. Discontinued acetaminophen 500 mg tablet 1,000 mg PO Q8 PRN (Reason: pain) Referrals / Follow Up: Serge Chicas MD [Primary Care Provider] - Bobby Perdue MD [Med Staff - Active Staff] - 11/13/24 9:00 am Disposition Disposition (needs filled in before D/C Order can be placed): Long Term Facility Charges/Coding Visit Charges Inpatient E&M: 08206 Disch Hosp >30min
--- NOTE | 2024-11-03 14:28 | CASEMGMT ---
Social Work- Pt has been determined by physician to be medically ready. SW faxed clinicals to TCU. Bedside nurse and pt advised of discharge; pt agreeable. No other SW needs at this time. Plan: TCU; skilled level of care [facility]
== END 2024-11-03 16:13 | DRG 486 ==
LOC: ED 10:42 → ACINP 11:28 → ED 12:14 → SDC 10-31 08:44 → ACINP 10-31 08:44 → SDC 10-31 08:46 → MS3 10-31 08:46
PROVIDERS: Internal Medicine; Admitting Provider Specialist; Emergency Provider Emergency Medicine; PCP Family Medicine; Visit Provider Specialist
PROC: 0SBD4ZZ Excision of Left Knee Joint, Percutaneous Endoscopic Approach (ICD-10-PCS; CPT 29870; principal; 2024-10-30 11:40)
DX: M00.9 Pyogenic arthritis, unspecified (principal); Z59.01 Sheltered homelessness; Z66 Do not resuscitate; Z51.5 Encounter for palliative care; E03.9 Hypothyroidism, unspecified; I10 Essential (primary) hypertension; I48.0 Paroxysmal atrial fibrillation; I25.10 Atherosclerotic heart disease of native coronary artery without angina pectoris; S83.242A Other tear of medial meniscus, current injury, left knee, initial encounter; K21.9 Gastro-esophageal reflux disease without esophagitis; E78.5 Hyperlipidemia, unspecified; R79.82 Elevated C-reactive protein (CRP); Z79.82 Long term (current) use of aspirin; Z79.890 Hormone replacement therapy; Z79.01 Long term (current) use of anticoagulants
CPT/HCPCS: 36415; 36569; 73564; 80048; 80202; 83735; 85025; 85652; 86140; 87070; 87075; 87205; 89050; 89051; 89060; 93005; 94668; 96374; 97110; 97116; 97162; 97166; 97530; 99284; 99285; A4216; J0295; J0696; J2405

== ENCOUNTER 2024-11-03 16:44 | Inpatient (IN) | payer MEDICARE, OTHER, SELFPAY ==
[2024-11-03 17:36] VITALS: BP 160/77; PULSE 82; RESP 18; TEMP 36; O2SAT 95; BMI 33.1
[2024-11-03 19:31] LABS: Vancomycin, Trough Level 23.8 ug/mL (5.0-15.0)
--- NOTE | 2024-11-03 20:08 | PCM.RX.CS ---
Consult Antibiotic Management Pharmacy has been consulted to manage selected antibiotic: Vancomycin Type of Intervention Type of Consult: Follow-up Suspected Infection Suspected Infection: Other (septic joint) Labs Labs: Vancomycin Trough 23.8 ug/mL (5.0-15.0) H 11/03/24 19:00 Pharmacy Plan for Drug Dosing Pharmacy Plan for Drug Dosing: VANCOMYCIN LEVEL RECEIVED Current Vancomycin Dose: 1500MG Q24 from [facility] Number of Doses Received: 4 Vancomycin Level: 23.8 mg/dL Hours Since Last Dose: 24 Renal Function: SCr 1.12 mg/dL, CrCl 41 mL/min (based on SCr from 11/02) Renal Function Trend: stable Vancomycin Plan/Comments: Patient was receiving 1500mg Q24 on the hospital side, trough due at 1900 prior to D/C. Entered appropriately timed trough. 24 hour level is supratherapeutic (goal 15-20). Will hold further dosing and get a random level in 12 hours. Pending Level: 11/04/24 @ 0700 - random Pharmacy Service will continue to monitor and adjust dosing as required.
[2024-11-03 21:32] VITALS: BP 161/88; PULSE 89
[2024-11-03] MEDS: Acetaminophen 500 MG Tablet 1000 MG PO (21:32)
[2024-11-03] MEDS: Hydroxychloroquine 200 MG Tablet PO (21:32)
[2024-11-03] MEDS: Metoprolol Tartrate 50 MG Tablet PO (21:32)
[2024-11-03] MEDS: Atorvastatin Calcium 10 MG Tablet PO (21:33)
[2024-11-03] MEDS: Senna/Docusate Sodium 1 Tablet 2 TABLET PO (21:35)
[2024-11-03] MEDS: 0.9% Saline Lock 10 ML Syringe IV (21:54)
[2024-11-04] MEDS: Acetaminophen 500 MG Tablet 1000 MG PO ×3 (05:18→21:01)
[2024-11-04] MEDS: Levothyroxine 75 MCG Tablet PO (05:18)
[2024-11-04 05:44] LABS: Absolute Lymphocyte Count 1.39 X10^3/uL (0.83-4.51); Basophil# 0.07 X10^3/uL; Basophil% 0.5 % (0-1); Eosinophil# 0.64 X10^3/uL; Eosinophils% 4.6 % (0-5); Hematocrit 29.5 % (37-47); Hemoglobin 9.5 g/dL (12.0-15.0); Lymphocyte # 1.39 X10^3/ul (0.83-4.51); Lymphocyte % 9.9 % (19-41); Mean Corp Hgb Conc 32.2 g/dL (32-36); Mean Corpuscular Hgb 30.8 pg (27.0-32.0); Mean Corpuscular Volume 95.8 fL (81-99); Mean Platelet Vol. 10.7 fl (6.2-12.0); Monocyte# 0.93 X10^3/uL; Monocyte% 6.6 % (0-10); NRBC Flagged by Analyzer 0 % (0-5); Neutrophil # 10.98 X10^3/uL (2.7-7.7); Neutrophil % 78.1 % (47-70); Platelet Count 310 K/mm3 (150-450); RBC Distribution Width CV 13.2 % (11.6-14.6); RBC Distribution Width SD 46.4 fl (35.1-43.9); Red Blood Count 3.08 M/mm3 (4.2-5.4); White Blood Count 14.1 K/mm3 (4.4-11.0)
[2024-11-04] MEDS: oxyCODONE 5 MG Tablet PO (06:08)
[2024-11-04 06:35] LABS: Anion Gap 5 (5-15); BUN 17 mg/dL (7-18); BUN/Creat Ratio 13.8 RATIO (10-20); Chloride 114 mmol/L (98-107); Creatinine, Serum 1.23 mg/dL (0.55-1.02); EST Glomerular Filtration Rate 44 mL/min (>60); Est Glom Filt Rate - Afr Amer 53 mL/min (>60); Estimated Creatinine Clearance 36.78 ml/min; Glucose 155 mg/dL (74-106); Potassium 3.5 mmol/L (3.5-5.1); Sodium Level 143 mmol/L (136-145)
[2024-11-04] MEDS: Aspirin 81 MG TAB.CHEW PO (08:25)
[2024-11-04] MEDS: DULoxetine Hcl 60 MG Capsule PO (08:25)
[2024-11-04] MEDS: Losartan Potassium 100 MG Tablet PO (08:25)
[2024-11-04] MEDS: Multivitamins,Therapeutic Tablet 1 TABLET PO (08:25)
[2024-11-04 08:26] VITALS: BP 164/66; PULSE 77
[2024-11-04] MEDS: Hydroxychloroquine 200 MG Tablet PO ×2 (08:26→21:02)
[2024-11-04] MEDS: amLODIPine 5 MG Tablet PO (08:26)
[2024-11-04] MEDS: Metoprolol Tartrate 50 MG Tablet PO ×2 (08:26→21:02)
[2024-11-04] MEDS: Cholecalciferol (VIT D3) 25 MCG TABLET (1,000 UNITS) 100 MCG PO (08:27)
[2024-11-04] MEDS: Ceftriaxone 2 GM in 0.9% Normal Saline (50mL MB+) 50 ML IV (10:17)
[2024-11-04] MEDS: 0.9 % NaCl (Sterile) Posiflush 10 mL IV ×2 (10:18→14:38)
[2024-11-04] MEDS: Tuberculin,Purif.prot.deriv. 50 TU/ML Vial 0.1 ML ID (10:19)
--- NOTE | 2024-11-04 11:48 | HP.PCM_ITS ---
HPI - General General Date of Admission: 11/03/24 Date of Service: 11/04/24 HPI Narrative LIN MCQUEEN, is a 83-year-old F with a past medical history as listed below presented to the emergency department at [facility] on 10/29/2024 complaining of left knee pain/swelling for the preceding 3 to 4 days. She denied any trauma. She denied fever/chills. Plain x-ray of the left knee showed a mild joint effusion with no fracture. Lab in the emergency room showed an elevated white blood cell count at 15.8 with 69% neutrophils. An arthrocentesis was done. The arthrocentesis showed 42,320 white blood cells with 97% neutrophils. There were no crystals seen. Patient then proceeded to sign out AGAINST MEDICAL ADVICE to go home for [place]. She returned to the hospital on 10/30/2024 and was admitted to the hospitalist service with an orthopedic consult. She went to the OR on 10/30/2024 for left knee aspiration with left knee arthroscopic irrigation and debridement/synovectomy. Dr. Nolan from infectious disease was also consulted. The Gram stain on the joint aspiration revealed gram-positive cocci and she was started empirically on vancomycin and Unasyn. Cultures of the aspirate had no growth after 5 days. On 11/02/2024 Dr. Nolan change the antibiotic to vancomycin and ceftriaxone and ordered a PICC line. He recommended 3 weeks total of IV antibiotics with a stop date of 09/20/2025. She was transferred to the transitional care unit at [facility] for strengthening and intravenous antibiotics. All lab drawn this morning was personally reviewed. The white blood cell count is 14.1 with 78.1% neutrophils. Hemoglobin is stable at 9.5 and platelets are within normal limits. Sodium is 143 and the potassium is 3.5. BUN is 17 and the creatinine is 1.13 today which is within her baseline for the past 12 months. Fasting blood sugar today is 155. Hemoglobin A1c in March 2024 was 6.2 and she is on no diabetic medications. She is on a regular diet. [facility] Medical History (Updated 11/04/24 @ 12:[address] Madhuri Roberts DO) Allergic rhinitis Chronic renal failure (CRF), stage 3 (moderate) Obesity (BMI 30.0-34.9) Glucose intolerance Fibromyalgia Essential hypertension Paget's disease Hypothyroidism GERD (gastroesophageal reflux disease) Paroxysmal atrial fibrillation Atherosclerotic heart disease of [place] coronary artery without angina pectoris NSTEMI (non-ST elevated myocardial infarction) Paroxysmal ventricular tachycardia Arthritis Esophageal stricture Hiatal hernia Back pain of lumbar region with sciatica Back pain Hypothyroidism Home Medications ?Medication ?Instructions ?Recorded ?Last Taken ?Type simvastatin 20 mg tablet 20 mg PO QHS cholesterol 09/21/13 11/02/24 History multivitamin 1 ea PO DAILY supplement 09/03/15 11/03/24 History cetirizine 10 mg tablet (Zyrtec) 10 mg PO QDAY PRN Allergies 10/11/17 10/29/24 History cholecalciferol (vitamin D3) 100 4,000 unit PO DAILY supplement 07/13/18 11/03/24 History mcg (4,000 unit) tablet aspirin 81 mg chewable tablet 81 mg PO DAILY@0800 blood thinner 10/02/19 10/29/24 History duloxetine 60 mg capsule,delayed 60 mg PO QDAY mood 01/20/24 11/03/24 History release levothyroxine 75 mcg tablet 75 mcg PO QDAY thyroid 01/20/24 11/03/24 History metoprolol tartrate 50 mg tablet 50 mg PO BID for blood pressure 04/14/24 11/03/24 Rx #180 TABLETS amlodipine 5 mg tablet 5 mg PO DAILY HTN #90 tabs 05/24/24 10/29/24 Rx hydroxychloroquine 200 mg tablet 200 mg PO BID pain 10/29/24 11/03/24 History (Plaquenil) losartan 100 mg tablet (Cozaar) 100 mg PO DAILY HTN 10/29/24 10/29/24 History oxycodone-acetaminophen 5 mg-325 0.5 tab PO TID PRN PRN pain 10/30/24 10/29/24 History mg tablet ceftriaxone 2 gram intravenous 2 g IV Q24H antibiotic 18 days 11/02/24 Unknown Rx solution vancomycin 1.5 gram intravenous 1.5 g IV Q24H antibiotic 18 days 11/02/24 Unknown Rx solution acetaminophen 500 mg tablet 1,000 mg (2 x 500 mg) PO Q8 pain 11/03/24 Unknown Rx #0 tabs oxycodone 5 mg tablet 2.5 - 5 mg (0.5 - 1 x 5 mg) PO Q4H 11/03/24 11/01/24 Rx PRN PRN Pain Score 4-10 #0 tabs sennosides 8.6 mg-docusate sodium 2 tab PO BID stool softener #0 tabs 11/03/24 11/03/24 Rx 50 mg tablet (Stimulant Laxative Plus) Allergy/AdvReac Type Severity Reaction Status Date / Time grepafloxacin (From Raxar) Allergy Unknown Verified 10/30/24 08:31 pravastatin Allergy Unknown Verified 10/30/24 08:31 amlodipine AdvReac Intermediate Swelling Verified 10/30/24 08:31 ciprofloxacin (From Cipro) AdvReac Other Verified 10/30/24 08:31 Family History Father CAD (coronary artery disease) Lung cancer Surgical History History of back surgery History of right hip replacement History of left hip replacement History of partial mastectomy of left breast History of vein stripping History of tubal ligation S/P dilatation of esophageal stricture Social History (Updated 11/04/24 @ 12:[address] Madhuri Roberts DO) household members: spouse Smoking Status: Never smoker alcohol intake: never substance use type: does not use caffeine: Yes ROS Constitutional Constitutional: Denies anorexia, change in weight, chills, fatigue, fever(s), night sweats or weakness Eyes Eyes: Denies blurry vision, change in vision, eye pain or loss of vision ENT HEENT: Denies abnormal hearing, dysphagia, headache(s), hearing loss, nasal congestion or sore throat Cardiovascular Cardiovascular: Denies chest pain, dyspnea on exertion, edema, lightheadedness, orthopnea, palpitations, paroxysmal nocturnal dyspnea or syncope Respiratory/Chest Respiratory/Chest: Reports wheezing and other Details: occassionally has heard herself wheeze during this admission Ususally takes Zyrtec almost every day at home. Does not have a inhaler and has never been diagnosed with asthma ; Denies cough, dyspnea, shortness of breath at rest or shortness of breath with exertion Gastrointestinal Gastrointestinal: Reports diarrhea and other Details: Stool softeners were held today. ; Denies abdominal pain, constipation, dyspepsia, hematemesis, hematochezia, nausea or vomiting Genitourinary Genitourinary: Reports nocturia and other Details: Denies vaginal discharge ; Denies dysuria, hematuria, urinary frequency, urinary hesitancy, urinary incontinence or urinary urgency Musculoskeletal Musculoskeletal: Reports other Details: She initially had left knee pain with admission to the hospital but today she denies pain. ; Denies back pain, joint pain, joint swelling or neck pain Neurologic Neurologic: Denies confusion, disequilibrium, dizziness, focal weakness, headache(s), paresthesias, seizures or tremor(s) Psychiatric Psychiatric: Denies anxiety, depression, homicidal ideation or suicidal ideation Endocrine Endocrinology: Denies change in body appearance, polydipsia or polyuria Hematologic/Lymphatic Hematologic/Lymphatic: Denies easy bleeding, easy bruising or lymphadenopathy Allergic/Immunologic Allergic/Immunologic: Reports rhinitis; Denies eczemia or asthma Vital Signs Vital Signs Vital Signs: 11/03/24 17:36 11/03/24 18:49 11/03/24 21:32 Temperature 96.8 F L Temperature Source Temporal Pulse Rate 82 89 Pulse Rhythm Irregular Pulse Strength Normal (2+) Respiratory Rate 18 Respiratory Effort Normal Non-Labored Respiratory Depth Normal Respiratory Pattern Normal Blood Pressure 160/77 H 161/88 H Blood Pressure Mean 104 Blood Pressure Source Monitor Blood Pressure Position Semi-Fowlers Blood Pressure Location Left Arm Pulse Ox 95 Oxygen Delivery Method Room Air Room Air 11/04/24 06:44 11/04/24 08:26 Temperature Temperature Source Pulse Rate 77 Pulse Rhythm Regular Pulse Strength Normal (2+) Respiratory Rate Respiratory Effort Normal Non-Labored Respiratory Depth Normal Respiratory Pattern Normal Blood Pressure 164/66 H Blood Pressure Mean Blood Pressure Source Blood Pressure Position Blood Pressure Location Pulse Ox Oxygen Delivery Method Room Air Weight Weight: 196 lb 4.017 oz Body Mass Index (BMI) 33.1 Physical Exam Const alert, oriented x3 and no apparent distress Constitutional Narrative: Making good eye contact, appropriate. Calm and pleasant. She is sitting in a chair at the bedside eating her lunch and appears in no acute distress. General Appearance: cooperative and comfortable HEENT head/scalp atraumatic HEENT Narrative: Mucous membranes are very dry. No evidence of thrush. She denies a bad taste in her mouth and also denies painful mouth and painful swallowing. Eyes PERRL, EOMs intact bilaterally, conjunctivae normal and no scleral icterus Eyes Narrative: No discharge from the eyes. No mattering of the eyelashes. General Eye: normal appearance of both eyes Neck no lymphadenopathy, supple, no JVD and no carotid bruits General: trachea midline Chest Chest: symmetrical chest wall rise Resp normal respiratory effort and no use of accessory muscles Resp Narrative: Not tachypneic and no conversational dyspnea. She has a few coarse crackles in the bases bilaterally that mostly cleared after a couple deep breaths. Using the IS sporadically. Effort and Inspection: able to speak in complete sentences Cardio regular rate, regular rhythm, S1 normal heart sound, S2 normal heart sound, no murmurs, no rub and no gallops GI normal to inspection, nondistended, normoactive bowel sounds and non-tender GI Narrative: No guarding with palpation. Extremity no clubbing, cyanosis or edema Extremity Narrative: She has dry skin over the distal lower extremities. Skin Skin Narrative: No rashes. Many moles and senile keratoses over the extremities, back and chest Neuro oriented x3, CN's II-XII intact bilaterally and no focal motor deficits Psych affect normal Psych Narrative: Appropriate, making good eye contact. Able to stay on topic and focus. No flight of ideas. Does not appear anxious or depressed. Conversant and relating well to staff. Tells me that she has always had difficulty sleeping when she is away from her home. Results Lab / Micro Data 11/04/24 05:16 11/04/24 05:16 Labs: Laboratory Results - last 24 hr 11/03/24 19:00: Vancomycin Trough 23.8 H 11/04/24 05:16: WBC 14.1 H, RBC 3.08 L, Hgb 9.5 L, Hct 29.5 L, MCV 95.8, MCH 30.8, MCHC 32.2, RDW Std Deviation 46.4 H, RDW Coeff of Jody 13.2, Plt Count 310, MPV 10.7, Immature Gran % (Auto) 0.300, Neut % (Auto) 78.1 H, Lymph % (Auto) 9.9 L, [place] % (Auto) 6.6, Eos % (Auto) 4.6, Baso % (Auto) 0.5, Absolute Neuts (auto) 11.0 H, Absolute Lymphs (auto) 1.39, Nucleated RBC % 0, Sodium 143, Potassium 3.5, Chloride 114 H, Carbon Dioxide 23.0, Anion Gap 5, BUN 17, Creatinine 1.23 H , Estim Creat Clear Calc 36.78, Est GFR (MDRD) Af Amer 53 L, Est GFR (MDRD) Non- Af 44 L, BUN/Creatinine Ratio 13.8, Glucose 155 H, Calcium 10.0 11/04/24 06:20: Random Vancomycin 18.0 H Assessment & Plan Assessment/Plan (1) Debility: (2) Septic arthritis of knee, left: QUALIFIERS: Septic arthritis organism: due to unspecified organism Qualified Code(s): M00.9 - Pyogenic arthritis, unspecified (3) Normochromic normocytic anemia: (4) Insomnia: QUALIFIERS: Insomnia type: unspecified Qualified Code(s): G47.00 - Insomnia, unspecified (5) Diarrhea: QUALIFIERS: Diarrhea type: unspecified type Qualified Code(s): R 19.7 - Diarrhea, unspecified PLAN: She had diarrhea on 11/03/2024 and had 4-5 bowel movements. She denies diarrhea today and she did refuse her stool softeners today. Will decrease the senna to 1 tablet p.o. twice daily and she knows to refuse it if her bowels are loose. Started lactobacillus 1 twice daily since she is on antibiotics. (6) Chronic renal failure (CRF), stage 3 (moderate): QUALIFIERS: Chronic kidney disease stage 3 subtype: unspecified whether 3a or 3b Qualified Code(s): N18.30 - Chronic kidney disease, stage 3 unspecified (7) Glucose intolerance: (8) Mixed hyperlipidemia: (9) Essential hypertension: (10) Paroxysmal atrial fibrillation: PLAN: Not on chronic anticoagulation (11) Atherosclerotic heart disease of [place] coronary artery without angina pectoris: QUALIFIERS: [place] vs. transplanted heart: pra[place] band heart Qualified Code(s): I25.10 - Atherosclerotic heart disease of [place] coronary artery without angina pectoris (12) Hypothyroidism: QUALIFIERS: Hypothyroidism type: unspecified Qualified Code(s): E 03.9 - Hypothyroidism, unspecified (13) Allergic rhinitis: QUALIFIERS: Allergic rhinitis seasonality: non-seasonal Allergic rhinitis trigger: unspecified Qualified Code(s): J30.89 - Other allergic rhinitis PLAN: Plan PLAN PT for gait stability OT for ADL's ST for evaluation Bowel protocol Fall precautions Assess for Anxiety/Depression GI prophylaxis -not necessary at this time. She denies heartburn, nausea, vomiting and epigastric pain. DVT prophylaxis with Lovenox 40 mg subcu daily Follow up with PCP, orthopedics following DC from [facility] Checking hemoglobin A1c Add a consistent carbohydrate restriction to her diet Trazodone 50 mg p.o. nightly Lactobacillus 1 p.o. twice daily Check a Hemoccult stool Encouraged her to increase her fluid intake to help protect the kidneys since she is on vancomycin. Decrease senna to 1 tablet p.o. twice daily and she knows to refuse if she is having loose stool. She is complaining of postnasal drip and cough (chronic) and takes Zyrtec nearly every day at home. Will schedule the Claritin nightly. She requested a pass to go home for a holiday alliance party with her family on 11/05/2024 and I told her this would be okay as long as it does not interfere with her antibiotics. Charges/Coding Visit Charges Inpatient E&M: 50214 SNF Init L1
[2024-11-04 13:09] LABS: Hemoglobin A1c 6.5 % (3.8-5.6)
[2024-11-04 14:20] VITALS: BP 146/61; PULSE 78; RESP 18; TEMP 36.6; O2SAT 95
[2024-11-04] MEDS: Potassium Chloride Oral Tablet 20 MEQ 40 MEQ PO (14:33)
[2024-11-04] MEDS: Vancomycin IV 1,000 MG/200 ML BAG 200 MG IV (14:35)
--- NOTE | 2024-11-04 14:48 | PCM.RX.CS ---
Consult Antibiotic Management Pharmacy has been consulted to manage selected antibiotic: Vancomycin Type of Intervention Type of Consult: Follow-up Suspected Infection Suspected Infection: Other (septic joint) Labs Labs: Sodium 143 mmol/L (136-145) 11/04/24 05:16 Potassium 3.5 mmol/L (3.5-5.1) 11/04/24 05:16 Chloride 114 mmol/L (98-107) H 11/04/24 05:16 Carbon Dioxide 23.0 mmol/L (21.0-32.0) 11/04/24 05:16 Anion Gap 5 (5-15) 11/04/24 05:16 BUN 17 mg/dL (7-18) 11/04/24 05:16 Creatinine 1.23 mg/dL (0.55-1.02) H 11/04/24 05:16 Est GFR (MDRD) Af Amer 53 mL/min (>60) L 11/04/24 05:16 Est GFR (MDRD) Non-Af 44 mL/min (>60) L 11/04/24 05:16 BUN/Creatinine Ratio 13.8 RATIO (10-20) 11/04/24 05:16 Glucose 155 mg/dL (74-106) H 11/04/24 05:16 Vancomycin Trough 23.8 ug/mL (5.0-15.0) H 11/03/24 19:00 Random Vancomycin 18.0 ug/mL (0.0-15.0) H 11/04/24 06:20 Goal Trough Goal Trough: 15-20 mcg/mL Pharmacy Plan for Drug Dosing Pharmacy Plan for Drug Dosing: VANCOMYCIN LEVEL RECEIVED Current Vancomycin Dose: Previous dose was 1500mg q24h, but is currently on hold due to elevated trough Number of Doses Received: Vancomycin Level: random level resulted at 18 Hours Since Last Dose: 35.5 hours since last 1500mg dose Renal Function: SrCr 1.23 Renal Function Trend: SrCr increasing Lab/Micro: Vancomycin Plan/Comments: random level of 18 is within the ordered goal range of 15-20. recommend re-starting vancomycin at 1000mg q24h and checking a trough prior to the 3rd dose Pending Level: 11/06/24 at 1330 Pharmacy Service will continue to monitor and adjust dosing as required. Follow-Up Labs Follow-Up Labs: Trough: Vancomycin (11/06/24 at 1330)
--- NOTE | 2024-11-04 16:00 | NURSING ---
Patient asked for FMLA on 11/05 to celebrate [place] with family. Dr. Roberts approves as long as patient is on TCU at 1000 and 1400 for IV ATBs. Family made aware and after discussion, patient decides it would be difficult to time everything and decides to take KAI for 11/05.
[2024-11-04 20:59] VITALS: BP 150/68; PULSE 84
[2024-11-04 21:02] VITALS: PULSE 84
[2024-11-04] MEDS: Atorvastatin Calcium 10 MG Tablet PO (21:02)
[2024-11-04] MEDS: Lactobacillis Acidophilus 1 CAP PO (21:03)
[2024-11-04] MEDS: Loratadine 10 MG Tablet PO (21:03)
[2024-11-04] MEDS: traZODone 50 MG Tablet PO (21:03)
[2024-11-04] MEDS: 0.9% Saline Lock 10 ML Syringe IV (21:04)
[2024-11-04] MEDS: Petrolatum 33% Tube 1 APPLIC TOPICAL (21:12)
[2024-11-05] MEDS: Acetaminophen 500 MG Tablet 1000 MG PO ×3 (05:12→22:06)
[2024-11-05] MEDS: Levothyroxine 75 MCG Tablet PO (05:12)
[2024-11-05] MEDS: oxyCODONE 5 MG Tablet PO (05:15)
[2024-11-05 06:52] VITALS: BP 156/77; PULSE 84; RESP 20; TEMP 37.1; O2SAT 94
[2024-11-05] MEDS: Lactobacillis Acidophilus 1 CAP PO ×2 (08:13→22:05)
[2024-11-05] MEDS: Multivitamins,Therapeutic Tablet 1 TABLET PO (08:13)
[2024-11-05] MEDS: Aspirin 81 MG TAB.CHEW PO (08:13)
[2024-11-05] MEDS: Losartan Potassium 100 MG Tablet PO (08:14)
[2024-11-05 08:15] VITALS: BP 158/73; PULSE 73
[2024-11-05] MEDS: Metoprolol Tartrate 50 MG Tablet PO ×2 (08:15→22:05)
[2024-11-05] MEDS: DULoxetine Hcl 60 MG Capsule PO (08:15)
[2024-11-05] MEDS: Enoxaparin 40 MG/0.4 ML Syringe SC (08:16)
[2024-11-05] MEDS: Hydroxychloroquine 200 MG Tablet PO ×2 (08:16→22:06)
[2024-11-05] MEDS: amLODIPine 5 MG Tablet PO (08:16)
[2024-11-05] MEDS: Cholecalciferol (VIT D3) 25 MCG TABLET (1,000 UNITS) 100 MCG PO (08:17)
[2024-11-05] MEDS: Ceftriaxone 2 GM in 0.9% Normal Saline (50mL MB+) 50 ML IV (11:19)
[2024-11-05] MEDS: 0.9 % NaCl (Sterile) Posiflush 10 mL IV ×3 (11:30→22:09)
[2024-11-05] MEDS: Vancomycin IV 1,000 MG/200 ML BAG 200 MG IV (13:34)
[2024-11-05 14:59] VITALS: BP 158/73; PULSE 73; RESP 16; TEMP 36.8; O2SAT 91
--- NOTE | 2024-11-05 16:10 | NURSING ---
Addendum entered by Mayte Hu 11/05/24 18:47: made aware of new order. Original Note: Patient has wheezing cough this shift but lungs have remained clear. Encouraged to use IS and pickle device and patient reports she has been using them. Dr. Roberts made aware and NO for Courtney LO.
[2024-11-05] MEDS: guaiFENesin Dm 10 ML UDC 5 ML PO (16:57)
[2024-11-05 21:30] VITALS: BP 170/79; PULSE 88; RESP 16; TEMP 37.1; O2SAT 96
--- NOTE | 2024-11-05 21:30 | NURSING ---
ARTIST REPRESENTATIVE informs this nurse that resident c/o chest pain. Lying in bed in semi-gar's position. Hyperventilating and tearful at times. Intermittent audible wheezes noted. Skin pink/pale, warm, and dry. Reports onset of pain after supper this evening that is midsternal. Has experienced similar pain at home in the past. Experiencing increased difficulty describing characteristics and rating pain. Pain does not radiate. Initially verbalizes the pain feels like it's closing in on me at 10/10, then verbalizes level at 6/10. Denies any nausea. Vitals obtained and recorded. Denies any shortness of breath when asked. No conversational dyspnea. Resident thinks the pain may be indigestion and will drink Pepsi or take a Zantac at home to relieve sxs. Informed resident Pepsi and Zantac are not available on the unit. Pain subsides within minutes of assessment. EKG obtained and result is unchanged from the previous EKG on 10/30, except the ventricular rate is 90 today and was 83 on 10/30. Encouraged and attempted to guide resident through deep breathing exercises. Encouraged use of IS and PEP. Difficulty obtaining favorable auscultation of lung sounds d/t anxiety. Audible wheezes clear when anxiety starts to resolve. Instructed resident to ask spouse to bring Pepsi to unit if she feels this may help relieve future sxs of possible indigestion as she notes she has not consumed any Pepsi for approximately 2 weeks. Emotional support and reassurance provided. Will continue to monitor and report to oncoming nurse.
--- NOTE | 2024-11-05 21:47 | EKG12_ITS ---
Test Reason : DYSRHYTHMIA Blood Pressure : */* mmHG Vent. Rate : 90 BPM Atrial Rate : 90 BPM P-R Int : 132 ms QRS Dur : 84 ms QT Int : 384 ms P-R-T Axes : 51 77 43 degrees QTcB Int : 469 ms Normal sinus rhythm Nonspecific ST and T wave abnormality Abnormal ECG When compared with ECG of 30-Oct-2024 12:55, No significant change was found Confirmed by DEEPTHI BOTELLO MD ([id number]), editor city ANA OCHOA ([id number]) on 11/07/2024 12:26:48 PM Referred By: Madhuri Roberts Confirmed By: DEEPTHI BOTELLO MD
[2024-11-05 22:05] VITALS: BP 170/79; PULSE 88
[2024-11-05] MEDS: Loratadine 10 MG Tablet PO (22:06)
[2024-11-05] MEDS: Petrolatum 33% Tube 1 APPLIC TOPICAL (22:07)
[2024-11-05] MEDS: Atorvastatin Calcium 10 MG Tablet PO (22:08)
[2024-11-05] MEDS: traZODone 50 MG Tablet PO (22:08)
[2024-11-06] MEDS: guaiFENesin Dm 10 ML UDC 5 ML PO ×3 (02:53→20:36)
[2024-11-06] MEDS: Acetaminophen 500 MG Tablet 1000 MG PO ×3 (05:28→20:39)
[2024-11-06] MEDS: Levothyroxine 75 MCG Tablet PO (05:29)
[2024-11-06] MEDS: Ceftriaxone 2 GM in 0.9% Normal Saline (50mL MB+) 50 ML IV (10:24)
[2024-11-06] MEDS: Lactobacillis Acidophilus 1 CAP PO ×2 (10:25→20:38)
[2024-11-06] MEDS: DULoxetine Hcl 60 MG Capsule PO (10:25)
[2024-11-06] MEDS: 0.9 % NaCl (Sterile) Posiflush 10 mL IV (10:25)
[2024-11-06] MEDS: Multivitamins,Therapeutic Tablet 1 TABLET PO (10:25)
[2024-11-06] MEDS: Losartan Potassium 100 MG Tablet PO (10:25)
[2024-11-06] MEDS: Aspirin 81 MG TAB.CHEW PO (10:25)
[2024-11-06] MEDS: Hydroxychloroquine 200 MG Tablet PO ×2 (10:26→20:39)
[2024-11-06] MEDS: Enoxaparin 40 MG/0.4 ML Syringe SC (10:26)
[2024-11-06] MEDS: Senna/Docusate Sodium 1 Tablet PO (10:26)
[2024-11-06] MEDS: Cholecalciferol (VIT D3) 25 MCG TABLET (1,000 UNITS) 100 MCG PO (10:26)
[2024-11-06] MEDS: amLODIPine 5 MG Tablet PO (10:26)
[2024-11-06 10:29] VITALS: BP 135/72; PULSE 80
[2024-11-06] MEDS: Metoprolol Tartrate 50 MG Tablet PO ×2 (10:29→20:40)
--- NOTE | 2024-11-06 10:46 | NURSING ---
Offered covid vaccine, resident says she has already received at the drug store.
[2024-11-06 11:23] VITALS: BP 160/76; PULSE 83; RESP 14; TEMP 36.4; O2SAT 3
[2024-11-06] MEDS: Menthol/Lanolin/Calamine/Znox 113 GM Tube 1 APPLIC TOPICAL ×2 (12:21→20:46)
[2024-11-06] MEDS: Vancomycin Trough/Random Due 1 LAB MC (12:22)
--- NOTE | 2024-11-06 14:47 | CASEMGMT ---
Social Work SW met with pt to complete initial assessment. Introduced self and role. Verified contacts. Confirmed code status as full code. Pt denied wanting to complete advanced directives, despite this worker's education on importance of completing documents. Educated to Medicare benefit and copay coverage. Pt's goal is to return home with , who reportedly can assist pt at home. SW will continue to follow for DC planning. Tameka Gorman KIER HAND REFRIGERATOR ROOM CLERK
[2024-11-06 14:57] LABS: Vancomycin, Trough Level 15.9 ug/mL (5.0-15.0)
--- NOTE | 2024-11-06 15:08 | PHA.PHARE_ITS ---
Consult Antibiotic Management Pharmacy has been consulted to manage selected antibiotic: Vancomycin Type of Intervention Type of Consult: Follow-up Suspected Infection Suspected Infection: Other (SEPTIC JOINT) Prior Doses of Antibiotics Prior Doses of Antibiotics Received/Current Regimen: Presently on 1gm iv q24. Labs Labs: Sodium 143 mmol/L (136-145) 11/04/24 05:16 Potassium 3.5 mmol/L (3.5-5.1) 11/04/24 05:16 Chloride 114 mmol/L (98-107) H 11/04/24 05:16 Carbon Dioxide 23.0 mmol/L (21.0-32.0) 11/04/24 05:16 Anion Gap 5 (5-15) 11/04/24 05:16 BUN 17 mg/dL (7-18) 11/04/24 05:16 Creatinine 1.23 mg/dL (0.55-1.02) H 11/04/24 05:16 Est GFR (MDRD) Af Amer 53 mL/min (>60) L 11/04/24 05:16 Est GFR (MDRD) Non-Af 44 mL/min (>60) L 11/04/24 05:16 BUN/Creatinine Ratio 13.8 RATIO (10-20) 11/04/24 05:16 Glucose 155 mg/dL (74-106) H 11/04/24 05:16 Vancomycin Trough 15.9 ug/mL (5.0-15.0) H 11/06/24 13:30 Random Vancomycin 18.0 ug/mL (0.0-15.0) H 11/04/24 06:20 Microbiology Microbiology: Microbiology 11/05/24 19:15 Stool Stool Occult Blood (REJI) - Final Dosing Weight Weight used for dosin.8 kg Estimated Creatinine Clearance Estimated Creatinine Clearance: 37 ml/min Goal Trough Goal Trough: 15-20 mcg/mL Pharmacy Plan for Drug Dosing Pharmacy Plan for Drug Dosing: Today's trough level 24hrs post dose was 15.9 and in therapeutic range. Will continue same dose and get new trough level before another 3rd dose per protocol . Pharmacy Service will continue to monitor and adjust dosing as required. Follow-Up Labs Follow-Up Labs: Trough: Vancomycin (1.1.25 @1330)
[2024-11-06] MEDS: Vancomycin IV 1,000 MG/200 ML BAG 200 MG IV (15:20)
[2024-11-06] MEDS: 0.9% Saline Lock 10 ML Syringe IV ×2 (15:23→20:41)
[2024-11-06] MEDS: traZODone 50 MG Tablet PO (20:38)
[2024-11-06] MEDS: Loratadine 10 MG Tablet PO (20:38)
[2024-11-06] MEDS: Atorvastatin Calcium 10 MG Tablet PO (20:38)
[2024-11-06 20:40] VITALS: BP 144/67; PULSE 79
[2024-11-06] MEDS: Petrolatum 33% Tube 1 APPLIC TOPICAL (20:40)
[2024-11-07] MEDS: guaiFENesin Dm 10 ML UDC 5 ML PO ×3 (05:34→20:55)
[2024-11-07] MEDS: Acetaminophen 500 MG Tablet 1000 MG PO ×3 (05:34→20:55)
[2024-11-07] MEDS: Levothyroxine 75 MCG Tablet PO (05:35)
--- NOTE | 2024-11-07 07:28 | RAD_ITS ---
EXAM: XR CHEST, 2 VIEWS CLINICAL INDICATION: Productive cough yellow sputum. TECHNIQUE: Frontal and lateral views of the chest. COMPARISON: XR Chest dated 10/21/2013 FINDINGS: LUNGS AND PLEURAL SPACES: Minimal bilateral pleural effusions. Linear atelectasis or infiltrate left lung base. No pneumothorax. HEART: Normal heart size. MEDIASTINUM: No mediastinal or hilar mass. BONES/JOINTS: No acute abnormality. TUBES, LINES AND DEVICES: Right peripherally inserted central catheter (PICC) tip in the distal superior vena cava. RAD/Chest PA and Lateral IMPRESSION: Minimal bilateral pleural effusions. Linear atelectasis or infiltrate left lung base. Electronically Signed: Memo Hawley MD at 8:08 EST ,
--- NOTE | 2024-11-07 07:29 | PCM.TCUNOT ---
Subjective Subjective Nursing staff reports increased cough productive of yellow sputum, and wheezing. Objective Data Objective Data Vital Signs: Vital Signs Temp Pulse Resp BP Pulse Ox O2 Del Method O2 Flow Rate 97.6 F L 79 14 144/67 H 3 Room Air 96 11/06/24 11:23 11/06/24 20:40 11/06/24 11:23 11/06/24 20:40 11/06/24 11:23 11/06/24 11:23 11/05/24 21:15 Oxygen Flow Rate (L/min) 96 Oxygen Delivery Method Room Air Weight: 89.018 kg Body Mass Index (BMI) 33.1 Intake & Output: Intake and Output for Last 24 Hours 11/05/24 11/06/24 11/07/24 23:59 23:59 23:59 Intake Total 730 / 730 780 / 780 Balance 730 / 730 780 / 780 Lab / Micro Data 11/04/24 05:16 11/04/24 05:16 Labs: Laboratory Results - last 24 hr 11/06/24 13:30: Vancomycin Trough 15.9 H Micro: Microbiology 11/05/24 19:15 Stool Stool Occult Blood (REJI) - Final Assessment & Plan Assessment/Plan (1) Acute bronchitis: PLAN: Cough productive of yellow sputum, Chest X-ray ordered, Doxycycline 100mg po bid x 7 days.
[2024-11-07 11:07] VITALS: BP 153/68; PULSE 82; RESP 17; TEMP 37.1
[2024-11-07] MEDS: Aspirin 81 MG TAB.CHEW PO (11:09)
[2024-11-07] MEDS: Menthol/Lanolin/Calamine/Znox 113 GM Tube 1 APPLIC TOPICAL ×2 (11:09→21:03)
[2024-11-07] MEDS: Multivitamins,Therapeutic Tablet 1 TABLET PO (11:09)
[2024-11-07] MEDS: Lactobacillis Acidophilus 1 CAP PO ×2 (11:09→20:50)
[2024-11-07] MEDS: Ceftriaxone 2 GM in 0.9% Normal Saline (50mL MB+) 50 ML IV (11:09)
[2024-11-07 11:10] VITALS: PULSE 82
[2024-11-07] MEDS: Doxycycline 100 MG CAPSULE PO ×2 (11:10→20:51)
[2024-11-07] MEDS: DULoxetine Hcl 60 MG Capsule PO (11:10)
[2024-11-07] MEDS: Metoprolol Tartrate 50 MG Tablet PO ×2 (11:10→20:52)
[2024-11-07] MEDS: Losartan Potassium 100 MG Tablet PO (11:10)
[2024-11-07] MEDS: Hydroxychloroquine 200 MG Tablet PO ×2 (11:11→20:54)
[2024-11-07] MEDS: Enoxaparin 40 MG/0.4 ML Syringe SC (11:11)
[2024-11-07] MEDS: amLODIPine 5 MG Tablet PO (11:11)
[2024-11-07] MEDS: Cholecalciferol (VIT D3) 25 MCG TABLET (1,000 UNITS) 100 MCG PO (11:12)
[2024-11-07] MEDS: Nystatin Powder 15gm Bottle 1 APPLIC TOPICAL ×2 (11:21→20:57)
[2024-11-07] MEDS: Vancomycin IV 1,000 MG/200 ML BAG 200 MG IV (12:56)
[2024-11-07] MEDS: 0.9% Normal Saline 250 ML IV.SOLN. IV (13:55)
[2024-11-07] MEDS: 0.9% Saline Lock 10 ML Syringe IV (13:56)
--- NOTE | 2024-11-07 15:33 | CHAPLAIN ---
Type of Pastoral Visit _x__ Initial Visit ___ Follow-up Visit ___ On-call Visit ___ General Patient Visit ___ Spiritual Assessment ___ Family Conference ___ Bereavement ___ Rapid Response ___ Code Blue ___ Other (describe below) Pastoral Care Referral From _x__ Patient ___ Family ___ Nurse ___ Physician ___ Motor Vehicle Emissions Inspector ___ Etl Data Architect ___ Other (describe below) Sacrament/Intervention _x__ Active listening ___ Anointing ___ Presybeterian ___ Bereavement ___ Communion ___ Opal exploration ___ _x__ Life review _x__ Prayer ___ Reconciliation ___ Sacrament of Sick _x__ Supportive presence ___ Wedding ___ Other (describe below) Pastoral Comments patient is talkative at this visit and explains her situation including disappointment of missing [place] with family at home; pt expresses frustration with this 'surprise illness' that came for 'no known reason' and 'why'; pt speaks of how long this recovery will take and the conversation goes toward how to find the good in this new circumstance and how to remember ways that aid in coping; pt does have a turner and former automatic that has visited but she states I don't know why he hasn't been here this week; reminded the patient that since it is a holiday week that he may be taking vacation time; patient welcomed presence and prayer for support
[2024-11-07 20:00] VITALS: PULSE 90; RESP 16; O2SAT 94
[2024-11-07] MEDS: traZODone 50 MG Tablet PO (20:50)
[2024-11-07] MEDS: Atorvastatin Calcium 10 MG Tablet PO (20:51)
[2024-11-07 20:52] VITALS: BP 164/64; PULSE 90
[2024-11-07] MEDS: Petrolatum 33% Tube 1 APPLIC TOPICAL (20:57)
[2024-11-07] MEDS: Loratadine 10 MG Tablet PO (21:00)
[2024-11-08] MEDS: guaiFENesin Dm 10 ML UDC 5 ML PO ×3 (04:12→21:13)
[2024-11-08] MEDS: Acetaminophen 500 MG Tablet 1000 MG PO ×3 (04:14→21:11)
[2024-11-08] MEDS: Levothyroxine 75 MCG Tablet PO (04:14)
[2024-11-08 05:01] VITALS: RESP 16
[2024-11-08] MEDS: 0.9 % NaCl (Sterile) Posiflush 10 mL IV (09:15)
[2024-11-08] MEDS: Lactobacillis Acidophilus 1 CAP PO ×2 (09:20→21:12)
[2024-11-08] MEDS: DULoxetine Hcl 60 MG Capsule PO (09:20)
[2024-11-08] MEDS: Hydroxychloroquine 200 MG Tablet PO ×2 (09:20→21:11)
[2024-11-08] MEDS: Multivitamins,Therapeutic Tablet 1 TABLET PO (09:20)
[2024-11-08] MEDS: amLODIPine 5 MG Tablet PO (09:20)
[2024-11-08] MEDS: Losartan Potassium 100 MG Tablet PO (09:20)
[2024-11-08] MEDS: Cholecalciferol (VIT D3) 25 MCG TABLET (1,000 UNITS) 100 MCG PO (09:20)
[2024-11-08] MEDS: Doxycycline 100 MG CAPSULE PO ×2 (09:20→21:12)
[2024-11-08] MEDS: Menthol/Lanolin/Calamine/Znox 113 GM Tube 1 APPLIC TOPICAL ×2 (09:21→21:15)
[2024-11-08] MEDS: Aspirin 81 MG TAB.CHEW PO (09:21)
[2024-11-08 09:22] VITALS: PULSE 86
[2024-11-08] MEDS: Nystatin Powder 15gm Bottle 1 APPLIC TOPICAL ×2 (09:22→21:15)
[2024-11-08] MEDS: Metoprolol Tartrate 50 MG Tablet PO ×2 (09:22→21:12)
[2024-11-08] MEDS: Enoxaparin 40 MG/0.4 ML Syringe SC (09:26)
[2024-11-08] MEDS: Ceftriaxone 2 GM in 0.9% Normal Saline (50mL MB+) 50 ML IV (09:27)
--- NOTE | 2024-11-08 11:15 | PHA.CONS_ITS ---
Documented by User: Mago Oconnor 11/08/24 12:19 TCU RX Drug Regimen Review Subjective/Objective Subjective/Objective Subjective: TCU Admission. 83 YOF presented to the ER with left knee swelling. Admitted to the hospital due to septic arthritis. Admitted to TCU with debility for strengthening, rehabilitation and IV antibiotics. Objective: Allergies grepafloxacin (From Raxar) Allergy (Verified 10/30/24 08:31) Unknown pravastatin Allergy (Verified 10/30/24 08:31) Unknown amlodipine Adverse Reaction (Intermediate, Verified 10/30/24 08:31) Swelling at high doses ciprofloxacin (From Cipro) Adverse Reaction (Verified 10/30/24 08:31) Other INSOMNIA Current Medications Generic Name Dose Route Start Last Admin Trade Name Freq PRN Reason Stop Dose Admin Acetaminophen 1,000 mg 11/03/24 22:00 11/08/24 04:14 Acetaminophen 500 Mg Tablet PO 1,000 mg Q8 TANMAY Administration Amlodipine Besylate 5 mg 11/04/24 10:00 11/08/24 09:20 Amlodipine 5 Mg Tablet PO 5 mg DAILY TANMAY Administration Protocol Aspirin 81 mg 11/04/24 08:00 11/08/24 09:21 Aspirin 81 Mg Tab.Chew PO 81 mg DAILY@0800 TANMAY Administration Atorvastatin Calcium 10 mg 11/03/24 22:00 11/07/24 20:51 Atorvastatin Calcium 10 Mg Tablet PO 10 mg QHS TANMAY Administration Calamine/Phenol 1 applic 11/06/24 10:00 11/08/24 09:21 Menthol/Lanolin/Calamine/Znox 113 Gm Tube TOPICAL 1 applic BID TANMAY Administration Protocol Cholecalciferol 100 mcg 11/04/24 10:00 11/08/24 09:20 Cholecalciferol (Vit D3) 25 Mcg Tablet (1,000 Units) PO 100 mcg DAILY TANMAY Administration Doxycycline Monohydrate 100 mg 11/07/24 10:00 11/08/24 09:20 Doxycycline 100 Mg Capsule PO 11/14/24 10:01 100 mg BID TANMAY Administration Duloxetine HCl 60 mg 11/04/24 10:00 11/08/24 09:20 Duloxetine Hcl 60 Mg Capsule PO 60 mg DAILY TANMAY Administration Enoxaparin Sodium 40 mg 11/05/24 10:00 11/08/24 09:26 Enoxaparin 40 Mg/0.4 Ml Syringe SC 40 mg DAILY TANMAY Administration Guaifenesin 5 ml 11/05/24 16:04 11/08/24 04:12 Guaifenesin Dm 10 Ml Udc PO 5 ml Q6H PRN PRN Administration COUGH/CONGESTION Heparin Sodium (Beef Lung) 50 units 11/03/24 17:47 Heparin Pf Lock 10 Units/Ml 50 Units/5 Ml Syringe IV UD PRN PICC Line Heparin Flush Hydroxychloroquine Sulfate 200 mg 11/03/24 22:00 11/08/24 09:20 Hydroxychloroquine 200 Mg Tablet PO 200 mg BID TANMAY Administration Vancomycin IV-PHARMACY TO DOSE 500 mls @ 250 mls/hr 11/03/24 17:55 1 each/ Sodium Chloride IV 11/21/24 17:56 X1 PRN Rx to Dose Protocol Ceftriaxone Sodium 2 gm/ 50 mls @ 100 mls/hr 11/04/24 10:00 11/08/24 09:27 Sodium Chloride IV 11/21/24 10:29 100 mls/hr Q24 TANMAY Administration Vancomycin HCl 1,000 mg in 200 mls @ 200 mls/hr 11/04/24 14:00 11/07/24 16:27 Vancomycin IV Infused Q24H TANMAY Infusion Levothyroxine Sodium 75 mcg 11/04/24 06:00 11/08/24 04:14 Levothyroxine 75 Mcg Tablet PO 75 mcg DAILY@0600 TANMAY Administration Loratadine 10 mg 11/04/24 22:00 11/07/24 21:00 Loratadine 10 Mg Tablet PO 10 mg QHS TANMAY Administration Losartan Potassium 100 mg 11/04/24 10:00 11/08/24 09:20 Losartan Potassium 100 Mg Tablet PO 100 mg DAILY TANMAY Administration Protocol Metoprolol Tartrate 50 mg 11/03/24 22:00 11/08/24 09:22 Metoprolol Tartrate 50 Mg Tablet PO 50 mg BID TANMAY Administration Protocol Multi-Ingredient Cream 1 applic 11/04/24 22:00 11/07/24 20:57 Petrolatum 33% Tube TOPICAL 1 applic QHS TANMAY Administration Protocol Multivitamins 1 tablet 11/04/24 08:00 11/08/24 09:20 Multivitamins,Therapeutic Tablet PO 1 tablet DAILYCM TANMAY Administration Nystatin 1 applic 11/07/24 10:30 11/08/24 09:22 Nystatin Powder 15gm Bottle TOPICAL 1 applic BID TANMAY Administration Protocol Oxycodone HCl 2.5 - 5 mg 11/03/24 17:13 11/05/24 05:15 Oxycodone 5 Mg Tablet PO 5 mg Q4H PRN PRN Administration Pain Score 4-10 Senna/Docusate Sodium 1 tablet 11/04/24 22:00 11/08/24 09:38 Senna/Docusate Sodium 1 Tablet PO Not Given BID TANMAY Sodium Chloride 10 - 40 ml 11/03/24 17:47 11/08/24 09:15 0.9 % Nacl (Sterile) Posiflush 10 Ml IV 40 ml UD PRN Administration Port access or dressing change Sodium Chloride 10 - 40 ml 11/03/24 17:47 11/07/24 13:56 0.9% Saline Lock 10 Ml Syringe IV 20 ml UD PRN Administration Open End PICC Flush Sodium Chloride 250 ml 11/07/24 11:02 11/07/24 13:55 0.9% Normal Saline 250 Ml Iv.Soln. IV 250 ml DAILY PRN PRN Administration iv flush Trazodone HCl 50 mg 11/06/24 20:00 11/07/24 20:50 Trazodone 50 Mg Tablet PO 50 mg 2000 TANMAY Administration Tuberculin PPD 0.1 ml 11/11/24 10:00 Tuberculin,Purif.Prot.Deriv. 50 Tu/Ml Vial ID 11/11/24 10:01 X1 ONE Vancomycin Protocol 1 lab 11/08/24 11:30 Vancomycin Trough/Random Due MC 11/08/24 15:30 DAILY [facility] Problem List Acute bronchitis (Acute) Allergic rhinitis (Acute) Diarrhea (Acute) Insomnia (Acute) Normochromic normocytic anemia (Acute) Chronic renal failure (CRF), stage 3 (moderate) (Acute) Glucose intolerance (Acute) Mixed hyperlipidemia (Acute) Essential hypertension (Chronic) Debility (Acute) Paroxysmal atrial fibrillation (Chronic) Atherosclerotic heart disease of [place] coronary artery without angina pectoris (Chronic) Hypothyroidism (Chronic) Vital Signs Temp Pulse Resp BP Pulse Ox O2 Del Method O2 Flow Rate 98.8 F 86 16 164/64 H 94 Room Air 96 11/07/24 11:07 11/08/24 09:22 11/08/24 05:01 11/07/24 20:52 11/07/24 20:00 11/08/24 05:01 11/05/24 21:15 Oxygen Flow Rate (L/min) 96 Oxygen Delivery Method Room Air Weight: 89.018 kg Body Mass Index (BMI) 33.1 Sodium 143 mmol/L (136-145) 11/04/24 05:16 Potassium 3.5 mmol/L (3.5-5.1) 11/04/24 05:16 Chloride 114 mmol/L (98-107) H 11/04/24 05:16 Carbon Dioxide 23.0 mmol/L (21.0-32.0) 11/04/24 05:16 Anion Gap 5 (5-15) 11/04/24 05:16 BUN 17 mg/dL (7-18) 11/04/24 05:16 Creatinine 1.23 mg/dL (0.55-1.02) H 11/04/24 05:16 Est GFR (MDRD) Af Amer 53 mL/min (>60) L 11/04/24 05:16 Est GFR (MDRD) Non-Af 44 mL/min (>60) L 11/04/24 05:16 BUN/Creatinine Ratio 13.8 RATIO (10-20) 11/04/24 05:16 Glucose 155 mg/dL (74-106) H 11/04/24 05:16 Vancomycin Trough 15.9 ug/mL (5.0-15.0) H 11/06/24 13:30 Random Vancomycin 18.0 ug/mL (0.0-15.0) H 11/04/24 06:20 Assessment/Plan: 1. Pain: acetaminophen 1000mg PO Q8 and oxycodone 2.5-5mg PO Q4H PRN pain 4-10. Resident has had 2 doses of oxycodone for pain scores of 10 in the neck/back (last dose 11/05). Please continue to monitor for increased pain, PRN usage, constipation, respiratory depression and falls (BEERS). 2. Bowel: senna/docusate 1T PO BID. Please consider changing to PRN as resident has refused 7/8 doses. Thanks. Please continue to monitor for constipation, diarrhea. 3. Septic arthritis: ceftriaxone 2gm IV daily thru 11/21/24 and vancomycin (pharmacy monitoring) thru 11/21/24. Please continue to monitor for S/S of infection, renal function, diarrhea and rash. 4. Bronchitis: doxycycline 100mg PO BID thru 11/14/24 and guaifenesin DM 5mL PO Q6H PRN cough/congestion. Resident has had 9 PRN doses. Please continue to monitor for S/S of infection, diarrhea, PRN usage and upset stomach. 5. DVT prophylaxis: enoxaparin 40mg SC daily. Please continue to monitor for S/S of bleeding/DVT, hemoglobin (last 9.5g/dL), platelets (last 310,000) and renal function. 6. Atrial fibrillation/hypertension/ASCVD: amlodipine 5mg PO daily, losartan 100mg PO daily, metoprolol tartrate 50mg PO BID and aspirin 81mg PO daily. Resident not on anticoagulation per H&P. Please continue to monitor BP (last 164 /64), HR (last 86), renal function, potassium (last 3.5mmol/L), S/S of bleeding, hemoglobin (last 9.5g/dL). 7. Hypothyroidism: levothyroxine 75mcg PO daily. Please continue to monitor TSH (last 07/12/24) and S/S of hypo/hyperthyroidism. 8. Hyperlipidemia: atorvastatin 10mg PO QHS. Please continue to monitor lipid panel (last 07/12/24), LFTs (last 07/12/24) and muscle pain. 9. Allergic rhinitis: loratadine 10mg PO QHS. Please continue to monitor for S/S of allergies and renal function. 10. Overall health/nutrition: cholecalciferol 100mcg PO daily and multivitamin 1T PO daily. Please continue to monitor vitamin D (last 07/12/24). Assessment/Plan for indications treated with psychotropic medications: 1. Insomnia: trazodone 50mg PO 2000. Please consider GDR by 05/2025 if clinically appropriate. Thanks. Please continue to monitor for excessive sedation, agitation and insomnia. Medical chart and medication regimen reviewed. The following medication irregu larities or issues were identified: 1. Senna/docusate 1T PO BID. Please consider changing to PRN as resident has refused 7/8 doses. Thanks. 2. Trazodone 50mg PO 1999. Please consider GDR by 05/2025 if clinically appropriate. Thanks. 3. Duloxetine 60mg PO daily. I did not see a documented indication for this medication. Please consider adding the indication if clinically warranted. Th anks. Please continue to monitor for falls/fractures (BEERs), sodium (last 143mmol/L), renal function. 4. Hydroxychloroquine 200mg PO BID. I did not see a documented indication for this medication. Please consider adding the indication if clinically warranted. Thanks. Please continue to monitor CBC and rash. Date Date of Note: 11/08/24 Documented by User: Dr. Shabbir Clay MD 11/09/24 07:10 TCU RX Drug Regimen Review Provider Comments Provider responsibility Provider Comments to Recommendations by Pharmacy Agree
[2024-11-08 11:42] VITALS: BMI 32.1
[2024-11-08 14:13] LABS: Vancomycin, Trough Level 15.7 ug/mL (5.0-15.0)
--- NOTE | 2024-11-08 14:39 | PCM.RX.CS ---
Consult Antibiotic Management Pharmacy has been consulted to manage selected antibiotic: Vancomycin Type of Intervention Type of Consult: Follow-up Labs Labs: Sodium 143 mmol/L (136-145) 11/04/24 05:16 Potassium 3.5 mmol/L (3.5-5.1) 11/04/24 05:16 Chloride 114 mmol/L (98-107) H 11/04/24 05:16 Carbon Dioxide 23.0 mmol/L (21.0-32.0) 11/04/24 05:16 Anion Gap 5 (5-15) 11/04/24 05:16 BUN 17 mg/dL (7-18) 11/04/24 05:16 Creatinine 1.23 mg/dL (0.55-1.02) H 11/04/24 05:16 Est GFR (MDRD) Af Amer 53 mL/min (>60) L 11/04/24 05:16 Est GFR (MDRD) Non-Af 44 mL/min (>60) L 11/04/24 05:16 BUN/Creatinine Ratio 13.8 RATIO (10-20) 11/04/24 05:16 Glucose 155 mg/dL (74-106) H 11/04/24 05:16 Vancomycin Trough 15.7 ug/mL (5.0-15.0) H 11/08/24 13:35 Random Vancomycin 18.0 ug/mL (0.0-15.0) H 11/04/24 06:20 Microbiology Microbiology: Microbiology 11/05/24 19:15 Stool Stool Occult Blood (REJI) - Final Pharmacy Plan for Drug Dosing Pharmacy Plan for Drug Dosing: VANCOMYCIN LEVEL RECEIVED Current Vancomycin Dose: 1000MG Q24 Number of Doses Received: MANY Vancomycin Level: 15.7 MG/DL Hours Since Last Dose: 24.5 Renal Function: SCR 1.23 MG/DL, CRCL 36 ML/MIN FROM SCR 11/04 Renal Function Trend: STABLE Vancomycin Plan/Comments: 24.5 hour trough is therapeutic (goal 15-20). Will continue current dosing and get a trough in 4 days (2 levels within range). Pending Level: 11/12/24 @ 6269 Pharmacy Service will continue to monitor and adjust dosing as required.
[2024-11-08] MEDS: Vancomycin IV 1,000 MG/200 ML BAG 200 MG IV (14:45)
[2024-11-08 14:53] VITALS: BP 152/59; PULSE 62; RESP 14; TEMP 36.9; O2SAT 98
[2024-11-08 20:09] VITALS: BP 155/71; PULSE 91; RESP 15; O2SAT 95
[2024-11-08] MEDS: traZODone 50 MG Tablet PO (21:11)
[2024-11-08] MEDS: Loratadine 10 MG Tablet PO (21:11)
[2024-11-08] MEDS: Atorvastatin Calcium 10 MG Tablet PO (21:11)
[2024-11-08 21:12] VITALS: BP 155/71; PULSE 91
[2024-11-09] MEDS: Levothyroxine 75 MCG Tablet PO (06:22)
[2024-11-09] MEDS: Acetaminophen 500 MG Tablet 1000 MG PO ×3 (06:23→21:18)
[2024-11-09] MEDS: guaiFENesin Dm 10 ML UDC 5 ML PO ×3 (06:24→19:55)
[2024-11-09 08:45] VITALS: BP 147/67; PULSE 84
[2024-11-09] MEDS: Metoprolol Tartrate 50 MG Tablet PO ×2 (08:45→21:16)
[2024-11-09] MEDS: Cholecalciferol (VIT D3) 25 MCG TABLET (1,000 UNITS) 100 MCG PO (08:45)
[2024-11-09] MEDS: Losartan Potassium 100 MG Tablet PO (08:45)
[2024-11-09] MEDS: Hydroxychloroquine 200 MG Tablet PO ×2 (08:45→21:17)
[2024-11-09] MEDS: Aspirin 81 MG TAB.CHEW PO (08:45)
[2024-11-09] MEDS: DULoxetine Hcl 60 MG Capsule PO (08:45)
[2024-11-09] MEDS: Lactobacillis Acidophilus 1 CAP PO ×2 (08:45→21:12)
[2024-11-09] MEDS: Multivitamins,Therapeutic Tablet 1 TABLET PO (08:45)
[2024-11-09] MEDS: amLODIPine 5 MG Tablet PO (08:46)
[2024-11-09] MEDS: Enoxaparin 40 MG/0.4 ML Syringe SC (08:46)
[2024-11-09] MEDS: Doxycycline 100 MG CAPSULE PO ×2 (08:46→21:13)
[2024-11-09] MEDS: Menthol/Lanolin/Calamine/Znox 113 GM Tube 1 APPLIC TOPICAL ×2 (08:47→21:20)
[2024-11-09] MEDS: Nystatin Powder 15gm Bottle 1 APPLIC TOPICAL ×2 (08:47→21:19)
[2024-11-09] MEDS: 0.9 % NaCl (Sterile) Posiflush 10 mL IV ×2 (09:24→13:04)
[2024-11-09] MEDS: Ceftriaxone 2 GM in 0.9% Normal Saline (50mL MB+) 50 ML IV (09:24)
[2024-11-09 11:32] VITALS: BP 105/53; PULSE 82; RESP 16; TEMP 36.6; O2SAT 96
--- NOTE | 2024-11-09 12:40 | CASEMGMT ---
Social Work SW completed BIMS () and PHQ-9 (09/03) for MDS assessment. Pt very drowsy. SW inquired about quality of sleep at night. Pt denied being able to sleep well. SW further explored with PHQ-9. Pt reports to being tearful for loss of independence, being without her and in a new environment, along with poor appetite. SW offered to speak with Dr about medication intervention. Pt agreed. SW provided support and offered ongoing supportive visits, if needed. Pt appreciative. Written communication left for Dr. Tameka Gorman, TEXTILE ENGINEER AUTOMATION CONTROLS EXPERT
[2024-11-09] MEDS: 0.9% Normal Saline 250 ML IV.SOLN. IV (13:02)
[2024-11-09] MEDS: Vancomycin IV 1,000 MG/200 ML BAG 200 MG IV (13:02)
[2024-11-09 13:33] VITALS: PULSE 84; RESP 18; O2SAT 96
[2024-11-09] MEDS: Ipratropium/Albuterol Sulfate 3 ML AMPUL.NEB INHALATION ×2 (13:33→19:33)
[2024-11-09 19:33] VITALS: PULSE 93; RESP 20
[2024-11-09] MEDS: traZODone 50 MG Tablet 75 MG PO (19:51)
[2024-11-09] MEDS: Atorvastatin Calcium 10 MG Tablet PO (21:13)
[2024-11-09 21:16] VITALS: BP 168/72; PULSE 102
[2024-11-09] MEDS: Loratadine 10 MG Tablet PO (21:16)
[2024-11-09] MEDS: Petrolatum 33% Tube 1 APPLIC TOPICAL (21:20)
[2024-11-10] MEDS: Acetaminophen 500 MG Tablet 1000 MG PO ×3 (05:09→20:39)
[2024-11-10] MEDS: Levothyroxine 75 MCG Tablet PO (05:09)
[2024-11-10] MEDS: guaiFENesin Dm 10 ML UDC 5 ML PO ×2 (05:12→13:20)
[2024-11-10 06:00] LABS: Absolute Lymphocyte Count 1.22 X10^3/uL (0.83-4.51); Absolute Neutrophil Count 7.2 X10^3/uL (2.0-7.7); Basophil# 0.06 X10^3/uL; Basophil% 0.6 % (0-1); Eosinophil# 0.37 X10^3/uL; Eosinophils% 3.8 % (0-5); Hemoglobin 9.7 g/dL (12.0-15.0); Lymphocyte # 1.22 X10^3/ul (0.83-4.51); Lymphocyte % 12.4 % (19-41); Mean Corp Hgb Conc 31.3 g/dL (32-36); Mean Corpuscular Hgb 29.6 pg (27.0-32.0); Mean Corpuscular Volume 94.5 fL (81-99); Mean Platelet Vol. 10.2 fl (6.2-12.0); Monocyte# 0.96 X10^3/uL; Monocyte% 9.8 % (0-10); NRBC Flagged by Analyzer 0 % (0-5); Neutrophil # 7.15 X10^3/uL (2.7-7.7); Neutrophil % 72.9 % (47-70); Platelet Count 271 K/mm3 (150-450); RBC Distribution Width CV 13.2 % (11.6-14.6); RBC Distribution Width SD 45.7 fl (35.1-43.9); Red Blood Count 3.28 M/mm3 (4.2-5.4); White Blood Count 9.8 K/mm3 (4.4-11.0)
[2024-11-10 06:21] LABS: Anion Gap 5 (5-15); BUN 10 mg/dL (7-18); BUN/Creat Ratio 8.6 RATIO (10-20); Calcium,Total 10.1 mg/dL (8.5-10.1); Chloride 108 mmol/L (98-107); Creatinine, Serum 1.16 mg/dL (0.55-1.02); EST Glomerular Filtration Rate 47 mL/min (>60); Est Glom Filt Rate - Afr Amer 57 mL/min (>60); Estimated Creatinine Clearance 38.44 ml/min; Glucose 173 mg/dL (74-106); Potassium 3.7 mmol/L (3.5-5.1); Sodium Level 137 mmol/L (136-145)
[2024-11-10 08:38] VITALS: BP 141/64; PULSE 90
[2024-11-10] MEDS: amLODIPine 5 MG Tablet PO (08:38)
[2024-11-10] MEDS: Doxycycline 100 MG CAPSULE PO (08:38)
[2024-11-10] MEDS: Cholecalciferol (VIT D3) 25 MCG TABLET (1,000 UNITS) 100 MCG PO (08:38)
[2024-11-10] MEDS: Lactobacillis Acidophilus 1 CAP PO ×2 (08:38→20:36)
[2024-11-10] MEDS: Multivitamins,Therapeutic Tablet 1 TABLET PO (08:38)
[2024-11-10] MEDS: Enoxaparin 40 MG/0.4 ML Syringe SC (08:38)
[2024-11-10] MEDS: Losartan Potassium 100 MG Tablet PO (08:38)
[2024-11-10] MEDS: Metoprolol Tartrate 50 MG Tablet PO ×2 (08:38→20:40)
[2024-11-10] MEDS: Aspirin 81 MG TAB.CHEW PO (08:38)
[2024-11-10] MEDS: Hydroxychloroquine 200 MG Tablet PO ×2 (08:39→20:39)
[2024-11-10] MEDS: Menthol/Lanolin/Calamine/Znox 113 GM Tube 1 APPLIC TOPICAL ×2 (08:41→20:40)
[2024-11-10] MEDS: DULoxetine Hcl 30 MG Capsule 90 MG PO (08:41)
--- NOTE | 2024-11-10 08:56 | NURSING ---
[facility] Examiner Note; MDS for 11/10/2024 Complete
[2024-11-10 09:09] VITALS: PULSE 94; RESP 20
[2024-11-10] MEDS: Ipratropium/Albuterol Sulfate 3 ML AMPUL.NEB INHALATION ×2 (09:09→19:45)
--- NOTE | 2024-11-10 09:34 | CASEMGMT ---
Social Work IDT met with patient and for care plan meeting. Discussed patient's progress in PT/OT/ST/SN. Educated to Medicare benefit. Provided with written communication on insurance process and copay coverage during stay. Requested provide copies of advanced directives. Pt is on IV ATB until 11/21. Discussed pt's excessive daytime drowsiness. SW informed pt/ that Dr increased antidepressant and sleep medication. Though, pt is having decreased appetite. Dietitian to recommend Remeron to Dr. expressed frustrations with pt coming to the hospital and getting bronchitis and had additional questions and concerns with medical care. SW provided active listening and offered for Dr to speak with and pt. agreed. SW discussed DC plans. Pt has mild cognitive impairment. Inquired if will be able to care for pt at home. Offered therapy training. agreed to training. SW explained IDT to discuss DC date and recommendations closer to stop date of IV ATB. expressed understanding. Written communication left for Dr. Clay. Tameka Gorman INTEGRATED CAMPAIGN MANAGER BUSINESS TEAM LEADER
[2024-11-10] MEDS: Ceftriaxone 2 GM in 0.9% Normal Saline (50mL MB+) 50 ML IV (09:56)
[2024-11-10] MEDS: 0.9 % NaCl (Sterile) Posiflush 10 mL IV ×3 (09:56→17:13)
[2024-11-10] MEDS: Nystatin Powder 15gm Bottle 1 APPLIC TOPICAL ×2 (10:04→20:40)
--- NOTE | 2024-11-10 14:10 | RAD_ITS ---
STUDY: X-RAY CHEST REASON FOR EXAM: Female, 83 years old. Productive cough TECHNIQUE: PA and lateral views of the chest. COMPARISON: 11/07/2024 FINDINGS: Stable appearance of a right sided PICC line Chronic interstitial changes in both lung [place] without a superimposed acute pulmonary process. There is no demonstrated pleural abnormality. Normal size heart. Normal mediastinum and gavin. Normal visualized pulmonary arteries. There is atherosclerotic calcification of the aortic arch with tortuosity. There are diffuse degenerative changes of the visualized thoracic spine. Normal visualized ribs, clavicles, and shoulders. There is no demonstrated abnormality of the visualized soft tissue structures of the upper abdomen. RAD/Chest PA and Lateral IMPRESSION: Chronic interstitial changes without a superimposed acute pulmonary process Electronically Signed: Ugo Crisostomo MD at 14:55 EST ,
--- NOTE | 2024-11-10 14:13 | PCM.RX.CS ---
Consult Antibiotic Management Pharmacy has been consulted to manage selected antibiotic: Vancomycin Type of Intervention Type of Consult: Follow-up Suspected Infection Suspected Infection: Sepsis Prior Doses of Antibiotics Prior Doses of Antibiotics Received/Current Regimen: Vancomycin 100mg every 24 hours. Given11/08/24 @ 1445 11/09/24 @ 1302 Labs Labs: Sodium 137 mmol/L (136-145) 11/10/24 05:43 Potassium 3.7 mmol/L (3.5-5.1) 11/10/24 05:43 Chloride 108 mmol/L (98-107) H 11/10/24 05:43 Carbon Dioxide 25.0 mmol/L (21.0-32.0) 11/10/24 05:43 Anion Gap 5 (5-15) 11/10/24 05:43 BUN 10 mg/dL (7-18) 11/10/24 05:43 Creatinine 1.16 mg/dL (0.55-1.02) H 11/10/24 05:43 Est GFR (MDRD) Af Amer 57 mL/min (>60) L 11/10/24 05:43 Est GFR (MDRD) Non-Af 47 mL/min (>60) L 11/10/24 05:43 BUN/Creatinine Ratio 8.6 RATIO (10-20) L 11/10/24 05:43 Glucose 173 mg/dL (74-106) H 11/10/24 05:43 Vancomycin Trough 15.7 ug/mL (5.0-15.0) H 11/08/24 13:35 Random Vancomycin 18.0 ug/mL (0.0-15.0) H 11/04/24 06:20 Microbiology Microbiology: Microbiology 11/05/24 19:15 Stool Stool Occult Blood (REJI) - Final Dosing Weight Weight used for dosin kg Estimated Creatinine Clearance Estimated Creatinine Clearance: 38 Goal Trough Goal Trough: 15-20 mcg/mL Pharmacy Plan for Drug Dosing Pharmacy Plan for Drug Dosing: Pharmacy Service will continue to monitor and adjust dosing as required. Follow-Up Labs Follow-Up Labs: Trough: Vancomycin Date/Time Labs Ordered Labs to be done on [date and time ordered]: 11/12/24 @ 4408
[2024-11-10] MEDS: Azithromycin 250 MG Tablet 500 MG PO (14:26)
[2024-11-10] MEDS: Vancomycin IV 1,000 MG/200 ML BAG 200 MG IV (14:26)
[2024-11-10 16:00] VITALS: BP 133/62; PULSE 78; RESP 16; TEMP 36.6; O2SAT 93
[2024-11-10] MEDS: MethylPREDNISolone 125 MG/2 ML Vial IV (17:13)
[2024-11-10] MEDS: guaiFENesin/Codeine 5 ML UDC 10 ML PO (19:30)
[2024-11-10 19:45] VITALS: PULSE 89; RESP 20; O2SAT 91
[2024-11-10 20:34] VITALS: BP 144/74; PULSE 94
[2024-11-10] MEDS: traZODone 50 MG Tablet 75 MG PO (20:35)
[2024-11-10] MEDS: Atorvastatin Calcium 10 MG Tablet PO (20:37)
[2024-11-10 20:40] VITALS: PULSE 94
[2024-11-10] MEDS: Loratadine 10 MG Tablet PO (20:43)
[2024-11-10] MEDS: Petrolatum 33% Tube 1 APPLIC TOPICAL (20:44)
[2024-11-10] MEDS: 0.9% Saline Lock 10 ML Syringe IV (20:44)
[2024-11-11] VITALS (10 sets, daily range): BP systolic 104–149; BP diastolic 52–74; PULSE 69–93; RESP 18–22; TEMP 36.6–36.8; O2SAT 84–96
[2024-11-11] MEDS: MethylPREDNISolone 125 MG/2 ML Vial IV ×4 (00:18→16:55)
[2024-11-11] MEDS: Ipratropium/Albuterol Sulfate 3 ML AMPUL.NEB INHALATION ×4 (00:44→19:41)
--- NOTE | 2024-11-11 00:55 | NURSING ---
RN notified this nurse that patient appeared to be having increased effort with breathing while asleep. SpO2 was 84% on room air. Head of bed raised and patient placed on 2L of oxygen via nasal cannula. SpO2 read 90%; oxygen was increased to 3L. VS obtained and documented. Patient is afebrile. Continues to have persistent, dry cough. Expiratory wheezes heard throughout with rhonchi noted in left lower lobe. Respiratory notified requesting PRN breathing treatment.
[2024-11-11] MEDS: guaiFENesin/Codeine 5 ML UDC 10 ML PO (03:32)
[2024-11-11] MEDS: 0.9 % NaCl (Sterile) Posiflush 10 mL IV (05:32)
[2024-11-11] MEDS: Levothyroxine 75 MCG Tablet PO (05:37)
[2024-11-11] MEDS: Acetaminophen 500 MG Tablet 1000 MG PO ×3 (05:37→21:31)
[2024-11-11] MEDS: Lactobacillis Acidophilus 1 CAP PO ×2 (08:43→21:34)
[2024-11-11] MEDS: Multivitamins,Therapeutic Tablet 1 TABLET PO (08:43)
[2024-11-11] MEDS: Aspirin 81 MG TAB.CHEW PO (08:43)
[2024-11-11] MEDS: Menthol/Lanolin/Calamine/Znox 113 GM Tube 1 APPLIC TOPICAL ×2 (08:43→21:52)
[2024-11-11] MEDS: Metoprolol Tartrate 50 MG Tablet PO ×2 (08:44→21:38)
[2024-11-11] MEDS: Losartan Potassium 100 MG Tablet PO (08:44)
[2024-11-11] MEDS: DULoxetine Hcl 30 MG Capsule 90 MG PO (08:44)
[2024-11-11] MEDS: Hydroxychloroquine 200 MG Tablet PO ×2 (08:45→21:32)
[2024-11-11] MEDS: Cholecalciferol (VIT D3) 25 MCG TABLET (1,000 UNITS) 100 MCG PO (08:45)
[2024-11-11] MEDS: Nystatin Powder 15gm Bottle 1 APPLIC TOPICAL ×2 (08:45→21:48)
[2024-11-11] MEDS: Enoxaparin 40 MG/0.4 ML Syringe SC (08:45)
[2024-11-11] MEDS: amLODIPine 5 MG Tablet PO (08:45)
[2024-11-11] MEDS: Azithromycin 250 MG Tablet PO (08:46)
--- NOTE | 2024-11-11 09:32 | NURSING ---
performed covid swab and sent to lab
[2024-11-11] MEDS: Ceftriaxone 2 GM in 0.9% Normal Saline (50mL MB+) 50 ML IV (11:21)
[2024-11-11] MEDS: 0.9% Saline Lock 10 ML Syringe IV (11:22)
[2024-11-11] MEDS: Tuberculin,Purif.prot.deriv. 50 TU/ML Vial 0.1 ML ID (11:22)
--- NOTE | 2024-11-11 12:11 | NURSING ---
dr lacey messaged to find out if pt was better. this nurse updated on pt status- new need for O2, nonproductive cough and lung sounds. orders given for respiratory panel and covid test-after results notified dr lacey covid negative- resp panel positive for infuenza a- dr lacey called with tamiflu orders
[2024-11-11] MEDS: Oseltamivir Phosphate 75 MG Capsule PO (13:20)
[2024-11-11] MEDS: Vancomycin IV 1,000 MG/200 ML BAG 200 MG IV (13:20)
[2024-11-11] MEDS: Oseltamivir Phosphate 30 MG Capsule PO (21:29)
[2024-11-11] MEDS: Petrolatum 33% Tube 1 APPLIC TOPICAL (21:32)
[2024-11-11] MEDS: traZODone 50 MG Tablet 75 MG PO (21:33)
[2024-11-11] MEDS: Atorvastatin Calcium 10 MG Tablet PO (21:34)
[2024-11-12] VITALS (7 sets, daily range): BP systolic 135–142; BP diastolic 62–64; PULSE 72–80; RESP 16–18; TEMP 36.6; O2SAT 91–92
[2024-11-12] MEDS: MethylPREDNISolone 125 MG/2 ML Vial IV ×4 (00:13→18:21)
[2024-11-12] MEDS: Levothyroxine 75 MCG Tablet PO (06:20)
[2024-11-12] MEDS: Acetaminophen 500 MG Tablet 1000 MG PO ×3 (06:21→21:48)
[2024-11-12] MEDS: Ipratropium/Albuterol Sulfate 3 ML AMPUL.NEB INHALATION ×3 (06:30→19:45)
[2024-11-12] MEDS: Menthol/Lanolin/Calamine/Znox 113 GM Tube 1 APPLIC TOPICAL ×2 (10:17→22:08)
[2024-11-12] MEDS: Multivitamins,Therapeutic Tablet 1 TABLET PO (10:17)
[2024-11-12] MEDS: Aspirin 81 MG TAB.CHEW PO (10:17)
[2024-11-12] MEDS: Lactobacillis Acidophilus 1 CAP PO ×2 (10:17→21:46)
[2024-11-12] MEDS: Ceftriaxone 2 GM in 0.9% Normal Saline (50mL MB+) 50 ML IV (10:18)
[2024-11-12] MEDS: Nystatin Powder 15gm Bottle 1 APPLIC TOPICAL ×2 (10:19→22:09)
[2024-11-12] MEDS: Losartan Potassium 100 MG Tablet PO (10:19)
[2024-11-12] MEDS: Enoxaparin 40 MG/0.4 ML Syringe SC (10:19)
[2024-11-12] MEDS: Metoprolol Tartrate 50 MG Tablet PO ×2 (10:19→21:49)
[2024-11-12] MEDS: DULoxetine Hcl 30 MG Capsule 90 MG PO (10:19)
[2024-11-12] MEDS: Hydroxychloroquine 200 MG Tablet PO ×2 (10:20→21:48)
[2024-11-12] MEDS: Cholecalciferol (VIT D3) 25 MCG TABLET (1,000 UNITS) 100 MCG PO (10:20)
[2024-11-12] MEDS: Oseltamivir Phosphate 30 MG Capsule PO ×2 (10:20→21:48)
[2024-11-12] MEDS: Azithromycin 250 MG Tablet PO (10:20)
[2024-11-12] MEDS: amLODIPine 5 MG Tablet PO (10:20)
[2024-11-12] MEDS: 0.9% Saline Lock 10 ML Syringe IV ×4 (10:21→21:46)
[2024-11-12 14:01] LABS: Vancomycin, Trough Level 17.2 ug/mL (5.0-15.0)
[2024-11-12] MEDS: Vancomycin IV 1,000 MG/200 ML BAG 200 MG IV (14:26)
--- NOTE | 2024-11-12 14:28 | PHA.PHARE_ITS ---
Consult Antibiotic Management Pharmacy has been consulted to manage selected antibiotic: Vancomycin Type of Intervention Type of Consult: Follow-up Labs Labs: Sodium 137 mmol/L (136-145) 11/10/24 05:43 Potassium 3.7 mmol/L (3.5-5.1) 11/10/24 05:43 Chloride 108 mmol/L (98-107) H 11/10/24 05:43 Carbon Dioxide 25.0 mmol/L (21.0-32.0) 11/10/24 05:43 Anion Gap 5 (5-15) 11/10/24 05:43 BUN 10 mg/dL (7-18) 11/10/24 05:43 Creatinine 1.16 mg/dL (0.55-1.02) H 11/10/24 05:43 Est GFR (MDRD) Af Amer 57 mL/min (>60) L 11/10/24 05:43 Est GFR (MDRD) Non-Af 47 mL/min (>60) L 11/10/24 05:43 BUN/Creatinine Ratio 8.6 RATIO (10-20) L 11/10/24 05:43 Glucose 173 mg/dL (74-106) H 11/10/24 05:43 Vancomycin Trough 17.2 ug/mL (5.0-15.0) H 11/12/24 13:25 Random Vancomycin 18.0 ug/mL (0.0-15.0) H 11/04/24 06:20 Microbiology Microbiology: Microbiology 11/11/24 09:16 Mucosa - Nasopharyngeal Respiratory Panel (PCR) - Final Influenza A (Subtype H1) 11/11/24 09:28 Nasal Secretion SARS-CoV-2 Antigen (Rapid) - Final 11/05/24 19:15 Stool Stool Occult Blood (REJI) - Final Pharmacy Plan for Drug Dosing Pharmacy Plan for Drug Dosing: VANCOMYCIN LEVEL RECEIVED Current Vancomycin Dose: 1000MG Q24 Number of Doses Received: MANY Vancomycin Level: 17.2 mg/dL Hours Since Last Dose: 24 Renal Function: from 11/10- Scr 1.16 mg/dl, CrCl 38 mL/min Renal Function Trend: stable Vancomycin Plan/Comments: 24 hour trough is therapeutic at 17.2mg/dL (goal 15- 20). Will continue current dose and get a level in 7 days (has had 3 consecutive troughs in range). Pending Level: 11/19/24 @ 1330 Pharmacy Service will continue to monitor and adjust dosing as required.
[2024-11-12] MEDS: traZODone 50 MG Tablet 75 MG PO (21:46)
[2024-11-12] MEDS: Atorvastatin Calcium 10 MG Tablet PO (21:50)
[2024-11-12] MEDS: Petrolatum 33% Tube 1 APPLIC TOPICAL (21:51)
[2024-11-12] MEDS: guaiFENesin/Codeine 5 ML UDC 10 ML PO (21:51)
[2024-11-12] MEDS: Loratadine 10 MG Tablet PO (21:58)
--- NOTE | 2024-11-12 22:24 | NURSING ---
Attempted to call Dr. Perdue's office to leave message regarding appt Wednesday11/13/24, unable to leave message. Patient is positive for Flu A, unsure if physician will see her at this time.
[2024-11-13] VITALS (7 sets, daily range): BP systolic 138–148; BP diastolic 66–72; PULSE 71–81; RESP 18–22; TEMP 36.4; O2SAT 92–95
[2024-11-13] MEDS: MethylPREDNISolone 125 MG/2 ML Vial IV ×2 (00:35→06:02)
--- NOTE | 2024-11-13 00:45 | NURSING ---
All assessments and nursing care provided in room while patient remains in droplet precautions.
[2024-11-13] MEDS: Levothyroxine 75 MCG Tablet PO (06:02)
[2024-11-13] MEDS: Acetaminophen 500 MG Tablet 1000 MG PO ×3 (06:02→21:02)
[2024-11-13] MEDS: Ipratropium/Albuterol Sulfate 3 ML AMPUL.NEB INHALATION ×3 (07:30→19:41)
[2024-11-13] MEDS: Aspirin 81 MG TAB.CHEW PO (11:06)
[2024-11-13] MEDS: Multivitamins,Therapeutic Tablet 1 TABLET PO (11:06)
[2024-11-13] MEDS: Menthol/Lanolin/Calamine/Znox 113 GM Tube 1 APPLIC TOPICAL ×3 (11:07→19:55)
[2024-11-13] MEDS: Lactobacillis Acidophilus 1 CAP PO ×2 (11:07→19:55)
[2024-11-13] MEDS: Losartan Potassium 100 MG Tablet PO (11:07)
[2024-11-13] MEDS: DULoxetine Hcl 30 MG Capsule 90 MG PO (11:08)
[2024-11-13] MEDS: Metoprolol Tartrate 50 MG Tablet PO ×2 (11:08→21:00)
[2024-11-13] MEDS: Enoxaparin 40 MG/0.4 ML Syringe SC (11:08)
[2024-11-13] MEDS: Hydroxychloroquine 200 MG Tablet PO ×2 (11:09→19:56)
[2024-11-13] MEDS: Oseltamivir Phosphate 30 MG Capsule PO ×2 (11:09→21:00)
[2024-11-13] MEDS: Cholecalciferol (VIT D3) 25 MCG TABLET (1,000 UNITS) 100 MCG PO (11:09)
[2024-11-13] MEDS: Nystatin Powder 15gm Bottle 1 APPLIC TOPICAL ×2 (11:09→19:58)
[2024-11-13] MEDS: amLODIPine 5 MG Tablet PO (11:09)
[2024-11-13] MEDS: Azithromycin 250 MG Tablet PO (11:10)
[2024-11-13] MEDS: Ceftriaxone 2 GM in 0.9% Normal Saline (50mL MB+) 50 ML IV (11:44)
[2024-11-13] MEDS: Vancomycin IV 1,000 MG/200 ML BAG 200 MG IV (14:50)
[2024-11-13] MEDS: 0.9% Saline Lock 10 ML Syringe IV (14:51)
[2024-11-13] MEDS: traZODone 50 MG Tablet 75 MG PO (19:55)
[2024-11-13] MEDS: Atorvastatin Calcium 10 MG Tablet PO (19:56)
[2024-11-13] MEDS: Pramipexole Di-HCl 0.25 MG Tablet PO (19:56)
[2024-11-13] MEDS: Petrolatum 33% Tube 1 APPLIC TOPICAL (19:59)
[2024-11-13] MEDS: Loratadine 10 MG Tablet PO (20:00)
[2024-11-13] MEDS: 0.9 % NaCl (Sterile) Posiflush 10 mL IV (21:01)
[2024-11-14] VITALS (9 sets, daily range): BP systolic 147–149; BP diastolic 73–74; PULSE 69–76; RESP 17–22; TEMP 36.3; O2SAT 93–97
[2024-11-14] MEDS: Acetaminophen 500 MG Tablet 1000 MG PO ×3 (06:15→20:08)
[2024-11-14] MEDS: Levothyroxine 75 MCG Tablet PO (06:16)
[2024-11-14] MEDS: Ipratropium/Albuterol Sulfate 3 ML AMPUL.NEB INHALATION ×3 (07:30→19:35)
[2024-11-14] MEDS: Menthol/Lanolin/Calamine/Znox 113 GM Tube 1 APPLIC TOPICAL ×2 (08:23→20:07)
[2024-11-14] MEDS: Multivitamins,Therapeutic Tablet 1 TABLET PO (08:23)
[2024-11-14] MEDS: DULoxetine Hcl 30 MG Capsule 90 MG PO (08:23)
[2024-11-14] MEDS: Lactobacillis Acidophilus 1 CAP PO ×2 (08:23→20:07)
[2024-11-14] MEDS: Aspirin 81 MG TAB.CHEW PO (08:24)
[2024-11-14] MEDS: Nystatin Powder 15gm Bottle 1 APPLIC TOPICAL ×2 (08:24→20:09)
[2024-11-14] MEDS: Enoxaparin 40 MG/0.4 ML Syringe SC (08:24)
[2024-11-14] MEDS: Metoprolol Tartrate 50 MG Tablet PO ×2 (08:24→20:14)
[2024-11-14] MEDS: Cholecalciferol (VIT D3) 25 MCG TABLET (1,000 UNITS) 100 MCG PO (08:25)
[2024-11-14] MEDS: Losartan Potassium 100 MG Tablet PO (08:25)
[2024-11-14] MEDS: amLODIPine 5 MG Tablet PO (08:25)
[2024-11-14] MEDS: Oseltamivir Phosphate 30 MG Capsule PO ×2 (08:25→20:08)
[2024-11-14] MEDS: Azithromycin 250 MG Tablet PO (08:25)
[2024-11-14] MEDS: Hydroxychloroquine 200 MG Tablet PO ×2 (08:25→20:08)
[2024-11-14] MEDS: guaiFENesin/Codeine 5 ML UDC 10 ML PO ×2 (08:46→20:24)
[2024-11-14] MEDS: 0.9 % NaCl (Sterile) Posiflush 10 mL IV (08:47)
[2024-11-14] MEDS: 0.9% Normal Saline 250 ML IV.SOLN. IV (08:50)
[2024-11-14] MEDS: Ceftriaxone 2 GM in 0.9% Normal Saline (50mL MB+) 50 ML IV (08:52)
--- NOTE | 2024-11-14 09:23 | NURSING ---
ALL CARE PROVIDED IN ROOM THIS SHIFT D/T DROPLET PRECAUTIONS.
--- NOTE | 2024-11-14 09:56 | MDS.RN ---
Information for the MDS was obtained from review of the clinical record, interview of resident, staff, and direct observation of resident?s care.
--- NOTE | 2024-11-14 10:46 | PCM.PN.ID ---
Physical Exam Narrative Feeling a little better, some cough. Knee improving. No fever. Const alert and no apparent distress General Appearance: cooperative Resp normal air movement and clear to auscultation bilaterally Cardio regular rate and regular rhythm GI soft to palpation, non-tender and non-distended Extremity General Extremity: Negative for edema Skin no rashes or lesions noted ID ID: Route of nutrition/ use of supplements: [] Nutritional Intake: [] IV Site: [] Somers Catheter: [] Assessment & Plan Assessment/Plan (1) Flu: PLAN: On tamiflu (2) Septic arthritis of knee, left: QUALIFIERS: Septic arthritis organism: due to unspecified organism Qualified Code(s): M00.9 - Pyogenic arthritis, unspecified PLAN: On vanc/ceftriaxone until 11/21/24. Reviewed labs, cxs neg from surgery. Will follow
[2024-11-14] MEDS: Vancomycin IV 1,000 MG/200 ML BAG 200 MG IV (12:29)
[2024-11-14] MEDS: traZODone 50 MG Tablet 75 MG PO (20:06)
[2024-11-14] MEDS: Pramipexole Di-HCl 0.25 MG Tablet PO (20:07)
[2024-11-14] MEDS: Petrolatum 33% Tube 1 APPLIC TOPICAL (20:08)
[2024-11-14] MEDS: Atorvastatin Calcium 10 MG Tablet PO (20:09)
[2024-11-14] MEDS: Loratadine 10 MG Tablet PO (20:11)
[2024-11-15] VITALS (8 sets, daily range): BP systolic 127–131; BP diastolic 72–74; PULSE 73–81; RESP 17–20; TEMP 36.4; O2SAT 3–93
[2024-11-15] MEDS: Levothyroxine 75 MCG Tablet PO (05:46)
[2024-11-15] MEDS: Acetaminophen 500 MG Tablet 1000 MG PO ×3 (05:46→21:08)
[2024-11-15] MEDS: guaiFENesin/Codeine 5 ML UDC 10 ML PO ×2 (05:53→20:53)
[2024-11-15] MEDS: Ipratropium/Albuterol Sulfate 3 ML AMPUL.NEB INHALATION ×3 (07:40→20:20)
[2024-11-15] MEDS: Enoxaparin 40 MG/0.4 ML Syringe SC (08:22)
[2024-11-15] MEDS: Multivitamins,Therapeutic Tablet 1 TABLET PO (08:22)
[2024-11-15] MEDS: DULoxetine Hcl 30 MG Capsule 90 MG PO (08:22)
[2024-11-15] MEDS: Lactobacillis Acidophilus 1 CAP PO ×2 (08:22→20:57)
[2024-11-15] MEDS: Aspirin 81 MG TAB.CHEW PO (08:22)
[2024-11-15] MEDS: Hydroxychloroquine 200 MG Tablet PO ×2 (08:22→20:58)
[2024-11-15] MEDS: Oseltamivir Phosphate 30 MG Capsule PO ×2 (08:22→20:59)
[2024-11-15] MEDS: Cholecalciferol (VIT D3) 25 MCG TABLET (1,000 UNITS) 100 MCG PO (08:22)
[2024-11-15] MEDS: Metoprolol Tartrate 50 MG Tablet PO ×2 (08:23→20:58)
[2024-11-15] MEDS: amLODIPine 5 MG Tablet PO (08:23)
[2024-11-15] MEDS: Losartan Potassium 100 MG Tablet PO (08:23)
[2024-11-15] MEDS: Menthol/Lanolin/Calamine/Znox 113 GM Tube 1 APPLIC TOPICAL ×2 (08:23→21:03)
[2024-11-15] MEDS: Azithromycin 250 MG Tablet PO (10:22)
[2024-11-15] MEDS: 0.9% Normal Saline 250 ML IV.SOLN. IV (10:23)
[2024-11-15] MEDS: 0.9 % NaCl (Sterile) Posiflush 10 mL IV (10:23)
[2024-11-15] MEDS: Ceftriaxone 2 GM in 0.9% Normal Saline (50mL MB+) 50 ML IV (10:23)
[2024-11-15] MEDS: Nystatin Powder 15gm Bottle 1 APPLIC TOPICAL ×2 (10:41→21:02)
[2024-11-15] MEDS: Vancomycin IV 1,000 MG/200 ML BAG 200 MG IV (13:59)
[2024-11-15] MEDS: traZODone 50 MG Tablet 75 MG PO (20:57)
[2024-11-15] MEDS: Loratadine 10 MG Tablet PO (20:58)
[2024-11-15] MEDS: Pramipexole Di-HCl 0.25 MG Tablet PO (20:59)
[2024-11-15] MEDS: Atorvastatin Calcium 10 MG Tablet PO (20:59)
[2024-11-15] MEDS: Petrolatum 33% Tube 1 APPLIC TOPICAL (21:03)
[2024-11-16] VITALS (10 sets, daily range): BP systolic 137–155; BP diastolic 66–68; PULSE 68–89; RESP 18–22; TEMP 36.3; O2SAT 93–95
[2024-11-16] MEDS: Ipratropium/Albuterol Sulfate 3 ML AMPUL.NEB INHALATION ×4 (01:42→20:08)
[2024-11-16] MEDS: Levothyroxine 75 MCG Tablet PO (05:33)
[2024-11-16] MEDS: guaiFENesin/Codeine 5 ML UDC 10 ML PO ×2 (05:33→21:32)
[2024-11-16] MEDS: Acetaminophen 500 MG Tablet 1000 MG PO ×3 (05:33→21:31)
[2024-11-16] MEDS: Aspirin 81 MG TAB.CHEW PO (08:36)
[2024-11-16] MEDS: Multivitamins,Therapeutic Tablet 1 TABLET PO (08:37)
[2024-11-16] MEDS: Losartan Potassium 100 MG Tablet PO (08:37)
[2024-11-16] MEDS: Lactobacillis Acidophilus 1 CAP PO ×2 (08:37→21:30)
[2024-11-16] MEDS: Hydroxychloroquine 200 MG Tablet PO ×2 (08:38→21:31)
[2024-11-16] MEDS: Enoxaparin 40 MG/0.4 ML Syringe SC (08:38)
[2024-11-16] MEDS: amLODIPine 5 MG Tablet PO (08:38)
[2024-11-16] MEDS: DULoxetine Hcl 30 MG Capsule 90 MG PO (08:38)
[2024-11-16] MEDS: Cholecalciferol (VIT D3) 25 MCG TABLET (1,000 UNITS) 100 MCG PO (08:39)
[2024-11-16] MEDS: Metoprolol Tartrate 50 MG Tablet PO ×2 (08:58→21:36)
[2024-11-16] MEDS: Menthol/Lanolin/Calamine/Znox 113 GM Tube 1 APPLIC TOPICAL ×2 (08:58→21:31)
[2024-11-16] MEDS: Nystatin Powder 15gm Bottle 1 APPLIC TOPICAL ×2 (08:59→21:56)
[2024-11-16] MEDS: Ceftriaxone 2 GM in 0.9% Normal Saline (50mL MB+) 50 ML IV (10:25)
[2024-11-16] MEDS: 0.9 % NaCl (Sterile) Posiflush 10 mL IV (10:26)
[2024-11-16] MEDS: NYSTATIN 500,000 UNIT/5 ML UDC 500000 UNIT PO ×3 (13:32→21:31)
[2024-11-16] MEDS: Vancomycin IV 1,000 MG/200 ML BAG 200 MG IV (13:34)
--- NOTE | 2024-11-16 17:20 | CASEMGMT ---
Social Work RETORT PRESS OPERATOR notified this worker that when scheduling therapy training with for next week, was confused thinking pt was discharging on 11/21 after her IV ATB, and requested this worker follow up with . - CONCETTA met with pt's outside room to follow up on DC planning. SW noted that per staff, pt has declined further medically, and even though IV ATB are planned to stop on 11/21, there is not a DC date set. confused and questioned what decline this worker was referring to. SW explained per IDT reports, pt has increased coughing, new O2 and further increase in liter flow, increased tearfulness, noted weakness since flu. acknowledged the new O2, but began questioning the medical conditions origin and prognosis, along with his perceived lack of therapy d/t in room isolation. SW referred to nurse or Dr to discuss concerns and questions related to medical care. SW acknowledged the difference in therapy session d/t being in-room. However, currently, pt is scheduled to come out of isolation on 11/20, then pt has f/u appt, and therapy training is scheduled for 11/21. Once pt can be out of the room for therapy, the therapists will evaluate pt's LOF and if there was a significant decline from illnesses, thus the reason for not setting a DC date at this time, with unknown LOF, medical care, and husbands ability to care for pt at home. reiterated questions regarding when pt would be discharged and the reason for her medical illness. SW reexplained responses. SW spoke with for about 20 minutes with repetitive conversation as having difficulty comprehending information. SW explained Dr Clay will be rounding on the unit shortly and encouraged to speak with Dr to get further medical questions answered. SW noted that is asking the same questions as in the POC meeting last week, and confirmed he talked to Dr. Clay after that meeting but stated he could not remember the answers. SW summarized that there is not a DC date set for pt and DC timeframe is unknown at this time until pt stabilizes and deferred to for further information. agreed. SW will continue to follow for DC planning assistance. Tameka Gorman PROJECT ASSOCIATE HAND TIER
--- NOTE | 2024-11-16 18:45 | NURSING ---
Patient continues to cough and feel unwell throughout shift. Completed Tamiflu treatment but still needing 3L of oxygen. Therapy attempted to walk without oxygen this shift and spo2 dropped to 87%. 3L immediately reapplied. Dr. Clay made aware and new order for CTA. CTA completed this evening. in room and aware.
[2024-11-16 19:23] LABS: Absolute Lymphocyte Count 1.84 X10^3/uL (0.83-4.51); Absolute Neutrophil Count 8.8 X10^3/uL (2.0-7.7); Basophil# 0.04 X10^3/uL; Basophil% 0.3 % (0-1); Eosinophil# 0.93 X10^3/uL; Eosinophils% 7.6 % (0-5); Hematocrit 35.6 % (37-47); Hemoglobin 11.3 g/dL (12.0-15.0); Lymphocyte # 1.84 X10^3/ul (0.83-4.51); Mean Corp Hgb Conc 31.7 g/dL (32-36); Mean Corpuscular Hgb 29.7 pg (27.0-32.0); Mean Corpuscular Volume 93.4 fL (81-99); Mean Platelet Vol. 10.8 fl (6.2-12.0); Monocyte# 0.48 X10^3/uL; Monocyte% 3.9 % (0-10); NRBC Flagged by Analyzer 0 % (0-5); Neutrophil # 8.79 X10^3/uL (2.7-7.7); Neutrophil % 71.5 % (47-70); Platelet Count 250 K/mm3 (150-450); RBC Distribution Width CV 13.1 % (11.6-14.6); RBC Distribution Width SD 44.6 fl (35.1-43.9); Red Blood Count 3.81 M/mm3 (4.2-5.4); White Blood Count 12.3 K/mm3 (4.4-11.0)
--- NOTE | 2024-11-16 19:35 | NURSING ---
All nursing care and assessments completed in room while patient remains on droplet precautions.
[2024-11-16 19:41] LABS: Anion Gap 5 (5-15); BUN 15 mg/dL (7-18); BUN/Creat Ratio 17.3 RATIO (10-20); Calcium,Total 9.5 mg/dL (8.5-10.1); Chloride 102 mmol/L (98-107); Creatinine, Serum 0.87 mg/dL (0.55-1.02); EST Glomerular Filtration Rate 66 mL/min (>60); Est Glom Filt Rate - Afr Amer 80 mL/min (>60); Estimated Creatinine Clearance 51.26 ml/min; Glucose 121 mg/dL (74-106); Potassium 3.9 mmol/L (3.5-5.1); Sodium Level 137 mmol/L (136-145)
[2024-11-16 19:43] LABS: BNP,B-Type NATRIURETIC PEPTIDE 183.7 pg/mL (0-100)
[2024-11-16] MEDS: traZODone 50 MG Tablet 75 MG PO (21:30)
[2024-11-16] MEDS: Atorvastatin Calcium 10 MG Tablet PO (21:31)
[2024-11-16] MEDS: Loratadine 10 MG Tablet PO (21:31)
[2024-11-16] MEDS: Pramipexole Di-HCl 0.25 MG Tablet PO (21:31)
[2024-11-16] MEDS: Petrolatum 33% Tube 1 APPLIC TOPICAL (21:32)
[2024-11-16] MEDS: 0.9% Saline Lock 10 ML Syringe IV (21:35)
[2024-11-16] MEDS: Meropenem 1 GM in 0.9% Normal Saline (100mL MB+) 100 ML IV (21:36)
[2024-11-16] MEDS: MethylPREDNISolone DosePak 4 MG BOX PO (21:41)
[2024-11-16] MEDS: Azithromycin 250 MG Tablet 500 MG PO (21:41)
[2024-11-17] MEDS: Meropenem 1 GM in 0.9% Normal Saline (100mL MB+) 100 ML IV (05:51)
[2024-11-17] MEDS: Levothyroxine 75 MCG Tablet PO (05:52)
[2024-11-17] MEDS: NYSTATIN 500,000 UNIT/5 ML UDC 500000 UNIT PO ×4 (05:52→20:34)
[2024-11-17] MEDS: Acetaminophen 500 MG Tablet 1000 MG PO ×3 (05:53→20:32)
[2024-11-17] MEDS: guaiFENesin/Codeine 5 ML UDC 10 ML PO (05:53)
[2024-11-17 06:00] LABS: Absolute Lymphocyte Count 0.54 X10^3/uL (0.83-4.51); Absolute Neutrophil Count 8.5 X10^3/uL (2.0-7.7); Basophil# 0.02 X10^3/uL; Basophil% 0.2 % (0-1); Eosinophil# 0.03 X10^3/uL; Eosinophils% 0.3 % (0-5); Hematocrit 31.1 % (37-47); Hemoglobin 10.1 g/dL (12.0-15.0); Lymphocyte # 0.54 X10^3/ul (0.83-4.51); Lymphocyte % 5.8 % (19-41); Mean Corp Hgb Conc 32.5 g/dL (32-36); Mean Corpuscular Hgb 30.1 pg (27.0-32.0); Mean Corpuscular Volume 92.6 fL (81-99); Mean Platelet Vol. 11.2 fl (6.2-12.0); Monocyte% 1.1 % (0-10); NRBC Flagged by Analyzer 0 % (0-5); Neutrophil # 8.51 X10^3/uL (2.7-7.7); Neutrophil % 90.9 % (47-70); POSITIVE DIFFERENTIAL YES; Platelet Count 229 K/mm3 (150-450); RBC Distribution Width CV 13.1 % (11.6-14.6); RBC Distribution Width SD 44.3 fl (35.1-43.9); Red Blood Count 3.36 M/mm3 (4.2-5.4); White Blood Count 9.4 K/mm3 (4.4-11.0)
[2024-11-17 06:33] LABS: Anion Gap 3 (5-15); BUN 14 mg/dL (7-18); BUN/Creat Ratio 14.9 RATIO (10-20); Calcium,Total 9.1 mg/dL (8.5-10.1); Chloride 103 mmol/L (98-107); Creatinine, Serum 0.94 mg/dL (0.55-1.02); EST Glomerular Filtration Rate 60 mL/min (>60); Est Glom Filt Rate - Afr Amer 73 mL/min (>60); Estimated Creatinine Clearance 47.44 ml/min; Glucose 195 mg/dL (74-106); Potassium 4.5 mmol/L (3.5-5.1); Sodium Level 135 mmol/L (136-145)
[2024-11-17 08:00] VITALS: PULSE 76; RESP 17
[2024-11-17] MEDS: Ipratropium/Albuterol Sulfate 3 ML AMPUL.NEB INHALATION ×3 (08:00→19:32)
[2024-11-17] MEDS: Cholecalciferol (VIT D3) 25 MCG TABLET (1,000 UNITS) 100 MCG PO (09:46)
[2024-11-17] MEDS: DULoxetine Hcl 30 MG Capsule 90 MG PO (09:47)
[2024-11-17] MEDS: MethylPREDNISolone DosePak 4 MG BOX PO ×4 (09:48→20:33)
[2024-11-17] MEDS: Losartan Potassium 100 MG Tablet PO (09:48)
[2024-11-17 09:49] VITALS: PULSE 76
[2024-11-17] MEDS: Multivitamins,Therapeutic Tablet 1 TABLET PO (09:49)
[2024-11-17] MEDS: Aspirin 81 MG TAB.CHEW PO (09:49)
[2024-11-17] MEDS: Azithromycin 250 MG Tablet 500 MG PO (09:49)
[2024-11-17] MEDS: Metoprolol Tartrate 50 MG Tablet PO ×2 (09:49→20:42)
[2024-11-17] MEDS: Miconazole-7 Nitrate Cream 1 APPLIC VAGINAL ×2 (09:49→20:58)
[2024-11-17] MEDS: Lactobacillis Acidophilus 1 CAP PO ×2 (09:50→20:35)
[2024-11-17] MEDS: Enoxaparin 40 MG/0.4 ML Syringe SC (09:51)
[2024-11-17] MEDS: Hydroxychloroquine 200 MG Tablet PO ×2 (09:51→20:34)
[2024-11-17] MEDS: amLODIPine 5 MG Tablet PO (09:51)
[2024-11-17] MEDS: Nystatin Powder 15gm Bottle 1 APPLIC TOPICAL ×2 (09:53→20:56)
[2024-11-17] MEDS: Menthol/Lanolin/Calamine/Znox 113 GM Tube 1 APPLIC TOPICAL ×2 (09:54→20:57)
[2024-11-17] MEDS: Vancomycin IV 1,000 MG/200 ML BAG 200 MG IV (13:45)
[2024-11-17 13:55] VITALS: PULSE 74; RESP 17
[2024-11-17 13:57] VITALS: BP 131/62; PULSE 71; RESP 16; TEMP 36.9; O2SAT 93
--- NOTE | 2024-11-17 14:51 | PCM.PN.ID ---
Physical Exam Narrative Feeling about the same. Mild cough without sputum. No fever. No dyspnea. Const alert and no apparent distress General Appearance: cooperative Resp clear to auscultation bilaterally Resp Narrative: slightly diminished Cardio regular rate and regular rhythm GI soft to palpation, non-tender and non-distended Skin no rashes or lesions noted ID ID: Route of nutrition/ use of supplements: [] Nutritional Intake: [] IV Site: [] Somers Catheter: [] Assessment & Plan Assessment/Plan (1) Flu: PLAN: On tamiflu (2) Septic arthritis of knee, left: QUALIFIERS: Septic arthritis organism: due to unspecified organism Qualified Code(s): M00.9 - Pyogenic arthritis, unspecified PLAN: On vanc/ceftriaxone until 11/21/24. Reviewed labs, cxs neg from surgery. Low suspicion for new untreated pneumonia. CXR since 11/07 with some L base infiltrate/atelectasis. CT images show only small changes in lung. No new fever, wbc this AM was normal, o2 reqs have been stable, she did have flu a week ago, lung exam is relatively clear. I do not see need for meropenem at this time given clinical stability. Cont vanc/ceftriaxone as planned. Azithro and steroids were added, ok to continue for now. Will follow
[2024-11-17 19:32] VITALS: PULSE 73; RESP 20; O2SAT 94
[2024-11-17] MEDS: Atorvastatin Calcium 10 MG Tablet PO (20:34)
[2024-11-17] MEDS: Pramipexole Di-HCl 0.25 MG Tablet PO (20:36)
[2024-11-17] MEDS: traZODone 50 MG Tablet 75 MG PO (20:39)
[2024-11-17 20:42] VITALS: BP 132/57; PULSE 75
[2024-11-17] MEDS: Loratadine 10 MG Tablet PO (20:42)
[2024-11-17] MEDS: Petrolatum 33% Tube 1 APPLIC TOPICAL (20:55)
[2024-11-18] VITALS (10 sets, daily range): BP systolic 118–151; BP diastolic 64–82; PULSE 70–113; RESP 18–22; TEMP 36.5; O2SAT 88–97
--- NOTE | 2024-11-18 01:44 | NURSING ---
All care provided in room due to droplet precautions in place for patient. PICC line dressing changed to single lumen PICC in [place]. Line flushed well, good blood return. Patient tolerated dressing change well.
[2024-11-18] MEDS: Acetaminophen 500 MG Tablet 1000 MG PO ×3 (06:18→20:06)
[2024-11-18] MEDS: Levothyroxine 75 MCG Tablet PO (06:20)
[2024-11-18] MEDS: NYSTATIN 500,000 UNIT/5 ML UDC 500000 UNIT PO ×4 (06:21→20:05)
[2024-11-18] MEDS: Ipratropium/Albuterol Sulfate 3 ML AMPUL.NEB INHALATION ×4 (06:35→19:32)
[2024-11-18] MEDS: DULoxetine Hcl 30 MG Capsule 90 MG PO (08:35)
[2024-11-18] MEDS: Cholecalciferol (VIT D3) 25 MCG TABLET (1,000 UNITS) 100 MCG PO (08:35)
[2024-11-18] MEDS: Hydroxychloroquine 200 MG Tablet PO ×2 (08:35→20:06)
[2024-11-18] MEDS: amLODIPine 5 MG Tablet PO (08:35)
[2024-11-18] MEDS: Aspirin 81 MG TAB.CHEW PO (08:35)
[2024-11-18] MEDS: Enoxaparin 40 MG/0.4 ML Syringe SC (08:36)
[2024-11-18] MEDS: Azithromycin 250 MG Tablet 500 MG PO (08:36)
[2024-11-18] MEDS: MethylPREDNISolone DosePak 4 MG BOX PO ×4 (08:38→20:05)
[2024-11-18] MEDS: Lactobacillis Acidophilus 1 CAP PO ×2 (08:38→20:07)
[2024-11-18] MEDS: Losartan Potassium 100 MG Tablet PO (08:39)
[2024-11-18] MEDS: Multivitamins,Therapeutic Tablet 1 TABLET PO (08:39)
[2024-11-18] MEDS: Ceftriaxone 2 GM in 0.9% Normal Saline (50mL MB+) 50 ML IV (08:51)
[2024-11-18] MEDS: Metoprolol Tartrate 50 MG Tablet PO ×2 (08:56→20:12)
[2024-11-18] MEDS: Menthol/Lanolin/Calamine/Znox 113 GM Tube 1 APPLIC TOPICAL ×2 (08:59→20:01)
[2024-11-18] MEDS: Nystatin Powder 15gm Bottle 1 APPLIC TOPICAL ×2 (09:00→20:03)
[2024-11-18] MEDS: Vancomycin IV 1,000 MG/200 ML BAG 200 MG IV (13:50)
[2024-11-18] MEDS: 0.9 % NaCl (Sterile) Posiflush 10 mL IV (14:03)
--- NOTE | 2024-11-18 19:56 | CPS ---
patient did not want to use the chest vest at this time
[2024-11-18] MEDS: Miconazole-7 Nitrate Cream 1 APPLIC VAGINAL (20:03)
[2024-11-18] MEDS: Pramipexole Di-HCl 0.25 MG Tablet PO (20:05)
[2024-11-18] MEDS: guaiFENesin/Codeine 5 ML UDC 10 ML PO (20:05)
[2024-11-18] MEDS: traZODone 50 MG Tablet 75 MG PO (20:06)
[2024-11-18] MEDS: Atorvastatin Calcium 10 MG Tablet PO (20:06)
[2024-11-18] MEDS: Petrolatum 33% Tube 1 APPLIC TOPICAL (20:07)
[2024-11-18] MEDS: 0.9% Saline Lock 10 ML Syringe IV (20:08)
[2024-11-18] MEDS: Loratadine 10 MG Tablet PO (20:08)
[2024-11-19] VITALS (7 sets, daily range): BP systolic 128–134; BP diastolic 62; PULSE 65–75; RESP 17–22; TEMP 36.6; O2SAT 92–95
--- NOTE | 2024-11-19 00:02 | NURSING ---
Specimen cup on overbed table w/ a scant amount of clear, foamy sputum noted. Resident is unsure if she produced specimen around lunch or supper time. Will attempt to collect another specimen. Will continue to monitor.
[2024-11-19] MEDS: NYSTATIN 500,000 UNIT/5 ML UDC 500000 UNIT PO ×4 (05:26→22:39)
[2024-11-19] MEDS: Levothyroxine 75 MCG Tablet PO (05:26)
[2024-11-19] MEDS: guaiFENesin/Codeine 5 ML UDC 10 ML PO (05:26)
[2024-11-19] MEDS: Acetaminophen 500 MG Tablet 1000 MG PO ×3 (05:27→22:54)
[2024-11-19] MEDS: Ipratropium/Albuterol Sulfate 3 ML AMPUL.NEB INHALATION ×2 (06:38→19:30)
[2024-11-19] MEDS: MethylPREDNISolone DosePak 4 MG BOX PO ×3 (08:54→22:38)
[2024-11-19] MEDS: Aspirin 81 MG TAB.CHEW PO (08:54)
[2024-11-19] MEDS: Lactobacillis Acidophilus 1 CAP PO ×2 (08:55→22:56)
[2024-11-19] MEDS: Multivitamins,Therapeutic Tablet 1 TABLET PO (08:55)
[2024-11-19] MEDS: Cholecalciferol (VIT D3) 25 MCG TABLET (1,000 UNITS) 100 MCG PO (08:56)
[2024-11-19] MEDS: Losartan Potassium 100 MG Tablet PO (08:56)
[2024-11-19] MEDS: Menthol/Lanolin/Calamine/Znox 113 GM Tube 1 APPLIC TOPICAL ×2 (08:56→22:56)
[2024-11-19] MEDS: DULoxetine Hcl 30 MG Capsule 90 MG PO (08:58)
[2024-11-19] MEDS: Enoxaparin 40 MG/0.4 ML Syringe SC (08:58)
[2024-11-19] MEDS: Metoprolol Tartrate 50 MG Tablet PO ×2 (08:58→22:55)
[2024-11-19] MEDS: amLODIPine 5 MG Tablet PO (08:59)
[2024-11-19] MEDS: Nystatin Powder 15gm Bottle 1 APPLIC TOPICAL ×2 (08:59→22:56)
[2024-11-19] MEDS: Azithromycin 250 MG Tablet 500 MG PO (09:00)
[2024-11-19] MEDS: Hydroxychloroquine 200 MG Tablet PO ×2 (09:00→22:57)
[2024-11-19] MEDS: 0.9 % NaCl (Sterile) Posiflush 10 mL IV ×2 (09:04→14:18)
[2024-11-19] MEDS: Ceftriaxone 2 GM in 0.9% Normal Saline (50mL MB+) 50 ML IV (09:05)
[2024-11-19 13:36] LABS: Vancomycin, Trough Level 17.8 ug/mL (5.0-15.0)
--- NOTE | 2024-11-19 14:17 | PCM.RX.CS ---
Consult Antibiotic Management Pharmacy has been consulted to manage selected antibiotic: Vancomycin Type of Intervention Type of Consult: Follow-up Prior Doses of Antibiotics Prior Doses of Antibiotics Received/Current Regimen: current dose is vanc 1000mg IV q24h Labs Labs: Sodium 135 mmol/L (136-145) L 11/17/24 05:23 Potassium 4.5 mmol/L (3.5-5.1) 11/17/24 05:23 Chloride 103 mmol/L (98-107) 11/17/24 05:23 Carbon Dioxide 29.0 mmol/L (21.0-32.0) 11/17/24 05:23 Anion Gap 3 (5-15) L 11/17/24 05:23 BUN 14 mg/dL (7-18) 11/17/24 05:23 Creatinine 0.94 mg/dL (0.55-1.02) 11/17/24 05:23 Est GFR (MDRD) Af Amer 73 mL/min (>60) 11/17/24 05:23 Est GFR (MDRD) Non-Af 60 mL/min (>60) 11/17/24 05:23 BUN/Creatinine Ratio 14.9 RATIO (10-20) 11/17/24 05:23 Glucose 195 mg/dL (74-106) H 11/17/24 05:23 Vancomycin Trough 17.8 ug/mL (5.0-15.0) H 11/19/24 13:12 Random Vancomycin 18.0 ug/mL (0.0-15.0) H 11/04/24 06:20 Microbiology Microbiology: Microbiology 11/17/24 05:35 Urine Catheter - Catheter Legionella Antigen - Final 11/17/24 05:35 Urine Catheter - Catheter Streptococcus pneumoniae Antigen (M - Final 11/11/24 09:16 Mucosa - Nasopharyngeal Respiratory Panel (PCR) - Final Influenza A (Subtype H1) 11/11/24 09:28 Nasal Secretion SARS-CoV-2 Antigen (Rapid) - Final 11/05/24 19:15 Stool Stool Occult Blood (REJI) - Final Dosing Weight Weight used for dosin.6 kg Estimated Creatinine Clearance Estimated Creatinine Clearance: 47 ml/min Goal Trough Goal Trough: 15-20 mcg/mL Pharmacy Plan for Drug Dosing Pharmacy Plan for Drug Dosing: The vanc trough drawn at 13:12 today was 17.8. This is within goal range so will keep same dose. The stop date of antibiotic therapy is 11/21/24 so will not order another trough at this time. Pharmacy Service will continue to monitor and adjust dosing as required. Date/Time Labs Ordered Labs to be done on [date and time ordered]: none scheduled at this time
[2024-11-19] MEDS: Vancomycin IV 1,000 MG/200 ML BAG 200 MG IV (14:18)
--- NOTE | 2024-11-19 19:58 | CPS ---
patient declined evening vest therapy for the second night in a row
[2024-11-19] MEDS: Miconazole-7 Nitrate Cream 1 APPLIC VAGINAL (22:39)
[2024-11-19] MEDS: traZODone 50 MG Tablet 75 MG PO (22:53)
[2024-11-19] MEDS: Atorvastatin Calcium 10 MG Tablet PO (22:53)
[2024-11-19] MEDS: Pramipexole Di-HCl 0.25 MG Tablet PO (22:55)
[2024-11-19] MEDS: Petrolatum 33% Tube 1 APPLIC TOPICAL (22:58)
[2024-11-19] MEDS: Loratadine 10 MG Tablet PO (23:03)
[2024-11-20] VITALS (7 sets, daily range): BP systolic 136–150; BP diastolic 65–70; PULSE 68–86; RESP 16–18; TEMP 36.6; O2SAT 93–98
[2024-11-20] MEDS: Acetaminophen 500 MG Tablet 1000 MG PO ×3 (05:51→20:50)
[2024-11-20] MEDS: NYSTATIN 500,000 UNIT/5 ML UDC 500000 UNIT PO ×4 (05:52→20:50)
[2024-11-20] MEDS: Levothyroxine 75 MCG Tablet PO (05:52)
[2024-11-20] MEDS: Ipratropium/Albuterol Sulfate 3 ML AMPUL.NEB INHALATION ×2 (07:28→12:15)
--- NOTE | 2024-11-20 07:28 | CPS ---
patient currently refusing chest vest
[2024-11-20] MEDS: Cholecalciferol (VIT D3) 25 MCG TABLET (1,000 UNITS) 100 MCG PO (09:11)
[2024-11-20] MEDS: MethylPREDNISolone DosePak 4 MG BOX PO ×2 (09:11→20:51)
[2024-11-20] MEDS: Enoxaparin 40 MG/0.4 ML Syringe SC (09:11)
[2024-11-20] MEDS: Lactobacillis Acidophilus 1 CAP PO ×2 (09:12→20:52)
[2024-11-20] MEDS: amLODIPine 5 MG Tablet PO (09:12)
[2024-11-20] MEDS: Hydroxychloroquine 200 MG Tablet PO ×2 (09:12→20:50)
[2024-11-20] MEDS: Multivitamins,Therapeutic Tablet 1 TABLET PO (09:12)
[2024-11-20] MEDS: Metoprolol Tartrate 50 MG Tablet PO ×2 (09:12→20:51)
[2024-11-20] MEDS: DULoxetine Hcl 30 MG Capsule 90 MG PO (09:13)
[2024-11-20] MEDS: Aspirin 81 MG TAB.CHEW PO (09:13)
[2024-11-20] MEDS: Losartan Potassium 100 MG Tablet PO (09:14)
[2024-11-20] MEDS: Azithromycin 250 MG Tablet 500 MG PO (09:14)
[2024-11-20] MEDS: Ceftriaxone 2 GM in 0.9% Normal Saline (50mL MB+) 50 ML IV (09:20)
--- NOTE | 2024-11-20 09:30 | NURSING ---
Patient at 98% on 2L of oxygen, placed on 1L and remained at 96% for 10 minutes, lowered to 0.5L of O2 and remained above 94% for 10 minutes. Will continue to monitor and wean as appropriate per physician order.
[2024-11-20] MEDS: Menthol/Lanolin/Calamine/Znox 113 GM Tube 1 APPLIC TOPICAL ×2 (09:34→20:56)
[2024-11-20] MEDS: Nystatin Powder 15gm Bottle 1 APPLIC TOPICAL ×2 (09:35→20:56)
[2024-11-20] MEDS: Vancomycin IV 1,000 MG/200 ML BAG 200 MG IV (13:41)
--- NOTE | 2024-11-20 15:27 | NURSING ---
Patient off floor with to go to F/U appt. with Dr. Perdue. Pt transferred on 1L O2 in a WC. Packet sent with patient. Patient and s/o educated on O2 tank use and to give packet to front office coordinator at the appointment. S/O driving pt to appt.
--- NOTE | 2024-11-20 17:31 | NURSING ---
Addendum entered by Penny Le 11/20/24 18:50: Sutures removed at follow up [employer], no new orders at this time. Original Note: Patient returned to unit with . Staff assisted patient to the chair for dinner, call light in reach.
[2024-11-20] MEDS: Miconazole-7 Nitrate Cream 1 APPLIC VAGINAL (20:50)
[2024-11-20] MEDS: Loratadine 10 MG Tablet PO (20:52)
[2024-11-20] MEDS: Atorvastatin Calcium 10 MG Tablet PO (20:52)
[2024-11-20] MEDS: traZODone 50 MG Tablet 75 MG PO (20:52)
[2024-11-20] MEDS: Pramipexole Di-HCl 0.25 MG Tablet PO (20:52)
[2024-11-20] MEDS: Petrolatum 33% Tube 1 APPLIC TOPICAL (20:55)
[2024-11-21] VITALS (7 sets, daily range): BP systolic 121–124; BP diastolic 58–59; PULSE 60–91; RESP 16–20; TEMP 36.5; O2SAT 93–95; BMI 30.7
[2024-11-21] MEDS: NYSTATIN 500,000 UNIT/5 ML UDC 500000 UNIT PO ×4 (04:57→21:31)
[2024-11-21] MEDS: Acetaminophen 500 MG Tablet 1000 MG PO ×3 (04:57→21:31)
[2024-11-21] MEDS: Levothyroxine 75 MCG Tablet PO (04:58)
[2024-11-21] MEDS: Ipratropium/Albuterol Sulfate 3 ML AMPUL.NEB INHALATION ×3 (07:11→19:00)
[2024-11-21] MEDS: MethylPREDNISolone DosePak 4 MG BOX PO (08:19)
[2024-11-21] MEDS: Enoxaparin 40 MG/0.4 ML Syringe SC (08:20)
[2024-11-21] MEDS: Metoprolol Tartrate 50 MG Tablet PO ×2 (08:21→21:32)
[2024-11-21] MEDS: Hydroxychloroquine 200 MG Tablet PO ×2 (08:21→21:30)
[2024-11-21] MEDS: Multivitamins,Therapeutic Tablet 1 TABLET PO (08:21)
[2024-11-21] MEDS: Cholecalciferol (VIT D3) 25 MCG TABLET (1,000 UNITS) 100 MCG PO (08:21)
[2024-11-21] MEDS: Menthol/Lanolin/Calamine/Znox 113 GM Tube 1 APPLIC TOPICAL ×2 (08:22→21:48)
[2024-11-21] MEDS: Lactobacillis Acidophilus 1 CAP PO ×2 (08:22→21:30)
[2024-11-21] MEDS: Losartan Potassium 100 MG Tablet PO (08:22)
[2024-11-21] MEDS: DULoxetine Hcl 30 MG Capsule 90 MG PO (08:22)
[2024-11-21] MEDS: Aspirin 81 MG TAB.CHEW PO (08:23)
[2024-11-21] MEDS: amLODIPine 5 MG Tablet PO (08:23)
[2024-11-21] MEDS: Nystatin Powder 15gm Bottle 1 APPLIC TOPICAL ×2 (08:23→21:47)
[2024-11-21] MEDS: 0.9 % NaCl (Sterile) Posiflush 10 mL IV (10:14)
[2024-11-21] MEDS: Ceftriaxone 2 GM in 0.9% Normal Saline (50mL MB+) 50 ML IV (10:23)
[2024-11-21] MEDS: Vancomycin IV 1,000 MG/200 ML BAG 200 MG IV (13:07)
--- NOTE | 2024-11-21 16:45 | CASEMGMT ---
Social Work SW received update from therapy that family training went well and is ready to set DC date. - SW phoned to discuss DC date and plans. Offered DC 11/23 and agreed. SW inquired about pt voicing denial for skilled HHC or OP therapy at DC. prefers pt have ongoing therapy but pt did deny, though he will revisit that conversation. SW agreed to discuss with pt as well. denied any DME needs for pt, and he will transport. - SW spoke with pt at bedside. Discussed setting DC date for 11/23. Pt agreeable. Discussed recommendations for ongoing therapy. Educated to skilled HHC PT/OT/SN, option or OP PT/OT option. Pt is agreeable to [facility] and has no preference for agency. SW offered to provide list of providers including quality and resource data. Pt opted for [facility]. - SW updated via phone. appreciative. - Phoned referral to [facility] PT/OT/SN. Plan: DC home with 11/23, [facility] PT/OT/SN LIZETH Larsen
--- NOTE | 2024-11-21 19:35 | DS.PCM_ITS ---
Providers Date of Admission: 11/03/24 Primary Care Physician: Dr. Serge Chicas MD Consultations 11/09/24 16:43 Consult: Infectious Disease Routine Consulting Provider: Cristhian Nolan Reason for Consult: Septic Left Knee EMERGENT Consult: No MD Notified: Yes Date Notified: 11/09/24 Time Notified: 16:43 Method of Notification: Text Reason For Visit: SEPTIC LEFT KNEE Diagnosis Discharge Diagnosis (1) Flu: Status: Acute Code(s): J11.1 - Influenza due to unidentified influenza virus with other respiratory manifestations (2) Septic arthritis of knee, left: Status: Acute Code(s): M00.9 - Pyogenic arthritis, unspecified Qualifiers: Septic arthritis organism: due to unspecified organism Qualified Code(s): M00.9 - Pyogenic arthritis, unspecified Medications at Discharge Home Medications simvastatin 20 mg tablet 20 mg PO QHS cholesterol 09/21/13 multivitamin 1 ea PO DAILY supplement 09/03/15 cetirizine 10 mg tablet (Zyrtec) 10 mg PO QDAY PRN Allergies 10/11/17 cholecalciferol (vitamin D3) 100 mcg (4,000 unit) tablet 4,000 unit PO DAILY supplement 07/13/18 aspirin 81 mg chewable tablet 81 mg PO DAILY@0800 blood thinner 10/02/19 duloxetine 60 mg capsule,delayed release 60 mg PO QDAY mood 01/20/24 levothyroxine 75 mcg tablet 75 mcg PO QDAY thyroid 01/20/24 metoprolol tartrate 50 mg tablet 50 mg PO BID for blood pressure #180 TABLETS 04/14/24 amlodipine 5 mg tablet 5 mg PO DAILY HTN #90 tabs 05/24/24 hydroxychloroquine 200 mg tablet (Plaquenil) 200 mg PO BID pain 10/29/24 losartan 100 mg tablet (Cozaar) 100 mg PO DAILY HTN 10/29/24 oxycodone-acetaminophen 5 mg-325 mg tablet 0.5 tab PO TID PRN PRN pain 10/30/24 acetaminophen 500 mg tablet 1,000 mg (2 x 500 mg) PO Q8 #0 tabs 11/21/24 enoxaparin 40 mg/0.4 mL subcutaneous syringe 40 mg (0.4 mL) subcut DAILY 7 days #2.8 mL 11/21/24 pramipexole 0.25 mg tablet 0.25 mg PO QHS 30 days #30 tabs 11/21/24 trazodone 50 mg tablet 75 mg (1.5 x 50 mg) PO 2000 30 days #45 tabs 11/21/24 Hospital Course Operations - (See below.) Procedures None Summary of Care Provided Minutes Spent on Discharge: 35 Hospital Course: 83 year old female with below past medical history hospitalized for left knee septic arthritis, underwent left knee aspiration with left knee arthroscopic irrigation and debridement/synovectomy 10/30/[address] Perdue, required Vancomycin/Ceftriaxone IV via PICC thru 11/21/2024, admitted to TCU with debility, here for rehabilitation, strengthening, prior to discharge home with . 11/11/2024 Resident positive for influenza A, treated with Tamiflu, also developed acute respiratory failure with hypoxia requiring oxygen per nasal cannula. 11/16/2024 CTA chest: IMPRESSION: Multifocal pneumonia. No evidence of acute pulmonary emboli to the segmental level. Pneumonia treated with Z-pack and Medrol dose pack. Her condition improved and she was eventually weaned off oxygen. Discharge home with 11/23/2024, [facility] PT/OT/SN. Physical Exam Const alert General Appearance: cooperative HEENT normocephalic Eyes PERRL and EOMs intact bilaterally Neck supple, no JVD and no carotid bruits Resp normal respiratory effort, normal air movement and clear to auscultation bilaterally Cardio regular rate and regular rhythm GI normal to inspection, nondistended, normoactive bowel sounds, non-tender and non-distended Extremity normal capillary refill General Extremity: Negative for edema Skin no rashes or lesions noted General Skin Exam: no breakdown Psych affect normal Appearance: appropriate Weight / BMI Weight Weight: 82.645 kg Body Mass Index (BMI) 30.7 ABG / Lab / Microbiology Data 11/17/24 05:23 11/17/24 05:23 Microbiology: Microbiology 11/17/24 05:35 Urine Catheter - Catheter Legionella Antigen - Final 11/17/24 05:35 Urine Catheter - Catheter Streptococcus pneumoniae Antigen (M - Final 11/11/24 09:16 Mucosa - Nasopharyngeal Respiratory Panel (PCR) - Final Influenza A (Subtype H1) 11/11/24 09:28 Nasal Secretion SARS-CoV-2 Antigen (Rapid) - Final 11/05/24 19:15 Stool Stool Occult Blood (REJI) - Final D/C Instructions Discharge Diet: No restrictions Discharge Activity: Return to Normal Activity, May Shower and Use Walker Weight Bearing Status: Weight bearing as tolerated Call your doctor if you observe: Fever of 101 or Higher, Inability to urinate, Inability to have a bowel movement, Shortness of breath, Dizziness, Fainting spells, Swelling in the ankles, Chest pain and Uncontrolled pain DC O2, CPAP, BIPAP Needs Home O2 Discharge instructions: No Additional Instructions: Discharge home with 11/23/2024, [facility] PT/OT/SN. Please Follow Up With: Bobby Perdue MD When: As scheduled. Meaningful Use Info Meaningful Use Meaningful Use Diagnoses (Choose all that apply): None applicable Ischemic Stroke Statin Dosing Therapy Reference: STATIN DOSE THERAPY REFERENCE: * Patients > 75 years receive moderate or high dose statin therapy. * Patients 75 years or YOUNGER should receive HIGH intensity statin dose unless contraindicated. You will be required to document reason for non-treatment if statin daily dose does not meet guidelines. HIGH DOSE STATIN THERAPY DAILY Atorvastatin > than or = to 40 mg Rosuvastatin > than or = to 20 mg Amlodipine + Atorvastatin > than or = to 2.5/40 mg Ezetimibe + Simvastatin 10/80 mg Simvastatin 80mg Discharge Plan Admission Admit Date/Time: 11/03/24 16:44 Primary Reason for Your Visit: Debility. Attending Provider: Madhuri Roberts Primary Care Provider: Serge Chicas Consulting Providers: Cristhian Nolan Instructions Additional Instructions / Restrictions: Discharge home with 11/23/2024, [facility] PT/OT/SN. Discharge Orders/Prescriptions Prescriptions: New trazodone 50 mg Tablet 75 mg PO 1999 30 Days Qty: 45 0RF acetaminophen 500 mg Tablet 1,000 mg PO Q8 Qty: 0 0RF pramipexole 0.25 mg Tablet 0.25 mg PO QHS 30 Days Qty: 30 0RF enoxaparin 40 mg/0.4 mL Syringe 40 mg subcut DAILY 7 Days Qty: 2.8 0RF Continued cetirizine [Zyrtec] 10 mg tablet 10 mg PO QDAY PRN (Reason: Allergies) cholecalciferol (vitamin D3) 4,000 unit tablet 4,000 unit PO DAILY duloxetine 60 mg capsule,delayed release(DR/EC) 60 mg PO QDAY levothyroxine 75 mcg tablet 75 mcg PO QDAY simvastatin 20 MG tablet 20 mg PO QHS Patient Comments: High Cholesterol multivitamin 1 EACH tablet 1 ea PO DAILY Patient Comments: supplement aspirin 81 MG tablet,chewable 81 mg PO DAILY@0800 losartan [Cozaar] 100 mg tablet 100 mg PO DAILY hydroxychloroquine [Plaquenil] 200 mg tablet 200 mg PO BID oxycodone-acetaminophen 5-325 mg tablet 0.5 tab PO TID PRN PRN (Reason: pain) metoprolol tartrate 50 mg tablet 50 mg PO BID Qty: 180 3RF amlodipine 5 mg tablet 5 mg PO DAILY Qty: 90 3RF Discontinued ceftriaxone 2 gram recon soln 2 g IV Q24H 18 Days Rx Instructions: stop date 11/20/24. Dx: septic arthritis. Weekly bmp, cbc, vanc trough, and esr. Fax to [phone]. Routine picc care per protocol. vancomycin 1.5 gram recon soln 1.5 g IV Q24H 18 Days Rx Instructions: stop date 11/20/24. Dx: septic arthritis. Weekly bmp, cbc, vanc trough, and esr. Fax to [phone]. Routine picc care per protocol. sennosides-docusate sodium [Stimulant Laxative Plus] 8.6-50 mg Tablet 2 tab PO BID Qty: 0 0RF acetaminophen 500 mg Tablet 1,000 mg PO Q8 Qty: 0 0RF Rx Instructions: Tylenol 1 g every 8 hours for 5 more days and then as needed oxycodone 5 mg Tablet 2.5 - 5 mg PO Q4H PRN PRN (Reason: Pain Score 4-10) Qty: 0 0RF Referrals / Follow Up: Serge Chicas MD [Primary Care Provider] - Disposition Disposition (needs filled in before D/C Order can be placed): Home Health Service
--- NOTE | 2024-11-21 20:13 | CPS ---
[1900] Pt. politely refused chest vest at this time.
[2024-11-21] MEDS: Pramipexole Di-HCl 0.25 MG Tablet PO (21:31)
[2024-11-21] MEDS: Atorvastatin Calcium 10 MG Tablet PO (21:34)
[2024-11-21] MEDS: traZODone 50 MG Tablet 75 MG PO (21:35)
[2024-11-21] MEDS: Loratadine 10 MG Tablet PO (21:38)
[2024-11-21] MEDS: Miconazole-7 Nitrate Cream 1 APPLIC VAGINAL (21:43)
[2024-11-21] MEDS: Petrolatum 33% Tube 1 APPLIC TOPICAL (21:48)
[2024-11-22] VITALS (8 sets, daily range): BP systolic 125–146; BP diastolic 60–61; PULSE 62–81; RESP 16–18; TEMP 36.5; O2SAT 93–97
[2024-11-22] MEDS: Acetaminophen 500 MG Tablet 1000 MG PO ×3 (04:38→23:37)
[2024-11-22] MEDS: Levothyroxine 75 MCG Tablet PO (04:39)
[2024-11-22] MEDS: NYSTATIN 500,000 UNIT/5 ML UDC 500000 UNIT PO ×4 (04:39→23:37)
--- NOTE | 2024-11-22 05:02 | NURSING ---
PICC line discontinued, 40cm in length, tip intact. Patient tolerated well.
[2024-11-22] MEDS: Ipratropium/Albuterol Sulfate 3 ML AMPUL.NEB INHALATION ×3 (07:45→19:55)
[2024-11-22] MEDS: Enoxaparin 40 MG/0.4 ML Syringe SC (09:20)
[2024-11-22] MEDS: DULoxetine Hcl 30 MG Capsule 90 MG PO (09:21)
[2024-11-22] MEDS: Cholecalciferol (VIT D3) 25 MCG TABLET (1,000 UNITS) 100 MCG PO (09:21)
[2024-11-22] MEDS: Metoprolol Tartrate 50 MG Tablet PO ×2 (09:21→23:37)
[2024-11-22] MEDS: Hydroxychloroquine 200 MG Tablet PO ×2 (09:21→23:39)
[2024-11-22] MEDS: Lactobacillis Acidophilus 1 CAP PO ×2 (09:21→23:39)
[2024-11-22] MEDS: Multivitamins,Therapeutic Tablet 1 TABLET PO (09:21)
[2024-11-22] MEDS: amLODIPine 5 MG Tablet PO (09:21)
[2024-11-22] MEDS: Aspirin 81 MG TAB.CHEW PO (09:21)
[2024-11-22] MEDS: Losartan Potassium 100 MG Tablet PO (09:21)
[2024-11-22] MEDS: Nystatin Powder 15gm Bottle 1 APPLIC TOPICAL ×2 (09:22→23:41)
[2024-11-22] MEDS: Menthol/Lanolin/Calamine/Znox 113 GM Tube 1 APPLIC TOPICAL ×2 (09:26→23:42)
--- NOTE | 2024-11-22 09:29 | CPS ---
patient refused chest vest at this time
--- NOTE | 2024-11-22 13:10 | CASEMGMT ---
Social Work SW called to pt room. Pt stating that she spoke with her spouse and they have decided they do not want home health services. Therapy notified. Phone call to Leonie at [facility] and services cancelled. KAYLA Kelly
[2024-11-22] MEDS: traZODone 50 MG Tablet 75 MG PO (23:38)
[2024-11-22] MEDS: Pramipexole Di-HCl 0.25 MG Tablet PO (23:39)
[2024-11-22] MEDS: Atorvastatin Calcium 10 MG Tablet PO (23:40)
[2024-11-22] MEDS: Miconazole-7 Nitrate Cream 1 APPLIC VAGINAL (23:40)
[2024-11-22] MEDS: Petrolatum 33% Tube 1 APPLIC TOPICAL (23:42)
[2024-11-22] MEDS: Loratadine 10 MG Tablet PO (23:46)
[2024-11-23 00:02] VITALS: BP 125/61; PULSE 81
[2024-11-23] MEDS: NYSTATIN 500,000 UNIT/5 ML UDC 500000 UNIT PO (06:43)
[2024-11-23] MEDS: Acetaminophen 500 MG Tablet 1000 MG PO (06:43)
[2024-11-23] MEDS: Levothyroxine 75 MCG Tablet PO (06:43)
[2024-11-23 06:50] VITALS: PULSE 92; RESP 17; O2SAT 96
[2024-11-23 07:15] VITALS: PULSE 76; RESP 19; O2SAT 95
[2024-11-23] MEDS: Ipratropium/Albuterol Sulfate 3 ML AMPUL.NEB INHALATION (07:30)
[2024-11-23 07:36] VITALS: BP 134/58; PULSE 67; RESP 18; TEMP 36.5; O2SAT 97
[2024-11-23 08:08] VITALS: PULSE 67
[2024-11-23] MEDS: Losartan Potassium 100 MG Tablet PO (08:08)
[2024-11-23] MEDS: amLODIPine 5 MG Tablet PO (08:08)
[2024-11-23] MEDS: Multivitamins,Therapeutic Tablet 1 TABLET PO (08:08)
[2024-11-23] MEDS: Lactobacillis Acidophilus 1 CAP PO (08:08)
[2024-11-23] MEDS: Metoprolol Tartrate 50 MG Tablet PO (08:08)
[2024-11-23] MEDS: Hydroxychloroquine 200 MG Tablet PO (08:08)
[2024-11-23] MEDS: DULoxetine Hcl 30 MG Capsule 90 MG PO (08:08)
[2024-11-23] MEDS: Aspirin 81 MG TAB.CHEW PO (08:08)
[2024-11-23] MEDS: Nystatin Powder 15gm Bottle 1 APPLIC TOPICAL (08:09)
[2024-11-23] MEDS: Cholecalciferol (VIT D3) 25 MCG TABLET (1,000 UNITS) 100 MCG PO (08:09)
[2024-11-23] MEDS: Menthol/Lanolin/Calamine/Znox 113 GM Tube 1 APPLIC TOPICAL (08:10)
--- NOTE | 2024-11-23 08:25 | CPS ---
patient refused vest.
--- NOTE | 2024-11-23 08:57 | CASEMGMT ---
BIMS () and PHQ2 (0) interviews completed on this date for MDS assessment. KAYLA Kelly
[2024-11-23] MEDS: Enoxaparin 40 MG/0.4 ML Syringe SC (10:13)
--- NOTE | 2024-11-23 10:30 | NURSING ---
teaching instructions given on lovenox, demonstrated how to administer. pt and son verbalized understanding.
== END 2024-11-23 10:30 | disposition home health service (06) | DRG 548 ==
PROVIDERS: Family Medicine Geriatric Medicine; Admitting Provider Internal Medicine; PCP Family Medicine; Referring Provider Internal Medicine; Visit Provider Internal Medicine
DX: M00.9 Pyogenic arthritis, unspecified (principal); J96.01 Acute respiratory failure with hypoxia; J18.9 Pneumonia, unspecified organism; N18.30 Chronic kidney disease, stage 3 unspecified; E03.9 Hypothyroidism, unspecified; I12.9 Hypertensive chronic kidney disease with stage 1 through stage 4 chronic kidney disease, or unspecified chronic kidney disease; I48.0 Paroxysmal atrial fibrillation; J10.1 Influenza due to other identified influenza virus with other respiratory manifestations; M25.462 Effusion, left knee; E78.2 Mixed hyperlipidemia; M79.7 Fibromyalgia; I25.10 Atherosclerotic heart disease of native coronary artery without angina pectoris; J30.89 Other allergic rhinitis; J20.9 Acute bronchitis, unspecified; M19.90 Unspecified osteoarthritis, unspecified site; Z79.82 Long term (current) use of aspirin; G47.00 Insomnia, unspecified; Z79.890 Hormone replacement therapy; Z79.899 Other long term (current) drug therapy; R73.02 Impaired glucose tolerance (oral)
CPT/HCPCS: 36415; 71046; 80048; 80202; 82274; 83036; 83880; 85025; 87449; 87633; 87811; 92507; 92523; 92610; 93005; 94640; 94667; 94668; 97110; 97116; 97129; 97130; 97162; 97165; 97530; 97535; J2185; A4216; J0696

== ENCOUNTER → 2024-11-16 | Outpatient (CLI) | payer MEDICARE, OTHER, SELFPAY ==
--- NOTE | 2024-11-16 18:00 | CT_ITS ---
INDICATION: pneumonnia vs PE, flu + EXAMINATION: CTA Chest WO/W Contrast Injection TECHNIQUE: Helically acquired images were obtained of the chest following administration of IV contrast. A radiation dose optimization technique was used for this scan. 3D postprocessing images including MIPS were reviewed. IV Contrast dosage and agent: IV 100mL [id number] COMPARISON: None. FINDINGS: Lungs: Multifocal consolidation. Mediastinum: The heart is mildly enlarged. No mediastinal, hilar or axillary adenopathy. Moderate aortic arch and coronary artery calcifications. No obvious filling defect seen within the visualized pulmonary arteries. Pleura: Unremarkable Bones/Soft tissues: There are diffuse degenerative changes of the spine. Upper abdomen: No visualized abnormalities in the upper abdomen. CT/CTA Chest W/WO Contrast IMPRESSION: Multifocal pneumonia. No evidence of acute pulmonary emboli to the segmental level. Electronically Signed: Vinny Maradiaga MD at 19:41 EST ,
== END | disposition home or self-care (01) ==
PROVIDERS: PCP Family Medicine; Referring Provider Family Medicine Geriatric Medicine; Visit Provider Family Medicine Geriatric Medicine
DX: J18.9 Pneumonia, unspecified organism (principal)
CPT/HCPCS: 71275; Q9967; A4216

== ENCOUNTER → 2024-12-13 | Outpatient (CLI) | payer MEDICARE, OTHER, SELFPAY ==
--- NOTE | 2024-12-13 14:50 | RAD_ITS ---
PROCEDURE: PA and lateral chest radiographs, two views REASON FOR EXAM: Recent pneumonia TECHNIQUE: PA and lateral chest radiographs were obtained COMPARISON: 11/10/2024 FINDINGS: The cardiomediastinal silhouette is stable. No pneumothorax, focal airspace consolidation, or pleural effusion. Mild pulmonary hyperinflation. Bones are osteopenic with degenerative changes in the spine. RAD/Chest PA and Lateral IMPRESSION: Pulmonary hyperinflation. No acute cardiopulmonary process is demonstrated. Reading Location[facility]
[2024-12-13 17:50] LABS: Hematocrit 39.6 % (37-47); Hemoglobin 12.2 g/dL (12.0-15.0); Mean Corp Hgb Conc 30.8 g/dL (32-36); Mean Corpuscular Hgb 29.6 pg (27.0-32.0); Mean Corpuscular Volume 96.1 fL (81-99); Mean Platelet Vol. 11.1 fl (6.2-12.0); Platelet Count 531 K/mm3 (150-450); RBC Distribution Width CV 14.7 % (11.6-14.6); RBC Distribution Width SD 52.3 fl (35.1-43.9); Red Blood Count 4.12 M/mm3 (4.2-5.4); White Blood Count 11.4 K/mm3 (4.4-11.0)
[2024-12-13 18:24] LABS: ALB/GLOB Ratio 0.8 RATIO (0.9-2.4); AST(SGOT) 12 U/L (15-37); Alanine Aminotransfer ALT/SGPT 20 U/L (13-56); Albumin, Serum 3.5 g/dL (3.2-5.0); Alkaline Phosphatase 166 U/L (45-117); Anion Gap 7 (5-15); BUN 18 mg/dL (7-18); BUN/Creat Ratio 12.3 RATIO (10-20); Calcium,Total 10.9 mg/dL (8.5-10.1); Chloride 106 mmol/L (98-107); Creatinine, Serum 1.46 mg/dL (0.55-1.02); EST Glomerular Filtration Rate 36 mL/min (>60); Est Glom Filt Rate - Afr Amer 44 mL/min (>60); Globulin 4.2 g/dL (2.2-4.2); Glucose 129 mg/dL (74-106); Potassium 4.2 mmol/L (3.5-5.1); Protein, Total 7.7 g/dL (6.4-8.2); Sodium Level 139 mmol/L (136-145)
[2024-12-14 11:04] LABS: PTHIN 214.5 pg/mL (18.4-80.1)
[2024-12-15 07:07] LABS: Prealbumin 24 mg/dL (9-32)
== END | disposition home or self-care (01) ==
PROVIDERS: PCP Family Medicine; Referring Provider Family Medicine; Visit Provider Family Medicine
DX: E83.52 Hypercalcemia (principal); J18.9 Pneumonia, unspecified organism; R63.4 Abnormal weight loss
CPT/HCPCS: 36415; 71046; 80053; 83970; 84134; 85027

== ENCOUNTER → 2025-02-20 | Outpatient (CLI) | payer MEDICARE, OTHER, SELFPAY ==
[2025-02-20 17:02] LABS: Bacteria 0 SEEN /hpf (None Seen); Mucous, Urine 0 SEEN /hpf (<or=2+)
[2025-02-20 18:32] LABS: Absolute Lymphocyte Count 1.77 X10^3/uL (0.83-4.51); Absolute Neutrophil Count 6.1 X10^3/uL (2.0-7.7); Basophil# 0.08 X10^3/uL; Basophil% 0.9 % (0-1); Eosinophil# 0.28 X10^3/uL; Eosinophils% 3.1 % (0-5); Hematocrit 33.7 % (37-47); Hemoglobin 10.9 g/dL (12.0-15.0); Lymphocyte # 1.77 X10^3/ul (0.83-4.51); Lymphocyte % 19.6 % (19-41); Mean Corp Hgb Conc 32.3 g/dL (32-36); Mean Corpuscular Hgb 30.9 pg (27.0-32.0); Mean Corpuscular Volume 95.5 fL (81-99); Mean Platelet Vol. 10.8 fl (6.2-12.0); Monocyte# 0.78 X10^3/uL; Monocyte% 8.7 % (0-10); NRBC Flagged by Analyzer 0 % (0-5); Neutrophil # 6.08 X10^3/uL (2.7-7.7); Neutrophil % 67.5 % (47-70); Platelet Count 348 K/mm3 (150-450); RBC Distribution Width CV 12.9 % (11.6-14.6); RBC Distribution Width SD 45.3 fl (35.1-43.9); Red Blood Count 3.53 M/mm3 (4.2-5.4)
[2025-02-20 18:58] LABS: Hemoglobin A1c 6.3 % (<=5.6)
[2025-02-20 18:59] LABS: PTHIN 150 pg/mL (11-61)
[2025-02-20 20:07] LABS: ALB/GLOB Ratio 1.2 RATIO (0.9-2.4); AST(SGOT) 12 U/L (<=31); Alanine Aminotransfer ALT/SGPT 8 U/L (<=34); Alkaline Phosphatase 142 U/L (35-104); Anion Gap 10 (5-15); BUN 27 mg/dL (4-19); BUN/Creat Ratio 18.9 RATIO (10-20); Calcium,Total 10.5 mg/dL (7.6-11.0); Carbon Dioxide 22.7 mmol/L (21.0-32.0); Chloride 106 mmol/L (98-108); Creatinine, Serum 1.41 mg/dL (0.70-1.20); EST Glomerular Filtration Rate 37 (>60); Globulin 3.2 g/dL (2.2-4.2); Glucose 105 mg/dL (70-99); Magnesium 2.1 mg/dL (1.5-2.2); Potassium 4.6 mmol/L (3.3-5.1); Protein, Total 7.1 g/dL (5.9-8.4); Sodium Level 138 mmol/L (133-145); Total Bilirubin 0.29 mg/dL (0.00-1.30); Vitamin D,25 Hydroxy 45.7 ng/mL (30-100)
[2025-02-20 20:17] LABS: Color, Urine Yellow (Yellow); Glucose, Dipstick Normal (Normal); Ketone-Dipstick Negative (Negative); Leukocyte Esterase-Dipstick Negative /ul (Negative); Nitrite-Dipstick Negative (Negative); Occult Blood-Urine Negative /ul (Negative); Protein-Dipstick 30 mg/dl (Negative); Urine Bilirubin Dipstick Negative (Negative); Urine Clarity Clear (Clear); Urine Urobilinogen Normal (Normal)
[2025-02-20 20:23] LABS: Cholesterol 168 mg/dL (<=200); High Density Lipoprotein 40 mg/dL; Low Density Lipoprotein Calc. 57 mg/dL; Triglycerides 354 mg/dL; Very Low Density Lipoprotein 71 mg/dL (5-40); cholesterol:hdl ratio screen 4.17
[2025-02-20 20:43] LABS: Microalbumin,Random Urine < 12.0 mg/L (NO RANGE EST.); Microalbumin:Creatinine Ratio UNABLE TO CALCULATE mg/g CRE
[2025-02-20 20:54] LABS: Squamous Epithelial Cells - UA 0-5 SEEN /hpf (5-10); White Blood Cells 0-5 SEEN /hpf (0-5)
[2025-02-20 20:55] LABS: Hyaline Cast 0-5 SEEN /lpf (0-5); Red Blood Cells-Urine 0-5 SEEN /hpf (0-5)
[2025-02-21 13:48] LABS: Ferritin 281 ng/mL (22-378); Iron 59 ug/dL (50-170); Iron Binding Capacity,Total 257 ug/dL (250-450); Iron Binding Capacity,Unsat 198 ug/dL (228-428); Vitamin B12 368 pg/mL (180-914)
== END | disposition home or self-care (01) ==
LOC: MFPLAB 16:57
PROVIDERS: PCP Family Medicine; Referring Provider Family Medicine; Visit Provider Family Medicine
DX: D64.9 Anemia, unspecified (principal); I48.91 Unspecified atrial fibrillation; E11.59 Type 2 diabetes mellitus with other circulatory complications; E11.69 Type 2 diabetes mellitus with other specified complication; E21.3 Hyperparathyroidism, unspecified; E03.9 Hypothyroidism, unspecified
CPT/HCPCS: 80053; 80061; 81001; 82043; 82306; 82570; 82607; 82728; 83036; 83540; 83550; 83735; 83970; 84439; 84443; 85025

== ENCOUNTER → 2025-07-04 | Outpatient (CLI) | payer MEDICARE, OTHER, SELFPAY ==
[2025-07-04 13:14] LABS: Hematocrit 36.4 % (37-47); Hemoglobin 11.5 g/dL (12.0-15.0); Immature Granulocytes Count 0.040 X10^3/uL (0.0-0.0); Mean Corp Hgb Conc 31.6 g/dL (32-36); Mean Corpuscular Volume 97.6 fL (81-99); Mean Platelet Vol. 10.5 fl (6.2-12.0); NRBC Flagged by Analyzer 0 % (0-5); Platelet Count 364 K/mm3 (150-450); RBC Distribution Width CV 12.5 % (11.6-14.6); RBC Distribution Width SD 44.5 fl (35.1-43.9); Red Blood Count 3.73 M/mm3 (4.2-5.4); White Blood Count 10.6 K/mm3 (4.4-11.0)
[2025-07-04 15:51] LABS: Creatinine, Urine (random) 270.00 mg/dL (28.00-217.00)
[2025-07-04 15:53] LABS: Protein, Urine (Random) 77.1 mg/dL (0.0-12.0); Protein:Creat Ratio 286 mg/g CRE (0-200)
[2025-07-04 16:04] LABS: AST(SGOT) 14 U/L (<=31); Alanine Aminotransfer ALT/SGPT 9 U/L (<=34); Albumin, Serum 4.1 g/dL (3.4-4.8); Alkaline Phosphatase 126 U/L (35-104); Anion Gap 12 (5-15); BUN 21 mg/dL (4-19); BUN/Creat Ratio 19.2 RATIO (10-20); Calcium,Total 10.7 mg/dL (7.6-11.0); Carbon Dioxide 23.2 mmol/L (21.0-32.0); Chloride 104 mmol/L (98-108); Cholesterol 194 mg/dL (<=200); Globulin 3.1 g/dL (2.2-4.2); Glucose 130 mg/dL (70-99); Low Density Lipoprotein Calc. 81 mg/dL; Magnesium 2.2 mg/dL (1.5-2.2); Potassium 4.5 mmol/L (3.3-5.1); Triglycerides 341 mg/dL; Very Low Density Lipoprotein 68 mg/dL (5-40); cholesterol:hdl ratio screen 4.34
== END | disposition home or self-care (01) ==
LOC: MFPLAB 11:04
PROVIDERS: PCP Family Medicine; Referring Provider Family Medicine; Visit Provider Family Medicine
DX: I48.91 Unspecified atrial fibrillation (principal); E11.69 Type 2 diabetes mellitus with other specified complication; E03.9 Hypothyroidism, unspecified
CPT/HCPCS: 36415; 80053; 80061; 82570; 83036; 83735; 84156; 84439; 84443; 85025